=== PATIENT | male | born 1950 | race Caucasian/White ===

== ENCOUNTER 2018-02-24 08:32 | Inpatient (IN) | payer MEDICARE ==
[2018-02-24] MEDS ORDERED: DEXAMETHASONE SOD PHOSPHATE 10 MG/ML 1 ML VIAL IV STA (09:03)
[2018-02-24] MEDS ORDERED: IPRATROPIUM-ALBUTEROL 3 ML NEB INHALATION STA (09:03)
[2018-02-24] MEDS ORDERED: SODIUM CHLORIDE 0.9% 500 ML IV ONE (09:12)
--- NOTE | 2018-02-24 09:12 | ED ---
General Adult HPI - General Chief complaint: Chest Pain Stated complaint: Chest Pain Time Seen by Provider: 02/24/18 08:40 Source: patient, RN notes reviewed, old records reviewed Mode of arrival: ambulatory Limitations: no limitations - History of Present Illness Initial comments: 67-year-old male presenting with left lateral chest pain. Patient's pain has been present for the past one week or greater. Pain is sharp in nature, worse with deep inspiration. He does state that this starts in his left flank area and travels up into his left chest. No central chest pain. Patient has some mild dyspnea associated with this. He has been coughing. No formal diagnosis of COPD however patient does report increased cough and sputum production. Over the past 24 hours patient has developed worsening pain and subjective fever and chills. Patient is also had some nausea and dry heaving, no significant vomiting. Patient also reports 2 episodes of diarrhea. No abdominal pain. - Related Data Allergies Allergy/AdvReac Type Severity Reaction Status Date / Time codeine Allergy Nausea & Verified 02/24/18 08:34 Vomiting Review of Systems ROS Statement: Those systems with pertinent positive or pertinent negative responses have been documented in the HPI. ROS Other: All systems not noted in ROS Statement are negative. Past Medical History Past Medical History: Myocardial Infarction ([place]) History of Any Multi-Drug Resistant Organisms: None Reported Past Surgical History: Hernia Repair, Orthopedic Surgery Past Psychological History: No Psychological Hx Reported Smoking Status: Current every day smoker Past Alcohol Use History: Occasional Past Drug Use History: None Reported General Exam Limitations: no limitations General appearance: alert, in no apparent distress Head exam: Present: atraumatic, normocephalic Eye exam: Present: normal appearance, PERRL ENT exam: Present: normal exam Neck exam: Present: normal inspection. Absent: tenderness, meningismus Respiratory exam: Present: wheezes, rhonchi, decreased breath sounds. Absent: respiratory distress Cardiovascular Exam: Present: regular rate, normal rhythm GI/Abdominal exam: Present: soft. Absent: distended, tenderness, guarding Extremities exam: Present: normal inspection, normal capillary refill. Absent: pedal edema, calf tenderness Neurological exam: Present: alert, oriented X3, CN II-XII intact. Absent: motor sensory deficit Psychiatric exam: Present: normal affect, normal mood Skin exam: Present: warm, dry, intact. Absent: cyanosis, diaphoretic Course Vital Signs 02/24/18 02/24/18 02/24/18 08:34 09:10 09:21 Temperature 98.0 F Pulse Rate 70 60 61 Respiratory 18 18 Rate Blood Pressure 197/100 196/91 O2 Sat by Pulse 97 98 Oximetry 02/24/18 02/24/18 09:32 10:00 Temperature Pulse Rate 62 65 Respiratory 18 Rate Blood Pressure 190/87 O2 Sat by Pulse 98 Oximetry EKG Findings - EKG Comments: EKG Findings:: EKG: Normal sinus rhythm, possible left atrial enlargement, left ventricular hypertrophy, rate of 62, NC interval 142, QRS duration 92, QTC 418, T waves are upright, there is no ST segment elevation. Medical Decision Making - Medical Decision Making 67-year-old male presenting with intermittent left lateral chest pain, pain is worse with deep inspiration, sharp in nature. He does report cough which is productive of sputum and subjective fever and chills. Chest x-ray is obtained, shows a left-sided pleural effusion with atelectasis first pneumonia. Given the patient's history there is concern for community acquired pneumonia with parapneumonic effusion. There is elevated white blood cell count 11.1 which is predominantly neutrophils. BNP and troponin are negative. EKG is nonischemic. Patient will be admitted for IV antibiotics and treatment of presumed COPD. Consult will be placed to pulmonology. Case discussed with Dr. Deleon who will accept admission. - Lab Data Result diagrams: 02/24/18 09:10 02/24/18 09:10 Lab Results 02/24/18 02/24/18 02/24/18 Range/Units 09:10 09:10 09:10 WBC 11.1 H (3.8-10.6) k/uL RBC 4.61 (4.30-5.90) m/uL Hgb 13.0 (13.0-17.5) gm/dL Hct 39.9 (39.0-53.0) % MCV 86.5 (80.0-100.0) fL MCH 28.2 (25.0-35.0) pg MCHC 32.6 (31.0-37.0) g/dL RDW 14.1 (11.5-15.5) % Plt Count 438 (150-450) k/uL Neutrophils % 84 % Lymphocytes % 7 % Monocytes % 6 % Eosinophils % 2 % Basophils % 0 % Neutrophils # 9.4 H (1.3-7.7) k/uL Lymphocytes # 0.8 L (1.0-4.8) k/uL Monocytes # 0.6 (0-1.0) k/uL Eosinophils # 0.2 (0-0.7) k/uL Basophils # 0.0 (0-0.2) k/uL PT (9.0-12.0) sec INR (<1.2) APTT (22.0-30.0) sec Sodium 133 L (137-145) mmol/L Potassium 4.4 (3.5-5.1) mmol/L Chloride 96 L (98-107) mmol/L Carbon Dioxide 29 (22-30) mmol/L Anion Gap 8 mmol/L BUN 13 (9-20) mg/dL Creatinine 0.60 L (0.66-1.25) mg/dL Est GFR (CKD-EPI)AfAm >90 (>60 ml/min/1.73 sqM) Est GFR (CKD-EPI)NonAf >90 (>60 ml/min/1.73 sqM) Glucose 116 H (74-99) mg/dL Plasma Lactic Acid Denzel (0.7-2.0) mmol/L Calcium 9.1 (8.4-10.2) mg/dL Magnesium 2.0 (1.6-2.3) mg/dL Total Bilirubin 0.7 (0.2-1.3) mg/dL AST 16 L (17-59) U/L ALT 26 (21-72) U/L Alkaline Phosphatase 75 (38-126) U/L Total Creatine Kinase 26 L (55-170) U/L CK-MB (CK-2) 0.7 (0.0-2.4) ng/mL CK-MB (CK-2) Rel Index 2.7 Troponin I <0.012 (0.000-0.034) ng/mL NT-Pro-B Natriuret Pep pg/mL Total Protein 6.5 (6.3-8.2) g/dL Albumin 3.7 (3.5-5.0) g/dL 02/24/18 02/24/18 02/24/18 Range/Units 09:10 09:10 09:10 WBC (3.8-10.6) k/uL RBC (4.30-5.90) m/uL Hgb (13.0-17.5) gm/dL Hct (39.0-53.0) % MCV (80.0-100.0) fL MCH (25.0-35.0) pg MCHC (31.0-37.0) g/dL RDW (11.5-15.5) % Plt Count (150-450) k/uL Neutrophils % % Lymphocytes % % Monocytes % % Eosinophils % % Basophils % % Neutrophils # (1.3-7.7) k/uL Lymphocytes # (1.0-4.8) k/uL Monocytes # (0-1.0) k/uL Eosinophils # (0-0.7) k/uL Basophils # (0-0.2) k/uL PT 9.8 (9.0-12.0) sec INR 1.0 (<1.2) APTT 24.9 (22.0-30.0) sec Sodium (137-145) mmol/L Potassium (3.5-5.1) mmol/L Chloride (98-107) mmol/L Carbon Dioxide (22-30) mmol/L Anion Gap mmol/L BUN (9-20) mg/dL Creatinine (0.66-1.25) mg/dL Est GFR (CKD-EPI)AfAm (>60 ml/min/1.73 sqM) Est GFR (CKD-EPI)NonAf (>60 ml/min/1.73 sqM) Glucose (74-99) mg/dL Plasma Lactic Acid Denzel 0.9 (0.7-2.0) mmol/L Calcium (8.4-10.2) mg/dL Magnesium (1.6-2.3) mg/dL Total Bilirubin (0.2-1.3) mg/dL AST (17-59) U/L ALT (21-72) U/L Alkaline Phosphatase (38-126) U/L Total Creatine Kinase (55-170) U/L CK-MB (CK-2) (0.0-2.4) ng/mL CK-MB (CK-2) Rel Index Troponin I (0.000-0.034) ng/mL NT-Pro-B Natriuret Pep 215 pg/mL Total Protein (6.3-8.2) g/dL Albumin (3.5-5.0) g/dL Disposition Clinical Impression: Community acquired pneumonia, COPD (chronic obstructive pulmonary disease), Pleural effusion Disposition: ADMITTED IP TO THIS HOSP Condition: Stable Is patient prescribed a controlled substance at d/c from ED?: No Referrals: None,Stated [Primary Care Provider] - 1-2 days Decision to Admit Reason: Admit from EC Decision Date: 02/24/18 Decision Time: 10:39
[2018-02-24 09:25] LABS: Basophils % (A) 0 %; Eosinophils # (A) 0.2 k/uL (0-0.7); Eosinophils % (A) 2 %; HCT 39.9 % (39.0-53.0); Lymphocytes # (A) 0.8 k/uL (1.0-4.8); Lymphocytes % (A) 7 %; MCH 28.2 pg (25.0-35.0); MCHC 32.6 g/dL (31.0-37.0); MCV 86.5 fL (80.0-100.0); Mean Platelet Volume 6.3; Monocytes # (A) 0.6 k/uL (0-1.0); Monocytes % (A) 6 %; Neutrophils # (A) 9.4 k/uL (1.3-7.7); Neutrophils % (A) 84 %; Platelet Count 438 k/uL (150-450); RBC 4.61 m/uL (4.30-5.90); RDW 14.1 % (11.5-15.5); WBC 11.1 k/uL (3.8-10.6)
[2018-02-24 09:34] LABS: ALT 26 U/L (21-72); AST 16 U/L (17-59); Albumin 3.7 g/dL (3.5-5.0); Alkaline Phosphatase 75 U/L (38-126); Anion Gap 8 mmol/L; Blood Urea Nitrogen 13 mg/dL (9-20); Calcium 9.1 mg/dL (8.4-10.2); Carbon Dioxide 29 mmol/L (22-30); Chloride 96 mmol/L (98-107); Glucose 116 mg/dL (74-99); Potassium 4.4 mmol/L (3.5-5.1); Sodium 133 mmol/L (137-145); Total Bilirubin 0.7 mg/dL (0.2-1.3); Total Protein 6.5 g/dL (6.3-8.2)
[2018-02-24 09:39] LABS: Partial Thromboplastin Time 24.9 sec (22.0-30.0); Prothrombin Time 9.8 sec (9.0-12.0)
[2018-02-24 10:03] LABS: Creatine Kinase 26 U/L (55-170)
[2018-02-24 10:16] LABS: Creatine Kinase MB 0.7 ng/mL (0.0-2.4); Troponin I <0.012 ng/mL (0.000-0.034)
--- NOTE | 2018-02-24 10:24 | XR ---
EXAMINATION TYPE: XR chest 2V DATE OF EXAM: 02/24/2018 HISTORY: Chest Pain. REFERENCE: Previous study dated 12/02/2009. FINDINGS: There has developed a left-sided pleural effusion with associated atelectatic change. The r ight lung is clear. The heart is not enlarged. There is underlying COPD. IMPRESSION: 1. DEVELOPING LEFT-SIDED PLEURAL EFFUSION WITH ASSOCIATED AIRSPACE DISEASE. 2. UNDERLYING COPD.
[2018-02-24] MEDS ORDERED: AZITHROMYCIN 500 MG in DEXTROSE 5% IN WATER 250 ML IVPB STA ×2 (10:30)
[2018-02-24] MEDS ORDERED: cefTRIAXone IN SWFI 1,000 MG/10 ML SYRINGE IVP STA (10:31)
[2018-02-24] MEDS ORDERED: IPRATROPIUM-ALBUTEROL 3 ML NEB INHALATION PRN (10:33)
[2018-02-24] MEDS ORDERED: ONDANSETRON 4 MG/2 ML VIAL IVP PRN (11:08)
[2018-02-24 12:07] LABS: Glucose,Whole Blood 159 mg/dL (75-99)
--- NOTE | 2018-02-24 12:08 | P.HPIM ---
History of Present Illness H&P Date: 02/24/18 Chief Complaint: Shortness of breath, pleuritic chest pain The patient is a 67-year-old male with no significant past medical history who presents to the ER via private vehicle with chief complaint of progressive worsening shortness of breath the last week or so with associated clear productive cough for the last 3 weeks, the patient reports his shortness of breath is worsened by exertion. He also reports pleuritic left flank chest pain that is worsened by cough and takes his breath away, he reported taking his 's medication nitroglycerin earlier today that seemed to resolve his pain. The patient reports subjective fevers chills this morning. He denies any lower extremity swelling palpitations syncope or presyncope. The patient does have a significant 40 year pack history. He denies any weight loss, generalized weakness or fatigue. In the ER the patient had a conference and workup chest x-ray was suggestive of a left pleural effusion with airspace disease, patient Had a mild leukocytosis of 11.1. Hyponatremia 133, negative initial set of troponins. He was started on systemic steroids IV antibiotics breathing treatments and recommended for admission Review of Systems All other 12 point review of systems negative except for HPI Past Medical History Past Medical History: Myocardial Infarction ([place]) Additional Past Medical History / Comment(s): heart attach in 2009 Last Myocardial Infarction Date:: 2009 History of Any Multi-Drug Resistant Organisms: None Reported Past Surgical History: Hernia Repair, Orthopedic Surgery Additional Past Surgical History / Comment(s): broken wrist with a plate placed with screws Past Anesthesia/Blood Transfusion Reactions: No Reported Reaction Past Psychological History: No Psychological Hx Reported Smoking Status: Current every day smoker Past Alcohol Use History: Occasional Past Drug Use History: None Reported - Past Family History Father Additional Family Medical History / Comment(s): cancer Medications and Allergies Home Medications Medication Instructions Recorded Confirmed Type Acetaminophen Tab [Tylenol Tab] 1,000 mg PO Q6HR PRN 02/24/18 02/24/18 History Acetaminophen/Diphenhydramine 2 tab PO HS 02/24/18 02/24/18 History [Tylenol PM 500-25mg] Allergies Allergy/AdvReac Type Severity Reaction Status Date / Time codeine Allergy Nausea & Verified 02/24/18 12:20 Vomiting Physical Exam Vitals: Vital Signs Temp Pulse Resp BP Pulse Ox 02/24/18 10:55 98.0 F 71 20 183/91 99 02/24/18 10:00 65 18 190/87 98 02/24/18 09:32 62 02/24/18 09:21 61 02/24/18 09:10 60 18 196/91 98 02/24/18 08:34 98.0 F 70 18 197/100 97 Intake and Output 02/23/18 02/24/18 02/24/18 22:59 06:59 14:59 Other: Weight 61.235 kg Constitutional: No acute distress, conversant, pleasant Eyes: Anicteric sclerae, moist conjunctiva, no lid-lag, PERRLA ENMT: NC/AT,Oropharynx clear, no erythema, exudates Neck:Supple, FROM, no masses, or JVD, No carotid bruits; No thyromegaly Lungs: Very diminished breath sounds in the left lung field good air movement in the right lung field Clear to percussion, Normal respiratory effort, no accessory muscle use Cardiovascular: Heart regular in rate and rhythm, No murmurs, gallops, or rubs no peripheral edema Abdominal: Soft Nontender, nom distended, no guarding, no rebound or rigidity, Normoactive bowel sounds No hepatomegaly, No splenomegaly, No palpable mass No abdominal wall hernia noted Skin: Normal temperature, tone, texture, turgor, No induration No subcutaneous nodules, No rash, lesions, No ulcers Extremities:No digital cyanosis No clubbing, Pedal pulses intact and symmetrical Radial pulses intact and symmetrical Normal gait and station, No calf tenderness Psychiatric: Alert and oriented to person, place and time, Appropriate affect Intact judgement Neuro: Muscles Strength 5/5 in all 4 extremities, Sensation to light touch grossly present throughout, Cranial nerves II-XII grossly intact. No focal sensory deficits Results CBC & Chem 7: 02/24/18 09:10 02/24/18 09:10 Labs: Abnormal Lab Results - Last 24 Hours (Table) 02/24/18 02/24/18 02/24/18 Range/Units 09:10 09:10 09:10 WBC 11.1 H (3.8-10.6) k/uL Neutrophils # 9.4 H (1.3-7.7) k/uL Lymphocytes # 0.8 L (1.0-4.8) k/uL Sodium 133 L (137-145) mmol/L Chloride 96 L (98-107) mmol/L Creatinine 0.60 L (0.66-1.25) mg/dL Glucose 116 H (74-99) mg/dL AST 16 L (17-59) U/L Total Creatine Kinase 26 L (55-170) U/L Thrombosis Risk Factor Assmnt - Choose All That Apply Any of the Below Risk Factors Present?: No Assessment and Plan (1) COPD exacerbation Current Visit: Yes Status: Acute Code(s): J44.1 - CHRONIC OBSTRUCTIVE PULMONARY DISEASE W (ACUTE) EXACERBATION SNOMED Code(s): 069258781 (2) Accelerated hypertension Current Visit: Yes Status: Acute Code(s): I10 - ESSENTIAL (PRIMARY) HYPERTENSION SNOMED Code(s): 76720683 (3) Community acquired pneumonia Current Visit: Yes Status: Acute Code(s): J18.9 - PNEUMONIA, UNSPECIFIED ORGANISM SNOMED Code(s): 019812927 (4) Pleural effusion Current Visit: Yes Status: Acute Code(s): J90 - PLEURAL EFFUSION, NOT ELSEWHERE CLASSIFIED SNOMED Code(s): 37486742 (5) Hyponatremia Current Visit: Yes Status: Acute Code(s): E87.1 - HYPO-OSMOLALITY AND HYPONATREMIA SNOMED Code(s): 27167409 (6) Leukocytosis Current Visit: Yes Status: Acute Code(s): D72.829 - ELEVATED WHITE BLOOD CELL COUNT, UNSPECIFIED SNOMED Code(s): 773439672 Plan: The patient is admitted anticipated greater than 2 midnight stay with atypical chest pain, likely COPD exacerbation triggered by left-sided community-acquired pneumonia with possible parapneumonic effusion. Patient has no previous history of COPD but does have significant risk factors with his long history of smoking, he is continued on systemic steroids, empiric IV antibiotics Rocephin and azithromycin, scheduled and when necessary breathing treatments and started on inhaled formoterol. Chest ultrasound is been ordered to evaluate the extent of the effusion, on exam the patient is extremely diminished on the left [place] symptoms of moderate to large left-sided pleural effusion. Pulmonology is been consulted for further recommendations. Patient does have atypical chest discomfort which is possibly related to the pneumonia and pleural effusion, however patient has an elevated blood pressure history of smoking with coronary risk factors, we'll need to rule out ACS we'll trend his subsequent troponins, start him on aspirin, order echocardiogram and consult cardiology. The patient is started on SCDs and Lovenox for DVT prophylaxis and Protonix for GI prophylaxis. We'll continue to follow his clinical course
[2018-02-24] MEDS: IPRATROPIUM-ALBUTEROL 3 ML NEB INHALATION SCH ×3 (12:09→20:22)
[2018-02-24] MEDS ORDERED: hydrALAZINE HCL 25 MG TAB PO PRN (12:10)
[2018-02-24] MEDS ORDERED: ASPIRIN 325 MG TAB PO SCH (12:15)
[2018-02-24] MEDS: methylPREDNISolone SOD SUCCI 125 MG/2 ML VIAL IV SCH ×3 (12:53→23:43)
--- NOTE | 2018-02-24 13:14 | US ---
EXAMINATION TYPE: US chest DATE OF EXAM: 02/24/2018 COMPARISON: NONE CLINICAL HISTORY: Left sided pleural effusion. SOB, x-ray this am showed PL EFF EXAM MEASUREMENTS: Left Pleural Effusion fluid pocket: 6.0cm cm Left skin to fluid thickness: 2.3 cm Left side marked for possible thoracentesis outside the dept. Pulmonologists are able to review the images in the patient?s EMR. IMPRESSIONS: LEFT-SIDED PLEURAL EFFUSION.
[2018-02-24 14:25] LABS: Cholesterol 163 mg/dL (<200); HDL Cholesterol 63 mg/dL (40-60); LDL Cholesterol,Calculated 92 mg/dL (0-99); Triglycerides 42 mg/dL (<150)
[2018-02-24] MEDS: LISINOPRIL 5 MG TAB PO SCH ×2 (14:39→22:30)
[2018-02-24] MEDS: HYDROCHLOROTHIAZIDE 25 MG TAB PO SCH (14:39)
[2018-02-24 17:16] LABS: Glucose,Whole Blood 165 mg/dL (75-99)
[2018-02-24] MEDS: INSULIN ASPART 100 UNIT/ML 1 ML 10 ML VIAL SQ SCH ×2 (17:30→22:39)
[2018-02-24 18:13] LABS: Appearance,Urine Clear (Clear); Bilirubin,Urine Negative (Negative); Blood,Urine Negative (Negative); Color,Urine Yellow; Glucose,Urine (UA) 4+ (Negative); Ketones,Urine Negative (Negative); Leukocyte Esterase,Urine Negative (Negative); Mucus,Urine Rare /hpf; Nitrite,Urine Negative (Negative); PH, Urine 6.5 (5.0-8.0); Protein,Urine 1+ (Negative); RBC,Urine 1 /hpf (0-5); Specific Gravity,Urine 1.015 (1.001-1.035); WBC,Urine 1 /hpf (0-5)
[2018-02-24] MEDS: ACETAMINOPHEN TAB 325 MG TAB PO PRN ×2 (18:23→23:40)
[2018-02-24] MEDS: traMADol 50 MG TAB PO PRN (19:13)
--- NOTE | 2018-02-24 19:48 | CONS ---
CONSULTATION Mr. Daley is a 67-year-old male who does not follow with a physician on a regular basis. Has a history of chronic tobacco use and possible hypertension in the past, who presented with symptoms of left-sided chest discomfort going on for the last 2 weeks, worse with deep breathing and some time with activity associated with dyspnea and cough. He had no fever. He denies any clear PND or orthopnea. He has no peripheral edema. He has known history of coronary artery disease. According to him has underwent cardiac catheterization about 7 years ago at [facility] and at that time there was a suggestion that he may need intervention, but he declined. He has not seen a distribution lineman recently. He has no history of malignant arrhythmia. No dizziness nor syncope. He is taking no medication at home. His coronary risk factors are remarkable for the history of chronic tobacco use, about a pack a day. In addition to that he was told that he has hypertension. His lipid profile is not available. REVIEW OF SYSTEMS: Respiratory system: He has dyspnea on exertion and a cough. GI system: No recent GI bleeding. No peptic ulcer disease. system: No dysuria or hematuria. Nervous system: No stroke or seizure. SOCIAL HISTORY: He smokes a pack a day. He drinks caffeine and occasional alcohol. PHYSICAL EXAMINATION: Is a 67-year-old male, alert, oriented, in no apparent distress. Blood pressure 183/91 with a heart rate in the 70s. HEAD: Normocephalic. Eyes sclerae anicteric. Neck good upstroke. No bruit. Lungs with decreased air exchange bilaterally with a few rhonchi and decreased breath sounds in the left base. HEART: Regular rhythm S1, S2. No S3 with a holosystolic murmur in the apex. No diastolic murmur. ABDOMEN: Soft, nontender. Positive bowel sounds. No megaly. EXTREMITIES: No edema. LAB DATA: Lab data revealed troponin less than 0.012. BUN and creatinine 13 and 0.6. Potassium 4.4[place] [address], white blood cell of 11.1. EKG revealed a sinus mechanism, normal axis, intervals with evidence suggestive of left ventricular hypertrophy. Chest x-ray shows a left sided pleural effusion. IMPRESSION: 1. Chest discomfort, left-sided appears to be related to the pleural effusion and possible underlying pneumonia. The possibility off malignancy cannot be totally excluded. 2. History of coronary artery disease. 3. History of hypertension, not treated. 4. Chronic tobacco use. RECOMMENDATION: From the cardiac standpoint, I will obtain echocardiogram with Doppler. I will add an HALINA inhibitor and hydrochlorothiazide to his regimen. We will try to obtain the prior workup that was done in [place]. Patient may need some workup regarding the fusion, probably a CT scan to rule out any other pathology. Thank you for this consult. We will follow with you. MMODL / IJN: [id number] /
[2018-02-24] MEDS: FORMOTEROL FUMARATE 20 MCG/2 ML NEBU INHALATION SCH (20:22)
[2018-02-24 21:08] LABS: Glucose,Whole Blood 192 mg/dL (75-99)
[2018-02-25] MEDS: traMADol 50 MG TAB PO PRN ×2 (06:01→16:34)
[2018-02-25] MEDS: methylPREDNISolone SOD SUCCI 125 MG/2 ML VIAL IV SCH ×3 (06:24→17:48)
[2018-02-25] MEDS: IPRATROPIUM-ALBUTEROL 3 ML NEB INHALATION SCH ×4 (07:17→19:12)
[2018-02-25] MEDS: FORMOTEROL FUMARATE 20 MCG/2 ML NEBU INHALATION SCH ×2 (07:17→19:12)
[2018-02-25 07:18] LABS: Glucose,Whole Blood 167 mg/dL (75-99)
[2018-02-25] MEDS: LISINOPRIL 5 MG TAB PO SCH ×2 (07:44→22:08)
[2018-02-25] MEDS: INSULIN ASPART 100 UNIT/ML 1 ML 10 ML VIAL SQ SCH ×4 (07:44→22:10)
[2018-02-25] MEDS: PANTOPRAZOLE 40 MG TABLET PO SCH (07:44)
[2018-02-25] MEDS: cefTRIAXone IN SWFI 1,000 MG/10 ML SYRINGE IVP SCH (07:44)
[2018-02-25] MEDS: HYDROCHLOROTHIAZIDE 25 MG TAB PO SCH (07:45)
[2018-02-25] MEDS: ASPIRIN 81 MG PO SCH (07:45)
[2018-02-25] MEDS: ENOXAPARIN 40 MG/0.4 ML SYRINGE SQ SCH (07:45)
[2018-02-25 08:50] LABS: Basophils % (A) 0 %; Eosinophils % (A) 0 %; HCT 38.9 % (39.0-53.0); HGB 12.5 gm/dL (13.0-17.5); Lymphocytes # (A) 0.6 k/uL (1.0-4.8); Lymphocytes % (A) 3 %; MCH 28.5 pg (25.0-35.0); MCV 88.8 fL (80.0-100.0); Mean Platelet Volume 6.4; Monocytes # (A) 0.4 k/uL (0-1.0); Monocytes % (A) 2 %; Neutrophils # (A) 21.4 k/uL (1.3-7.7); Neutrophils % (A) 95 %; Platelet Count 432 k/uL (150-450); RBC 4.38 m/uL (4.30-5.90); RDW 14.3 % (11.5-15.5); WBC 22.5 k/uL (3.8-10.6)
[2018-02-25] MEDS ORDERED: AZITHROMYCIN 500 MG in DEXTROSE 5% IN WATER 250 ML IVPB SCH ×2 (09:00)
[2018-02-25 09:07] LABS: Anion Gap 11 mmol/L; Blood Urea Nitrogen 14 mg/dL (9-20); Calcium 9.2 mg/dL (8.4-10.2); Carbon Dioxide 23 mmol/L (22-30); Chloride 96 mmol/L (98-107); Cholesterol 145 mg/dL (<200); Glucose 273 mg/dL (74-99); HDL Cholesterol 64 mg/dL (40-60); LDL Cholesterol,Calculated 75 mg/dL (0-99); Potassium 4.8 mmol/L (3.5-5.1); Sodium 130 mmol/L (137-145); Triglycerides 32 mg/dL (<150)
--- NOTE | 2018-02-25 10:31 | ECHOF ---
Referral Reason:cp MEASUREMENTS -------- HEIGHT: 172.7 cm WEIGHT: 56.7 kg BP: 173/82 RVIDd: 3.0 cm (< 3.3) IVSd: 1.2 cm (0.6 - 1.1) LVIDd: 4.1 cm (3.9 - 5.3) LVPWd: 1.1 cm (0.6 - 1.1) IVSs: 1.6 cm LVIDs: 2.8 cm LVPWs: 1.7 cm LA Diam: 3.6 cm (2.7 - 3.8) LAESV Index (A-L): 36.06 ml/m Ao Diam: 2.6 cm (2.0 - 3.7) AV Cusp: 1.6 cm (1.5 - 2.6) LA Diam: 4.0 cm (2.7 - 3.8) MV EXCURSION: 21.171 mm (> 18.000) MV EF SLOPE: 74 mm/s (70 - 150) EPSS: 0.1 cm MV E Paul: 0.70 m/s MV DecT: 286 ms MV A Paul: 1.33 m/s MV E/A Ratio: 0.53 RAP: 5.00 mmHg RVSP: 30.24 mmHg FINDINGS -------- Sinus rhythm. This was a technically good study. LV size, wall thickness and systolic function are normal, with an EF greater than 55%. The left christy tricular size is normal. The right ventricle is normal in size. The left atrial size is normal. LA is moderately dilated 34-39 ml/m2 The right atrial size is normal. There is mild aortic valve sclerosis. There is no evidence of aortic regurgitation. Mild mitral annular calcification present. [id number] mitral regurgitation is present. Mild tricuspid regurgitation present. There is no evidence of pulmonary hypertension. The right v entricular systolic pressure, as measured by Doppler, is 30.24mmHg. There is no pulmonic regurgitation present. The aortic root size is normal. There is no pericardial effusion. CONCLUSIONS -------- 1. LV size, wall thickness and systolic function are normal, with an EF greater than 55%. 2. The left ventricular size is normal. 3. The right ventricle is normal in size. 4. The left atrial size is normal. 5. LA is moderately dilated 34-39 ml/m2 6. The right atrial size is normal. 7. There is mild aortic valve sclerosis. 8. Mild mitral annular calcification present. 9. [id number]-[id number] mitral regurgitation is present. 10. Mild tricuspid regurgitation present. 11. There is no evidence of pulmonary hypertension. 12. The right ventricular systolic pressure, as measured by Doppler, is 30.24mmHg. 13. There is no pulmonic regurgitation present. 14. The aortic root size is normal. 15. There is no pericardial effusion. FIREWALL ADMINISTRATOR: Laurel Harris RDCS
[2018-02-25] MEDS ORDERED: RX INFO: IV CONTRAST WAS GIVEN 1 EACH MISC MISCELLANE PRN (11:15)
--- NOTE | 2018-02-25 12:38 | P.PN ---
Subjective Mr. Daley is seen and examined resting comfortably in bed. He is currently admitted to the hospital and being treated for an acute exacerbation of COPD with pneumonia and accelerated hypertension. We have been asked to see him in consultation yesterday for symptoms of pleuritic chest discomfort. Echocardiogram was obtained and reveals preserved left ventricular systolic function with ejection fraction greater than 55%, moderately dilated left atrium , mild to moderate mitral regurgitation, mild tricuspid regurgitation and no evidence of pulmonary hypertension. Lisinopril 5 mg twice a day and hydrochlorothiazide 25 mg were added to his regimen yesterday. Blood pressure 149/66 heart rate 63 afebrile maintaining oxygen saturation on room air. He continues to complain of pleuritic chest pain. He states it is worse when he takes a deep breath or coughs. Laboratory data reviewed, WBC 22.5, hemoglobin 12.5, platelets 432, sodium 1:30, potassium 4.8, creatinine 0.58, cardiac enzymes negative 3, LDL 75 and HDL 64. Objective - Vital Signs Vital signs: Vital Signs Temp 99.2 F 02/25/18 06:28 Pulse 76 02/25/18 11:41 Resp 18 02/25/18 06:28 BP 149/66 02/25/18 10:22 Pulse Ox 92 L 02/25/18 07:18 Intake & Output 02/24/18 02/25/18 02/25/18 18:59 06:59 18:59 Weight 61.235 kg Other: Voiding Method Toilet Toilet # Voids 1 1 - Exam GENERAL: Well-appearing, well-nourished and in no acute distress. NECK: Supple without JVD or thyromegaly. LUNGS: Breath sounds clear to auscultation bilaterally. Respiration equal and unlabored. No wheezes, rales or rhonchi. Diminished bilaterally. HEART: Regular rate and rhythm with systolic ejection murmur at the base, no rubs or gallops. S1 and S2 heard. EXTREMITIES: Normal range of motion, no edema. No clubbing or cyanosis. Peripheral pulses intact. - Labs CBC & Chem 7: 02/25/18 08:15 02/25/18 08:15 Labs: Abnormal Lab Results - Last 24 Hours (Table) 02/24/18 02/24/18 02/24/18 Range/Units 09:10 17:12 20:42 WBC (3.8-10.6) k/uL Hgb (13.0-17.5) gm/dL Hct (39.0-53.0) % Neutrophils # (1.3-7.7) k/uL Lymphocytes # (1.0-4.8) k/uL Sodium (137-145) mmol/L Chloride (98-107) mmol/L Creatinine (0.66-1.25) mg/dL Glucose (74-99) mg/dL POC Glucose (mg/dL) 165 H 192 H (75-99) mg/dL HDL Cholesterol 63 H (40-60) mg/dL Urine Protein (Negative) Urine Glucose (UA) (Negative) Urine Mucus (None) /hpf 02/24/18 02/25/18 02/25/18 Range/Units Unknown 07:13 08:15 WBC 22.5 H (3.8-10.6) k/uL Hgb 12.5 L (13.0-17.5) gm/dL Hct 38.9 L (39.0-53.0) % Neutrophils # 21.4 H (1.3-7.7) k/uL Lymphocytes # 0.6 L (1.0-4.8) k/uL Sodium (137-145) mmol/L Chloride (98-107) mmol/L Creatinine (0.66-1.25) mg/dL Glucose (74-99) mg/dL POC Glucose (mg/dL) 167 H (75-99) mg/dL HDL Cholesterol (40-60) mg/dL Urine Protein 1+ H (Negative) Urine Glucose (UA) 4+ H (Negative) Urine Mucus Rare H (None) /hpf 02/25/18 Range/Units 08:15 WBC (3.8-10.6) k/uL Hgb (13.0-17.5) gm/dL Hct (39.0-53.0) % Neutrophils # (1.3-7.7) k/uL Lymphocytes # (1.0-4.8) k/uL Sodium 130 L (137-145) mmol/L Chloride 96 L (98-107) mmol/L Creatinine 0.58 L (0.66-1.25) mg/dL Glucose 273 H (74-99) mg/dL POC Glucose (mg/dL) (75-99) mg/dL HDL Cholesterol 64 H (40-60) mg/dL Urine Protein (Negative) Urine Glucose (UA) (Negative) Urine Mucus (None) /hpf Microbiology - Last 24 Hours (Table) 02/24/18 09:10 Blood Culture - Preliminary Blood No Growth after 24 hours Assessment and Plan Assessment: ASSESSMENT Pleuritic chest pain. An acute coronary event has been ruled out. Hypertension Chronic nicotine dependence COPD, acute exacerbation Pneumonia with left-sided pleural effusion Leukocytosis Febrile illness PLAN Continue with lisinopril 5 mg BID and hydrochlorothiazide as was previously ordered. An acute coronary event has been ruled out. Ongoing medical management of COPD and pneumonia. We will continue to follow as needed, please feel free to call with questions or concerns. The above impression and plan of care have been discussed and directed by the signing physician. Anni Morgan, nurse practitioner, acting as scribe for signing physician.
[2018-02-25] MEDS: HYDROmorphone 1 MG/ML 1 ML SYRINGE IVP PRN ×3 (13:11→22:09)
[2018-02-25 13:17] LABS: Glucose,Whole Blood 136 mg/dL (75-99)
--- NOTE | 2018-02-25 13:33 | CT ---
EXAMINATION TYPE: CT chest w con DATE OF EXAM: 02/25/2018 COMPARISON: 12/02/2009 HISTORY: Left sided chest pain CT DLP: 354 mGycm. Automated Exposure Control for Dose Reduction was Utilized. TECHNIQUE: CT scan of the thorax is performed following with IV Contrast, patient injected with 100 mL of Isovue 300. FINDINGS: LUNGS: There is mild background centrilobular emphysema. Scattered left upper lobe groundglass opacit ies are marked on the images with mild varicose left upper lobe bronchiectasis also noted. Intrafissu ral fluid is seen on the left with a moderate left pleural effusion and associated left sided multifo johanna compressive atelectasis. A right lower lobe posterior bleb is noted with lung markings within the splenic. Paracentral emphyse matous changes are seen medially and posteriorly within the right lower lobe. Right-sided subsegmenta l atelectasis is noted with no focal consolidation. MEDIASTINUM: There are no greater than 1 cm hilar or mediastinal lymph nodes. Ascending thoracic aort a is within normal limits of size measuring 3.4 cm No pericardial effusion is seen. No central pulm onary embolism is identified. OTHER: There is partial visualization of main pancreatic ductal dilatation. There is also prominence of the left adrenal gland. Moderate multilevel degenerative changes of the spine are present. IMPRESSION: 1. Moderate left pleural effusion and multifocal left-sided segmental and subsegmental atelectasis, l ikely compressive atelectasis. 2. Multifocal left upper lobe groundglass opacities suspicious for pneumonia although inflammatory et iology is also possible. Given the groundglass density short-term follow-up is recommended to ensure resolution as neoplasm such as bronchoalveolar carcinoma is also possible. 3. Main pancreatic ductal dilatation. Further evaluation with MRCP with and without contrast is recom mended.
--- NOTE | 2018-02-25 16:30 | P.CNPUL ---
History of Present Illness Consult date: 02/25/18 Reason for consult: dyspnea, COPD, pneumonia History of present illness: 67-year-old male patient presented to the hospital because of worsening shortness of breath and acute left-sided pleuritic chest pain. The patient's symptoms of been going on for less than a week. He was having some worsening shortness of breath and was unable to fully expand his lungs because of his increased pain. He is known to have COPD. Prior to his hospital admission he developed some worsening pain and he was feeling feverish and was having chills. No altered mentation. He did have 2 episodes of diarrhea. White cell count today is 22.5. Chest x-ray showing possibly development of a left-sided pleural effusion, I discussed this further investigated. Normal renal function. Currently the patient is on Rocephin and Zithromax. The patient on IV Solu-Medrol. The patient is receiving tramadol for pain control. Pain scale is about 5 out of 10. Review of Systems Constitutional: Reports chills, Reports fatigue, Reports fever Eyes: denies blurred vision, denies bulging eye, denies decreased vision Ears: deny: decreased hearing, ear discharge, earache, tinnitus Ears, nose, mouth and throat: Denies headache, Denies sore throat Cardiovascular: Reports chest pain, Reports decreased exercise tolerance, Reports dyspnea on exertion Respiratory: Reports dyspnea Gastrointestinal: Reports as per HPI, Reports diarrhea Genitourinary: Reports as per HPI Musculoskeletal: Denies myalgias Musculoskeletal: absent: ankle pain, ankle stiffness, ankle swelling Integumentary: Denies pruritus, Denies rash Neurological: Denies numbness, Denies weakness Psychiatric: Reports as per HPI Endocrine: Denies fatigue, Denies weight change Hematologic/Lymphatic: Reports as per HPI Allergic/Immunologic: Reports as per HPI Past Medical History Past Medical History: Coronary Artery Disease (CAD), COPD, Hypertension, Myocardial Infarction (MD) Additional Past Medical History / Comment(s): Aj myocardial infarction in 2009, hypertension, COPD Last Myocardial Infarction Date:: 2009 History of Any Multi-Drug Resistant Organisms: None Reported Past Surgical History: Hernia Repair, Orthopedic Surgery Additional Past Surgical History / Comment(s): broken wrist with a plate placed with screws Past Anesthesia/Blood Transfusion Reactions: No Reported Reaction Past Psychological History: No Psychological Hx Reported Smoking Status: Current every day smoker Past Alcohol Use History: Occasional Past Drug Use History: None Reported - Past Family History Father Additional Family Medical History / Comment(s): cancer Medications and Allergies Home Medications Medication Instructions Recorded Confirmed Type Acetaminophen Tab [Tylenol Tab] 1,000 mg PO Q6HR PRN 02/24/18 02/24/18 History Acetaminophen/Diphenhydramine 2 tab PO HS 02/24/18 02/24/18 History [Tylenol PM 500-25mg] Allergies Allergy/AdvReac Type Severity Reaction Status Date / Time codeine Allergy Nausea & Verified 02/24/18 12:20 Vomiting Physical Exam Vitals: Vital Signs Temp Pulse Pulse Resp BP Pulse Ox 02/25/18 15:55 68 16 02/25/18 15:43 66 14 93 L 02/25/18 15:00 98.1 F 66 16 138/71 92 L 02/25/18 11:41 76 02/25/18 11:27 72 02/25/18 10:22 63 149/66 02/25/18 07:40 76 02/25/18 07:26 76 02/25/18 07:25 76 02/25/18 07:18 76 92 L 02/25/18 06:28 99.2 F 79 18 173/83 92 L 02/24/18 23:00 100.5 F H 93 19 180/69 92 L 02/24/18 20:38 62 02/24/18 20:29 62 02/24/18 20:22 62 Intake and Output 02/25/18 02/25/18 02/25/18 06:59 14:59 22:59 Other: Voiding Method Toilet # Voids 1 1 Gen. appearance, comfortable a mild degree of distress mainly when he takes a deep breath due to pleurisy. Head exam was generally normal. There was no scleral icterus or corneal arcus. Mucous membranes were moist. Neck was supple and without jugular venous distension, thyromegaly, or carotid bruits. Carotids were easily palpable bilaterally. There was no adenopathy. Lungs sounds are diminished specially in the left lung base along with some dullness to percussion Cardiac exam revealed the PMI to be normally situated and sized. The rhythm was regular and no extrasystoles were noted during several minutes of auscultation. The first and second heart sounds were normal and physiologic splitting of the second heart sound was noted. There were no murmurs, rubs, clicks, or gallops. Abdominal exam revealed normal bowel sounds. The abdomen was soft, non-tender, and without masses, organomegaly, or appreciable enlargement of the abdominal aorta. Examination of the extremities revealed easily palpable radial, femoral and pedal pulses. There was no cyanosis, clubbing or edema. Examination of the skin revealed no evidence of significant rashes, suspicious appearing nevi or other concerning lesions. Results - Laboratory Findings CBC and BMP: 02/25/18 08:15 02/25/18 08:15 PT/INR, D-dimer PT 9.8 sec (9.0-12.0) 02/24/18 09:10 INR 1.0 (<1.2) 02/24/18 09:10 Abnormal lab findings: Abnormal Labs 02/24/18 02/24/18 02/24/18 09:10 09:10 09:10 WBC 11.1 H Hgb Hct Neutrophils # 9.4 H Lymphocytes # 0.8 L Sodium 133 L Chloride 96 L Creatinine 0.60 L Glucose 116 H POC Glucose (mg/dL) AST 16 L Total Creatine Kinase 26 L HDL Cholesterol Urine Protein Urine Glucose (UA) Urine Mucus 02/24/18 02/24/18 02/24/18 09:10 12:05 17:12 WBC Hgb Hct Neutrophils # Lymphocytes # Sodium Chloride Creatinine Glucose POC Glucose (mg/dL) 159 H 165 H AST Total Creatine Kinase HDL Cholesterol 63 H Urine Protein Urine Glucose (UA) Urine Mucus 02/24/18 02/24/18 02/25/18 20:42 Unknown 07:13 WBC Hgb Hct Neutrophils # Lymphocytes # Sodium Chloride Creatinine Glucose POC Glucose (mg/dL) 192 H 167 H AST Total Creatine Kinase HDL Cholesterol Urine Protein 1+ H Urine Glucose (UA) 4+ H Urine Mucus Rare H 02/25/18 02/25/18 02/25/18 08:15 08:15 12:41 WBC 22.5 H Hgb 12.5 L Hct 38.9 L Neutrophils # 21.4 H Lymphocytes # 0.6 L Sodium 130 L Chloride 96 L Creatinine 0.58 L Glucose 273 H POC Glucose (mg/dL) 136 H AST Total Creatine Kinase HDL Cholesterol 64 H Urine Protein Urine Glucose (UA) Urine Mucus - Diagnostic Findings Chest x-ray: image reviewed Assessment and Plan Plan: Assessment 1 left lower lobe pneumonia with suspected parapneumonic effusion must suspect bacterial pneumonia 2 acute pleuritic chest pain secondary to above 3 acute hypoxic respiratory failure 4 acute COPD exacerbation secondary to above 5 hyponatremia, likely secondary to pneumonia 6 hypertension 7 leukocytosis secondary to above 8 smoker Plan Monitor the white count. Monitor fever pattern. Monitor hemodynamics. Continue Rocephin and Zithromax. Obtain sputum Gram stain and culture. Obtain Legionella urine antigen. Blood culture. CAT scan of the chest. Consider a thoracentesis of the left lung and there is sizable effusion on the CAT scan of the chest.
[2018-02-25 17:11] LABS: Glucose,Whole Blood 184 mg/dL (75-99)
--- NOTE | 2018-02-25 18:38 | P.PN ---
Subjective Progress Note Date: 02/25/18 Patient was seen and examined. No acute events overnight. Patient continues to complain of cough of white/clear sputum. States it happened 3 weeks ago, getting better. He endorses chest pain only with coughing. States he has cardiac cath 6-7 years ago that showed 60% occlusion of an artery, no intervention done. He denies fever, chest pain, palpitations, changes in urination or bowel habits. Objective - Vital Signs Vital signs: Vital Signs Temp 98.1 F 02/25/18 15:00 Pulse 68 02/25/18 15:55 Resp 16 02/25/18 15:55 BP 138/71 02/25/18 15:00 Pulse Ox 93 L 02/25/18 15:43 Intake & Output 02/24/18 02/25/18 02/25/18 18:59 06:59 18:59 Weight 61.235 kg Other: Voiding Method Toilet Toilet # Voids 1 1 1 - Constitutional General appearance: Present: no acute distress, thin - EENT Eyes: Present: EOMI, PERRLA, normal appearance ENT: Present: hearing grossly normal - Neck Neck: Present: normal ROM. Absent: lymphadenopathy - Respiratory Respiratory: bilateral: diminished - Cardiovascular Rhythm: regular Heart sounds: normal: S1, S2 Abnormal Heart Sounds: Absent: systolic murmur, diastolic murmur, rub, click - Gastrointestinal General gastrointestinal: Present: soft. Absent: tenderness - Integumentary Integumentary: Absent: cyanotic - Psychiatric Psychiatric: Present: A&O x's 3, appropriate affect, intact judgment & insight - Labs CBC & Chem 7: 02/25/18 08:15 02/25/18 08:15 Labs: Abnormal Lab Results - Last 24 Hours (Table) 02/24/18 02/25/18 02/25/18 Range/Units 20:42 07:13 08:15 WBC 22.5 H (3.8-10.6) k/uL Hgb 12.5 L (13.0-17.5) gm/dL Hct 38.9 L (39.0-53.0) % Neutrophils # 21.4 H (1.3-7.7) k/uL Lymphocytes # 0.6 L (1.0-4.8) k/uL Sodium (137-145) mmol/L Chloride (98-107) mmol/L Creatinine (0.66-1.25) mg/dL Glucose (74-99) mg/dL POC Glucose (mg/dL) 192 H 167 H (75-99) mg/dL HDL Cholesterol (40-60) mg/dL 02/25/18 02/25/18 02/25/18 Range/Units 08:15 12:41 16:59 WBC (3.8-10.6) k/uL Hgb (13.0-17.5) gm/dL Hct (39.0-53.0) % Neutrophils # (1.3-7.7) k/uL Lymphocytes # (1.0-4.8) k/uL Sodium 130 L (137-145) mmol/L Chloride 96 L (98-107) mmol/L Creatinine 0.58 L (0.66-1.25) mg/dL Glucose 273 H (74-99) mg/dL POC Glucose (mg/dL) 136 H 184 H (75-99) mg/dL HDL Cholesterol 64 H (40-60) mg/dL Microbiology - Last 24 Hours (Table) 02/24/18 09:10 Blood Culture - Preliminary Blood No Growth after 24 hours Assessment and Plan (1) COPD exacerbation Narrative/Plan: * SOB likely 2/2 to COPD given long history of smoking. * CXR shows L sided pleural effusion and underlying COPD. CT chest shows L pleural effusion, atelectasis, L upper groundglass opacity suspicious for PNA. * Pulm recs appreciated - Continue Abx. Obtain gram stain and sputum Cx. Legionella UAg, BCx, consider thoracocentesis. * Plan: Continue DuoNeb Q4H scheduled, Formoterol INH BID, Solumedrol 60 mg IV Q6H. Continue Ceftriaxone and Azithromycin IV for coverage of CAP. FU Sputum Cx , Legionella UAg, BCx. FU Pulm. Current Visit: Yes Status: Acute Code(s): J44.1 - CHRONIC OBSTRUCTIVE PULMONARY DISEASE W (ACUTE) EXACERBATION SNOMED Code(s): 910302930 (2) Accelerated hypertension Narrative/Plan: * BP 138/71. Continue HCTZ 25mg PO daily, Lisinopril 5 mg PO BID. Continue ASA for ASCVD risk. Monitor vitals, titrate medication as necessary. Current Visit: Yes Status: Acute Code(s): I10 - ESSENTIAL (PRIMARY) HYPERTENSION SNOMED Code(s): 14176232 (3) Chest pain Narrative/Plan: * Pleuritic in nature, unlikely to be ACS but given long history of smoking and h/o cardiac workup will need to r/o ACS * Trops < 0.01 x 3, EKG shows NSR with LA enlargement and LVH. * Echocardiogram shows EF of 55% with normal LV size. * Plan: Patient started on ASA 81 mg PO daily. Will need to obtain records from [place] regarding previous cardiac workup. FU Cardiology regarding any further workup. Current Visit: Yes Status: Acute Code(s): R07.9 - CHEST PAIN, UNSPECIFIED SNOMED Code(s): 94048125 Plan: DM: ISS. POC glucose QID. Hypoglycemic precautions. DVT/GI Prophylaxis: Lovenox 40 SUBCUT daily, Protonix 40 PO daily.
[2018-02-25 20:49] LABS: Glucose,Whole Blood 208 mg/dL (75-99)
[2018-02-26] MEDS: methylPREDNISolone SOD SUCCI 125 MG/2 ML VIAL IV SCH ×4 (00:19→17:48)
[2018-02-26] MEDS: FORMOTEROL FUMARATE 20 MCG/2 ML NEBU INHALATION SCH ×2 (07:18→19:12)
[2018-02-26] MEDS: IPRATROPIUM-ALBUTEROL 3 ML NEB INHALATION SCH ×4 (07:18→19:12)
[2018-02-26 07:32] LABS: Glucose,Whole Blood 147 mg/dL (75-99)
[2018-02-26] MEDS: HYDROmorphone 1 MG/ML 1 ML SYRINGE IVP PRN ×2 (07:58→22:34)
[2018-02-26] MEDS: AZITHROMYCIN 500 MG TAB PO SCH (08:01)
[2018-02-26] MEDS: PANTOPRAZOLE 40 MG TABLET PO SCH (08:01)
[2018-02-26] MEDS: HYDROCHLOROTHIAZIDE 25 MG TAB PO SCH (08:02)
[2018-02-26] MEDS: LISINOPRIL 5 MG TAB PO SCH ×2 (08:02→22:29)
[2018-02-26] MEDS: cefTRIAXone IN SWFI 1,000 MG/10 ML SYRINGE IVP SCH (08:15)
[2018-02-26] MEDS: INSULIN ASPART 100 UNIT/ML 1 ML 10 ML VIAL SQ SCH ×4 (08:16→22:34)
[2018-02-26 09:00] LABS: HCT 35.3 % (39.0-53.0); HGB 11.7 gm/dL (13.0-17.5); MCH 29.1 pg (25.0-35.0); MCHC 33.1 g/dL (31.0-37.0); MCV 88.1 fL (80.0-100.0); Mean Platelet Volume 6.3; Platelet Count 415 k/uL (150-450); RBC 4.01 m/uL (4.30-5.90); RDW 14.3 % (11.5-15.5)
[2018-02-26] MEDS: ENOXAPARIN 40 MG/0.4 ML SYRINGE SQ SCH (09:06)
[2018-02-26] MEDS: ASPIRIN 81 MG PO SCH (09:06)
[2018-02-26 09:13] LABS: WBC 31.9 k/uL (3.8-10.6)
--- NOTE | 2018-02-26 09:14 | P.PN ---
Subjective Progress Note Date: 02/26/18 On today's evaluation of 02/26/2018, I'm seeing this patient for a follow-up. His pleurisy on the left side of the chest is improved. He has a congested cough. Unable to bring up much sputum. Antibiotic coverage remains unchanged. He is afebrile for now. CAT scan of the chest was completed and the patient was found to have a moderate-sized left-sided pleural effusion along with compressive atelectasis of the left lung base. Based on this, I performed a bedside thoracentesis on this patient a total of 600 mL of very turbid dark yellowish fluid was aspirated without any complications. The patient did experience some coughing at that of the procedure. Awaiting a postprocedure chest x-ray. The fluid will be sent for analysis. Objective - Vital Signs Vital signs: Vital Signs Temp 98.6 F 02/26/18 06:18 Pulse 76 02/26/18 07:35 Resp 18 02/26/18 06:18 BP 166/82 02/26/18 06:18 Pulse Ox 92 L 02/26/18 06:18 Intake & Output 02/25/18 02/26/18 02/26/18 18:59 06:59 18:59 Output Total 600 Balance -600 Output: Urine 600 Other: # Voids 1 1 - Exam Current appearance, comfortable likely distress. Head exam was generally normal. There was no scleral icterus or corneal arcus. Mucous membranes were moist. Neck was supple and without jugular venous distension, thyromegaly, or carotid bruits. Carotids were easily palpable bilaterally. There was no adenopathy. Lungs sounds are diminished in the left lung base along with some dullness to percussion. Cardiac exam revealed the PMI to be normally situated and sized. The rhythm was regular and no extrasystoles were noted during several minutes of auscultation. The first and second heart sounds were normal and physiologic splitting of the second heart sound was noted. There were no murmurs, rubs, clicks, or gallops. Abdominal exam revealed normal bowel sounds. The abdomen was soft, non-tender, and without masses, organomegaly, or appreciable enlargement of the abdominal aorta. Examination of the extremities revealed easily palpable radial, femoral and pedal pulses. There was no cyanosis, clubbing or edema. Examination of the skin revealed no evidence of significant rashes, suspicious appearing nevi or other concerning lesions. Neurologic the patient is awake and alert and there is no focal neurological deficit. - Labs CBC & Chem 7: 02/25/18 08:15 02/25/18 08:15 Labs: Abnormal Lab Results - Last 24 Hours (Table) 02/25/18 02/25/18 02/25/18 Range/Units 12:41 16:59 20:47 POC Glucose (mg/dL) 136 H 184 H 208 H (75-99) mg/dL 02/26/18 Range/Units 07:25 POC Glucose (mg/dL) 147 H (75-99) mg/dL Microbiology - Last 24 Hours (Table) 02/24/18 09:10 Blood Culture - Preliminary Blood No Growth after 24 hours Assessment and Plan Plan: Assessment 1 left lower lobe pneumonia with suspected parapneumonic effusion must suspect bacterial pneumonia and the patient had a parapneumonic effusion and a total of 600 mL of turbid dark yellowish pleural fluid was aspirated from the left lung. The patient remains on accommodation of Rocephin and Zithromax. 2 acute pleuritic chest pain secondary to above 3 acute hypoxic respiratory failure 4 acute COPD exacerbation secondary to above 5 hyponatremia, likely secondary to pneumonia 6 hypertension 7 leukocytosis secondary to above 8 smoker Plan Sent the pleural fluid for analysis. Continue same antibiotic coverage. Postprocedure chest x-ray. Incentive spirometer. Pain control with Dilaudid. We'll continue to follow. Repeat chest x-ray in a.m.
[2018-02-26] MEDS: traMADol 50 MG TAB PO PRN ×2 (09:19→17:47)
[2018-02-26 09:22] LABS: Anion Gap 9 mmol/L; Blood Urea Nitrogen 19 mg/dL (9-20); Calcium 9.2 mg/dL (8.4-10.2); Carbon Dioxide 25 mmol/L (22-30); Chloride 95 mmol/L (98-107); Glucose 173 mg/dL (74-99); Potassium 4.9 mmol/L (3.5-5.1); Sodium 129 mmol/L (137-145)
--- NOTE | 2018-02-26 09:30 | XR ---
EXAMINATION TYPE: XR chest 1V DATE OF EXAM: 02/26/2018 COMPARISON: 02/24/2018 HISTORY: Pain TECHNIQUE: Single frontal view of the chest is obtained. FINDINGS: Cardiomegaly with left-sided consolidation pleural effusion. No overt confluent density in the left upper lobe also noted. Subsegmental consolidation at the right lung base. Atherosclerotic change aorta. No pneumothorax. IMPRESSION: 1. Bilateral areas of consolidation and pleural effusion with a confluent density also noted in the l eft upper lobe. Correlate for pneumonia.
--- NOTE | 2018-02-26 10:02 | PCN ---
PROCEDURE NOTE PREOPERATIVE DIAGNOSIS: Parapneumonic left-sided pleural effusion. POSTOPERATIVE DIAGNOSIS: Parapneumonic left-sided pleural effusion. Indication Pleural effusion. A time-out was completed verifying correct patient, procedure, site, positioning , and implant (s) or special equipment if applicable. Ultrasound guidance was used and appropriate fluid pocket was identified and marked. Patient was positioned, prepped and draped in usual sterile fashion. Lidocaine was used to anesthetize the area. A Thoracentesis catheter was introduced into the pleural space and fluid was removed. Blood loss was none. A chest x-ray was ordered to evaluate for pneumothorax. Total Fluid Removed 600 mL Color of Fluid Turbid, dark yellowish. Fluid was sent for appropriate laboratory tests. Patient tolerated the procedure well and there were no complications. Total of 600 mL of turbid, dark yellowish pleural fluid was aspirated without complication. Chest x-ray is to follow. Pleural fluid was sent for analysis. This was done with ultrasound markings. MMODL / IJN: [id number] /
[2018-02-26 10:33] LABS: LDH 292 U/L (313-618); Total Protein 5.4 g/dL (6.3-8.2)
[2018-02-26 11:27] VITALS: BMI 20.5
--- NOTE | 2018-02-26 11:55 | P.PN ---
Subjective Progress Note Date: 02/26/18 Principal diagnosis: COPD exacerbation Patient was seen and examined. No acute events overnight. Patient reports no improvement in breathing from yesterday. Only has left sided chest pain with coughing or deep inspiration. Tolerating diet. Objective - Vital Signs Vital signs: Vital Signs Temp 98.6 F 02/26/18 06:18 Pulse 76 02/26/18 07:35 Resp 16 02/26/18 10:40 BP 166/82 02/26/18 06:18 Pulse Ox 95 02/26/18 10:40 Intake & Output 02/25/18 02/26/18 02/26/18 18:59 06:59 18:59 Output Total 600 Balance -600 Output: Urine 600 Other: # Voids 1 1 - Exam Constitutional: Patient is in no acute distress. HEENT: NC/AT. EOMI Neck: Normal ROM of the neck. No cervical LAD. Resp: Decreased breath sounds bilaterally. No wheezing or crackles. CVS: Normal S1 S2. RRR. No murmurs, rubs or gallops. GI: Soft, non-tender to palpation, no masses palpable. : Deferred. MSK: No vertebral tenderness. No LE edema. Neuro: AO x 3 - Labs CBC & Chem 7: 02/26/18 08:42 02/26/18 08:42 Labs: Abnormal Lab Results - Last 24 Hours (Table) 02/25/18 02/25/18 02/25/18 Range/Units 12:41 16:59 20:47 WBC (3.8-10.6) k/uL RBC (4.30-5.90) m/uL Hgb (13.0-17.5) gm/dL Hct (39.0-53.0) % Sodium (137-145) mmol/L Chloride (98-107) mmol/L Creatinine (0.66-1.25) mg/dL Glucose (74-99) mg/dL POC Glucose (mg/dL) 136 H 184 H 208 H (75-99) mg/dL Lactate Dehydrogenase (313-618) U/L Total Protein (6.3-8.2) g/dL 02/26/18 02/26/18 02/26/18 Range/Units 07:25 08:42 08:42 WBC 31.9 H* (3.8-10.6) k/uL RBC 4.01 L (4.30-5.90) m/uL Hgb 11.7 L (13.0-17.5) gm/dL Hct 35.3 L (39.0-53.0) % Sodium 129 L (137-145) mmol/L Chloride 95 L (98-107) mmol/L Creatinine 0.53 L (0.66-1.25) mg/dL Glucose 173 H (74-99) mg/dL POC Glucose (mg/dL) 147 H (75-99) mg/dL Lactate Dehydrogenase 292 L (313-618) U/L Total Protein 5.4 L (6.3-8.2) g/dL Microbiology - Last 24 Hours (Table) 02/24/18 09:10 Blood Culture - Preliminary Blood No Growth after 24 hours Assessment and Plan Assessment: Assessment 67 year old M with no PMH but long standing smoking history, presents to the ED for cough, SOB and chest pain. He is found to have a pneumonia with L pleural effusion on CXR. Admitted for treatment of PNA and to r/o ACS. Plan 1. SOB - Multifactorial: PNA, pleural effusion, probable COPD/emphysema, atelectasis - BNP 215 less likely to be cardiac in nature 2. Pneumonia with parapneumonic effusion - s/p thoracentesis 02/26 - Chest CT 02/25 shows moderate L pleural effusion and multifocal left upper lobe ground glass density. - CXR 02/26 shows bilateral consolidation and pleural effusion with a density in the L upper lobe. - Pain control: Post tap. Dilaudid 0.5 mg IV Q4 PRN, Tramadol 50 mg PO QID PRN, Tylenol 650 mg PO Q6 PRN. - Continue Ceftriaxone 1g IV daily (day 2) and Azithromycin 500 mg IV daily ( day 1). - Incentive spirometry. O2 per NC to maintain O2 sat > 92%. - Plan: FU Pulmonology. FU Legionella UAg, Sputum Cx. FU tap results. 3. COPD exacerbation: Long smoking history. Continue Solu-Medrol 60 mg IV Q6, Formoterol 20mcg INH BID, DuoNeb Q4 scheduled/PRN. Will need PFT outpatient. 4. Pleurisy: Pleuritic in nature, unlikely to be ACS but given long history of smoking and h/o cardiac workup will need to r/o ACS. Trops < 0.01 x 3, EKG shows NSR with LA enlargement and LVH. Echocardiogram shows EF of 55% with normal LV size. Continue ASA 81 mg PO daily. Cardiology onboard, ACS ruled out. 5. Hypertension: BP 166/82. Continue Lisinopril 5 mg PO BID, HCTZ 25 mg PO daily. ASA 81 mg PO daily for ASCVD risk held for tap. Monitor vitals, adjust medications as necessary. 6. Hyperglycemia: POC glucose 173. Temporary due to use of IV steroids. ISS. Hypoglycemic protocol. 7. Leukocytosis: WBC 31.9 with left shift. Likely due to IV steroid use. Tmax 100.5F 02/24, UA negative, BCx 48H prelim negative. No clinical signs of infection. Will continue to monitor. 8. Hyponatremia: Na 129. Patient asymptomatic. Dehydration vs. SIADH from lung etiology. FU SOsm, UOsm, Maria Dolores 9. Anemia: Hg 11.7 Hct 35.3 MCV 88.1, Hg 13 on admission. Patient received 500 cc bolus during admission. Will continue to monitor. FU Iron studies, CBC in the AM 10. DVT/GI Prophylaxis: Protonix 40 mg PO daily. Lovenox 40 mg SUBCUT daily held for tap. Zofran 4 mg IV Q6 PRN for N/V. (1) COPD exacerbation Current Visit: Yes Status: Acute Code(s): J44.1 - CHRONIC OBSTRUCTIVE PULMONARY DISEASE W (ACUTE) EXACERBATION SNOMED Code(s): 592172966 (2) Accelerated hypertension Current Visit: Yes Status: Acute Code(s): I10 - ESSENTIAL (PRIMARY) HYPERTENSION SNOMED Code(s): 49151611 (3) Chest pain Current Visit: Yes Status: Acute Code(s): R07.9 - CHEST PAIN, UNSPECIFIED SNOMED Code(s): 81134070
[2018-02-26 12:32] LABS: Glucose,Whole Blood 138 mg/dL (75-99)
[2018-02-26 14:07] LABS: Appearance,BF Cloudy; Nucleated Cells, Body Fluid 25000 /uL; RBC, Body Fluid 5100 /uL
[2018-02-26 14:08] LABS: Mononuclear WBC,Body Fluid 7 %; Polynuclear WBC,Body Fluid 93 %; Total Cells Counted,Body Fluid 100
[2018-02-26 17:00] LABS: Glucose,Whole Blood 207 mg/dL (75-99)
[2018-02-26 19:09] LABS: Total Protein, Body Fluid 3900 mg/dL
[2018-02-26 20:42] LABS: Glucose,Whole Blood 158 mg/dL (75-99)
[2018-02-27] MEDS: methylPREDNISolone SOD SUCCI 40 MG/ML 1 ML VIAL IV SCH ×2 (00:06→08:12)
[2018-02-27] MEDS: IPRATROPIUM-ALBUTEROL 3 ML NEB INHALATION SCH ×4 (07:12→19:02)
[2018-02-27] MEDS: FORMOTEROL FUMARATE 20 MCG/2 ML NEBU INHALATION SCH ×2 (07:12→19:02)
[2018-02-27 07:35] LABS: Glucose,Whole Blood 147 mg/dL (75-99)
[2018-02-27] MEDS: ENOXAPARIN 40 MG/0.4 ML SYRINGE SQ SCH (08:11)
[2018-02-27] MEDS: cefTRIAXone IN SWFI 1,000 MG/10 ML SYRINGE IVP SCH (08:11)
[2018-02-27] MEDS: LISINOPRIL 5 MG TAB PO SCH ×2 (08:11→21:48)
[2018-02-27] MEDS: ASPIRIN 81 MG PO SCH (08:12)
[2018-02-27] MEDS: AZITHROMYCIN 500 MG TAB PO SCH (08:12)
[2018-02-27] MEDS: PANTOPRAZOLE 40 MG TABLET PO SCH (08:12)
[2018-02-27] MEDS: INSULIN ASPART 100 UNIT/ML 1 ML 10 ML VIAL SQ SCH ×4 (08:12→21:48)
--- NOTE | 2018-02-27 10:28 | CDI ---
Documentation Clarification Form Date: 02/27/18 CDS: Ct Harris RN Admit Date: 02/24/18 Patient Name: Shaheed Daley ATTENTION: The Clinical Documentation Specialists (CDI) and [facility] Coding Staff appreciate your assistance in clarifying documentation. Please respond to the clarification below the line at the bottom and electronically sign. The CDI & [facility] Coding staff will review the response and follow-up if needed. Please note: Queries are made part of the Legal Health Record. If you have any questions, please contact the author of this message via ITS. Dr. Ryne Becerra, Can you please render your opinion on the following documentation: Presented with atypical chest pain, COPD exacerbation Patient diagnosed with Pneumonia and pleurisy on left side History/Risk Factors: [place], smoker, COPD, CAD, HTN Clinical Indicators: Vitals on admission:T 98.0, P 70, R 18, 197/100, 97% RA, T on 02/24 was 97.4 then reached 100.5 WBC on admission 11.1, 02/26 31.9 Lactic acid: 0.9 Blood cultures: no growth after 48 hours Pleural fluid had moderate polymorphonuclear leukocytes, no organisms Treatment: Antibiotics: Azithromycin IVPB once then PO, Rocephin IVPB, IV Bolus: x1L In your professional opinion, please clarify if these findings signify one of the following conditions, whether the condition is POA, and cause, if known: Sepsis ruled in Sepsis ruled out Severe Sepsis Septic Shock Other, please specify Unable to determine Please continue to document in your progress notes, under the line below and/or in the discharge summary in order to capture severity of illness and risk of mortality. Include clinical findings that support your diagnosis. I would say patient did not qualify for the diagnosis of sepsis. MTDD
--- NOTE | 2018-02-27 10:46 | P.PN ---
Subjective Progress Note Date: 02/27/18 Principal diagnosis: Pneumonia causing COPD exacerbation Patient was seen and examined. No acute events overnight. SOB improved per patient after procedure. Chest pain resolved. Complains of mild pain a the site of throacentesis yesterday. BM today. No other complaints. Objective - Vital Signs Vital signs: Vital Signs Temp 97.8 F 02/27/18 06:20 Pulse 69 02/27/18 07:25 Resp 17 02/27/18 06:20 BP 151/78 02/27/18 06:20 Pulse Ox 92 L 02/27/18 06:20 Intake & Output 02/26/18 02/27/18 02/27/18 18:59 06:59 18:59 Output Total 800 Balance -800 Weight 61.235 kg Output: Urine 800 Other: Voiding Method Toilet # Voids 1 - Exam General: non toxic, no distress, thin Derm: warm, dry Head: atraumatic, normocephalic, symmetric Eyes: EOMI, no lid lag, anicteric sclera Mouth: no lip lesion, mucus membranes moist Cardiovascular: S1S2 reg, no murmur, positive posterior tibial pulse bilateral, Lungs: Decreased breath sounds bilaterally, no rhonchi, no rales , no accessory muscle use Abdominal: soft, nontender to palpation, no guarding, no appreciable organomegaly Ext: no gross muscle atrophy, no edema, no contractures Neuro: CN II-XI grossly intact, no focal neuro deficits Psych: Alert, oriented, appropriate affect - Labs CBC & Chem 7: 02/26/18 08:42 02/26/18 08:42 Labs: Abnormal Lab Results - Last 24 Hours (Table) 02/26/18 02/26/18 02/26/18 Range/Units 08:42 12:22 16:52 POC Glucose (mg/dL) 138 H 207 H (75-99) mg/dL Lactate Dehydrogenase 292 L (313-618) U/L Total Protein 5.4 L (6.3-8.2) g/dL 02/26/18 02/27/18 Range/Units 20:40 07:26 POC Glucose (mg/dL) 158 H 147 H (75-99) mg/dL Lactate Dehydrogenase (313-618) U/L Total Protein (6.3-8.2) g/dL Microbiology - Last 24 Hours (Table) 02/26/18 09:10 Gram Stain - Preliminary Pleural Fluid Body Fluid Culture - Preliminary 02/24/18 09:10 Blood Culture - Preliminary Blood No Growth after 48 hours Assessment and Plan Assessment: Assessment 67 year old M with no PMH but long standing smoking history, presents to the ED for cough, SOB and chest pain. He is found to have a pneumonia with L pleural effusion on CXR. Admitted for treatment of PNA and to r/o ACS. Plan SOB - Multifactorial: Likely 2/2 bacterial PNA causing parapneumonic effusion causing COPD exacerbation - BNP 215 less likely to be cardiac in nature Pneumonia with parapneumonic effusion - s/p thoracentesis 02/26 - Analysis of fluid appears to be exudative. Gram stain negative for organisms. Culture 24H preliminary negative. - Chest CT 02/25 shows moderate L pleural effusion and multifocal left upper lobe ground glass density. - CXR 02/26 shows bilateral consolidation and pleural effusion with a density in the L upper lobe. - Pain control: Post tap. Dilaudid 0.5 mg IV Q4 PRN, Tramadol 50 mg PO QID PRN, Tylenol 650 mg PO Q6 PRN. - Continue Ceftriaxone 1g IV daily (day 2) and Azithromycin 500 mg IV daily ( day 1). - Incentive spirometry. O2 per NC to maintain O2 sat > 92%. - Plan: FU Pulmonology. FU Legionella UAg. FU tap results COPD exacerbation: Long smoking history. Solu-Medrol 60 mg IV cut down from Q6 to Q8 due to hyperglycemia, Formoterol 20mcg INH BID, DuoNeb Q4 scheduled/PRN. Will need PFT outpatient Hyponatremia: Na 129. Patient asymptomatic. Dehydration vs. SIADH from lung etiology vs. steroid induced. FU SOsm, UOsm, Maria Dolores Leukocytosis: WBC 31.9 with left shift. Likely due to IV steroid use. Tmax 100.5F 02/24, UA negative, BCx 48H prelim negative. No clinical signs of infection. Will continue to monitor. Anemia: Hg 11.7 Hct 35.3 MCV 88.1, Hg 13 on admission. Patient received 500 cc bolus during admission. Will continue to monitor. FU Iron studies, CBC in the AM Pleurisy: Pleuritic in nature, unlikely to be ACS but given long history of smoking and h/o cardiac workup will need to r/o ACS. Trops < 0.01 x 3, EKG shows NSR with LA enlargement and LVH. Echocardiogram shows EF of 55% with normal LV size. Continue ASA 81 mg PO daily. Cardiology onboard, ACS ruled out. Hypertension: BP 151/78. Continue Lisinopril 5 mg PO BID, HCTZ 25 mg PO daily. Resume ASA 81 mg PO daily for ASCVD risk. Monitor vitals, adjust medications as necessary. Hyperglycemia: POC glucose 147. Temporary due to use of IV steroids. ISS. Hypoglycemic protocol. DVT/GI Prophylaxis: Protonix 40 mg PO daily. Resume Lovenox 40 mg SUBCUT daily. Zofran 4 mg IV Q6 PRN for N/V. (1) COPD exacerbation Current Visit: Yes Status: Acute Code(s): J44.1 - CHRONIC OBSTRUCTIVE PULMONARY DISEASE W (ACUTE) EXACERBATION SNOMED Code(s): 920678246 (2) Accelerated hypertension Current Visit: Yes Status: Acute Code(s): I10 - ESSENTIAL (PRIMARY) HYPERTENSION SNOMED Code(s): 19574283 (3) Chest pain Current Visit: Yes Status: Acute Code(s): R07.9 - CHEST PAIN, UNSPECIFIED SNOMED Code(s): 47803180
--- NOTE | 2018-02-27 12:19 | XR ---
EXAMINATION TYPE: XR chest 2V DATE OF EXAM: 02/26/2018 COMPARISON: 02/27/2018 TECHNIQUE: PA and lateral views submitted. HISTORY: Cough possible pneumonia FINDINGS: Cardiomegaly with left-sided consolidation pleural effusion. No overt confluent density in the left u pper lobe also noted. Subsegmental consolidation at the right lung base. Atherosclerotic change aorta . No pneumothorax. IMPRESSION: 1. Bilateral consolidation and pleural effusion greater on the left is stable.
[2018-02-27 12:29] LABS: Glucose,Whole Blood 178 mg/dL (75-99)
--- NOTE | 2018-02-27 13:16 | P.PN ---
Subjective Progress Note Date: 02/27/18 Principal diagnosis: Left lower lobe pneumonia with parapneumonic moderate size left pleural effusion status post thoracentesis Patient is seen again today 02/27/2018 in follow-up on the regular medical floor. He remains awake and alert in no acute distress. He is breathing easier today as compared to yesterday. Left sided discomfort improving. Continue good O2 saturations in the 90s on room air. He's been afebrile. He is status post 600 ML's of dark turbulent straw-colored fluid removed by Dr. Nazario via thoracentesis yesterday. LDH 1813, protein 3.9. He remains on ceftriaxone and azithromycin. Chest x-ray reveals improvement. Objective - Vital Signs Vital signs: Vital Signs Temp 97.8 F 02/27/18 06:20 Pulse 72 02/27/18 11:25 Resp 17 02/27/18 06:20 BP 151/78 02/27/18 06:20 Pulse Ox 92 L 02/27/18 06:20 Intake & Output 02/26/18 02/27/18 02/27/18 18:59 06:59 18:59 Output Total 800 Balance -800 Weight 61.235 kg Output: Urine 800 Other: Voiding Method Toilet # Voids 1 - Exam Current appearance, comfortable in no acute distress. Head exam was generally normal. There was no scleral icterus or corneal arcus. Mucous membranes were moist. Neck was supple and without jugular venous distension, thyromegaly, or carotid bruits. Carotids were easily palpable bilaterally. There was no adenopathy. Lungs sounds are diminished in the left lung base along with some dullness to percussion. Cardiac exam revealed the PMI to be normally situated and sized. The rhythm was regular and no extrasystoles were noted during several minutes of auscultation. The first and second heart sounds were normal and physiologic splitting of the second heart sound was noted. There were no murmurs, rubs, clicks, or gallops. Abdominal exam revealed normal bowel sounds. The abdomen was soft, non-tender, and without masses, organomegaly, or appreciable enlargement of the abdominal aorta. Examination of the extremities revealed easily palpable radial, femoral and pedal pulses. There was no cyanosis, clubbing or edema. Examination of the skin revealed no evidence of significant rashes, suspicious appearing nevi or other concerning lesions. Neurologic the patient is awake and alert and there is no focal neurological deficit. - Labs CBC & Chem 7: 02/26/18 08:42 02/26/18 08:42 Labs: Abnormal Lab Results - Last 24 Hours (Table) 02/26/18 02/26/18 02/27/18 Range/Units 16:52 20:40 07:26 POC Glucose (mg/dL) 207 H 158 H 147 H (75-99) mg/dL Osmolality (280-301) mosm/kg 02/27/18 02/27/18 Range/Units 08:45 12:26 POC Glucose (mg/dL) 178 H (75-99) mg/dL Osmolality 279 L (280-301) mosm/kg Microbiology - Last 24 Hours (Table) 02/24/18 09:10 Blood Culture - Preliminary Blood No Growth after 72 hours 02/26/18 09:10 Gram Stain - Preliminary Pleural Fluid Body Fluid Culture - Preliminary Assessment and Plan Assessment: Assessment 1 left lower lobe pneumonia with suspected parapneumonic effusion must suspect bacterial pneumonia and the patient had a parapneumonic effusion and a total of 600 mL of turbid dark yellowish pleural fluid was aspirated from the left lung. The patient remains on accommodation of Rocephin and Zithromax. 2 acute pleuritic chest pain secondary to above 3 acute hypoxic respiratory failure 4 acute COPD exacerbation secondary to above 5 hyponatremia, likely secondary to pneumonia 6 hypertension 7 leukocytosis secondary to above 8 smoker Plan: The patient was seen and evaluated by Dr. Nazario. Follow-up chest x-ray reviewed. The patient has improved both clinically and radiographically. We' ll continue his current treatment plan. Repeat chest x-ray in the a.m. Possible discharge in the a.m. We'll continue to follow. I, the cosigning physician, performed a history & physical examination of the patient. Lungs sounds with crackles in posterior bases more so on the left. Diminished. Maintaining good O2 saturations in the 90s on room air. I discussed the assessment and plan of care with my nurse practitioner, Mikaela Blackwell. I attest to the above note as dictated by her.
[2018-02-27 13:46] LABS: HCT 36.9 % (39.0-53.0); HGB 11.7 gm/dL (13.0-17.5); MCH 27.9 pg (25.0-35.0); MCHC 31.7 g/dL (31.0-37.0); Mean Platelet Volume 7.6; Platelet Count 482 k/uL (150-450); RDW 14.3 % (11.5-15.5)
[2018-02-27 13:54] LABS: Anion Gap 9 mmol/L; Blood Urea Nitrogen 21 mg/dL (9-20); Calcium 9.1 mg/dL (8.4-10.2); Carbon Dioxide 28 mmol/L (22-30); Chloride 93 mmol/L (98-107); Glucose 204 mg/dL (74-99); Potassium 4.3 mmol/L (3.5-5.1); Sodium 130 mmol/L (137-145)
[2018-02-27 13:59] LABS: WBC 28.2 k/uL (3.8-10.6)
[2018-02-27 16:05] LABS: Iron Saturation 25.89 (15.00-50.00)
[2018-02-27 17:00] LABS: Glucose,Whole Blood 128 mg/dL (75-99)
[2018-02-27] MEDS ORDERED: MELATONIN 3 MG TABLET PO SCH (21:45)
[2018-02-27 21:50] LABS: Glucose,Whole Blood 166 mg/dL (75-99)
[2018-02-28 01:15] VITALS: RESP 20
[2018-02-28 07:00] LABS: Glucose,Whole Blood 87 mg/dL (75-99)
[2018-02-28] MEDS: FORMOTEROL FUMARATE 20 MCG/2 ML NEBU INHALATION SCH (07:05)
[2018-02-28] MEDS: IPRATROPIUM-ALBUTEROL 3 ML NEB INHALATION SCH ×2 (07:05→11:09)
[2018-02-28] MEDS: INSULIN ASPART 100 UNIT/ML 1 ML 10 ML VIAL SQ SCH ×2 (07:17→11:50)
[2018-02-28] MEDS: cefTRIAXone IN SWFI 1,000 MG/10 ML SYRINGE IVP SCH (07:29)
[2018-02-28] MEDS: PANTOPRAZOLE 40 MG TABLET PO SCH (07:29)
[2018-02-28] MEDS: LISINOPRIL 5 MG TAB PO SCH (07:29)
[2018-02-28] MEDS: ASPIRIN 81 MG PO SCH (07:29)
[2018-02-28] MEDS: ENOXAPARIN 40 MG/0.4 ML SYRINGE SQ SCH (07:29)
[2018-02-28] MEDS: AZITHROMYCIN 500 MG TAB PO SCH (07:29)
[2018-02-28 07:41] VITALS: BP 181/87; TEMP 98.8
[2018-02-28 08:18] LABS: Anion Gap 3 mmol/L; Blood Urea Nitrogen 19 mg/dL (9-20); Calcium 8.5 mg/dL (8.4-10.2); Carbon Dioxide 35 mmol/L (22-30); Chloride 96 mmol/L (98-107); Glucose 78 mg/dL (74-99); Potassium 4.2 mmol/L (3.5-5.1); Sodium 134 mmol/L (137-145)
[2018-02-28 08:34] LABS: Basophils % (A) 0 %; Eosinophils # (A) 0.1 k/uL (0-0.7); Eosinophils % (A) 1 %; HCT 37.2 % (39.0-53.0); HGB 12.4 gm/dL (13.0-17.5); Lymphocytes # (A) 1.8 k/uL (1.0-4.8); Lymphocytes % (A) 11 %; MCHC 33.2 g/dL (31.0-37.0); MCV 87.6 fL (80.0-100.0); Mean Platelet Volume 6.9; Monocytes # (A) 1.1 k/uL (0-1.0); Monocytes % (A) 7 %; Neutrophils % (A) 81 %; Platelet Count 458 k/uL (150-450); RBC 4.25 m/uL (4.30-5.90); RDW 14.2 % (11.5-15.5); WBC 16.2 k/uL (3.8-10.6)
[2018-02-28] MEDS ORDERED: predniSONE 20 MG TAB PO SCH (09:00)
--- NOTE | 2018-02-28 09:20 | XR ---
EXAMINATION TYPE: XR chest 2V DATE OF EXAM: 02/28/2018 COMPARISON: 02/27/2018 TECHNIQUE: PA and lateral views submitted. HISTORY: Shortness of breath FINDINGS: There is a stable appearing left-sided pleural effusion and consolidation. Tiny right effusion and co nsolidation noted and there is patchy infiltrate in the right upper lobe. Biapical pleural thickening. Heart size stable. Atherosclerotic change aorta. IMPRESSION: 1. Bilateral infiltrate and pleural effusion stable.
--- NOTE | 2018-02-28 10:03 | CDI ---
Last Revision, June 2017 Documentation Clarification Form Date: February 28, 2018 From: Kate Portillo Admit Date: 02/24/2018 10:35:00 AM Patient Name: Shaheed Daley Visit Number: [id number] ATTENTION: The Clinical Documentation Specialists (CDI) and [facility] Coding Staff appreciate your assistance in clarifying documentation. Please respond to the clarification below the line at the bottom and electronically sign. The CDI & [facility] Coding staff will review the response and follow-up if needed. Please note: Queries are made part of the Legal Health Record. If you have any questions, please contact the author of this message via ITS. Dr. Alexa Nazario, Acute hypoxic respiratory failure is found documented in your Progress Notes from 02/25 to 02/27 and I am unable to find clinical support in the documentation. Please document confirmation of the diagnosis of Acute hypoxic respiratory failure in your progress notes along with its associated clinical indicators ( i.e., signs, symptoms, findings, treatments, monitoring). If this condition was ruled out or documented in error, please indicate that in your progress notes or on the query. Thank you. Patient history/risk factors: Pneumonia, Pleural effusion, COPD exacerbation Clinical Indicators: Vital Signs: on admission RR 18, O2 sats 97% room air RR never higher than 20, O2 sat did drop to 92% on room air on 02/24 with RR 18 and 19 Other indicators: breathing described as normal and unlabored, ED noted there to be no respiratory distress, H&P notes no use of accessory muscles Treatment: IV Rocephin, PO Zithromax, updrafts Oxygen: noted occasionally to be on 2L nasal cannula, mostly been on room air Please continue to document in your progress notes and discharge summary in order to capture severity of illness and risk of mortality. Include clinical findings that support your diagnosis. Left lower lobe pneumonia, left lower lobe pleural effusion and acute hypoxic respiratory failure. It is documented or around the chart that the patient's oxygen saturation is been low and he mentioned that the patient's pulse ox was 92% and this is obviously a acute hypoxemic event. IGNACIO
[2018-02-28 11:19] VITALS: PULSE 69
--- NOTE | 2018-02-28 11:32 | P.PN ---
Subjective Progress Note Date: 02/28/18 Principal diagnosis: Pneumonia with pleural effusion. Patient was seen and examined. No acute events overnight. Saturating 90-91% on RA. States breathing has improved. Advised of the possible need for home O2 pending 6 min walk test. Patient adamant about not wanting oxygen, even temporarily when going home. Objective - Vital Signs Vital signs: Vital Signs Temp 98.8 F 02/28/18 06:25 Pulse 72 02/28/18 07:16 Resp 20 02/28/18 06:25 BP 181/87 02/28/18 06:25 Pulse Ox 90 L 02/28/18 06:25 Intake & Output 02/27/18 02/28/18 02/28/18 18:59 06:59 18:59 Intake Total 200 Balance 200 Intake: Oral 200 Other: Voiding Method Toilet # Voids 3 1 - Exam General: non toxic, no distress, thin Derm: warm, dry Head: atraumatic, normocephalic, symmetric Eyes: EOMI, no lid lag, anicteric sclera Mouth: no lip lesion, mucus membranes moist Cardiovascular: S1S2 reg, no murmur, positive posterior tibial pulse bilateral, Lungs: Decreased breath sounds bilaterally, no rhonchi, no rales , no accessory muscle use Abdominal: soft, nontender to palpation, no guarding, no appreciable organomegaly Ext: no gross muscle atrophy, no edema, no contractures Neuro: CN II-XI grossly intact, no focal neuro deficits Psych: Alert, oriented, appropriate affect - Labs CBC & Chem 7: 02/28/18 07:23 02/28/18 07:23 Labs: Abnormal Lab Results - Last 24 Hours (Table) 02/27/18 02/27/18 02/27/18 Range/Units 08:45 08:45 08:45 WBC 28.2 H* (3.8-10.6) k/uL RBC 4.20 L (4.30-5.90) m/uL Hgb 11.7 L (13.0-17.5) gm/dL Hct 36.9 L (39.0-53.0) % Plt Count 482 H (150-450) k/uL Neutrophils # (1.3-7.7) k/uL Monocytes # (0-1.0) k/uL Sodium (137-145) mmol/L Chloride (98-107) mmol/L Carbon Dioxide (22-30) mmol/L BUN (9-20) mg/dL Creatinine (0.66-1.25) mg/dL Glucose (74-99) mg/dL POC Glucose (mg/dL) (75-99) mg/dL Osmolality 279 L (280-301) mosm/kg Iron 58 L (65-175) ug/dL TIBC 224 L (228-460) ug/dL Ferritin 447.2 H (22.0-322.0) ng/mL 02/27/18 02/27/18 02/27/18 Range/Units 08:45 12:26 16:58 WBC (3.8-10.6) k/uL RBC (4.30-5.90) m/uL Hgb (13.0-17.5) gm/dL Hct (39.0-53.0) % Plt Count (150-450) k/uL Neutrophils # (1.3-7.7) k/uL Monocytes # (0-1.0) k/uL Sodium 130 L (137-145) mmol/L Chloride 93 L (98-107) mmol/L Carbon Dioxide (22-30) mmol/L BUN 21 H (9-20) mg/dL Creatinine 0.65 L (0.66-1.25) mg/dL Glucose 204 H (74-99) mg/dL POC Glucose (mg/dL) 178 H 128 H (75-99) mg/dL Osmolality (280-301) mosm/kg Iron (65-175) ug/dL TIBC (228-460) ug/dL Ferritin (22.0-322.0) ng/mL 02/27/18 02/28/18 02/28/18 Range/Units 21:32 07:23 07:23 WBC 16.2 H (3.8-10.6) k/uL RBC 4.25 L (4.30-5.90) m/uL Hgb 12.4 L (13.0-17.5) gm/dL Hct 37.2 L (39.0-53.0) % Plt Count 458 H (150-450) k/uL Neutrophils # 13.0 H (1.3-7.7) k/uL Monocytes # 1.1 H (0-1.0) k/uL Sodium 134 L (137-145) mmol/L Chloride 96 L (98-107) mmol/L Carbon Dioxide 35 H (22-30) mmol/L BUN (9-20) mg/dL Creatinine 0.63 L (0.66-1.25) mg/dL Glucose (74-99) mg/dL POC Glucose (mg/dL) 166 H (75-99) mg/dL Osmolality (280-301) mosm/kg Iron (65-175) ug/dL TIBC (228-460) ug/dL Ferritin (22.0-322.0) ng/mL Microbiology - Last 24 Hours (Table) 02/26/18 09:10 Gram Stain - Preliminary Pleural Fluid Body Fluid Culture - Preliminary 02/24/18 09:10 Blood Culture - Preliminary Blood No Growth after 72 hours Assessment and Plan Assessment: Assessment 67 year old M with no PMH but long standing smoking history, presents to the ED for cough, SOB and chest pain. He is found to have a pneumonia with L pleural effusion on CXR. Admitted for treatment of PNA and to r/o ACS. Plan SOB - Multifactorial: Likely 2/2 bacterial PNA causing parapneumonic effusion causing COPD exacerbation - BNP 215 less likely to be cardiac in nature Pneumonia with parapneumonic effusion - s/p thoracentesis 02/26 - Analysis of fluid appears to be exudative. Gram stain negative for organisms. Culture 48H preliminary negative. - BCx prelim 72H negative. Legionella UAg negative. - Chest CT 02/25 shows moderate L pleural effusion and multifocal left upper lobe ground glass density. - CXR (02/26) shows bilateral consolidation and pleural effusion with a density in the L upper lobe. - CXR (02/28) shows bilateral infiltrate and pleural effusion stable. - Pain control: Post tap. Dilaudid 0.5 mg IV Q4 PRN, Tramadol 50 mg PO QID PRN, Tylenol 650 mg PO Q6 PRN. - Continue Ceftriaxone 1g IV daily (day 4) and Azithromycin 500 mg IV daily ( day 3). - Incentive spirometry. O2 per NC to maintain O2 sat > 92%. FU Pulmonology. FU final tap results. FU 6 min walk test. COPD exacerbation: Long smoking history. IV Solumedrol DC'd and patient started on Prednisone 20 mg PO daily. Continue Formoterol 20mcg INH BID, DuoNeb Q4 scheduled/PRN. Will need PFT outpatient Hyponatremic: Na 129 to 134, improving. Patient asymptomatic. ULytes and OSm pointing towards SIADH but patient's Na is improving since discontinuing HCTZ. Will continue to monitor. Hypochloremic metabolic alkalosis: Cl 96 and HCO3 of 35. Likely due to HCTZ use. Will hold HCTZ and continue to monitor. Leukocytosis: WBC 31.9 to 16.2, improving. Likely due to IV steroid use but anticipate WBC to drop since decreasing steroid dose. Tmax 100.5F 02/24, UA negative, BCx 48H prelim negative. No clinical signs of infection. Will continue to monitor. Anemia: Hg 12.4 Hct 37.2 MCV 87.6. Iron studies consistent with AOCD (elevated Ferritin, low Fe/TIBC). Will continue to monitor. Pleurisy: Pleuritic in nature, unlikely to be ACS but given long history of smoking and h/o cardiac workup will need to r/o ACS. Trops < 0.01 x 3, EKG shows NSR with LA enlargement and LVH. Echocardiogram shows EF of 55% with normal LV size. Continue ASA 81 mg PO daily. Cardiology onboard, ACS ruled out. Hypertension: BP 181/86. Continue Lisinopril 5 mg PO BID, HCTZ 25 mg PO daily. Resume ASA 81 mg PO daily for ASCVD risk. Monitor vitals, adjust medications as necessary. Hyperglycemia: POC glucose 78. Temporary due to use of IV steroids. ISS. Hypoglycemic protocol. DVT/GI Prophylaxis: Protonix 40 mg PO daily. Lovenox 40 mg SUBCUT daily. Zofran 4 mg IV Q6 PRN for N/V. (1) COPD exacerbation Current Visit: Yes Status: Acute Code(s): J44.1 - CHRONIC OBSTRUCTIVE PULMONARY DISEASE W (ACUTE) EXACERBATION SNOMED Code(s): 877275868 (2) Accelerated hypertension Current Visit: Yes Status: Acute Code(s): I10 - ESSENTIAL (PRIMARY) HYPERTENSION SNOMED Code(s): 37173739 (3) Chest pain Current Visit: Yes Status: Acute Code(s): R07.9 - CHEST PAIN, UNSPECIFIED SNOMED Code(s): 97380276
[2018-02-28 11:55] LABS: Glucose,Whole Blood 106 mg/dL (75-99)
--- NOTE | 2018-02-28 12:17 | P.PN ---
Subjective Progress Note Date: 02/28/18 On today's evaluation of a 02/28/2018, the patient is looking well. He is improved. He is not having any significant shortness of breath. Repeat chest x -ray was done and showed marked improvement in the size of the left-sided pleural effusion with some minimal residual effusion and left lung base. Current pulse ox is 93% on room air. No significant pleurisy. The fluid cultures of been negative. The patient was covered with broad-spectrum antibiotics with a combination of Rocephin and Zithromax. His white cell count is improving and is currently down to 16.2. The rest of the blood work and electrodes are all within normal limits. Blood culture been negative. He is using incentive spirometer. He is pulling approximately 1500 on his incentive spirometer. Objective - Vital Signs Vital signs: Vital Signs Temp 98.8 F 02/28/18 06:25 Pulse 69 02/28/18 11:18 Resp 20 02/28/18 06:25 BP 181/87 02/28/18 06:25 Pulse Ox 91 L 02/28/18 11:57 Intake & Output 02/27/18 02/28/18 02/28/18 18:59 06:59 18:59 Intake Total 200 Balance 200 Intake: Oral 200 Other: Voiding Method Toilet # Voids 3 1 - Exam Current appearance, comfortable likely distress. Head exam was generally normal. There was no scleral icterus or corneal arcus. Mucous membranes were moist. Neck was supple and without jugular venous distension, thyromegaly, or carotid bruits. Carotids were easily palpable bilaterally. There was no adenopathy. Lungs sounds are diminished in the left lung base along with some dullness to percussion. Cardiac exam revealed the PMI to be normally situated and sized. The rhythm was regular and no extrasystoles were noted during several minutes of auscultation. The first and second heart sounds were normal and physiologic splitting of the second heart sound was noted. There were no murmurs, rubs, clicks, or gallops. Abdominal exam revealed normal bowel sounds. The abdomen was soft, non-tender, and without masses, organomegaly, or appreciable enlargement of the abdominal aorta. Examination of the extremities revealed easily palpable radial, femoral and pedal pulses. There was no cyanosis, clubbing or edema. Examination of the skin revealed no evidence of significant rashes, suspicious appearing nevi or other concerning lesions. Neurologic the patient is awake and alert and there is no focal neurological deficit. - Labs CBC & Chem 7: 02/28/18 07:23 02/28/18 07:23 Labs: Abnormal Lab Results - Last 24 Hours (Table) 02/27/18 02/27/18 02/27/18 Range/Units 08:45 08:45 08:45 WBC 28.2 H* (3.8-10.6) k/uL RBC 4.20 L (4.30-5.90) m/uL Hgb 11.7 L (13.0-17.5) gm/dL Hct 36.9 L (39.0-53.0) % Plt Count 482 H (150-450) k/uL Neutrophils # (1.3-7.7) k/uL Monocytes # (0-1.0) k/uL Sodium (137-145) mmol/L Chloride (98-107) mmol/L Carbon Dioxide (22-30) mmol/L BUN (9-20) mg/dL Creatinine (0.66-1.25) mg/dL Glucose (74-99) mg/dL POC Glucose (mg/dL) (75-99) mg/dL Osmolality 279 L (280-301) mosm/kg Iron 58 L (65-175) ug/dL TIBC 224 L (228-460) ug/dL Ferritin 447.2 H (22.0-322.0) ng/mL 02/27/18 02/27/18 02/27/18 Range/Units 08:45 12:26 16:58 WBC (3.8-10.6) k/uL RBC (4.30-5.90) m/uL Hgb (13.0-17.5) gm/dL Hct (39.0-53.0) % Plt Count (150-450) k/uL Neutrophils # (1.3-7.7) k/uL Monocytes # (0-1.0) k/uL Sodium 130 L (137-145) mmol/L Chloride 93 L (98-107) mmol/L Carbon Dioxide (22-30) mmol/L BUN 21 H (9-20) mg/dL Creatinine 0.65 L (0.66-1.25) mg/dL Glucose 204 H (74-99) mg/dL POC Glucose (mg/dL) 178 H 128 H (75-99) mg/dL Osmolality (280-301) mosm/kg Iron (65-175) ug/dL TIBC (228-460) ug/dL Ferritin (22.0-322.0) ng/mL 02/27/18 02/28/18 02/28/18 Range/Units 21:32 07:23 07:23 WBC 16.2 H (3.8-10.6) k/uL RBC 4.25 L (4.30-5.90) m/uL Hgb 12.4 L (13.0-17.5) gm/dL Hct 37.2 L (39.0-53.0) % Plt Count 458 H (150-450) k/uL Neutrophils # 13.0 H (1.3-7.7) k/uL Monocytes # 1.1 H (0-1.0) k/uL Sodium 134 L (137-145) mmol/L Chloride 96 L (98-107) mmol/L Carbon Dioxide 35 H (22-30) mmol/L BUN (9-20) mg/dL Creatinine 0.63 L (0.66-1.25) mg/dL Glucose (74-99) mg/dL POC Glucose (mg/dL) 166 H (75-99) mg/dL Osmolality (280-301) mosm/kg Iron (65-175) ug/dL TIBC (228-460) ug/dL Ferritin (22.0-322.0) ng/mL 02/28/18 Range/Units 11:37 WBC (3.8-10.6) k/uL RBC (4.30-5.90) m/uL Hgb (13.0-17.5) gm/dL Hct (39.0-53.0) % Plt Count (150-450) k/uL Neutrophils # (1.3-7.7) k/uL Monocytes # (0-1.0) k/uL Sodium (137-145) mmol/L Chloride (98-107) mmol/L Carbon Dioxide (22-30) mmol/L BUN (9-20) mg/dL Creatinine (0.66-1.25) mg/dL Glucose (74-99) mg/dL POC Glucose (mg/dL) 106 H (75-99) mg/dL Osmolality (280-301) mosm/kg Iron (65-175) ug/dL TIBC (228-460) ug/dL Ferritin (22.0-322.0) ng/mL Microbiology - Last 24 Hours (Table) 02/24/18 09:10 Blood Culture - Preliminary Blood No Growth after 96 hours 02/26/18 09:10 Gram Stain - Preliminary Pleural Fluid Body Fluid Culture - Preliminary Assessment and Plan Plan: Assessment 1 left lower lobe pneumonia with suspected parapneumonic effusion must suspect bacterial pneumonia and the patient had a parapneumonic effusion and a total of 600 mL of turbid dark yellowish pleural fluid was aspirated from the left lung. The pleural fluid cultures are negative thus far. Clinically the patient improved. White cell count is improving. He is on examination Rocephin and Zithromax. Oxidation is stable with a pulse ox of 92% on room air. 2 acute pleuritic chest pain secondary to above 3 acute hypoxic respiratory failure 4 acute COPD exacerbation secondary to above, improved 5 hyponatremia, likely secondary to pneumonia 6 hypertension 7 leukocytosis secondary to above, improving 8 smoker Plan The patient can be discharged home on Levaquin 750 mg for an additional 7 days. Continue using incentive spirometer. Smoking cessation counseling was done. Awaiting pleural fluid cytology. Awaiting final pleural fluid cultures. Repeat chest x-ray from today was noted and there is no significant reacclimation left-sided pleural effusion. Outpatient follow-up chest x-ray in a week's time to assess progression of his pneumonia and parapneumonic effusion. Clear for discharge from the pulmonary standpoint.
--- NOTE | 2018-02-28 18:04 | P.DS ---
Providers Date of admission: 02/24/18 10:35 Expected date of discharge: 02/28/18 Attending physician: Olivier Deleon MD Consults: 02/24/18 10:33 Consult Physician Routine Consulting Provider: Pelon Del Rosario Consult Reason/Comments: Community Acquired pneumonia, COPD, concern for parapneumonic effusion Do you want consulting provider notified?: Yes 02/24/18 12:11 Consult Physician Routine Consulting Provider: Ernesto Goodwin Consult Reason/Comments: atypical chest pain Do you want consulting provider notified?: Yes Primary care physician: Stated None - Discharge Diagnosis(es) (1) COPD exacerbation Status: Acute (2) Accelerated hypertension Status: Acute (3) PNA (pneumonia) Status: Acute (4) Pleurisy Status: Acute (5) Metabolic alkalosis Status: Acute (6) Hyponatremia Status: Acute (7) Pleural effusion Status: Acute Hospital Course: Patient is a 67-year-old male with no past medical history who initially presented to the ED with a chief complaint of shortness of breath. Patient states that his breathing has worsened over the past week, worsened with exertion. Patient also reported cough, productive of white sputum. Patient also reported L sided chest pain, aggravated with cough and deep inspiration. Patient endorsed a 40 pack year history. He denies fever, chills, nausea, vomiting, palpitations, dizziness, changes in urination or bowel habits. In the ED he was found to have a left sided pleural effusion of chest XRay. Patient also had a mild leukocytosis of 11.1 and a sodium of 133. His Troponin was negative. He was given IV steroids in the ED and was admitted for further workup and management. His shortness of breath was thought to be multifactorial, likely secondary to bacterial pneumonia causing parapnemonic effusion causing COPD exacerbation. Pulmonology was consutled and thoracocentesis was performed on 02/26 and showed an exudate with negative Gram stain and negative preliminary cultures. Blood cultures are preliminarily negative at 72 hours. Legionella urine antigen was negative. Chest CT showed moderate left pleural effusion with multifocal left upper lobe groundglass density. Chest x-ray on February 28 showed bilateral infiltrate with stable pleural effusion. Patient was initially started on IV ceftriaxone and azithromycin and discharged on Levofloxacin PO for 7 days. For his COPD, patient was discharged on Symbicort, DuoNeb, Albuterol and Prednisone. Patient was noted to be hyponatremic during his hospitalization. His sodium initially was 129, which improved to 134 on discharge. Patient was asymptomatic through his hospitalization. Urine electrolytes and urine osmolality was done and HCTZ was held. Patient was noted to have leukocytosis of 31.9 which improved to 16.2 at the time of discharge. This was thought to be likely secondary to steroid use. Patient did have one incidence of fever at 100.5 on February 24. Blood cultures are preliminarily negative at 48 hours and urinalysis was negative for nitrite or leukocyte esterase. Patient was found to be anemic during his hospitalization. His hemoglobin was 12.4 and hematocrit of 37.2 with an MCV of 87.6 at the time of discharge. Iron studies was consistent with anemia of chronic disease. Patient was initially admitted for chest pain, thought to be Pleurisy but needed to rule out acute coronary syndrome. Troponins were negative 3, EKG showed normal sinus rhythm with a left atrial enlargement and LVH. Echocardiogram showed ejection fraction 55% with normal LV function. Patient was started on aspirin 81 mg daily and cleared by Cardiology for discharge. Patient was advised to obtain a chest x-ray in 1 week to check for resolution of his pneumonia and pleural effusion. Patient was advised to obtain a pulmonary function test through his primary care provider. Patient was advised to obtain a BMP and CBC within 1 week to check for resolution of his leukocytosis, anemia, hyponatremia, hypochloremia, and metabolic alkalosis. (Scripts were provided to the patient) This complex discharge took greater than 30 minutes. General: non toxic, no distress, thin Derm: warm, dry Head: atraumatic, normocephalic, symmetric Eyes: EOMI, no lid lag, anicteric sclera Mouth: no lip lesion, mucus membranes moist Cardiovascular: S1S2 reg, no murmur, positive posterior tibial pulse bilateral, Lungs: Decreased breath sounds bilaterally, no rhonchi, no rales , no accessory muscle use Abdominal: soft, nontender to palpation, no guarding, no appreciable organomegaly Ext: no gross muscle atrophy, no edema, no contractures Neuro: CN II-XI grossly intact, no focal neuro deficits Psych: Alert, oriented, appropriate affect Pertinent Studies: Multiple CXRs Chest CT Procedures: Thoracentesis Patient Condition at Discharge: Stable Plan - Discharge Summary Discharge Rx Participant: Yes New Discharge Prescriptions: New Albuterol Inhaler [Ventolin Hfa Inhaler] 1 - 2 puff INHALATION Q6HR PRN #1 inhaler PRN Reason: Shortness of breath Aspirin 81 mg PO DAILY #30 chew Fluticasone/Salmeterol [Fluticasone-Salmeterol 232-14] 2 puff INHALATION BID #1 device Ipratropium-Albuterol Nebulize [Duoneb 0.5 mg-3 mg/3 ml Soln] 3 ml INHALATION RT-Q4H PRN #30 ampul.neb PRN Reason: Shortness Of Breath Or Wheezing Levofloxacin [Levaquin] 750 mg PO DAILY 7 Days #7 tab Lisinopril [Zestril] 5 mg PO DAILY #30 tab predniSONE 40 mg PO DAILY #3 tab Discontinued Acetaminophen/Diphenhydramine [Tylenol PM 500-25mg] 2 tab PO HS Acetaminophen Tab [Tylenol Tab] 1,000 mg PO Q6HR PRN PRN Reason: Pain Discharge Medication List Albuterol Inhaler [Ventolin Hfa Inhaler] 1 - 2 puff INHALATION Q6HR PRN #1 inhaler 02/28/18 [Rx] Aspirin 81 mg PO DAILY #30 chew 02/28/18 [Rx] Fluticasone/Salmeterol [Fluticasone-Salmeterol 232-14] 2 puff INHALATION BID #1 device 02/28/18 [Rx] Ipratropium-Albuterol Nebulize [Duoneb 0.5 mg-3 mg/3 ml Soln] 3 ml INHALATION RT -Q4H PRN #30 ampul.neb 02/28/18 [Rx] Levofloxacin [Levaquin] 750 mg PO DAILY 7 Days #7 tab 02/28/18 [Rx] Lisinopril [Zestril] 5 mg PO DAILY #30 tab 02/28/18 [Rx] predniSONE 40 mg PO DAILY #3 tab 02/28/18 [Rx] Follow up Appointment(s)/Referral(s): Demarco Pinzon MD [STAFF PHYSICIAN] - 03/05/18 1:45 pm (With KRISTOPHER King) Alexa Nazario MD [STAFF PHYSICIAN] - 03/15/18 9:00 am Ambulatory/Diagnostic Orders: XR chest 2V [RAD.AMB] Time Frame: 1 Week, Location: None Selected Patient Instructions/Handouts: Pleural Effusion (DC), Pneumonia (DC) Activity/Diet/Wound Care/Special Instructions: Diet: HEART healthy Please obtain a Chest XR in 1 week to check for resolution of your pneumonia and pleural effusion. Please obtain a Pulmonary Function Test through your primary care provider. Please obtain a BMP in 1 week to check for the resolution of your hyponatremic hypochloremic metabolic alkalosis. Please obtain a CBC in 1 week to check for the resolution of your leukocytosis and anemia. Activity as tolerated. Discharge Disposition: HOME SELF-CARE Pending Studies Pending Results: Patient needs CXR in 1 week Patient needs CBC and BMP in 1 week.
--- NOTE | 2018-03-01 12:52 | CDI ---
Last Revision, June 2017 Documentation Clarification Form Date: 03/01/2018 11:36:25 AM From: Gabrielle Black Phone: Admit Date: 02/24/2018 10:35:00 AM Patient Name: Shaheed Daley Visit Number: [id number] Discharge Date: ATTENTION: The Clinical Documentation Specialists (CDI) and [facility] Coding Staff appreciate your assistance in clarifying documentation. Please respond to the clarification below the line at the bottom and electronically sign. The CDI & [facility] Coding staff will review the response and follow-up if needed. Please note: Queries are made part of the Legal Health Record. If you have any questions, please contact the author of this message via ITS. Ryne Dugan MD The final diagnosis of the pathology report states: Abundant acute inflammatory cells consistent with empyema. Documentation states: possible bacterial pneumonia, AECOPD In your professional opinion, do you agree with the pathology report specifying left pleural effusion as empyema? Yes No Other (please specify) Unable to determine Please continue to document in your progress notes and discharge summary in order to capture severity of illness and risk of mortality. Include clinical findings that support your diagnosis. Yes, L pleural effusion would be specified as empyema. MTDD
== END 2018-02-28 15:12 | disposition home or self-care (01) | DRG 177 ==
LOC: EC 08:32 → 4MS4W 10:35
PROVIDERS: ADMIT Family Medicine; ATTEND Family Medicine
PROC: 0W9B3ZX Drainage of Left Pleural Cavity, Percutaneous Approach, Diagnostic (ICD-10-PCS; principal; 2018-02-26)
DX: J86.9 Pyothorax without fistula (principal); J15.9 Unspecified bacterial pneumonia; J96.01 Acute respiratory failure with hypoxia; E87.1 Hypo-osmolality and hyponatremia; E87.3 Alkalosis; J91.8 Pleural effusion in other conditions classified elsewhere; J44.0 Chronic obstructive pulmonary disease with (acute) lower respiratory infection; J44.1 Chronic obstructive pulmonary disease with (acute) exacerbation; J98.11 Atelectasis; E87.8 Other disorders of electrolyte and fluid balance, not elsewhere classified; I08.1 Rheumatic disorders of both mitral and tricuspid valves; D63.8 Anemia in other chronic diseases classified elsewhere; I10 Essential (primary) hypertension; I25.10 Atherosclerotic heart disease of native coronary artery without angina pectoris; I25.2 Old myocardial infarction; D72.829 Elevated white blood cell count, unspecified; R73.9 Hyperglycemia, unspecified; T38.0X5A Adverse effect of glucocorticoids and synthetic analogues, initial encounter; F17.210 Nicotine dependence, cigarettes, uncomplicated; Z71.6 Tobacco abuse counseling; Z79.899 Other long term (current) drug therapy; Z88.5 Allergy status to narcotic agent; Z80.9 Family history of malignant neoplasm, unspecified
CPT/HCPCS: 36415; 71045; 71046; 71260; 76604; 80048; 80053; 80061; 81001; 82550; 82553; 82728; 82945; 83540; 83550; 83605; 83615; 83735; 83880; 83930; 83935; 84155; 84157; 84300; 84484; 85025; 85027; 85610; 85730; 87040; 87070; 87205; 87449; 88108; 88305; 89050; 93005; 93306; 94640; 94760; 96374; 96375; 99285

== ENCOUNTER → 2018-03-07 | Outpatient (CLI) | payer MEDICARE ==
[2018-03-07 10:55] LABS: HCT 38.8 % (39.0-53.0); HGB 12.2 gm/dL (13.0-17.5); MCH 27.6 pg (25.0-35.0); MCHC 31.5 g/dL (31.0-37.0); MCV 87.7 fL (80.0-100.0); Mean Platelet Volume 6.5; Platelet Count 601 k/uL (150-450); RBC 4.43 m/uL (4.30-5.90); RDW 14.2 % (11.5-15.5); WBC 16.9 k/uL (3.8-10.6)
[2018-03-07 10:57] LABS: Anion Gap 8 mmol/L; Blood Urea Nitrogen 14 mg/dL (9-20); Calcium 9.1 mg/dL (8.4-10.2); Carbon Dioxide 26 mmol/L (22-30); Chloride 99 mmol/L (98-107); Glucose 83 mg/dL (74-99); Potassium 4.3 mmol/L (3.5-5.1); Sodium 133 mmol/L (137-145)
[2018-03-07 11:27] LABS: PSA Annual Screen 0.52 ng/mL (0.00-4.00)
--- NOTE | 2018-03-07 12:09 | XR ---
EXAMINATION TYPE: XR chest 2V DATE OF EXAM: 03/07/2018 COMPARISON: Prior chest 02/28/2018 HISTORY: Pneumonia TECHNIQUE: Frontal and lateral views of the chest are obtained. FINDINGS: Patient is rotated. Increased attenuation along the left lateral hemithorax is thought to be increased somewhat in the interval. No evident pneumothorax. Cardiomediastinal silhouette, pulmona ry vascularity and alirio are stable. Some improvement in the increased density in the right upper lobe . IMPRESSION: Findings are compatible with pneumonia with parapneumonic effusion. Improved aeration ri ght upper lobe. Follow-up is recommended.
== END | disposition home or self-care (01) ==
LOC: LABWHC1 09:38
PROVIDERS: ATTEND Family Medicine
DX: J18.9 Pneumonia, unspecified organism (principal); E87.1 Hypo-osmolality and hyponatremia; E87.3 Alkalosis; E87.8 Other disorders of electrolyte and fluid balance, not elsewhere classified
CPT/HCPCS: 80048; 85027; 71046; 36415; G0103

== ENCOUNTER → 2018-03-14 | Outpatient (CLI) | payer MEDICARE ==
--- NOTE | 2018-03-14 09:37 | XR ---
EXAMINATION TYPE: XR chest 2V DATE OF EXAM: 03/14/2018 COMPARISON: 03/07/2018 TECHNIQUE: PA and lateral views submitted. HISTORY: Pneumonia FINDINGS: Left-sided consolidation and pleural effusion noted. Right lung clear. Atherosclerotic change aorta. Hyperinflation suggests COPD. Hypertrophic change of the spine. No overt failure. IMPRESSION: 1. Left lower lobe infiltrate and small effusion. 2. Correlate for COPD
[2018-03-14 10:20] LABS: Basophils % (A) 0 %; Eosinophils # (A) 0.2 k/uL (0-0.7); Eosinophils % (A) 3 %; HCT 37.7 % (39.0-53.0); HGB 11.9 gm/dL (13.0-17.5); Lymphocytes # (A) 1.1 k/uL (1.0-4.8); Lymphocytes % (A) 14 %; MCH 27.7 pg (25.0-35.0); MCHC 31.6 g/dL (31.0-37.0); MCV 87.5 fL (80.0-100.0); Mean Platelet Volume 6.1; Monocytes # (A) 0.5 k/uL (0-1.0); Monocytes % (A) 6 %; Neutrophils # (A) 5.9 k/uL (1.3-7.7); Neutrophils % (A) 75 %; Platelet Count 542 k/uL (150-450); RBC 4.31 m/uL (4.30-5.90); RDW 13.9 % (11.5-15.5); WBC 7.8 k/uL (3.8-10.6)
[2018-03-14 10:38] LABS: Anion Gap 10 mmol/L; Blood Urea Nitrogen 14 mg/dL (9-20); Calcium 8.9 mg/dL (8.4-10.2); Carbon Dioxide 27 mmol/L (22-30); Chloride 97 mmol/L (98-107); Creatine Kinase <20 U/L (55-170); Glucose 79 mg/dL (74-99); Potassium 4.3 mmol/L (3.5-5.1); Sodium 134 mmol/L (137-145)
== END | disposition home or self-care (01) ==
LOC: RADXRMAIN 09:19
PROVIDERS: ATTEND Nurse Practitioner Adult Health
DX: J90 Pleural effusion, not elsewhere classified (principal); R91.8 Other nonspecific abnormal finding of lung field
CPT/HCPCS: 36415; 71046; 80048; 82550; 85025

== ENCOUNTER → 2019-08-08 | Outpatient (CLI) | payer MEDICARE ==
--- NOTE | 2019-08-08 14:25 | US ---
EXAMINATION TYPE: US carotid duplex BILAT DATE OF EXAM: 08/08/2019 COMPARISON: 2009 CLINICAL HISTORY: R51 HEADACHE. Pt states headaches EXAM MEASUREMENTS: RIGHT: Peak Systolic Velocity (PSV) cm/sec ----- Right CCA: 96.3 ----- Right ICA: 91.9 ----- Right ECA: 108.2 ICA/CCA ratio: 1.0 RIGHT: End Diastole cm/sec ----- Right CCA: 21.5 ----- Right ICA: 30.3 ----- Right ECA: 7.2 LEFT: Peak Systolic Velocity (PSV) cm/sec ----- Left CCA: 96.3 ----- Left ICA: 84.2 ----- Left ECA: 94.1 ICA/CCA ratio: 0.9 LEFT: End Diastole cm/sec ----- Left CCA: 21.5 ----- Left ICA: 29.2 ----- Left ECA: 8.4 VERTEBRALS (direction of flow): Right Vertebral: Antegrade Left Vertebral: Antegrade Rhythm: Normal Gordon scale images demonstrate mild to moderate eccentric hyperechoic plaque in the right carotid bulb without significant plaque left carotid bulb. Velocity measurements and ratios remain within normal limits bilaterally. IMPRESSION: Overall stable findings, no hemodynamically significant stenosis in either internal mcintyre tid artery. Criteria for Assigning % of Stenosis / Diameter reduction (Estimation based on the indirect measurements of the internal carotid artery velocities (ICA PSV). 1. Normal (no stenosis)=ICA PSV < 125 cm/s: ratio < 2.0: ICA EDV<40 cm/s. 2. Less than 50% stenosis=ICA PSV < 125 cm/s: ratio < 2.0: ICA EDV<40 cm/s. 3. 50 to 69% stenosis=ICA PSV of 125 to 230 cm/s: ration 2.0 ? 4.0: ICA EDV 40-100 cm/s. 4. Greater than 70% stenosis to near occlusion= ICA PSV > 230 cm/s: ratio > 4.0: ICA EDV > 100 cm/s. 5. Near occlusion= ICA PSV velocities may be low or undetectable: variable ratio and ICA EDV. 6. Total occlusion=unable to detect flow.
[2019-08-08 15:28] LABS: African American GFR (CKD) >90 (>60 ml/min/1.73 sqM); Anion Gap 10 mmol/L; Blood Urea Nitrogen 14 mg/dL (9-20); Calcium 9.8 mg/dL (8.4-10.2); Carbon Dioxide 28 mmol/L (22-30); Chloride 91 mmol/L (98-107); Cholesterol 223 mg/dL (<200); Glucose 85 mg/dL (74-99); HDL Cholesterol 76 mg/dL (40-60); LDL Cholesterol,Calculated 132 mg/dL (0-99); Non-African American GFR(CKD) >90 (>60 ml/min/1.73 sqM); Potassium 4.8 mmol/L (3.5-5.1); Sodium 129 mmol/L (137-145); Triglycerides 77 mg/dL (<150)
[2019-08-08 15:36] LABS: Basophils # (A) 0.3 k/uL (0-0.2); Basophils % (A) 4 %; Eosinophils # (A) 0.1 k/uL (0-0.7); Eosinophils % (A) 2 %; HCT 40.8 % (39.0-53.0); HGB 13.7 gm/dL (13.0-17.5); Lymphocytes # (A) 1.5 k/uL (1.0-4.8); Lymphocytes % (A) 20 %; MCH 29.3 pg (25.0-35.0); MCHC 33.5 g/dL (31.0-37.0); MCV 87.4 fL (80.0-100.0); Mean Platelet Volume 7.2; Monocytes # (A) 0.6 k/uL (0-1.0); Monocytes % (A) 8 %; Neutrophils # (A) 4.9 k/uL (1.3-7.7); Neutrophils % (A) 66 %; Platelet Count 469 k/uL (150-450); RBC 4.67 m/uL (4.30-5.90); RDW 13.2 % (11.5-15.5); WBC 7.4 k/uL (3.8-10.6)
--- NOTE | 2019-08-08 16:20 | CT ---
EXAMINATION TYPE: CT brain wo/w con DATE OF EXAM: 08/08/2019 COMPARISON: None INDICATION: Frequent headaches. DLP: 2342 mGycm, Automated exposure control for dose reduction was used. CONTRAST: None CT of the brain is performed utilizing 3 mm thick sections through the posterior fossa and 3 mm thick sections through the remaining calvarium. Study is performed within 24 hours of arrival to the hosp [facility]. No abnormal hyperdensity is present to suggest an acute intracranial hemorrhage. No mass lesion is evident. No acute infarcts are evident. Ventricles and sulci are appropriate for the patient age. Paranasal sinuses and mastoid air cells within the [id number] are clear. No suspicious enhancement is evident. IMPRESSIONS: 1. Normal pre and postcontrast CT Brain
== END | disposition home or self-care (01) ==
LOC: RADUSWWP 13:35
PROVIDERS: ATTEND Internal Medicine
DX: R51 Headache (principal); I10 Essential (primary) hypertension; Z12.5 Encounter for screening for malignant neoplasm of prostate
CPT/HCPCS: 80061; 80048; 82607; 85025; 82306; 93880; 70470; 36415; G0103; Q9967

== ENCOUNTER 2021-02-19 15:27 | Emergency (ER) | payer MEDICARE ==
[2021-02-19 15:31] VITALS: BP 145/76; PULSE 77; RESP 16; TEMP 98.1
[2021-02-19] MEDS ORDERED: HYDROcodone/APAP 5-325MG 1 EACH TAB PO STA (15:40)
--- NOTE | 2021-02-19 15:46 | ED ---
Upper Extremity HPI - General Source: patient, RN notes reviewed, old records reviewed Mode of arrival: ambulatory Limitations: no limitations - History of Present Illness MD Complaint: Injury to:: right, wrist, hand -: days(s) (2) Other Injuries: none Handedness: right Place: outdoors Severity scale (1-10): 8 Improves With: cold therapy, immobilization Context: other Associated Symptoms: denies other symptoms Treatments Prior to Arrival: cold therapy, NSAIDS (Slammed in a car door) <Joao Sinclair - Last Filed: 02/19/21 16:36> <Mabel Hobbs - Last Filed: 02/19/21 23:17> - General Chief Complaint: Extremity Injury, Upper Stated Complaint: hand pain - History of Present Illness Initial Comments: 70-year-old white male, alert and oriented 4, presents to the emergency room with complaints of slamming his right hand in a car door on around 5 PM. Patient states that he has been using ice and resting it however the swelling continues and now difficult for him to use his right hand. Patient states he did take NSAIDs and use cold compresses which does help a little bit. He denies any other injuries. Tetanus shot is up-to-date. Patient is pack and a half day smoker. (Joao Sinclair) - Related Data Previous Rx's Medication Instructions Recorded Albuterol Inhaler (Mhu) [Ventolin 1 - 2 puff INHALATION Q6HR PRN #1 02/28/18 Hfa Inhaler (Mhu)] inhaler Aspirin 81 mg PO DAILY #30 chew 02/28/18 Fluticasone/Salmeterol 2 puff INHALATION BID #1 device 02/28/18 [Fluticasone-Salmeterol 232-14] Ipratropium-Albuterol Nebulize 3 ml INHALATION RT-Q4H PRN #30 02/28/18 [Duoneb 0.5 mg-3 mg/3 ml Soln] ampul.neb Levofloxacin [Levaquin] 750 mg PO DAILY 7 Days #7 tab 02/28/18 lisinopriL [Zestril] 5 mg PO DAILY #30 tab 02/28/18 predniSONE [Deltasone] 40 mg PO DAILY #3 tab 02/28/18 Cephalexin [Keflex] 500 mg PO Q6HR 7 Days #28 cap 02/19/21 Allergies Allergy/AdvReac Type Severity Reaction Status Date / Time codeine Allergy Nausea & Verified 02/19/21 15:30 Vomiting Review of Systems ROS Other: All systems not noted in ROS Statement are negative. <YahirJoao - Last Filed: 02/19/21 16:36> ROS Other: All systems not noted in ROS Statement are negative. <Mabel Hobbs - Last Filed: 02/19/21 23:17> ROS Statement: Those systems with pertinent positive or pertinent negative responses have been documented in the HPI. Past Medical History Past Medical History: Coronary Artery Disease (CAD), COPD, Hypertension, Myocardial Infarction ([place]) Additional Past Medical History / Comment(s): Aj myocardial infarction in 2009, hypertension, COPD Last Myocardial Infarction Date:: 2009 History of Any Multi-Drug Resistant Organisms: None Reported Past Surgical History: Hernia Repair, Orthopedic Surgery Additional Past Surgical History / Comment(s): broken wrist with a plate placed with screws Past Anesthesia/Blood Transfusion Reactions: No Reported Reaction Past Psychological History: No Psychological Hx Reported Smoking Status: Current every day smoker Past Alcohol Use History: Occasional Past Drug Use History: None Reported - Past Family History Father Additional Family Medical History / Comment(s): cancer <Joao Sinclair - Last Filed: 02/19/21 16:36> General Exam Limitations: no limitations General appearance: alert, in no apparent distress Head exam: Present: atraumatic, normocephalic, normal inspection Eye exam: Present: normal appearance, PERRL, EOMI. Absent: scleral icterus, conjunctival injection, periorbital swelling Pupils: Present: normal accommodation ENT exam: Present: normal exam, normal oropharynx, mucous membranes moist Neck exam: Present: normal inspection, full ROM. Absent: tenderness, meningismus, lymphadenopathy, thyromegaly Respiratory exam: Present: normal lung sounds bilaterally. Absent: respiratory distress, wheezes, rales, rhonchi, stridor, chest wall tenderness, accessory muscle use, decreased breath sounds, prolonged expiratory Cardiovascular Exam: Present: regular rate, normal rhythm, normal heart sounds. Absent: systolic murmur, diastolic murmur, rubs, gallop, clicks, JVD GI/Abdominal exam: Present: soft, normal bowel sounds. Absent: distended, tenderness, guarding, rebound, rigid Extremities exam: Present: full ROM, normal capillary refill. Absent: pedal edema, calf tenderness Right Shoulder Exam: Present: full ROM. Absent: tenderness Upper Arm exam: Present: full ROM. Absent: tenderness Elbow exam: Present: full ROM. Absent: tenderness Hand Wrist exam: Present: tenderness, swelling, abrasion (2 mm abrasion dorsal surface), erythema. Absent: laceration, ecchymosis, deformity, amputation, nail avulsion, subungual hematoma Neuro motor exam: Present: wrist extension intact, thumb opposition intact, thumb IP flexion intact, thumb adduction intact, fingers 2-5 abduction intact Neurosensory exam: Present: radial nerve intact, ulnar nerve intact, median nerve intact Vascular: Present: normal capillary refill, radial pulse. Absent: vascular compromise, Pallo Back exam: Present: normal inspection, full ROM. Absent: CVA tenderness (R), CVA tenderness (L), muscle spasm, paraspinal tenderness, vertebral tenderness Neurological exam: Present: alert, oriented X3, CN II-XII intact Psychiatric exam: Present: normal affect, normal mood Skin exam: Present: warm, dry, intact, normal color. Absent: rash <Joao Sinclair - Last Filed: 02/19/21 16:36> Course Vital Signs 02/19/21 15:28 Temperature 98.1 F Pulse Rate 77 Respiratory 16 Rate Blood Pressure 145/76 O2 Sat by Pulse 99 Oximetry Medical Decision Making <Joao Sinclair - Last Filed: 02/19/21 16:36> <Mabel Hobbs - Last Filed: 02/19/21 23:17> - Medical Decision Making Right hand and right wrist X-ray shows carpal bones intact with no acute fracture or dislocation. Due to the swelling and erythema patient will be placed on Keflex. His tetanus is up-to-date. He has full range of motion and good capillary refill. Radial pulses are present. Patient will be directed to continue his Naprosyn and follow-up with his primary care doctor in 1 week. Return to the emergency room with worsening symptoms, pain or fevers. Dr. Hobbs at bedside to evaluat patient is agreeable to this plan of care. (Joao Sinclair) I personally on evaluated the patient, I do agree there is possible cellulitis of the hand agree with oral antibiotics and close return parameters. (Mabel Hobbs) Disposition Is patient prescribed a controlled substance at d/c from ED?: No Time of Disposition: 16:23 <Joao Sinclair - Last Filed: 02/19/21 16:36> <Mabel Hobbs - Last Filed: 02/19/21 23:17> Clinical Impression: Cellulitis Disposition: HOME SELF-CARE Condition: Good Instructions (If sedation given, give patient instructions): Cellulitis (ED) Additional Instructions: Rest ice and elevate right hand, take antibiotics as prescribed. Return if worsening pain or fevers. Follow-up with your doctor in 1 week. Prescriptions: Cephalexin [Keflex] 500 mg PO Q6HR 7 Days #28 cap Referrals: Jac Sims MD [Primary Care Provider] - 1-2 days
--- NOTE | 2021-02-19 16:10 | XR ---
EXAMINATION TYPE: XR hand complete RT DATE OF EXAM: 02/19/2021 COMPARISON: NONE HISTORY: Pain TECHNIQUE: 3 views FINDINGS: There is soft tissue swelling on the dorsum of the hand. I see no fracture nor dislocation. Carpal bones appear intact. Metacarpals appear intact. There is some osteoarthritis in the DIP joint s of the index finger and middle finger. IMPRESSION: Soft tissue swelling. No fracture seen.
--- NOTE | 2021-02-19 16:14 | XR ---
EXAMINATION TYPE: XR wrist complete RT DATE OF EXAM: 02/19/2021 COMPARISON: NONE HISTORY: Pain. Trauma. TECHNIQUE: 3 views FINDINGS: Carpal bones appear intact. I see no fracture nor dislocation. Radiocarpal joint appears in tact. Scaphoid appears normal. IMPRESSION: Negative right wrist exam.
== END 2021-02-19 17:03 | disposition home or self-care (01) ==
LOC: EC 15:27
DX: S60.511A Abrasion of right hand, initial encounter (principal); L03.113 Cellulitis of right upper limb; F17.200 Nicotine dependence, unspecified, uncomplicated; I10 Essential (primary) hypertension; I25.10 Atherosclerotic heart disease of native coronary artery without angina pectoris; I25.2 Old myocardial infarction; J44.9 Chronic obstructive pulmonary disease, unspecified; Z88.5 Allergy status to narcotic agent; W23.0XXA Caught, crushed, jammed, or pinched between moving objects, initial encounter
CPT/HCPCS: 99283

== ENCOUNTER 2021-02-22 11:16 | Inpatient (IN) | payer MEDICARE ==
[2021-02-22 12:05] LABS: Basophils % (A) 0 %; Eosinophils # (A) 0.1 k/uL (0-0.7); Eosinophils % (A) 1 %; HCT 37.1 % (39.0-53.0); HGB 12.2 gm/dL (13.0-17.5); Lymphocytes # (A) 1.5 k/uL (1.0-4.8); Lymphocytes % (A) 14 %; MCH 29.3 pg (25.0-35.0); MCHC 32.9 g/dL (31.0-37.0); MCV 88.9 fL (80.0-100.0); Mean Platelet Volume 6.7; Monocytes # (A) 0.7 k/uL (0-1.0); Monocytes % (A) 7 %; Neutrophils % (A) 77 %; Platelet Count 495 k/uL (150-450); RBC 4.17 m/uL (4.30-5.90); RDW 13.6 % (11.5-15.5); WBC 10.4 k/uL (3.8-10.6)
[2021-02-22 12:35] LABS: African American GFR (CKD) >90 (>60 ml/min/1.73 sqM); Anion Gap 7 mmol/L; Blood Urea Nitrogen 17 mg/dL (9-20); Calcium 9.5 mg/dL (8.4-10.2); Carbon Dioxide 30 mmol/L (22-30); Chloride 95 mmol/L (98-107); Glucose 104 mg/dL (74-99); Non-African American GFR(CKD) >90 (>60 ml/min/1.73 sqM); Potassium 4.3 mmol/L (3.5-5.1); Sodium 132 mmol/L (137-145)
--- NOTE | 2021-02-22 12:37 | XR ---
EXAMINATION TYPE: XR hand complete RT DATE OF EXAM: 02/22/2021 COMPARISON: NONE HISTORY: Worsening swelling and cellulitis TECHNIQUE: Three views are submitted. FINDINGS: The osseous structures are intact. Arthropathy of the DIP joints of the second and third digits. Soft tissue edema noted. And there is no acute fracture or dislocation. IMPRESSION: 1. Diffuse soft tissue edema. 2. Distal arthropathy.
[2021-02-22] MEDS ORDERED: VANCOMYCIN IV PER PHARMACY 1 EACH MISC MISCELLANE PRN (12:51)
[2021-02-22] MEDS ORDERED: VANCOMYCIN 1,250 MG in SODIUM CHLORIDE 0.9% 250 ML IVPB STA (12:55)
[2021-02-22] MEDS ORDERED: NALOXONE 0.4 MG/ML 1 ML VIAL IV PRN ×2 (13:02→15:08)
--- NOTE | 2021-02-22 13:02 | ED ---
Extremity Problem HPI - General Chief complaint: Extremity Problem,Nontraumatic Stated complaint: revisit - rt hand swelling Time Seen by Provider: 02/22/21 11:31 Source: patient, RN notes reviewed Mode of arrival: ambulatory Limitations: no limitations - History of Present Illness Initial comments: Patient is a 70-year-old male that presents to emergency department complaining of right hand pain. He notes that he was seen on Sunday after shutting his hand in a car door. He did have 2 small abrasion/puncture wounds to the medial aspect of the dorsal hand and then to the lateral aspect of the middle finger MCP joint. He notes that he was given Keflex on discharge. Heis been taking that as prescribed and directed for the last 3 days with no improvement. He notes it is actually gotten worse. He notes it is more swollen. He notes that he has difficulty moving his right middle finger due to pain and swelling. Patient denied any other complaints or issues at this time. He denied any chest pain shortness breath headache nausea vomiting diarrhea constipation fever fatigue chills. - Related Data Previous Rx's Medication Instructions Recorded Albuterol Inhaler (Mhu) [Ventolin 1 - 2 puff INHALATION Q6HR PRN #1 02/28/18 Hfa Inhaler (Mhu)] inhaler Aspirin 81 mg PO DAILY #30 chew 02/28/18 Fluticasone/Salmeterol 2 puff INHALATION BID #1 device 02/28/18 [Fluticasone-Salmeterol 232-14] Ipratropium-Albuterol Nebulize 3 ml INHALATION RT-Q4H PRN #30 02/28/18 [Duoneb 0.5 mg-3 mg/3 ml Soln] ampul.neb Levofloxacin [Levaquin] 750 mg PO DAILY 7 Days #7 tab 02/28/18 lisinopriL [Zestril] 5 mg PO DAILY #30 tab 02/28/18 predniSONE [Deltasone] 40 mg PO DAILY #3 tab 02/28/18 Cephalexin [Keflex] 500 mg PO Q6HR 7 Days #28 cap 02/19/21 Allergies Allergy/AdvReac Type Severity Reaction Status Date / Time codeine Allergy Nausea & Verified 02/19/21 15:30 Vomiting Review of Systems ROS Statement: Those systems with pertinent positive or pertinent negative responses have been documented in the HPI. ROS Other: All systems not noted in ROS Statement are negative. Past Medical History Past Medical History: Coronary Artery Disease (CAD), COPD, Hypertension, Myocardial Infarction ([place]) Additional Past Medical History / Comment(s): Aj myocardial infarction in 2009, hypertension, COPD Last Myocardial Infarction Date:: 2009 History of Any Multi-Drug Resistant Organisms: None Reported Past Surgical History: Hernia Repair, Orthopedic Surgery Additional Past Surgical History / Comment(s): broken wrist with a plate placed with screws Past Anesthesia/Blood Transfusion Reactions: No Reported Reaction Past Psychological History: No Psychological Hx Reported Smoking Status: Current every day smoker Past Alcohol Use History: Occasional Past Drug Use History: None Reported - Past Family History Father Additional Family Medical History / Comment(s): cancer General Exam Limitations: no limitations Head exam: Present: atraumatic, normocephalic, normal inspection Eye exam: Present: normal appearance, PERRL, EOMI. Absent: scleral icterus, conjunctival injection, periorbital swelling ENT exam: Present: normal exam, mucous membranes moist Neck exam: Present: normal inspection Respiratory exam: Present: normal lung sounds bilaterally. Absent: respiratory distress, wheezes, rales, rhonchi, stridor Cardiovascular Exam: Present: regular rate, normal rhythm, normal heart sounds. Absent: systolic murmur, diastolic murmur, rubs, gallop, clicks Right Hand Wrist exam: Present: tenderness (Over the right MCP joint of the middle finger.), swelling (Diffuse across the hand.), abrasion, erythema. Absent: normal inspection, full ROM (Secondary to swelling and pain.), laceration, ecchymosis Neurological exam: Present: alert, oriented X3 Psychiatric exam: Present: normal affect, normal mood Skin exam: Present: warm, dry, intact, normal color. Absent: rash Course Vital Signs 02/22/21 11:25 Temperature 97.8 F Pulse Rate 69 Respiratory 19 Rate Blood Pressure 135/76 O2 Sat by Pulse 99 Oximetry Medical Decision Making - Medical Decision Making 70-year-old male complaining of worsening right hand pain, swelling, tenderness. Labs, repeat x-ray of the right hand ordered. X-ray shows no acute fractures dislocations, just diffuse soft tissue edema. Upon reevaluation with Dr. Ibrahim, decided the patient should be held for observation for potential infection with failure of outpatient antibiotics. Vancomycin ordered for empiric treatment of soft tissue skin infection. Dr. Sauceda was consulted and will accept the admit for observation. - Lab Data Result diagrams: 02/22/21 11:51 02/22/21 11:51 Lab Results 02/22/21 02/22/21 Range/Units 11:51 11:51 WBC 10.4 (3.8-10.6) k/uL RBC 4.17 L (4.30-5.90) m/uL Hgb 12.2 L (13.0-17.5) gm/dL Hct 37.1 L (39.0-53.0) % MCV 88.9 (80.0-100.0) fL MCH 29.3 (25.0-35.0) pg MCHC 32.9 (31.0-37.0) g/dL RDW 13.6 (11.5-15.5) % Plt Count 495 H (150-450) k/uL MPV 6.7 Neutrophils % 77 % Lymphocytes % 14 % Monocytes % 7 % Eosinophils % 1 % Basophils % 0 % Neutrophils # 8.0 H (1.3-7.7) k/uL Lymphocytes # 1.5 (1.0-4.8) k/uL Monocytes # 0.7 (0-1.0) k/uL Eosinophils # 0.1 (0-0.7) k/uL Basophils # 0.0 (0-0.2) k/uL Sodium 132 L (137-145) mmol/L Potassium 4.3 (3.5-5.1) mmol/L Chloride 95 L (98-107) mmol/L Carbon Dioxide 30 (22-30) mmol/L Anion Gap 7 mmol/L BUN 17 (9-20) mg/dL Creatinine 0.58 L (0.66-1.25) mg/dL Est GFR (CKD-EPI)AfAm >90 (>60 ml/min/1.73 sqM) Est GFR (CKD-EPI)NonAf >90 (>60 ml/min/1.73 sqM) Glucose 104 H (74-99) mg/dL Calcium 9.5 (8.4-10.2) mg/dL - Radiology Data Radiology results: report reviewed, image reviewed Right hand x-ray: Diffuse soft tissue edema. Distal arthropathy. Disposition Clinical Impression: Cellulitis of right hand Disposition: ADMITTED IP TO THIS HOSP Condition: Stable Is patient prescribed a controlled substance at d/c from ED?: No Referrals: Jac Sims MD [Primary Care Provider] - 1-2 days Time of Disposition: 13:01
[2021-02-22] MEDS: SODIUM CHLORIDE 0.9% 1,000 ML IV SCH (13:49)
[2021-02-22] MEDS ORDERED: NAPROXEN 250 MG TAB PO PRN (15:00)
[2021-02-22] MEDS ORDERED: methocarbamoL 500 MG TAB PO PRN (15:00)
[2021-02-22] MEDS ORDERED: MORPHINE SULFATE 4 MG/ML SYRINGE IV PRN (15:08)
[2021-02-22] MEDS ORDERED: HYDROcodone/APAP 5-325MG 1 EACH TAB PO PRN (15:08)
[2021-02-22] MEDS ORDERED: ONDANSETRON 4 MG/2 ML VIAL IVP PRN (15:08)
[2021-02-22] MEDS ORDERED: bisacodyL 5 MG TABLET.DR PO PRN (15:08)
--- NOTE | 2021-02-22 15:08 | P.HPIM ---
History of Present Illness H&P Date: 02/22/21 Chief Complaint: right hand erythema Patient is a 70-year-old male with a past medical history coronary artery disease and prior myocardial infarction, COPD, and hypertension who presented to the ER secondary to worsening of edema in his hand. He had presented to the ER initially on 02/19 after he slammed his hand in a car door. At that point in time x-rays were negative for any acute fracture. He was given a course of Keflex and discharged home. He presented today secondary to worsening pain and swelling in his hands. Extensive evaluation in the ER revealed vital signs were within normal limits, laboratory analysis was within normal limits. The ER physician was concern for possible developing cellulitis despite oral Keflex and requested patient to be observed overnight. Patient seen and examined at bedside. He reports that he has had increasing pain and redness in his right hand. He has been having difficulty moving it. He also reports difficulty with doing his ADLs as he is right-handed. He denies any fevers at home. He has been taking his Keflex. He has been using naproxen and Robaxin for pain. He states they were initially prescribed for back pain but this is based been using to help with his hand. Due to the edema increasing as well as the redness he re-presented to the ER. He reports that due to his back pain he is scheduled to have an MRI on . Pertinent positives and negatives as discussed in HPI, a complete review of sy stems was performed and all other systems are negative. General: non toxic, no distress, appears at stated age Derm: warm, dry Head: atraumatic, normocephalic, symmetric Eyes: EOMI, no lid lag, anicteric sclera, pupils equal round reactive to light ENT: Nose and ears atraumatic, no thrush, no pharyngeal erythema Neck: No thyromegaly, no cervical lymphadenopathy, trachea midline, supple Mouth: no lip lesion, mucus membranes moist Cardiovascular: S1S2 reg, no murmur, positive posterior tibial pulse bilateral, no edema, capillary refill less than 2 seconds Lungs: clear to ascultation bilateral, no ronchi, no rales, no wheeze, no accessory muscle use Abdominal: soft, nontender to palpation, no guarding, no appreciable organomegaly, normal bowel sounds Ext: Edema and redness in the right hand with significant swelling on the dorsal aspect and in digits 2 through 5 with decreased flexion and inability to form a fist, he is able to approximate each fingertip to his thumb. There is an area of fluctuance on top of the third digit MCP joint. No gross muscle atrophy, muscle strength muscle strength 5 out of 5 in all 4 extremities, no contractures Neuro: CN II-XI grossly intact, light touch intact all 4 extremities, finger to nose within normal limits, Psych: Alert, oriented, appropriate affect Right hand cellulitis, known injury with edema and decreased mobility -Vancomycin, Rocephin -Consult orthopedics -IV fluids -Pain control Hypertension, controlled -Resume home Norvasc, hydrochlorothiazide, and lisinopril -Follow blood pressures Tobacco abuse -Cessation -Nicotine replacement Chronic: Back pain Coronary artery disease The patient is placed in observation with an anticipated less than 2 midnight stay for evaluation of right hand cellulitis. Surrogate decision-maker: Significant other CODE STATUS: Full code DVT prophylaxis: early ambulation Discussed with: patient, ED provider Anticipated discharge date: in 1-[address]: home A total of 55 minutes was spent on the care of this complex patient more than 50% of the time was spent in counseling and care coordination. Past Medical History Past Medical History: Coronary Artery Disease (CAD), COPD, Hypertension, Myocardial Infarction ([place]) Additional Past Medical History / Comment(s): myocardial infarction in 2009, hypertension, COPD Last Myocardial Infarction Date:: 2009 History of Any Multi-Drug Resistant Organisms: None Reported Past Surgical History: Hernia Repair, Orthopedic Surgery Additional Past Surgical History / Comment(s): broken wrist with a plate placed with screws Past Anesthesia/Blood Transfusion Reactions: No Reported Reaction Past Psychological History: No Psychological Hx Reported Smoking Status: Current every day smoker Past Alcohol Use History: Occasional Past Drug Use History: None Reported - Past Family History Father Additional Family Medical History / Comment(s): cancer Medications and Allergies Home Medications Medication Instructions Recorded Confirmed Type Cephalexin [Keflex] 500 mg PO Q6HR 7 Days #28 cap 02/19/21 02/22/21 Rx Multivitamin [Multivitamins Adult 2 tab PO DAILY 02/22/21 02/22/21 History Gummies] Naproxen 500 mg PO BID PRN 02/22/21 02/22/21 History amLODIPine [Norvasc] 10 mg PO HS 02/22/21 02/22/21 History hydroCHLOROthiazide [Hydrodiuril] 25 mg PO DAILY 02/22/21 02/22/21 History lisinopriL 40 mg PO HS 02/22/21 02/22/21 History methocarbamoL [Robaxin] 500 mg PO TID PRN 02/22/21 02/22/21 History Allergies Allergy/AdvReac Type Severity Reaction Status Date / Time codeine AdvReac Nausea & Verified 02/22/21 13:15 Vomiting Physical Exam Osteopathic Statement: *. No significant issues noted on an osteopathic structural exam other than those noted in the History and Physical/Consult. Vitals: Vital Signs Temp Pulse Resp BP Pulse Ox 02/22/21 11:25 97.8 F 69 19 135/76 99 Intake and Output 02/22/21 02/22/21 02/22/21 06:59 14:59 22:59 Other: Weight 63.503 kg Results CBC & Chem 7: 02/22/21 11:51 02/22/21 11:51 Labs: Abnormal Lab Results - Last 24 Hours (Table) 02/22/21 02/22/21 Range/Units 11:51 11:51 RBC 4.17 L (4.30-5.90) m/uL Hgb 12.2 L (13.0-17.5) gm/dL Hct 37.1 L (39.0-53.0) % Plt Count 495 H (150-450) k/uL Neutrophils # 8.0 H (1.3-7.7) k/uL Sodium 132 L (137-145) mmol/L Chloride 95 L (98-107) mmol/L Creatinine 0.58 L (0.66-1.25) mg/dL Glucose 104 H (74-99) mg/dL
[2021-02-22] MEDS ORDERED: ACETAMINOPHEN TAB 325 MG TAB PO PRN (15:12)
[2021-02-22] MEDS: NICOTINE 14MG/24HR PATCH TRANSDERM SCH (16:01)
[2021-02-22] MEDS ORDERED: amLODIPine 10 MG TAB ONE (23:45)
[2021-02-22] MEDS ORDERED: lisinopriL 20 MG TAB ONE (23:45)
[2021-02-23] MEDS: amLODIPine 10 MG TAB PO SCH ×2 (08:39→20:45)
[2021-02-23] MEDS: SODIUM CHLORIDE 0.9% 1,000 ML IV SCH ×3 (08:39→20:47)
[2021-02-23] MEDS: VANCOMYCIN 1,250 MG in SODIUM CHLORIDE 0.9% 250 ML IVPB SCH ×2 (08:39→14:01)
[2021-02-23] MEDS: lisinopriL 20 MG TAB PO SCH ×2 (08:39→20:45)
[2021-02-23] MEDS: NICOTINE 14MG/24HR PATCH TRANSDERM SCH (08:56)
[2021-02-23] MEDS: hydroCHLOROthiazide 25 MG TAB PO SCH (08:56)
--- NOTE | 2021-02-23 09:28 | P.CNOR ---
History of Present Illness - [facility] Consult date: 02/23/21 Requesting physician: Celi Sauceda Consult reason: other (Right hand cellulitis) History of present illness: Patient presents to the hospital yesterday with right hand pain. Patient was seen in hospital this past 02/19/2021 for right hand pain after getting his right hand slammed in a car door right over his knuckles. Patient states he was sent home with Keflex and from there over the past couple days his right hand has gotten worse. Right hand has become more red and swollen and painful to move some of his digits. Patient points to his right middle finger as well as couple puncture wounds on the dorsal aspect of his hand Patient says he was told to come back in the hospital if his symptoms get worse. Patient says he has not had any fever, chills, nausea, vomiting. Patient denies any other previous orthopedic surgical history. Patient says his right hand bothers him because he is not able to use it. Patient denies chest pain, fever, nausea, vomiting, vision, saddle anesthesia, loss of pulse/bladder control. Past Medical History Past Medical History: Coronary Artery Disease (CAD), COPD, Hypertension, Myocardial Infarction ([place]) Additional Past Medical History / Comment(s): myocardial infarction in 2009, hypertension, COPD Last Myocardial Infarction Date:: 2009 History of Any Multi-Drug Resistant Organisms: None Reported Past Surgical History: Hernia Repair, Orthopedic Surgery Additional Past Surgical History / Comment(s): broken wrist with a plate placed with screws Past Anesthesia/Blood Transfusion Reactions: No Reported Reaction Past Psychological History: No Psychological Hx Reported Smoking Status: Current every day smoker Past Alcohol Use History: Occasional Past Drug Use History: None Reported - Past Family History Father Additional Family Medical History / Comment(s): cancer Medications and Allergies Home Medications Medication Instructions Recorded Confirmed Type Cephalexin [Keflex] 500 mg PO Q6HR 7 Days #28 cap 02/19/21 02/22/21 Rx Multivitamin [Multivitamins Adult 2 tab PO DAILY 02/22/21 02/22/21 History Gummies] Naproxen 500 mg PO BID PRN 02/22/21 02/22/21 History amLODIPine [Norvasc] 10 mg PO HS 02/22/21 02/22/21 History hydroCHLOROthiazide [Hydrodiuril] 25 mg PO DAILY 02/22/21 02/22/21 History lisinopriL 40 mg PO HS 02/22/21 02/22/21 History methocarbamoL [Robaxin] 500 mg PO TID PRN 02/22/21 02/22/21 History Allergies Allergy/AdvReac Type Severity Reaction Status Date / Time codeine AdvReac Nausea & Verified 02/22/21 13:15 Vomiting Physical Examination Right hand: Inspection: Diffuse erythema, swelling. Blistering of MCPJ of 3rd digit. 2 puncture wounds on the medial aspect dorsal side of the right hand. Palpation: Tenderness to palpation throughout the right hand especially on the third digit along MCPJ. Radial pulses intact, 2+ in right wrist ROM: Patient not able do flex or extend second third and fourth digits and right hand due to pain and swelling. Sensation - intact throughout Motor: Decreased package handler strength. Some mild weakness in flexion and extension of digits Results - Labs Labs: Abnormal Lab Results - Last 24 Hours (Table) 02/22/21 02/22/21 Range/Units 11:51 11:51 RBC 4.17 L (4.30-5.90) m/uL Hgb 12.2 L (13.0-17.5) gm/dL Hct 37.1 L (39.0-53.0) % Plt Count 495 H (150-450) k/uL Neutrophils # 8.0 H (1.3-7.7) k/uL Sodium 132 L (137-145) mmol/L Chloride 95 L (98-107) mmol/L Creatinine 0.58 L (0.66-1.25) mg/dL Glucose 104 H (74-99) mg/dL H & H 02/22/21 Range/Units 11:51 Hgb 12.2 L (13.0-17.5) gm/dL Hct 37.1 L (39.0-53.0) % Result Diagrams: 02/22/21 11:51 02/22/21 11:51 Assessment and Plan Assessment: 1. Right hand cellulitis Plan: 1. Right hand cellulitis - patient seen and examined this morning at bedside. At this time we recommend patient to continue IV antibiotics and we will follow closely. Potential irrigation and debridement of right hand may be needed later this week if symptoms worsen/continue. MRI hand may be ordered if surgery is needed. 2. Appreciate medical management - on Rocephin and Vanco 3. Pain management - stable at this time 4. GI ppx - dulcolax Time with Patient: Less than 30
[2021-02-23 10:44] LABS: HCT 32.9 % (39.6-50.0); HGB 10.6 g/dL (13.0-17.0); MCH 28.5 pg (27.0-32.0); MCHC 32.2 g/dL (32.0-37.0); MCV 88.4 fL (80.0-97.0); Mean Platelet Volume 9.2 fL (9.5-12.2); Platelet Count 427 X 10*3/uL (140-440); RBC 3.72 X 10*6/uL (4.40-5.60); RDW 13.5 % (11.5-14.5); WBC 9.93 X 10*3/uL (4.50-10.00)
[2021-02-23 11:58] LABS: African American GFR (CKD) 117.2 (60.0-200.0); Anion Gap 8.7 mmol/L (4.00-12.00); BUN/Creat Ratio 31.67 Ratio (12.00-20.00); Calcium 8.6 mg/dL (8.7-10.3); Carbon Dioxide 24.3 mmol/L (21.6-31.8); Non-African American GFR(CKD) 101.2 (60.0-200.0); Potassium 4.2 mmol/L (3.5-5.5)
--- NOTE | 2021-02-23 13:54 | P.PN ---
Subjective Progress Note Date: 02/23/21 Ongoing hand pain and swelling. Has numbness of 3rd digit. Pain with flexion of second and third digits. Objective - Vital Signs Vital signs: Vital Signs Temp 97.9 F 02/23/21 07:00 Pulse 74 02/23/21 08:00 Resp 16 02/23/21 08:00 BP 138/69 02/23/21 07:00 Pulse Ox 96 02/23/21 07:00 Intake & Output 02/22/21 02/23/21 02/23/21 18:59 06:59 18:59 Intake Total 880 Balance 880 Weight 63.503 kg Intake: Oral 880 Other: Voiding Method Toilet Toilet # Voids 2 - Exam Gen: awake, alert HEENT: normocephalic, atraumatic, good hearing acuity, moist mucous membranes Resp: good air exchange, breathing comfortably with no accessory muscle use CVS: good distal perfusion x 4, GI: soft, NTTP, ND : no SPT, no CVAT, becerra catheter not present MSK: no pitting edema, no clubbing, right hand swelling, predominantly dorsal, with erythema Neuro: non-focal, moving all extremities, numbness of 3rd digit Psych: cooperative, euthymic mood - Labs CBC & Chem 7: 02/23/21 05:24 02/23/21 05:24 Labs: Abnormal Lab Results - Last 24 Hours (Table) 02/23/21 02/23/21 Range/Units 05:24 05:24 RBC 3.72 L (4.40-5.60) X 10*6/uL Hgb 10.6 L (13.0-17.0) g/dL Hct 32.9 L (39.6-50.0) % MPV 9.2 L (9.5-12.2) fL BUN/Creatinine Ratio 31.67 H (12.00-20.00) Ratio Calcium 8.6 L (8.7-10.3) mg/dL Assessment and Plan Assessment: Right hand cellulitis, known injury with edema and decreased mobility -Vancomycin, Rocephin -Consult orthopedics, possible I&D later this week -IV fluids -Pain control Hypertension, controlled -Resume home Norvasc, hydrochlorothiazide, and lisinopril -Follow blood pressures Tobacco abuse -Cessation -Nicotine replacement Chronic: Back pain Coronary artery disease The patient is placed in observation with an anticipated less than 2 midnight stay for evaluation of right hand cellulitis. Surrogate decision-maker: Significant other CODE STATUS: Full code DVT prophylaxis: early ambulation Anticipated discharge date: in 1-[address]: home
[2021-02-23] MEDS: MELATONIN 3 MG TABLET PO PRN (20:44)
[2021-02-23] MEDS ORDERED: SODIUM CHLORIDE 0.9% 250 ML BAG ONE (23:59)
[2021-02-23] MEDS ORDERED: VANCOMYCIN 1,000 MG VIAL ONE (23:59)
[2021-02-23] MEDS ORDERED: SODIUM CHLORIDE 0.9% 1,000 ML BAG ONE (23:59)
[2021-02-24] MEDS: VANCOMYCIN 1,250 MG in SODIUM CHLORIDE 0.9% 250 ML IVPB SCH ×3 (01:58→23:02)
[2021-02-24] MEDS: SODIUM CHLORIDE 0.9% 1,000 ML IV SCH ×3 (02:00→20:18)
[2021-02-24 05:19] LABS: African American GFR (CKD) >90 (>60 ml/min/1.73 sqM); Non-African American GFR(CKD) >90 (>60 ml/min/1.73 sqM)
[2021-02-24] MEDS: hydroCHLOROthiazide 25 MG TAB PO SCH (07:50)
[2021-02-24] MEDS: NICOTINE 14MG/24HR PATCH TRANSDERM SCH (07:53)
--- NOTE | 2021-02-24 10:45 | P.PN ---
Progress Note - Text Progress Note Date: 02/24/21 Patient seen and examined this morning. His right hand seems to be getting worse and so we discussed with him surgical intervention at this time with likely abscess that is formed on the dorsal aspect of his right hand over the second metacarpal head. We discussed surgical intervention in the form of irrigation and debridement incisional drainage of this area and he agreed. He will be kept nothing by mouth and we will plan on going to the OR later today for this. Orthopedic Surgery Risk Review Shaheed Mccarty is a 70-year-old [id number] male presenting for evaluation of sudden onset right hand pain, inability to bear weight after having his right hand slammed in a car door. It was my pleasure to have seen and examined Shaheed. In our visit today we have had a chance to go over subjective complaints, physical examination findings and treatments including the natural course history without intervention and various interventional options. Is imaging demonstrates no fracture or dislocation but large soft tissue swelling over the dorsal aspect of the hand. On physical exam, Shaheed demonstrates pain with motion of right hand with large fluctuant mass on the dorsal aspect of the hand just over the MCP joint of the second or middle finger., which is NV intact at this time. I have explained to the patient that this fracture needs stabilization. Based on the patients imaging, physical exam, and the rapid progression and disabling nature of her symptoms, at this time I recommend surgery in the form or a: Incisional drainage with irrigation and debridement right hand I discussed the risk and benefits of this procedure at length with Shaheed. Questions were invited and answered, and the patient wishes to proceed as outlined below. Currently, I am recommendin. Right hand incisional drainage with irrigation debridement of abscess 2. Review of surgical risks and benefits as well as an educational packet on the proposed surgical procedure. Risks: All surgical procedures come with inherent risks, including those related to positioning, anesthesia, intraoperative findings, and postoperative complications. It is important to understand that surgery does not come with any guarantee of a successful outcome as complications and adverse events are always possible. The patient was given a handout discussing the surgical procedure and risks associated with the intervention, both of which were discussed with the patient. These risks include but are not limited to the following: - Experiencing same, different or even worse symptoms compared to before surgery. - Requiring further surgery or other forms of treatment presently or at some time in the future . - On an extreme but fortunately relatively rare basis severe complication such as blindness, stroke, heart attack, temporary and/or permanent nerve injury, paralysis, coma, or may occur, sometimes without known explanation. - Surgical complications may include but are not limited to risk of infection, fluid accumulation in the surgical dissection site, including a seroma or hematoma, that requires additional surgery, wound drainage, bleeding, new numbness or weakness, vision changes/loss, spinal fluid leakage, non-healing and/or infected incision, headaches, difficulty or inability to swallow, hoarseness, hemopneumothorax, pneumothorax, injury to nerves, spinal cord, blood vessels, lymphatics or other vital organs (i.e., bowel injury, injury to the great vessels); heterotopic bone formation; complications related to the hardware such as screws, rods, including misplaced hardware, device failure, hardware fracture/breakage, or hardware loosening; retained surgical instrumentations or devices and the need for further surgery. - Medical risks of the planned surgery include but are not limited to generalized Infections to the whole body or local areas outside of the surgical site (sepsis), heart attack, bleeding, anaphylaxis, meningitis, seizure, epilepsy, hearing loss, burn garduno, laceration of the head or other areas of the body, bruising, hypersensitivity of the skin, bladder over distension; allergic reaction; shoulder injury related to positioning; fat, blood and air clots to other areas of the body like heart, lungs, brain; failure of internal organs such as lungs, kidneys, liver and excessive bleeding. If blood transfusions are necessary, note that transfusions may cause intolerance reactions such as anaphylaxis or other complex reactions. Despite best efforts, the results of surgery might not heal in terms of bone, soft tissues such as skin, fascia, ligaments, and joints. [facility] is an educational center that serves as a training facility for physician assistants, nurses, orthopedic residents and fellows. Residents are physicians who are completing their surgical intensive training following medical school. They assist in the operating room with direct supervision of the attending surgeons. [place] are surgeons who have completed their training and eligible for board certification. They have opted for an elective year of more specialized training in their field. They assist in the operating room under the supervision of the attending surgeons. Physician assistants are medically trained surgical providers who function in the outpatient, inpatient, and operating room setting under the direct supervision of the attending surgeon. [facility] has multiple operating rooms with single and overlapping rooms running daily. They currently function under the required guidelines as produced by the [facility] Finance Committee with regards to the overlapping rooms and will continue to comply with changes to this policy as they occur. The requirements include and are complied with as follows: (1) the critical portions of the overlapping rooms will not occur at the same time, (2) the attending physician will be physically present during the critical portions of the procedure and immediately available during the entire case, and (3) a back-up attending is designated should the primary attending not be immediately available. The patient has had a chance to review all the listed information, has been given print outs detailing this information, and has had all his/her questions answered to their satisfaction. It was my pleasure to have seen and examined Shaheed Mccarty. In our visit today we have had a chance to go over my understanding of our patient's current condition, the natural course history without intervention and various interventional options. Questions were invited and answered, and the patient wishes to proceed as outlined above. I have seen and examined the patient for 25 minutes and we have spent more than 50% of the time in repeat and detailed counseling about the patient's condition, its natural course history with out and as much as can be predicted with surgery and re-review of various surgical treatment options. In conclusion, Shaheed Mccarty requested we proceed with the above suggested surgery and are willing to accept risks and limitations of the suggested surgery as nature of the disease process and our best attempts at treatment for the condition. Thank you again for allowing us to be part of your patient's care. Please don't hesitate to contact me if you have any further questions. Signed and authenticated by: Gómez Steward DO Haydeepadmini [facility] [address], [address] [address]
--- NOTE | 2021-02-24 11:31 | P.PN ---
Subjective Progress Note Date: 02/24/21 Pts hand swelling is worsening today and now involves the fourth digit of the right hand. Objective - Vital Signs Vital signs: Vital Signs Temp 98.3 F 02/24/21 07:00 Pulse 66 02/24/21 07:56 Resp 17 02/24/21 07:56 BP 137/70 02/24/21 07:00 Pulse Ox 97 02/24/21 07:00 Intake & Output 02/23/21 02/24/21 02/24/21 18:59 06:59 18:59 Intake Total 880 Balance 880 Intake: Oral 880 Other: Voiding Method Toilet Toilet Toilet # Voids 2 1 - Exam Gen: awake, alert HEENT: normocephalic, atraumatic, good hearing acuity, moist mucous membranes Resp: good air exchange, breathing comfortably with no accessory muscle use CVS: good distal perfusion x 4, GI: soft, NTTP, ND : no SPT, no CVAT, becerra catheter not present MSK: no pitting edema, no clubbing, right hand swelling, predominantly dorsal, with erythema Neuro: non-focal, moving all extremities, numbness of 3rd digit Psych: cooperative, euthymic mood - Labs CBC & Chem 7: 02/23/21 05:24 02/24/21 04:54 Labs: Abnormal Lab Results - Last 24 Hours (Table) 02/23/21 02/24/21 Range/Units 05:24 04:54 Creatinine 0.50 L (0.66-1.25) mg/dL BUN/Creatinine Ratio 31.67 H (12.00-20.00) Ratio Calcium 8.6 L (8.7-10.3) mg/dL Assessment and Plan Assessment: Right hand cellulitis, known injury with edema and decreased mobility -Vancomycin, Rocephin -Consult orthopedics, I&D scheduled 02/24 -IV fluids -Pain control Hypertension, controlled -Resume home Norvasc, hydrochlorothiazide, and lisinopril -Follow blood pressures Tobacco abuse -Cessation -Nicotine replacement Chronic: Back pain Coronary artery disease The patient is placed in observation with an anticipated less than 2 midnight stay for evaluation of right hand cellulitis. Surrogate decision-maker: Significant other CODE STATUS: Full code DVT prophylaxis: early ambulation Anticipated discharge date: in 1-[address]: home
--- NOTE | 2021-02-24 11:37 | P.PN ---
Subjective Progress Note Date: 02/24/21 Principal diagnosis: Right hand cellulitis Patient seen at [facility] this morning. Patient says his hand is in more pain today as he points to his right hand. He says he is not able to bend his fingers very well. Patient denies chest pain, fever, chills, changes in vision, numbnes s/tinlging, SOB. Objective - Vital Signs Vital signs: Vital Signs Temp 98.3 F 02/24/21 07:00 Pulse 66 02/24/21 07:56 Resp 17 02/24/21 07:56 BP 137/70 02/24/21 07:00 Pulse Ox 97 02/24/21 07:00 Intake & Output 02/23/21 02/24/21 02/24/21 18:59 06:59 18:59 Intake Total 880 Balance 880 Intake: Oral 880 Other: Voiding Method Toilet Toilet Toilet # Voids 2 1 - Exam Right hand: Inspection: Diffuse erythema, swelling. Blistering of MCPJ of 3rd digit. 2 puncture wounds on the medial aspect dorsal side of the right hand. Palpation: Tenderness to palpation throughout the right hand especially on the third digit along MCPJ. Radial pulses intact, 2+ in right wrist ROM: Patient not able do flex or extend second third and fourth digits and right hand due to pain and swelling. Sensation - intact throughout Motor: Decreased sheet metal foreman strength. Some mild weakness in flexion and extension of digits - Labs CBC & Chem 7: 02/23/21 05:24 02/24/21 04:54 Labs: Abnormal Lab Results - Last 24 Hours (Table) 02/23/21 02/23/21 02/24/21 Range/Units 05:24 05:24 04:54 RBC 3.72 L (4.40-5.60) X 10*6/uL Hgb 10.6 L (13.0-17.0) g/dL Hct 32.9 L (39.6-50.0) % MPV 9.2 L (9.5-12.2) fL Creatinine 0.50 L (0.66-1.25) mg/dL BUN/Creatinine Ratio 31.67 H (12.00-20.00) Ratio Calcium 8.6 L (8.7-10.3) mg/dL Assessment and Plan Assessment: 1. Right hand cellulitis Plan: 1. Right hand cellulitis - patient seen and examined this morning at bedside. Patients symptoms have not alleviated at this time for patient. Hand is still erythematous/edematous. At this time we recommend irrigiation and debridement of right hand. Patient has consented to surgery. Plan for surgery this afternoon, 02/24/2021. Remain NPO 2. Appreciate medical management - on Rocephin and Vanco 3. Pain management - stable at this time 4. GI ppx - dulcolax Time with Patient: Less than 30
[2021-02-24] MEDS ORDERED: VANCOMYCIN TROUGH DUE 1 EACH MISC MISCELLANE ONE (13:00)
[2021-02-24] MEDS ORDERED: PROPOFOL 10 MG/ML 20 ML VIAL IV ONE (14:35)
[2021-02-24] MEDS ORDERED: fentaNYL (PF) 50 MCG/ML 2 ML AMP ONE (14:35)
[2021-02-24] MEDS ORDERED: ePHEDrine SULFATE/0.9% NACL/PF 50 MG/5 ML SYRINGE IV ONE (14:35)
[2021-02-24] MEDS ORDERED: LIDOCAINE 1% INJ 10MG/ML (20 ML MDV) ONE (14:35)
[2021-02-24] MEDS ORDERED: HYDROmorphone (PF) 1 MG/ML ONE (14:35)
[2021-02-24] MEDS ORDERED: MIDAZOLAM 2 MG/2 ML VIAL ONE (14:35)
[2021-02-24] MEDS ORDERED: KETAMINE 10 MG/ML 20 ML VIAL ONE (14:35)
[2021-02-24] MEDS ORDERED: LACTATED RINGERS 1,000 ML IV ONE (14:45)
[2021-02-24] MEDS ORDERED: ONDANSETRON 4 MG/2 ML VIAL IVP ONE (14:45)
[2021-02-24] MEDS ORDERED: DEXAMETHASONE SOD PHOSPHATE 4 MG/ML 1 ML VIAL IVP ONE (14:46)
[2021-02-24] MEDS ORDERED: ceFAZolin 3,000 MG in SODIUM CHLORIDE 0.9% IRRIGATIO 3,000 ML IRRIGATION ONE ×3 (16:01→16:39)
[2021-02-24] MEDS ORDERED: HYDROcodone/APAP 5-325MG 1 EACH TAB PO PRN (17:28)
[2021-02-24] MEDS: HYDROmorphone 0.5 MG/0.5 ML SYRINGE IVP ONE ×2 (17:38→17:44)
[2021-02-24] MEDS: lisinopriL 20 MG TAB PO SCH (20:17)
[2021-02-24] MEDS: amLODIPine 10 MG TAB PO SCH (20:18)
[2021-02-24] MEDS: MELATONIN 3 MG TABLET PO PRN (20:20)
[2021-02-25] MEDS: SODIUM CHLORIDE 0.9% 1,000 ML IV SCH ×2 (02:26→10:26)
[2021-02-25 04:53] LABS: HCT 27.3 % (39.0-53.0); MCH 29.1 pg (25.0-35.0); MCHC 32.3 g/dL (31.0-37.0); MCV 90.1 fL (80.0-100.0); Mean Platelet Volume 7.7; Platelet Count 385 k/uL (150-450); RBC 3.03 m/uL (4.30-5.90); RDW 13.9 % (11.5-15.5); WBC 8.7 k/uL (3.8-10.6)
[2021-02-25 05:08] LABS: HGB 8.8 gm/dL (13.0-17.5)
[2021-02-25 05:30] LABS: African American GFR (CKD) >90 (>60 ml/min/1.73 sqM); Non-African American GFR(CKD) >90 (>60 ml/min/1.73 sqM)
[2021-02-25 05:40] LABS: Crenated RBC Present; Lymphocytes # (M) 1.31 k/uL (1.0-4.8); Monocytes # (M) 0.78 k/uL (0-1.0); Neutrophils # (M) 6.61 k/uL (1.3-7.7); Neutrophils % (M) 76 %; Nucleated Red Blood Cells 0 /100 WBC (0-0); Total Cells Counted 100; Toxic Vacuolation Present
--- NOTE | 2021-02-25 07:16 | P.CONS ---
History of Present Illness - Reason for Consult Consult date: 02/24/21 Right hand abscess Requesting physician: Tam Mortensen - Chief Complaint Right hand pain and swelling x few days - History of Present Illness Patient is a 70-year-old male presenting to the ER 2 days ago for evaluation of the right hand pain the patient has slammed his right hand in the car door on Sunday there is about 4 days before presentation to the hospital patient did have two small abrasion puncture wounds on the dorsum of his hand patient apparently was evaluated in the ER and has been sent home on oral Keflex patient been taking the Keflex for about 3 days however the patient did not have any improvement patient did have worsening swelling on the dorsal aspect of his right hand is also complaining of pain to the dorsum of the right hand which is throbbing intensity is about 7-8 out of 10 and no radiation and the patient is having difficulty moving his right middle finger with the symptom the patient presented to [facility] ER on arrival to the ER patient was afebrile and no fever has been recorded last 2 days patient did have a normal white count kidney function was normal blood culture not obtained patient was started on v ancomycin and Rocephin patient did have x-rays of the hand show soft tissue swelling edema infectious disease was consulted today for further management of antibiotic therapy patient has been evaluated by orthopedics and plan is for drainage of this abscess this afternoon. Review of Systems Positive point has been mentioned in the HPI rest of the systems are negative Past Medical History Past Medical History: Coronary Artery Disease (CAD), COPD, Hypertension, Myocardial Infarction ([place]) Additional Past Medical History / Comment(s): myocardial infarction in 2009, hypertension, COPD Last Myocardial Infarction Date:: 2009 History of Any Multi-Drug Resistant Organisms: None Reported Past Surgical History: Hernia Repair, Orthopedic Surgery Additional Past Surgical History / Comment(s): broken wrist with a plate placed with screws Past Anesthesia/Blood Transfusion Reactions: No Reported Reaction Past Psychological History: No Psychological Hx Reported Smoking Status: Current every day smoker Past Alcohol Use History: Occasional Past Drug Use History: None Reported - Past Family History Father Additional Family Medical History / Comment(s): cancer Medications and Allergies Home Medications Medication Instructions Recorded Confirmed Type Cephalexin [Keflex] 500 mg PO Q6HR 7 Days #28 cap 02/19/21 02/22/21 Rx Multivitamin [Multivitamins Adult 2 tab PO DAILY 02/22/21 02/22/21 History Gummies] Naproxen 500 mg PO BID PRN 02/22/21 02/22/21 History amLODIPine [Norvasc] 10 mg PO HS 02/22/21 02/22/21 History hydroCHLOROthiazide [Hydrodiuril] 25 mg PO DAILY 02/22/21 02/22/21 History lisinopriL 40 mg PO HS 02/22/21 02/22/21 History methocarbamoL [Robaxin] 500 mg PO TID PRN 02/22/21 02/22/21 History Allergies Allergy/AdvReac Type Severity Reaction Status Date / Time codeine AdvReac Nausea & Verified 02/22/21 13:15 Vomiting Physical Exam Vitals: Vital Signs Temp Pulse Pulse Resp BP Pulse Ox 02/24/21 07:56 66 17 02/24/21 07:00 98.3 F 63 16 137/70 97 02/24/21 01:25 98.1 F 66 17 132/70 96 02/23/21 20:00 72 17 02/23/21 19:54 98.3 F 72 17 138/73 96 02/23/21 14:50 98.1 F 68 16 130/66 96 02/23/21 14:00 74 16 Intake and Output 02/23/21 02/24/21 02/24/21 22:59 06:59 14:59 Other: Voiding Method Toilet Toilet # Voids 1 1 GENERAL DESCRIPTION: An alert male up in the room, no distress. No tachypnea or accessory muscle of respiration use. HEENT: Shows Pallor , no scleral icterus. Oral mucous membrane is dry. No pharyngeal erythema or thrush NECK: Trachea central, no thyromegaly. LUNGS: Unlabored breathing. Clear to auscultation anteriorly. No wheeze or crackle. HEART: S1, S2, regular rate and rhythm. No loud murmur ABDOMEN: Soft, no tenderness , guarding or rigidity, no organomegaly EXTREMITIES: Right hand dorsum did have swelling redness and is tender to touch SKIN: No rash, no masses palpable. NEUROLOGICAL: The patient is awake, alert, oriented x3, mood and affect normal. Results CBC & Chem 7: 02/24/21 21:08 02/25/21 04:56 Labs: Abnormal Lab Results - Last 24 Hours (Table) 02/24/21 Range/Units 04:54 Creatinine 0.50 L (0.66-1.25) mg/dL Assessment and Plan Assessment: patient with right hand dorsum abscess and cellulitis started with a trauma they seem to have failed outpatient oral Keflex therapy. Concern for possible community associated MRSA and development of underlying abscess, drainage of which will help healing of this infection (1) Cellulitis of right hand Current Visit: Yes Status: Acute Code(s): L03.113 - CELLULITIS OF RIGHT UPPER LIMB SNOMED Code(s): 34384574 Plan: 1-vancomycin pharmacy to dose her with a target trough of 15 while watching her kidney function and Vanco trough closely. 2-wait for surgical drainage and deep cultures 3-discharge antibiotic on the basis of culture report and clinical response We will follow on clinical condition and cultures to further adjust medication if needed Thank you for this consultation we will follow the patient along with you Time with Patient: Greater than 30
[2021-02-25] MEDS: VANCOMYCIN 1,250 MG in SODIUM CHLORIDE 0.9% 250 ML IVPB SCH ×3 (07:22→23:20)
[2021-02-25] MEDS: NICOTINE 14MG/24HR PATCH TRANSDERM SCH (07:22)
[2021-02-25] MEDS: hydroCHLOROthiazide 25 MG TAB PO SCH (07:22)
--- NOTE | 2021-02-25 11:16 | P.PN ---
Subjective Progress Note Date: 02/25/21 Principal diagnosis: Status post I&D right hand, extensor tendon repair right hand Patient was evaluated at bedside, Dr. Wood was available to examine the patient. He states that the hand is feeling relatively well at this time. He is denying any acute fever or chills or changes in his pain. He is utilizing the splint at this time. Denies any headaches, lightheadedness, chest pain or shortness of breath. Objective - Vital Signs Vital signs: Vital Signs Temp 98.5 F 02/25/21 07:59 Pulse 67 02/25/21 08:00 Resp 18 02/25/21 08:00 BP 130/65 02/25/21 07:59 Pulse Ox 94 L 02/25/21 07:59 Intake & Output 02/24/21 02/25/21 02/25/21 18:59 06:59 18:59 Intake Total 803 300 300 Output Total 110 Balance 693 300 300 Intake: IV 803 Oral 300 300 Output: Urine 100 Estimated Blood Loss 10 Other: Voiding Method Toilet Urinal Toilet Urinal # Voids 7 1 # Bowel Movements 1 - Exam Right upper extremity: Postop splint is in good position and condition. Patient is able wiggle the fingers and no difficulty. Sensory exam to light touch both proximal and distal to the splinter intact. Cap refill is less than 2 seconds. - Labs CBC & Chem 7: 02/24/21 21:08 02/25/21 04:56 Labs: Abnormal Lab Results - Last 24 Hours (Table) 02/24/21 02/24/21 02/24/21 Range/Units 12:58 12:58 21:08 RBC 3.03 L (4.30-5.90) m/uL Hgb 8.8 L D (13.0-17.5) gm/dL Hct 27.3 L (39.0-53.0) % ESR 55 H (0-15) mm/hr Creatinine (0.66-1.25) mg/dL C-Reactive Protein 3.4 H (0.0-0.8) mg/dL 02/25/21 Range/Units 04:56 RBC (4.30-5.90) m/uL Hgb (13.0-17.5) gm/dL Hct (39.0-53.0) % ESR (0-15) mm/hr Creatinine 0.42 L (0.66-1.25) mg/dL C-Reactive Protein (0.0-0.8) mg/dL Microbiology - Last 24 Hours (Table) 02/24/21 16:49 Gram Stain - Preliminary Hand - Right Tissue Culture - Preliminary 02/24/21 16:49 Gram Stain - Preliminary Hand - Right Wound Culture - Preliminary 02/24/21 16:49 Gram Stain - Preliminary Hand - Right Wound Culture - Preliminary 02/24/21 16:49 Anaerobic Culture - Preliminary Hand - Right 02/24/21 16:49 Anaerobic Culture - Preliminary Hand - Right 02/24/21 16:49 Anaerobic Culture - Preliminary Hand - Right Assessment and Plan Assessment: Postoperative day #1 status post I&D right hand, extensor tendon repair right hand Plan: Pain control, low-dose oral medication as needed Continue IV antibiotics Await culture and sensitivity results, and infectious disease recommendations appreciated Will change dressing either later today or tomorrow, we'll likely remove drains at that time Discussed the patient at length today the need for continuation of the splint and having to keep the fingers fully extended with no flexion to allow healing of the extensor tendon GI and DVT prophylaxis per primary medical service Further recommendations Time with Patient: Less than 30
--- NOTE | 2021-02-25 17:41 | P.PN ---
Subjective Progress Note Date: 02/25/21 No new complaints. Pt doing well s/p washout. Pending micro. Objective - Vital Signs Vital signs: Vital Signs Temp 99.1 F 02/25/21 15:10 Pulse 66 02/25/21 15:10 Resp 16 02/25/21 15:10 BP 148/74 02/25/21 15:10 Pulse Ox 93 L 02/25/21 15:10 Intake & Output 02/24/21 02/25/21 02/25/21 18:59 06:59 18:59 Intake Total 803 300 530 Output Total 110 Balance 693 300 530 Intake: IV 803 Oral 300 530 Output: Urine 100 Estimated Blood Loss 10 Other: Voiding Method Toilet Urinal Toilet Urinal # Voids 7 1 4 # Bowel Movements 1 - Exam Gen: awake, alert HEENT: normocephalic, atraumatic, good hearing acuity, moist mucous membranes Resp: good air exchange, breathing comfortably with no accessory muscle use CVS: good distal perfusion x 4, GI: soft, NTTP, ND : no SPT, no CVAT, becerra catheter not present MSK: no pitting edema, no clubbing, right hand swelling, predominantly dorsal, with erythema Neuro: non-focal, moving all extremities, numbness of 3rd digit Psych: cooperative, euthymic mood - Labs CBC & Chem 7: 02/24/21 21:08 02/25/21 04:56 Labs: Abnormal Lab Results - Last 24 Hours (Table) 02/24/21 02/24/21 02/25/21 Range/Units 12:58 21:08 04:56 RBC 3.03 L (4.30-5.90) m/uL Hgb 8.8 L D (13.0-17.5) gm/dL Hct 27.3 L (39.0-53.0) % Creatinine 0.42 L (0.66-1.25) mg/dL C-Reactive Protein 3.4 H (0.0-0.8) mg/dL Microbiology - Last 24 Hours (Table) 02/24/21 16:49 Gram Stain - Preliminary Hand - Right Tissue Culture - Preliminary 02/24/21 16:49 Gram Stain - Preliminary Hand - Right Wound Culture - Preliminary 02/24/21 16:49 Gram Stain - Preliminary Hand - Right Wound Culture - Preliminary 02/24/21 16:49 Anaerobic Culture - Preliminary Hand - Right 02/24/21 16:49 Anaerobic Culture - Preliminary Hand - Right 02/24/21 16:49 Anaerobic Culture - Preliminary Hand - Right Assessment and Plan Assessment: Right hand cellulitis, known injury with edema and decreased mobility -Vancomycin, Rocephin -Consult orthopedics, I&D completed 02/24 -ID consult -pending OR wound cx -IV fluids -Pain control Hypertension, controlled -Resume home Norvasc, hydrochlorothiazide, and lisinopril -Follow blood pressures Tobacco abuse -Cessation -Nicotine replacement Chronic: Back pain Coronary artery disease The patient is placed in observation with an anticipated less than 2 midnight stay for evaluation of right hand cellulitis. Surrogate decision-maker: Significant other CODE STATUS: Full code DVT prophylaxis: early ambulation Anticipated discharge date: in 1-[address]: home
[2021-02-25] MEDS: amLODIPine 10 MG TAB PO SCH (19:42)
[2021-02-25] MEDS: lisinopriL 20 MG TAB PO SCH (19:42)
--- NOTE | 2021-02-25 21:24 | PN ---
PROGRESS NOTE DATE OF SERVICE: 02/25/2021 REASON FOR FOLLOWUP: Right hand abscess and cellulitis. INTERVAL HISTORY: Patient is afebrile. The patient is status post surgical intervention of the right hand dorsum abscess yesterday. Patient tolerated the procedure. Pain is currently controlled. No chest pain, shortness of breath or cough. No abdominal pain or diarrhea. PHYSICAL EXAMINATION: Blood pressure 148/74, pulse of 66, temperature 99.1. He is 93% on room air. General description is an elderly male lying in bed in no distress. Respiratory system: Unlabored breathing. Clear to auscultation anteriorly. Heart S1, S2. Regular rate and rhythm. Abdomen soft, no tenderness. The right hand is currently dressed. No drainage on the dressing. LABS: Hemoglobin 8.1, white count 8.7, creatinine 0.42. Cultures currently pending. DIAGNOSTIC IMPRESSION AND PLAN: Patient with right hand dorsum abscess and cellulitis failing conservative treatment, status post drainage of the abscess. Cultures are pending. Patient to continue with vancomycin and cefepime while waiting for the culture to finalize adjusting antibiotic further based on culture report. Continue supportive care. MMODL / IJN: [id number] /
[2021-02-26] MEDS ORDERED: VANCOMYCIN TROUGH DUE 1 EACH MISC MISCELLANE ONE (06:00)
[2021-02-26] MEDS: hydroCHLOROthiazide 25 MG TAB PO SCH (08:06)
[2021-02-26] MEDS: NICOTINE 14MG/24HR PATCH TRANSDERM SCH (08:06)
[2021-02-26] MEDS: VANCOMYCIN 1,250 MG in SODIUM CHLORIDE 0.9% 250 ML IVPB SCH ×2 (09:08→14:19)
[2021-02-26] MEDS: SODIUM CHLORIDE 0.9% 1,000 ML IV SCH (09:10)
--- NOTE | 2021-02-26 10:11 | P.PN ---
Subjective Progress Note Date: 02/26/21 Principal diagnosis: R hand dorsal abscess R hand contusion Pt s/e this AM. He is doing OK. Some pain in hand. Dressing CDI. Denies any issues overnight. on ABX. Denies any f/c/sob/cp at this time. Objective - Vital Signs Vital signs: Vital Signs Temp 97.9 F 02/26/21 07:38 Pulse 63 02/26/21 07:38 Resp 17 02/26/21 07:38 BP 150/76 02/26/21 07:38 Pulse Ox 96 02/26/21 07:38 Intake & Output 02/25/21 02/26/21 02/26/21 18:59 06:59 18:59 Intake Total 530 Balance 530 Intake: Oral 530 Other: Voiding Method Toilet Toilet Urinal Urinal # Voids 4 3 - Exam Dressing c/d/i +motor M/R/U nerves SILT M/R/U nerves COmpartments soft compressive cap refill brisk < 2 sec - Labs CBC & Chem 7: 02/24/21 21:08 02/25/21 04:56 Labs: Microbiology - Last 24 Hours (Table) 02/24/21 16:49 Gram Stain - Preliminary Hand - Right Tissue Culture - Preliminary 02/24/21 16:49 Gram Stain - Preliminary Hand - Right Wound Culture - Preliminary 02/24/21 16:49 Gram Stain - Preliminary Hand - Right Wound Culture - Preliminary Assessment and Plan Assessment: 70 yo male POD2 incision and drainage dorsal hand abscess with RMF extensor tendon repair Plan: Cont with abx Dressing change today pain control PRN Mech DVT ppx ID recs Medical management
--- NOTE | 2021-02-26 12:40 | P.PN ---
Subjective Progress Note Date: 02/26/21 No new complaints. Pt doing well s/p washout. Pending micro. Objective - Vital Signs Vital signs: Vital Signs Temp 97.9 F 02/26/21 07:38 Pulse 63 02/26/21 07:38 Resp 17 02/26/21 07:38 BP 150/76 02/26/21 07:38 Pulse Ox 96 02/26/21 07:38 Intake & Output 02/25/21 02/26/21 02/26/21 18:59 06:59 18:59 Intake Total 530 Balance 530 Intake: Oral 530 Other: Voiding Method Toilet Toilet Urinal Urinal # Voids 4 3 - Exam Gen: awake, alert HEENT: normocephalic, atraumatic, good hearing acuity, moist mucous membranes Resp: good air exchange, breathing comfortably with no accessory muscle use CVS: good distal perfusion x 4, GI: soft, NTTP, ND : no SPT, no CVAT, becerra catheter not present MSK: no pitting edema, no clubbing, right hand swelling, predominantly dorsal, with erythema Neuro: non-focal, moving all extremities, numbness of 3rd digit Psych: cooperative, euthymic mood - Labs CBC & Chem 7: 02/24/21 21:08 02/25/21 04:56 Labs: Microbiology - Last 24 Hours (Table) 02/24/21 16:49 Gram Stain - Preliminary Hand - Right Tissue Culture - Preliminary 02/24/21 16:49 Gram Stain - Preliminary Hand - Right Wound Culture - Preliminary Assessment and Plan Assessment: Right hand cellulitis, known injury with edema and decreased mobility -Vancomycin, Rocephin -Consult orthopedics, I&D completed 02/24 -ID consult -pending OR wound cx -IV fluids -Pain control Hypertension, controlled -Resume home Norvasc, hydrochlorothiazide, and lisinopril -Follow blood pressures Tobacco abuse -Cessation -Nicotine replacement Chronic: Back pain Coronary artery disease The patient is placed in observation with an anticipated less than 2 midnight stay for evaluation of right hand cellulitis. Surrogate decision-maker: Significant other CODE STATUS: Full code DVT prophylaxis: early ambulation Anticipated discharge date: in 1-[address]: home
--- NOTE | 2021-02-26 14:39 | P.PN ---
Progress Note - Text Progress Note Date: 02/26/21 Patient was admitted bedside this afternoon sitting upwith feet off edge of bed while dressing was changed. Av wrap was removed as well as cast padding. Splint was removed for a moment, Fluffs, 4 x 4's and Adaptic was removed from incision. There was some dry straw-colored fluid on the fluffs. Incision looked clean, dry, intact. Sutures were in good place. Drains were present and not actively draining anything. Negative for any ulcers, purulence. Surrounding skin around the incision had some mild erythema. Mild swelling very much less now than before surgery. Drains removed. New Adaptic and fluffs were placed over the incision. Splint was placed back on patient. Kerlix was wrapped over the splint and Av bandage over that. AV bandage secured with clear tape.
--- NOTE | 2021-02-26 19:31 | PN ---
PROGRESS NOTE DATE OF SERVICE: 02/26/2021 REASON FOR FOLLOWUP: Right hand abscess. INTERVAL HISTORY: The patient is afebrile. Pain to the right hand is currently controlled. Denies having any chest pain, shortness of breath or cough. No abdominal pain or diarrhea. PHYSICAL EXAMINATION: Blood pressure 125/67, pulse of 78, temperature 98.6. He is 97% on room air. General description is an elderly male up in the room in no distress. Respiratory system: Unlabored breathing. Clear to auscultation anteriorly. Heart S1, S2. Regular rate and rhythm. Abdomen soft, no tenderness. The right knee is currently dressed up. No obvious drainage on the dressing. LABS: Cultures currently pending. DIAGNOSTIC IMPRESSION AND PLAN: Patient with right hand abscess cellulitis status post drainage. Cultures are pending. Patient to continue with cefepime and vancomycin and adjust antibiotic further based on culture report. Continue supportive care. MMODL / IJN: [id number] /
[2021-02-26] MEDS: lisinopriL 20 MG TAB PO SCH (20:47)
[2021-02-26] MEDS: amLODIPine 10 MG TAB PO SCH (20:47)
[2021-02-26] MEDS: MELATONIN 3 MG TABLET PO PRN (20:47)
[2021-02-27] MEDS: VANCOMYCIN 1,250 MG in SODIUM CHLORIDE 0.9% 250 ML IVPB SCH ×4 (00:25→23:25)
[2021-02-27 06:45] LABS: African American GFR (CKD) >90 (>60 ml/min/1.73 sqM); Non-African American GFR(CKD) >90 (>60 ml/min/1.73 sqM)
[2021-02-27] MEDS: hydroCHLOROthiazide 25 MG TAB PO SCH (09:21)
[2021-02-27] MEDS: NICOTINE 14MG/24HR PATCH TRANSDERM SCH ×2 (09:22→09:25)
--- NOTE | 2021-02-27 10:07 | P.PN ---
Subjective Progress Note Date: 02/27/21 Principal diagnosis: Right hand cellulitis Patient seen at [facility] this morning. Patient says he is feeling a lot better today. He says he is able to extend his middle finger easier than prior to surgery. He says he is not in that much pain today. Splint and Av wrap are in place on right hand/arm and in good position. Patient denies chest pain, fever, chills, changes in vision, numbness/tinlging, SOB. Objective - Vital Signs Vital signs: Vital Signs Temp 97.4 F L 02/27/21 07:55 Pulse 69 02/27/21 07:55 Resp 16 02/27/21 07:55 BP 155/78 02/27/21 07:55 Pulse Ox 97 02/27/21 07:55 Intake & Output 02/26/21 02/27/21 02/27/21 18:59 06:59 18:59 Intake Total 522 628 Balance 522 628 Intake: Oral 522 628 Other: Voiding Method Toilet Urinal # Voids 1 1 - Exam Right hand: Inspection: incision is CDI. sutures are in good place. Negative for any purulence, negative for wound dehiscence. swelling in hand is decreasing. Palpation: Mild TTP over incision. Radial pulses intact, 2+ in right wrist. Cap refill <3 sec, brisk ROM: Patient able to extend and flex third digit better today, less painful Sensation - intact throughout Motor: Decreased teacher associate strength. Some mild weakness in flexion and extension of digits - Labs CBC & Chem 7: 02/24/21 21:08 02/27/21 06:10 Labs: Abnormal Lab Results - Last 24 Hours (Table) 02/27/21 Range/Units 06:10 Creatinine 0.51 L (0.66-1.25) mg/dL Microbiology - Last 24 Hours (Table) 02/24/21 16:49 Anaerobic Culture - Preliminary Hand - Right 02/24/21 16:49 Anaerobic Culture - Preliminary Hand - Right 02/24/21 16:49 Gram Stain - Preliminary Hand - Right Wound Culture - Preliminary Presumptive MRSA 02/24/21 16:49 Gram Stain - Preliminary Hand - Right Tissue Culture - Preliminary 02/24/21 16:49 Gram Stain - Final Hand - Right Wound Culture - Final Assessment and Plan Assessment: 1. Right hand cellulitis Plan: 1. Right hand cellulitis - incisional drainage and irrigation and debridement of right hand performed Sunday02/24/2021, and patient currently in splint and av wrap. Patient seen and examined this morning at bedside. Patient is orthopedically stable for discharge to go home. We will discuss plan with medicine and infectious disease about going home with IV vs oral Antibiotics 2. Appreciate medical management and ID management- on Rocephin and Vanco 3. Pain management - stable at this time 4. GI ppx - dulcolax Time with Patient: Less than 30
--- NOTE | 2021-02-27 14:13 | P.PN ---
Subjective Progress Note Date: 02/27/21 Overall improvd. Micro growing presumed MRSA. On Vancomycin. D/c'd ceftriaxone. Objective - Vital Signs Vital signs: Vital Signs Temp 97.4 F L 02/27/21 07:55 Pulse 69 02/27/21 07:55 Resp 16 02/27/21 07:55 BP 155/78 02/27/21 07:55 Pulse Ox 97 02/27/21 07:55 Intake & Output 02/26/21 02/27/21 02/27/21 18:59 06:59 18:59 Intake Total 522 808 Balance 522 808 Intake: Oral 522 808 Other: Voiding Method Toilet Urinal # Voids 1 1 - Exam Gen: awake, alert HEENT: normocephalic, atraumatic, good hearing acuity, moist mucous membranes Resp: good air exchange, breathing comfortably with no accessory muscle use CVS: good distal perfusion x 4, GI: soft, NTTP, ND : no SPT, no CVAT, becerra catheter not present MSK: no pitting edema, no clubbing, right hand swelling, predominantly dorsal, with erythema Neuro: non-focal, moving all extremities, numbness of 3rd digit Psych: cooperative, euthymic mood - Labs CBC & Chem 7: 02/24/21 21:08 02/27/21 06:10 Labs: Abnormal Lab Results - Last 24 Hours (Table) 02/27/21 Range/Units 06:10 Creatinine 0.51 L (0.66-1.25) mg/dL Microbiology - Last 24 Hours (Table) 02/24/21 16:49 Anaerobic Culture - Preliminary Hand - Right 02/24/21 16:49 Anaerobic Culture - Preliminary Hand - Right 02/24/21 16:49 Gram Stain - Preliminary Hand - Right Wound Culture - Preliminary Presumptive MRSA 02/24/21 16:49 Gram Stain - Preliminary Hand - Right Tissue Culture - Preliminary 02/24/21 16:49 Gram Stain - Final Hand - Right Wound Culture - Final Assessment and Plan Assessment: Right hand cellulitis, known injury with edema and decreased mobility -Vancomycin continued -Ceftriaxone d/'c'd 02/27 -Consult orthopedics, I&D completed 02/24 -ID consult -pending OR wound cx -Presumptive MRSA, speciation confirmation and sensitivities pending -IV fluids -Pain control Hypertension, controlled -Resume home Norvasc, hydrochlorothiazide, and lisinopril -Follow blood pressures Tobacco abuse -Cessation -Nicotine replacement Chronic: Back pain Coronary artery disease The patient is placed in observation with an anticipated less than 2 midnight stay for evaluation of right hand cellulitis. Surrogate decision-maker: Significant other CODE STATUS: Full code DVT prophylaxis: early ambulation Anticipated discharge date: in 1-[address]: home
[2021-02-27] MEDS: SODIUM CHLORIDE 0.9% 1,000 ML IV SCH ×2 (14:46→23:28)
--- NOTE | 2021-02-27 19:52 | PN ---
PROGRESS NOTE DATE OF SERVICE: 02/27/2021 REASON FOR FOLLOWUP: Right hand abscess cellulitis MRSA. The patient is afebrile. The patient is breathing comfortably. Overall pain and discomfort to the right hand has decreased. No chest pain, shortness of breath, cough. No abdominal pain or diarrhea. PHYSICAL EXAMINATION: Blood pressure 141/79, pulse of 90, temperature 98.1. He is 95% on room air. General description is an elderly male lying in bed in no distress. Respiratory system: Unlabored breathing. Clear to auscultation anteriorly. Heart S1, S2. Regular rate and rhythm. Abdomen soft, no tenderness. Right hand is currently dressed. No obvious drainage on the dressing. LABS: Creatinine 0.51. Local culture with presumptive MRSA. DIAGNOSTIC IMPRESSION AND PLAN: This patient with right hand abscess status post drainage. Culture with presumptive MRSA. We will wait for the sensitivity to finalize. Re-evaluate the hand tomorrow after the dressing is changed to determine his discharge antibiotics. Continue vancomycin. Questions and concerns were answered. MMODL / IJN: [id number] /
[2021-02-27] MEDS: lisinopriL 20 MG TAB PO SCH (21:36)
[2021-02-27] MEDS: amLODIPine 10 MG TAB PO SCH (21:36)
[2021-02-27] MEDS: MELATONIN 3 MG TABLET PO PRN (21:48)
[2021-02-28 07:32] VITALS: BP 147/73; PULSE 61; RESP 16; TEMP 97.9
[2021-02-28] MEDS: VANCOMYCIN 1,250 MG in SODIUM CHLORIDE 0.9% 250 ML IVPB SCH (08:06)
[2021-02-28] MEDS: NICOTINE 14MG/24HR PATCH TRANSDERM SCH (08:06)
[2021-02-28] MEDS: hydroCHLOROthiazide 25 MG TAB PO SCH (08:07)
--- NOTE | 2021-02-28 09:25 | P.OP ---
Date of Procedure: 02/24/21 Preoperative Diagnosis: 1. Right hand dorsal abscess 2. Status post car door injury 3. Possible extensor tendon injury Postoperative Diagnosis: 1. Right hand dorsal abscess 2. Status post car door injury 3. right middle finger extensor tendon laceration Procedure(s) Performed: 1. Incision and drainage dorsal hand abscess on the right 2. Irrigation debridement right hand dorsal abscess using the following: - Skin knife used for skin incision as well as skin debridement - curettes and rongeurs used for soft tissue and tendinous debridement as well as muscular debridement 3. Right middle finger extensor tendon repair, direct repair Anesthesia: MAC Surgeon: Gómez Steward [employer]: Asaf Cortez ( was present for the entire case and necessary due to the complexity of the case) Estimated Blood Loss (ml): 10 IV fluids (ml): 1,000 Urine output (ml): 0 Pathology: other (2 cultures 2 soft tissue) Condition: stable Disposition: PACU Indications for Procedure: 70-year-old [id number] male presented with complaints of right hand swelling redness pain and difficulty with movement. Patient was seen by his primary care doctor started antibiotic antibiotics over a week ago. He states that he slammed his hand in a car door and that he has had significant pain since then however the redness swelling and some of the drainage has not started until recently. He was found to likely of abscess he was admitted to the hospital for antibiotic administration as well as evaluation. On evaluation the patient has a large dorsal hand abscess over the MCP joint of the right middle finger and index finger and finger. Over the middle finger is the worst of this and is likely due to the trauma that he sustained in this area. Discussed risks and benefits of surgery versus conservative treatment we attempted conservative measures and first antibiotics however it got worse so we elected for surgical debridement. Operative Findings: Large abscess with phlegmon right dorsal hand. Right middle finger extensor tendon injury. Right middle finger junction a ten-day injury along with sagittal band injury. Large contusive avoid an injury and void right dorsal hand Description of Procedure: The patient was seen and examined in the preoperative area. All preoperative protocols were followed. Informed consent was obtained risks and benefits of the procedure were discussed at length. Risks including bleeding infection damage to the surrounding tissue and risk of reoperation were discussed with the patient. Risk of anesthesia up to and including was a discussed with the patient. These are outlined in the risk reviewed. They were willing to accept these risks and all of the risks of surgery. The patient was given a weight- based dose of antibiotics in the form of vancomycin weight-based dose. The patient was seen and evaluated by the anesthesia team who deemed them fit for surgery. The site was marked, the patient was willing to proceed with the procedure. The patient was transferred to the operative suite by the Department of anesthesia. There were then drifted off to sleep by the department of anesthesia and LMA anesthesia was used. Once adequate anesthesia had been obtained the patient was carefully transferred to the operative bed. All bony prominences were padded accordingly. SCDs were placed on the nonoperative lower extremities. Arms were well padded. Right upper extremity was exposed and placed on an arm board and well-padded. Tourniquet was placed around the patient's right upper arm. 10:15 misplaced or numbness. Preoperative briefing was done with the operative team and everyone was ready for the procedure to start. The patients right arm was then prepped and draped in the normal sterile fashion. Timeout was then performed and all parties in agreement with the procedure to be performed. We then identified the area of abscess was over the dorsal aspect of the right hand over the MCP joint. Longitudinal incision was made over this area and blunt dissection taken down to a large pocket of phlegmon was encountered. We then used skin knife as well as curet and rongeur to debride this area of necrotic tissue. The patient's junction tenderness had been disrupted as well as sagittal band. The extensor tendon of the middle finger had been injured in this area and almost a stretch type injury and it was very redundant due to this. We elected for fixation of this as the patient was also complaining that he cannot move his middle finger and extension secondary to pain as well as inability to initiate motion. After debridement we irrigated with 6 L of antibiotic irrigation. This is followed by 3 L of normal sterile saline. We then performed a repair of the extensor tendon of the right middle finger using 4-0 Prolene stitch a core suture was placed in a modified Rosario approach 2 of these were performed to allow for good tensioning of the middle finger. Once this was performed the finger was taken through a range of motion and it had a good cascade as well as tension on it. We then oversewed this area with 6-0 Prolene in a running fashion. The tendon was again taken through a range of motion and was stable. We then fixed the junctioni Tendoni with 4-0 Vicryl and the sagittal band with the same. The wound was then copiously irrigated once again and the skin closed with 3-0 Vicryl followed by 2-0 nylon. Was then dressed sterilely with sterile Adaptic 4 x 4's and Kerlix. Fluffs were placed between the fingers of the patient he was placed in a volar splint with the fingers in extension. The patient was then transferred back to their hospital bed. There were awakened by department of anesthesia having tolerated the procedure very well with no complications. The patient was then transported to the postoperative care unit in stable condition.
--- NOTE | 2021-02-28 09:47 | P.PN ---
Subjective Progress Note Date: 02/28/21 Principal diagnosis: R hand dorsal abscess R hand contusion Patient seen and examined doing well complains of no pain to move all fingers denies any other issues overnight denies fevers chills shortness of breath or chest pain. Objective - Vital Signs Vital signs: Vital Signs Temp 97.9 F 02/28/21 07:31 Pulse 61 02/28/21 07:31 Resp 16 02/28/21 07:31 BP 147/73 02/28/21 07:31 Pulse Ox 97 02/28/21 07:31 Intake & Output 02/27/21 02/28/21 02/28/21 18:59 06:59 18:59 Intake Total 1698 236 Balance 1698 236 Intake: Intake, IV Titration 490 Amount Sodium Chloride 0.9% 1, 240 000 ml @ 20 mls/hr IV . Q24H TOMY Rx#:[id number] Vancomycin 1,250 mg In 250 Sodium Chloride 0.9% 250 ml @ 125 mls/hr IVPB Q8H TOMY Rx#:[id number] Oral 1208 236 Other: # Voids 3 - Exam Higinio stable at this time. Dressing is clean and dry. Dressing c/d/i +motor M/R/U nerves SILT M/R/U nerves COmpartments soft compressive cap refill brisk < 2 sec - Labs CBC & Chem 7: 02/24/21 21:08 02/27/21 06:10 Labs: Microbiology - Last 24 Hours (Table) 02/24/21 16:49 Gram Stain - Final Hand - Right Wound Culture - Final Methicillin resist S. aureus 02/24/21 16:49 Gram Stain - Preliminary Hand - Right Tissue Culture - Preliminary Assessment and Plan Assessment: 70 yo male POD3 incision and drainage dorsal hand abscess with RMF extensor tendon repair Plan: Cont with abx Dressing change yesterday maintain until seen in office in 1 week pain control PRN Mech DVT ppx ID recs Medical management Orthopedically stable for discharge today pending ID wrecks for antibiotics Follow-up in one week
--- NOTE | 2021-02-28 14:55 | P.DS ---
Providers Date of admission: 02/24/21 14:11 Expected date of discharge: 02/28/21 Attending physician: Celi Sauceda DO Consults: 02/22/21 15:09 Consult Physician Routine Consulting Provider: Gómez Steward Consult Reason/Comments: right hand cellulitis Do you want consulting provider notified?: Yes 02/24/21 10:46 Consult Physician Routine Consulting Provider: Marco Saunders Consult Reason/Comments: R hand abscess Do you want consulting provider notified?: Yes Primary care physician: Jac Sims MD Hospital Course: Right hand cellulitis, known injury with edema and decreased mobility Patient admitted for right hand cellulitis, and was started on vancomycin and ceftriaxone. Orthopedics was consulted and took patient for I&D on 02/24. Cultures grew MRSA. ID consulted to manage antibiotics. Recommended an additional 10 days of bactrim and ID f/u. Pt will also f/u with ortho. Hypertension, controlled -Resumed home Norvasc, hydrochlorothiazide, and lisinopril Tobacco abuse -Cessation counseling Chronic: Back pain Coronary artery disease Assessment: Gen: awake, alert HEENT: normocephalic, atraumatic, good hearing acuity, moist mucous membranes Resp: good air exchange, breathing comfortably with no accessory muscle use CVS: good distal perfusion x 4, GI: soft, NTTP, ND : no SPT, no CVAT, becerra catheter not present MSK: no pitting edema, no clubbing, right hand swelling, predominantly dorsal, with erythema Neuro: non-focal, moving all extremities, numbness of 3rd digit Psych: cooperative, euthymic mood Patient Condition at Discharge: Good Plan - Discharge Summary Discharge Rx Participant: No New Discharge Prescriptions: New Sulfamethox-Tmp 800-160Mg [Bactrim DS 800-160 mg] 1 tab PO Q12HR #20 tab Continue lisinopriL 40 mg PO HS Naproxen 500 mg PO BID PRN PRN Reason: Pain methocarbamoL [Robaxin] 500 mg PO TID PRN PRN Reason: Muscle Spasm hydroCHLOROthiazide [Hydrodiuril] 25 mg PO DAILY amLODIPine [Norvasc] 10 mg PO HS Multivitamin [Multivitamins Adult Gummies] 2 tab PO DAILY Discontinued Cephalexin [Keflex] 500 mg PO Q6HR 7 Days #28 cap Discharge Medication List Multivitamin [Multivitamins Adult Gummies] 2 tab PO DAILY 02/22/21 [History] Naproxen 500 mg PO BID PRN 02/22/21 [History] amLODIPine [Norvasc] 10 mg PO HS 02/22/21 [History] hydroCHLOROthiazide [Hydrodiuril] 25 mg PO DAILY 02/22/21 [History] lisinopriL 40 mg PO HS 02/22/21 [History] methocarbamoL [Robaxin] 500 mg PO TID PRN 02/22/21 [History] Sulfamethox-Tmp 800-160Mg [Bactrim DS 800-160 mg] 1 tab PO Q12HR #20 tab 02/28/21 [Rx] Follow up Appointment(s)/Referral(s): Jac Sims MD [Primary Care Provider] - 1-2 days Gómez Steward DO [Doctor of Osteopathic Medicine] - 03/07/21 10:20 am (make appointment for sunday next week. Please arrive 15mins.early for paperwork.) Patient Instructions/Handouts: Cellulitis (DC) Activity/Diet/Wound Care/Special Instructions: keep right arm splint intact until follow up appointment activity as tolerated regular diet Discharge Disposition: HOME SELF-CARE
[2021-03-01] MEDS ORDERED: VANCOMYCIN TROUGH DUE 1 EACH MISC MISCELLANE ONE (06:00)
--- NOTE | 2021-03-01 12:01 | CDI ---
Documentation Clarification Form Date: 03/01/21 From: Gabrielle Black Admit Date: 02/24/2021 02:11:00 PM Patient Name: Shaheed Daley Visit Number: [id number] Discharge Date: 02/28/2021 01:59:00 PM ATTENTION: The Clinical Documentation Specialists (CDI) and [facility] Coding Staff appreciate your assistance in clarifying documentation. Please respond to the clarification below the line at the bottom and electronically sign. The CDI & [facility] Coding staff will review the response and follow-up if needed. Please note: Queries are made part of the Legal Health Record. If you have any questions, please contact the author of this message via ITS. Dr. Gómez Steward, A debridement is documented in the operative report. Additional clarification regarding the procedure is requested. History/Risk Factors: Clinical Indicators: Cellulitis/abscess of rght hand with right middle finger extensor tendon laceration. Treatment: Incision and drainage dorsal hand abscess on the right. Irrigation debridement right hand dorsal abscess using the following: - Skin knife used for skin incision as well as skin debridement - curettes and rongeurs used for soft tissue and tendinous debridement as well as muscular debridement. Right middle finger extensor tendon repair, direct repair. Please clarify the type of procedure performed: [ ] Excisional debridement (the removal of necrotic, devitalized tissue or slough by means of cutting away of tissue) [ ] Non-excisional debridement (the removal of necrotic, devitalized tissue or slough by means of flushing, brushing, or washing. (Irrigation) [ ] Other; please specify [ ] Unable to determine Five elements required for accurate and compliant documentation of a debridement: Technique used (e.g., excisional, excised, cutting, brushing, jet lavage etc.) Instrument(s) used (e.g., scalpel, curette, etc.) Nature of the tissue removed (e.g., necrotic, devitalized tissues, non-viable tissue, etc.) Appearance and size of the wound (e.g., down to fresh bleeding tissue, 7cm x 10cm, etc.) Depth of the debridement* (e.g., skin, subcutaneous tissue, fascia, muscle, bone, etc.) Excisional debridement with removal of devitalized soft tissue fat and tendon MTDD
== END 2021-02-28 13:59 | disposition home or self-care (01) | DRG 580 ==
LOC: EC 11:16 → 1SOBS 12:50 → 6NMEDSUR 15:13 → OBSVTOIN 02-24 14:11
PROVIDERS: ADMIT Internal Medicine; ATTEND Internal Medicine
PROC: 0LB70ZZ Excision of Right Hand Tendon, Open Approach (ICD-10-PCS; principal; 2021-02-24 13:15)
PROC: 0LQ70ZZ Repair Right Hand Tendon, Open Approach (ICD-10-PCS; principal; 2021-02-24 13:15)
DX: L03.113 Cellulitis of right upper limb (principal); L02.511 Cutaneous abscess of right hand; S66.322A Laceration of extensor muscle, fascia and tendon of right middle finger at wrist and hand level, initial encounter; F17.200 Nicotine dependence, unspecified, uncomplicated; J44.9 Chronic obstructive pulmonary disease, unspecified; S60.221A Contusion of right hand, initial encounter; B95.62 Methicillin resistant Staphylococcus aureus infection as the cause of diseases classified elsewhere; I10 Essential (primary) hypertension; I25.10 Atherosclerotic heart disease of native coronary artery without angina pectoris; I25.2 Old myocardial infarction; M54.9 Dorsalgia, unspecified; Z71.6 Tobacco abuse counseling; Z79.82 Long term (current) use of aspirin; Z79.899 Other long term (current) drug therapy; Z87.19 Personal history of other diseases of the digestive system; Z87.81 Personal history of (healed) traumatic fracture; Z98.890 Other specified postprocedural states; W23.0XXA Caught, crushed, jammed, or pinched between moving objects, initial encounter; Z88.5 Allergy status to narcotic agent; Z80.9 Family history of malignant neoplasm, unspecified
CPT/HCPCS: 36415; 80048; 80202; 82565; 85025; 85027; 85652; 86140; 87070; 87075; 87077; 87186; 87205; 96361; 96365; 96366; 99284

== ENCOUNTER 2021-03-01 16:34 | Inpatient (IN) | payer MEDICARE ==
[2021-03-01] MEDS ORDERED: SODIUM CHLORIDE 0.9% 1,800 ML IV STA (17:24)
[2021-03-01] MEDS ORDERED: cefTRIAXone IN SWFI 1,000 MG/10 ML SYRINGE IVP STA (17:24)
[2021-03-01] MEDS ORDERED: ACETAMINOPHEN TAB 325 MG TAB PO STA (17:25)
[2021-03-01 18:12] LABS: Basophils % (A) 0 %; Eosinophils # (A) 0.1 k/uL (0-0.7); Eosinophils % (A) 1 %; HCT 35.9 % (39.0-53.0); Lymphocytes # (A) 0.4 k/uL (1.0-4.8); Lymphocytes % (A) 3 %; MCHC 34.1 g/dL (31.0-37.0); Mean Platelet Volume 6.9; Monocytes # (A) 0.3 k/uL (0-1.0); Monocytes % (A) 3 %; Neutrophils # (A) 9.8 k/uL (1.3-7.7); Neutrophils % (A) 92 %; Platelet Count 476 k/uL (150-450); RBC 4.08 m/uL (4.30-5.90); RDW 13.7 % (11.5-15.5); WBC 10.7 k/uL (3.8-10.6)
[2021-03-01 18:22] LABS: Albumin 3.9 g/dL (3.5-5.0); Calcium 9.1 mg/dL (8.4-10.2); Potassium 4.6 mmol/L (3.5-5.1); Total Bilirubin 0.3 mg/dL (0.2-1.3); Total Protein 6.6 g/dL (6.3-8.2)
[2021-03-01 18:26] LABS: HGB 12.2 gm/dL (13.0-17.5)
[2021-03-01 18:32] LABS: Appearance,Urine Clear (Clear); Bilirubin,Urine Negative (Negative); Blood,Urine Negative (Negative); Color,Urine Yellow; Glucose,Urine (UA) Negative (Negative); Ketones,Urine Negative (Negative); Leukocyte Esterase,Urine Negative (Negative); Nitrite,Urine Negative (Negative); PH, Urine 5.5 (5.0-8.0); Protein,Urine Negative (Negative); Specific Gravity,Urine 1.018 (1.001-1.035); Urobilinogen,Urine <2.0 mg/dL (<2.0)
--- NOTE | 2021-03-01 18:39 | XR ---
EXAMINATION TYPE: XR hand complete RT DATE OF EXAM: 03/01/2021 COMPARISON: NONE HISTORY: Surgery. Swelling. TECHNIQUE: 3 views FINDINGS: Images were obtained through the cast. Detail is limited. I see no fracture nor dislocation . Joint spaces are fairly normal. I see no focal bone destruction. IMPRESSION: Limited exam shows no acute bony abnormality.
--- NOTE | 2021-03-01 19:16 | ED ---
Fever HPI - General Chief Complaint: Fever Stated Complaint: Post surg/fever Time Seen by Provider: 03/01/21 17:14 Source: patient Mode of arrival: wheelchair Limitations: no limitations - History of Present Illness Initial Comments: 70-year-old male presents emergency Department with a chief complaint of fever. Patient reports he was discharged from hospital yesterday after having an infection of his right hand. Patient reports he also underwent surgery 5 days ago while he was at the hospital. States he was discharged with Bactrim has been taking a medication accordingly. States yesterday he noticed having chills and obtain a temperature that was suggestive of fever. Patient reports she also felt weaker with decreased appetite but denies any nausea vomiting or diarrhea. States he also noticed increased exertional dyspnea even though he is a smoker. States this is very atypical for him. However, he denies any associated chest pain. Denies urinary symptoms. Denies pain from the hand. - Related Data Home Medications Medication Instructions Recorded Confirmed Multivitamin [Multivitamins Adult 2 tab PO DAILY 02/22/21 03/01/21 Gummies] Naproxen 500 mg PO BID PRN 02/22/21 03/01/21 amLODIPine [Norvasc] 10 mg PO HS 02/22/21 03/01/21 hydroCHLOROthiazide [Hydrodiuril] 25 mg PO DAILY 02/22/21 03/01/21 lisinopriL 40 mg PO HS 02/22/21 03/01/21 methocarbamoL [Robaxin] 500 mg PO TID PRN 02/22/21 03/01/21 Previous Rx's Medication Instructions Recorded Sulfamethox-Tmp 800-160Mg [Bactrim 1 tab PO Q12HR #20 tab 02/28/21 DS 800-160 mg] Allergies Allergy/AdvReac Type Severity Reaction Status Date / Time codeine AdvReac Nausea & Verified 03/01/21 18:11 Vomiting Review of Systems ROS Statement: Those systems with pertinent positive or pertinent negative responses have been documented in the HPI. ROS Other: All systems not noted in ROS Statement are negative. Past Medical History Past Medical History: Coronary Artery Disease (CAD), COPD, Hypertension, Myocardial Infarction ([place]) Additional Past Medical History / Comment(s): myocardial infarction in 2009, hypertension, COPD Last Myocardial Infarction Date:: 2009 History of Any Multi-Drug Resistant Organisms: None Reported Past Surgical History: Hernia Repair, Orthopedic Surgery Additional Past Surgical History / Comment(s): broken wrist with a plate placed with screws Past Anesthesia/Blood Transfusion Reactions: No Reported Reaction Past Psychological History: No Psychological Hx Reported Smoking Status: Current every day smoker Past Alcohol Use History: Occasional Past Drug Use History: None Reported - Past Family History Father Additional Family Medical History / Comment(s): cancer General Exam Limitations: no limitations General appearance: alert, in no apparent distress Head exam: Present: atraumatic, normocephalic, normal inspection Eye exam: Present: normal appearance, PERRL, EOMI Pupils: Present: normal accommodation ENT exam: Present: normal exam, normal oropharynx, mucous membranes moist, TM's normal bilaterally Neck exam: Present: normal inspection, full ROM. Absent: tenderness Respiratory exam: Present: normal lung sounds bilaterally. Absent: respiratory distress Cardiovascular Exam: Present: regular rate, normal rhythm, normal heart sounds GI/Abdominal exam: Present: soft. Absent: distended, tenderness, guarding Extremities exam: Present: full ROM, normal capillary refill. Absent: normal inspection (No signs of cellulitis. Incision site appears to be healing well with small amount of clear discharge. Does not appear to be significantly warm or tender rest of the arm.) Back exam: Present: normal inspection, full ROM Neurological exam: Present: alert, oriented X3 Psychiatric exam: Present: normal affect, normal mood Skin exam: Present: warm, dry, intact, normal color Course Vital Signs 03/01/21 03/01/21 03/01/21 16:56 17:58 18:00 Temperature 101 F H Pulse Rate 78 Respiratory 18 18 18 Rate Blood Pressure 147/73 O2 Sat by Pulse 96 Oximetry 03/01/21 03/01/21 19:12 21:00 Temperature 101.1 F H 98.9 F Pulse Rate 64 Respiratory 18 Rate Blood Pressure 119/65 O2 Sat by Pulse 95 Oximetry Procedures - [place] Protocol (Time Out) Nurse: Kendra Richard Medical Decision Making - Medical Decision Making 70-year-old male presents emergency Department with a chief complaint of fever. On physical examination, the surgical site does not appear to be affected. There is some clear discharge but otherwise no surrounding erythema or any pustular discharge. It does not feel significantly warm to touch. Patient was also complaining of increased exertional dyspnea but no chest pain. This was his other primary concern. CBC showed leukocytosis of 12.5 K. Elevated d-dimer. CT chest angiogram shows no acute or PE. UA unremarkable. CMP is also unremarkable. Patient was initially started on procainamide of IV fluids based on the BMI and Rocephin. I remove the splint to evaluate the patient then I applied the splint back again to the right hand. Patient was started on vancomycin. Dr. Woodson spoke with Dr. Nix who recommended admission and further medical management. Patient will be admitted to medicine with consult infectious disease and orthopedics. - Lab Data Result diagrams: 03/01/21 18:09 03/01/21 18:09 Lab Results 03/01/21 03/01/21 03/01/21 Range/Units 18:09 18:09 18:09 WBC 10.7 H (3.8-10.6) k/uL RBC 4.08 L (4.30-5.90) m/uL Hgb 12.2 L D (13.0-17.5) gm/dL Hct 35.9 L (39.0-53.0) % MCV 88.0 (80.0-100.0) fL MCH 30.0 (25.0-35.0) pg MCHC 34.1 (31.0-37.0) g/dL RDW 13.7 (11.5-15.5) % Plt Count 476 H (150-450) k/uL MPV 6.9 Neutrophils % 92 % Lymphocytes % 3 % Monocytes % 3 % Eosinophils % 1 % Basophils % 0 % Neutrophils # 9.8 H (1.3-7.7) k/uL Lymphocytes # 0.4 L (1.0-4.8) k/uL Monocytes # 0.3 (0-1.0) k/uL Eosinophils # 0.1 (0-0.7) k/uL Basophils # 0.0 (0-0.2) k/uL D-Dimer (<0.60) mg/L FEU Sodium 130 L (137-145) mmol/L Potassium 4.6 (3.5-5.1) mmol/L Chloride 95 L (98-107) mmol/L Carbon Dioxide 25 (22-30) mmol/L Anion Gap 10 mmol/L BUN 26 H (9-20) mg/dL Creatinine 1.21 (0.66-1.25) mg/dL Est GFR (CKD-EPI)AfAm 69 (>60 ml/min/1.73 sqM) Est GFR (CKD-EPI)NonAf 60 (>60 ml/min/1.73 sqM) Glucose 110 H (74-99) mg/dL Plasma Lactic Acid Denzel 1.6 (0.7-2.0) mmol/L Calcium 9.1 (8.4-10.2) mg/dL Total Bilirubin 0.3 (0.2-1.3) mg/dL AST 32 (17-59) U/L ALT 34 (4-49) U/L Alkaline Phosphatase 107 (38-126) U/L Troponin I (0.000-0.034) ng/mL Total Protein 6.6 (6.3-8.2) g/dL Albumin 3.9 (3.5-5.0) g/dL Urine Color Urine Appearance (Clear) Urine pH (5.0-8.0) Ur Specific [place] (1.001-1.035) Urine Protein (Negative) Urine Glucose (UA) (Negative) Urine Ketones (Negative) Urine Blood (Negative) Urine Nitrite (Negative) Urine Bilirubin (Negative) Urine Urobilinogen (<2.0) mg/dL Ur Leukocyte Esterase (Negative) Coronavirus (PCR) (Not Detectd) 03/01/21 03/01/21 03/01/21 Range/Units 18:09 18:09 18:09 WBC (3.8-10.6) k/uL RBC (4.30-5.90) m/uL Hgb (13.0-17.5) gm/dL Hct (39.0-53.0) % MCV (80.0-100.0) fL MCH (25.0-35.0) pg MCHC (31.0-37.0) g/dL RDW (11.5-15.5) % Plt Count (150-450) k/uL MPV Neutrophils % % Lymphocytes % % Monocytes % % Eosinophils % % Basophils % % Neutrophils # (1.3-7.7) k/uL Lymphocytes # (1.0-4.8) k/uL Monocytes # (0-1.0) k/uL Eosinophils # (0-0.7) k/uL Basophils # (0-0.2) k/uL D-Dimer 1.68 H (<0.60) mg/L FEU Sodium (137-145) mmol/L Potassium (3.5-5.1) mmol/L Chloride (98-107) mmol/L Carbon Dioxide (22-30) mmol/L Anion Gap mmol/L BUN (9-20) mg/dL Creatinine (0.66-1.25) mg/dL Est GFR (CKD-EPI)AfAm (>60 ml/min/1.73 sqM) Est GFR (CKD-EPI)NonAf (>60 ml/min/1.73 sqM) Glucose (74-99) mg/dL Plasma Lactic Acid Denzel (0.7-2.0) mmol/L Calcium (8.4-10.2) mg/dL Total Bilirubin (0.2-1.3) mg/dL AST (17-59) U/L ALT (4-49) U/L Alkaline Phosphatase (38-126) U/L Troponin I <0.012 (0.000-0.034) ng/mL Total Protein (6.3-8.2) g/dL Albumin (3.5-5.0) g/dL Urine Color Yellow Urine Appearance Clear (Clear) Urine pH 5.5 (5.0-8.0) Ur Specific [place] 1.018 (1.001-1.035) Urine Protein Negative (Negative) Urine Glucose (UA) Negative (Negative) Urine Ketones Negative (Negative) Urine Blood Negative (Negative) Urine Nitrite Negative (Negative) Urine Bilirubin Negative (Negative) Urine Urobilinogen <2.0 (<2.0) mg/dL Ur Leukocyte Esterase Negative (Negative) Coronavirus (PCR) (Not Detectd) 03/01/21 Range/Units 21:18 WBC (3.8-10.6) k/uL RBC (4.30-5.90) m/uL Hgb (13.0-17.5) gm/dL Hct (39.0-53.0) % MCV (80.0-100.0) fL MCH (25.0-35.0) pg MCHC (31.0-37.0) g/dL RDW (11.5-15.5) % Plt Count (150-450) k/uL MPV Neutrophils % % Lymphocytes % % Monocytes % % Eosinophils % % Basophils % % Neutrophils # (1.3-7.7) k/uL Lymphocytes # (1.0-4.8) k/uL Monocytes # (0-1.0) k/uL Eosinophils # (0-0.7) k/uL Basophils # (0-0.2) k/uL D-Dimer (<0.60) mg/L FEU Sodium (137-145) mmol/L Potassium (3.5-5.1) mmol/L Chloride (98-107) mmol/L Carbon Dioxide (22-30) mmol/L Anion Gap mmol/L BUN (9-20) mg/dL Creatinine (0.66-1.25) mg/dL Est GFR (CKD-EPI)AfAm (>60 ml/min/1.73 sqM) Est GFR (CKD-EPI)NonAf (>60 ml/min/1.73 sqM) Glucose (74-99) mg/dL Plasma Lactic Acid Denzel (0.7-2.0) mmol/L Calcium (8.4-10.2) mg/dL Total Bilirubin (0.2-1.3) mg/dL AST (17-59) U/L ALT (4-49) U/L Alkaline Phosphatase (38-126) U/L Troponin I (0.000-0.034) ng/mL Total Protein (6.3-8.2) g/dL Albumin (3.5-5.0) g/dL Urine Color Urine Appearance (Clear) Urine pH (5.0-8.0) Ur Specific [place] (1.001-1.035) Urine Protein (Negative) Urine Glucose (UA) (Negative) Urine Ketones (Negative) Urine Blood (Negative) Urine Nitrite (Negative) Urine Bilirubin (Negative) Urine Urobilinogen (<2.0) mg/dL Ur Leukocyte Esterase (Negative) Coronavirus (PCR) Not Detected (Not Detectd) Disposition Clinical Impression: Postoperative fever Disposition: ADMITTED IP TO THIS [facility] Condition: Stable Is patient prescribed a controlled substance at d/c from ED?: No Referrals: Jac Sims MD [Primary Care Provider] - 1-2 days Time of Disposition: 21:48
--- NOTE | 2021-03-01 19:58 | CT ---
EXAMINATION TYPE: CT chest angio for PE DATE OF EXAM: 03/01/2021 COMPARISON: Chest CT scan 12/02/2009 and 02/25/2018. HISTORY: elevated d-dimer CT DLP: 277.8 mGycm Automated exposure control for dose reduction was used. CONTRAST: Performed with IV Contrast, patient injected with 65 mL of Isovue 370. There are 3-D post processed images. There is some patchy atelectasis at the lung bases. Heart size is normal. There is no pericardial eff usion. There are no hilar masses. There is no mediastinal adenopathy. There is normal contrast opacification of the pulmonary arteries. There are no filling defects. Thora cic aorta appears intact. The ascending aorta measures 3.3 cm. There is no aneurysm or dissection. Th ere is a mild thoracic kyphotic deformity. There is anterior spurring throughout the thoracic spine. There is some ankylotic changes. This could be ankylosing spondylitis. I see no focal bone destructio n. At T9-T10 there is unusual air in the disc space. This is a change compared to CT scan from 2018 a nd could relate to hyperextension injury. The sternum is intact. IMPRESSION: No evidence of pulmonary embolism. There is some patchy atelectasis at the lung bases. There is impro noah aeration of the lower lung la especially on the left side compared to old exam of 02/25/2018. There is clearing of the moderate left pleural effusion. Air in the lower thoracic disc space suggestive of hyperextension trauma of the thoracic spine. No fr acture line seen.
[2021-03-01] MEDS ORDERED: VANCOMYCIN IV PER PHARMACY 1 EACH MISC MISCELLANE PRN (21:14)
[2021-03-01] MEDS ORDERED: VANCOMYCIN 1,250 MG in SODIUM CHLORIDE 0.9% 250 ML IVPB STA (21:21)
[2021-03-01] MEDS ORDERED: NALOXONE 0.4 MG/ML 1 ML VIAL IV PRN (21:44)
[2021-03-01] MEDS: SODIUM CHLORIDE 0.9% 1,000 ML IV SCH (22:07)
[2021-03-02 10:15] LABS: HCT 29.7 % (39.6-50.0); HGB 9.9 g/dL (13.0-17.0); MCH 28.9 pg (27.0-32.0); MCHC 33.3 g/dL (32.0-37.0); MCV 86.8 fL (80.0-97.0); Mean Platelet Volume 9.2 fL (9.5-12.2); Platelet Count 376 X 10*3/uL (140-440); RBC 3.42 X 10*6/uL (4.40-5.60); RDW 13.6 % (11.5-14.5); WBC 8.22 X 10*3/uL (4.50-10.00)
--- NOTE | 2021-03-02 10:17 | P.CNOR ---
History of Present Illness - HPI Consult date: 03/02/21 Requesting physician: Sandeep Araujo Consult reason: other (post-op fever) History of present illness: Patient presented the emergency department yesterday complaining of fever. Patient was discharged home 03/01/2021 after having infection in right hand. Surgery was performed 02/24/2021 for incision and drainage and irrigation and debridement of right hand. Patient was sent home with Bactrim. Patient also states he has been feeling weaker over the past couple days with decreased appetite. Patient denies chest pain, headache, nausea, vomiting, change in vision. Past Medical History Past Medical History: Coronary Artery Disease (CAD), COPD, Hypertension, Myocardial Infarction ([place]) Additional Past Medical History / Comment(s): myocardial infarction in 2009, hypertension, COPD Last Myocardial Infarction Date:: 2009 History of Any Multi-Drug Resistant Organisms: None Reported Past Surgical History: Hernia Repair, Orthopedic Surgery Additional Past Surgical History / Comment(s): broken wrist with a plate placed with screws Past Anesthesia/Blood Transfusion Reactions: No Reported Reaction Past Psychological History: No Psychological Hx Reported Smoking Status: Current every day smoker Past Alcohol Use History: Occasional Past Drug Use History: None Reported - Past Family History Father Additional Family Medical History / Comment(s): cancer Medications and Allergies Home Medications Medication Instructions Recorded Confirmed Type Multivitamin [Multivitamins Adult 2 tab PO DAILY 02/22/21 03/01/21 History Gummies] Naproxen 500 mg PO BID PRN 02/22/21 03/01/21 History amLODIPine [Norvasc] 10 mg PO HS 02/22/21 03/01/21 History hydroCHLOROthiazide [Hydrodiuril] 25 mg PO DAILY 02/22/21 03/01/21 History lisinopriL 40 mg PO HS 02/22/21 03/01/21 History methocarbamoL [Robaxin] 500 mg PO TID PRN 02/22/21 03/01/21 History Sulfamethox-Tmp 800-160Mg [Bactrim 1 tab PO Q12HR #20 tab 02/28/21 03/01/21 Rx DS 800-160 mg] Allergies Allergy/AdvReac Type Severity Reaction Status Date / Time codeine AdvReac Nausea & Verified 03/01/21 18:11 Vomiting Physical Examination Right hand: Inspection: incision is Clean, intact. Minimal serosanguinous drainage. sutures are in good place. Negative for any purulence, negative for wound dehiscence. swelling in hand is decreasing. Palpation: Mild TTP over incision. Radial pulses intact, 2+ in right wrist. Cap refill <3 sec, brisk ROM: Patient able to extend and flex third digit better today, less painful Sensation - intact throughout Motor: Decreased publicity consultant strength. Some mild weakness in flexion and extension of digits Results - Labs Labs: Abnormal Lab Results - Last 24 Hours (Table) 03/01/21 03/01/21 03/01/21 Range/Units 18:09 18:09 18:09 WBC 10.7 H (3.8-10.6) k/uL RBC 4.08 L (4.30-5.90) m/uL Hgb 12.2 L D (13.0-17.5) gm/dL Hct 35.9 L (39.0-53.0) % Plt Count 476 H (150-450) k/uL Neutrophils # 9.8 H (1.3-7.7) k/uL Lymphocytes # 0.4 L (1.0-4.8) k/uL D-Dimer 1.68 H (<0.60) mg/L FEU Sodium 130 L (137-145) mmol/L Chloride 95 L (98-107) mmol/L BUN 26 H (9-20) mg/dL Glucose 110 H (74-99) mg/dL H & H 03/01/21 Range/Units 18:09 Hgb 12.2 L D (13.0-17.5) gm/dL Hct 35.9 L (39.0-53.0) % Result Diagrams: 03/01/21 18:09 03/01/21 18:09 Assessment and Plan Assessment: 1. Right hand dorsal abscess status post car door injury; right middle finger extensor tendon laceration 2. Post-op fever Plan: 1. Right hand dorsal abscess status post car door injury; right middle finger extensor tendon laceration - Surgery performed 02/24/2021 - Incision and drainage dorsal hand abscess on the right; Irrigation debridement right hand dorsal abscess; Right middle finger extensor tendon repair, direct repair - Incision clean, intact. Sutures in good place. Some minimal serosanguineous drainage from incision. Patient says hand feeling much better. Order for hibiclens soaks 3x per day 15 mins at a time. We will continue to follow patient while in hospital 2. Post-op fever - Medicine and ID following; patient on Vanco 3. Appreciate medical management 4. GI ppx/DVT ppx 5. Appreciate consult Time with Patient: Less than 30
[2021-03-02 10:51] LABS: African American GFR (CKD) 70.1 (60.0-200.0); Anion Gap 7.7 mmol/L (4.00-12.00); BUN/Creat Ratio 18.33 Ratio (12.00-20.00); Calcium 8.1 mg/dL (8.7-10.3); Carbon Dioxide 24.3 mmol/L (21.6-31.8); Non-African American GFR(CKD) 60.5 (60.0-200.0); Potassium 4.3 mmol/L (3.5-5.5)
[2021-03-02] MEDS: SODIUM CHLORIDE 0.9% 1,000 ML IV SCH (11:16)
[2021-03-02] MEDS: VANCOMYCIN 1,000 MG in SODIUM CHLORIDE 0.9% 250 ML IVPB SCH (12:16)
[2021-03-02] MEDS: ACETAMINOPHEN TAB 325 MG TAB PO PRN (14:23)
[2021-03-02] MEDS: IBUPROFEN 400 MG TAB PO PRN (16:25)
[2021-03-02] MEDS ORDERED: methocarbamoL 500 MG TAB PO PRN (18:16)
[2021-03-02] MEDS: lisinopriL 20 MG TAB PO SCH (20:47)
--- NOTE | 2021-03-02 21:39 | P.HPIM ---
History of Present Illness H&P Date: 03/02/21 Notified of the patient's admission at 6 PM on 03/19. The patient is 70-year-old male with a PMH of coronary artery disease, hypertension, and COPD who was admitted for sepsis secondary to right hand infection. The patient reports that he is feeling better ever since his admission into the hospital last night. He reports 2 out of 10 ongoing right hand pain with minimal drainage from the site. Of note, the patient was previously admitted to the hospital after trauma to the right hand and subs equent abscess with incision and drainage. He was discharged home on antibiotics which he reports compliance with. He denied any additional complaints. He denied chest discomfort, shortness of breath, fever, chills, cough. Also denied nausea, vomiting, abdominal pain, diarrhea. Orthopedic surgery was consulted with recommendations appreciated. Infectious disease recommendations are pending. The patient underwent an extensive evaluation in the emergency room with laboratory evaluation reviewed with chest CTA negative for PE and EKG showing normal sinus rhythm at [address]/T-wave changes noted as reviewed by me. Review of systems: Pertinent positives and negatives as discussed in HPI, a complete review of systems was performed and all other systems are negative. Physical examination: General: non toxic, no distress, appears at stated age, normal weight Derm: Right hand dorsum w/ sutured and minimal discharge, some surrounding erythema noted, no unusual ecchymoses, warm, dry Head: atraumatic, normocephalic, symmetric Eyes: EOMI, no lid lag, anicteric sclera, pupils equal round reactive to light ENT: Nose and ears atraumatic, no thrush, no pharyngeal erythema Neck: No thyromegaly, no cervical lymphadenopathy, trachea midline, supple Mouth: no lip lesion, mucus membranes moist Cardiovascular: S1S2 reg, no murmur, positive posterior tibial pulse bilateral, no edema, capillary refill less than 2 seconds Lungs: CTA bilateral, no rhonchi, no rales , no accessory muscle use Abdominal: soft, nontender to palpation, no guarding, no appreciable organomegaly, normal bowel sounds Ext: no gross muscle atrophy, muscle strength 5 out of 5 in all 4 extremities grossly, no contractures, Neuro: CN II-XI grossly intact, light touch intact all 4 extremities, finger to nose within normal limits, Psych: Alert, oriented, appropriate affect Assessment/plan Sepsis secondary to R hand dorsum abscess s/p incision and drainage -Wound culture growing MRSA -Continue with vancomycin -Orthopedic surgery recommendations appreciated -Infectious disease recommendations pending -Continue with IV fluids Chronic conditions: COPD, coronary artery disease, HTN -Continue home meds DVT prophylaxis -Heparin subq The patient is admitted with an anticipated greater than 2 midnight stay for evaluation of sepsis secondary to R hand infection. CODE STATUS:Full Code Discussed with: Patient Anticipated discharge date: 2-[address]: Home Past Medical History Past Medical History: Coronary Artery Disease (CAD), COPD, Hypertension, Myocardial Infarction ([place]) Additional Past Medical History / Comment(s): myocardial infarction in 2009, hypertension, COPD Last Myocardial Infarction Date:: 2009 History of Any Multi-Drug Resistant Organisms: None Reported Past Surgical History: Hernia Repair, Orthopedic Surgery Additional Past Surgical History / Comment(s): broken wrist with a plate placed with screws Past Anesthesia/Blood Transfusion Reactions: No Reported Reaction Past Psychological History: No Psychological Hx Reported Smoking Status: Current every day smoker Past Alcohol Use History: Occasional Past Drug Use History: None Reported - Past Family History Father Additional Family Medical History / Comment(s): cancer Medications and Allergies Home Medications Medication Instructions Recorded Confirmed Type Multivitamin [Multivitamins Adult 2 tab PO DAILY 02/22/21 03/01/21 History Gummies] Naproxen 500 mg PO BID PRN 02/22/21 03/01/21 History amLODIPine [Norvasc] 10 mg PO HS 02/22/21 03/01/21 History hydroCHLOROthiazide [Hydrodiuril] 25 mg PO DAILY 02/22/21 03/01/21 History lisinopriL 40 mg PO HS 02/22/21 03/01/21 History methocarbamoL [Robaxin] 500 mg PO TID PRN 02/22/21 03/01/21 History Sulfamethox-Tmp 800-160Mg [Bactrim 1 tab PO Q12HR #20 tab 02/28/21 03/01/21 Rx DS 800-160 mg] Allergies Allergy/AdvReac Type Severity Reaction Status Date / Time codeine AdvReac Nausea & Verified 03/01/21 18:11 Vomiting Physical Exam Vitals: Vital Signs Temp Pulse Pulse Resp BP BP Pulse Ox 03/02/21 20:45 98.6 F 98 130/58 03/02/21 19:06 98.7 F 68 14 127/56 95 03/02/21 15:48 101.9 F H 03/02/21 14:22 102.9 F H 70 18 137/64 93 L 03/02/21 14:00 70 18 03/02/21 08:00 69 18 03/02/21 07:00 98.5 F 69 18 137/57 92 L 03/02/21 02:26 100.8 F H 73 15 127/67 03/02/21 02:00 68 03/01/21 23:30 98.9 F 68 14 143/69 96 03/01/21 23:00 100.6 F H 65 18 131/66 96 Intake and Output 03/02/21 03/02/21 03/02/21 06:59 14:59 22:59 Intake Total 1150 480 350 Output Total 500 Balance 1150 -20 350 Intake: IV 1150 Sodium Chloride 0.9% 1, 900 000 ml @ 75 mls/hr IV . [id number] [facility] Rx#:[id number] Vancomycin 1,250 mg In 250 Sodium Chloride 0.9% 250 ml @ 125 mls/hr IVPB ONCE STA Rx#:[id number] Oral 480 350 Output: Urine 500 Other: Voiding Method Toilet Toilet Urinal Urinal # Voids 2 Weight 61 kg Results CBC & Chem 7: 03/02/21 04:55 03/02/21 04:55 Labs: Abnormal Lab Results - Last 24 Hours (Table) 03/02/21 03/02/21 03/02/21 Range/Units 04:55 04:55 15:53 RBC 3.42 L (4.40-5.60) X 10*6/uL Hgb 9.9 L (13.0-17.0) g/dL Hct 29.7 L (39.6-50.0) % MPV 9.2 L (9.5-12.2) fL ESR 43 H (0-15) mm/hr Sodium 132 L (135-145) mmol/L Glucose 141 H (70-110) mg/dL Calcium 8.1 L (8.7-10.3) mg/dL C-Reactive Protein (<1.0) mg/dL 03/02/21 Range/Units 15:53 RBC (4.40-5.60) X 10*6/uL Hgb (13.0-17.0) g/dL Hct (39.6-50.0) % MPV (9.5-12.2) fL ESR (0-15) mm/hr Sodium (135-145) mmol/L Glucose (70-110) mg/dL Calcium (8.7-10.3) mg/dL C-Reactive Protein 6.6 H (<1.0) mg/dL Microbiology - Last 24 Hours (Table) 03/01/21 18:00 Blood Culture - Preliminary Blood No Growth after 24 hours 03/01/21 18:15 Blood Culture - Preliminary Blood No Growth after 24 hours Thrombosis Risk Factor Assmnt - Choose All That Apply Any of the Below Risk Factors Present?: Yes Each Factor Represents 1 point: Abnormal pulmonary function (COPD) Other Risk Factors: Yes Each Risk Factor Represents 2 Points: Age 61-74 years Other congenital or acquired thrombophilia - If yes, enter type in comment: No Thrombosis Risk Factor Assessment Total Risk Factor Score: 3 Thrombosis Risk Factor Assessment Level: Moderate Risk
--- NOTE | 2021-03-02 23:23 | P.CONS ---
History of Present Illness - Reason for Consult Consult date: 03/02/21 postop fever Requesting physician: Sandeep Araujo - Chief Complaint weakness and dizzy x 1 day - History of Present Illness Patient is a 70-year male who was recently admitted to this facility patient did have right hand dorsum abscess and cellulitis in this patient status post surgical drainage culture positive for MRSA patient was stabilized and subsequent discharged home on oral Bactrim DS patient presenting back to the hospital within 24-hour with concern for fever dizziness and near syncopal episode patient said he was outside on the porch sitting any history of any head almost a near syncopal episode and felt very dizzy along with a fever and chills patient denies having any fall or hitting his head with the symptoms patient did present to the hospital on arrival to the ER but did have a fever and has been running a fever of 101-1 twenty-three for right on the last 3 to 4 hours patient did have mild hypoxemia but not requiring supplemental oxygen white count was ten point 7 repeat is 8.22 patient did have a normal kidney function urine was negative fisher PCR was negative blood cultures obtained which are currently pending patient did have x-rays of the hand no acute bony abnormality patient did have a CT angiogram of the chest no evidence of PE some patchy atelectasis at the lung bases there is improved aeration of the lower lungs. Patient was started on vancomycin has been admitted to hospital infectious disease was consulted for further management of antibiotic therapy Review of Systems Positive point has been mentioned in the HPI rest of the systems are negative Past Medical History Past Medical History: Coronary Artery Disease (CAD), COPD, Hypertension, Myocardial Infarction ([place]) Additional Past Medical History / Comment(s): myocardial infarction in 2009, hypertension, COPD Last Myocardial Infarction Date:: 2009 History of Any Multi-Drug Resistant Organisms: None Reported Past Surgical History: Hernia Repair, Orthopedic Surgery Additional Past Surgical History / Comment(s): broken wrist with a plate placed with screws Past Anesthesia/Blood Transfusion Reactions: No Reported Reaction Past Psychological History: No Psychological Hx Reported Smoking Status: Current every day smoker Past Alcohol Use History: Occasional Past Drug Use History: None Reported - Past Family History Father Additional Family Medical History / Comment(s): cancer Medications and Allergies Home Medications Medication Instructions Recorded Confirmed Type Multivitamin [Multivitamins Adult 2 tab PO DAILY 02/22/21 03/01/21 History Gummies] Naproxen 500 mg PO BID PRN 02/22/21 03/01/21 History amLODIPine [Norvasc] 10 mg PO HS 02/22/21 03/01/21 History hydroCHLOROthiazide [Hydrodiuril] 25 mg PO DAILY 02/22/21 03/01/21 History lisinopriL 40 mg PO HS 02/22/21 03/01/21 History methocarbamoL [Robaxin] 500 mg PO TID PRN 02/22/21 03/01/21 History Sulfamethox-Tmp 800-160Mg [Bactrim 1 tab PO Q12HR #20 tab 02/28/21 03/01/21 Rx DS 800-160 mg] Allergies Allergy/AdvReac Type Severity Reaction Status Date / Time codeine AdvReac Nausea & Verified 03/01/21 18:11 Vomiting Physical Exam Vitals: Vital Signs Temp Pulse Pulse Resp BP BP Pulse Ox 03/02/21 14:22 102.9 F H 70 18 137/64 93 L 03/02/21 14:00 70 18 03/02/21 08:00 69 18 03/02/21 07:00 98.5 F 69 18 137/57 92 L 03/02/21 02:26 100.8 F H 73 15 127/67 03/02/21 02:00 68 03/01/21 23:30 98.9 F 68 14 143/69 96 03/01/21 23:00 100.6 F H 65 18 131/66 96 03/01/21 21:00 98.9 F 64 18 119/65 95 03/01/21 19:12 101.1 F H 03/01/21 18:00 18 03/01/21 17:58 18 03/01/21 16:56 101 F H 78 18 147/73 96 Intake and Output 03/01/21 03/02/21 03/02/21 22:59 06:59 14:59 Intake Total 1150 480 Output Total 500 Balance 1150 -20 Intake: IV 1150 Sodium Chloride 0.9% 1, 900 000 ml @ 75 mls/hr IV . [id number] [facility] Rx#:[id number] Vancomycin 1,250 mg In 250 Sodium Chloride 0.9% 250 ml @ 125 mls/hr IVPB ONCE STA Rx#:[id number] Oral 480 Output: Urine 500 Other: Voiding Method Toilet Toilet Urinal Urinal # Voids 2 Weight 60.781 kg 61 kg GENERAL DESCRIPTION: An elderly male lying in bed, no distress. No tachypnea or accessory muscle of respiration use. HEENT: Shows Pallor , no scleral icterus. Oral mucous membrane is dry. No pharyngeal erythema or thrush NECK: Trachea central, no thyromegaly. LUNGS: Unlabored breathing. Clear to auscultation anteriorly. No wheeze or crackle. HEART: S1, S2, regular rate and rhythm. No loud murmur ABDOMEN: Soft, no tenderness , guarding or rigidity, no organomegaly EXTREMITIES: Right hand dorsum wound with minimal swelling redness no significant drainage SKIN: No rash, no masses palpable. NEUROLOGICAL: The patient is awake, alert, oriented x3, mood and affect normal. Results CBC & Chem 7: 03/02/21 04:55 03/02/21 04:55 Labs: Abnormal Lab Results - Last 24 Hours (Table) 03/01/21 03/01/21 03/01/21 Range/Units 18:09 18:09 18:09 WBC 10.7 H (3.8-10.6) k/uL RBC 4.08 L (4.30-5.90) m/uL Hgb 12.2 L D (13.0-17.5) gm/dL Hct 35.9 L (39.0-53.0) % Plt Count 476 H (150-450) k/uL MPV (9.5-12.2) fL Neutrophils # 9.8 H (1.3-7.7) k/uL Lymphocytes # 0.4 L (1.0-4.8) k/uL D-Dimer 1.68 H (<0.60) mg/L FEU Sodium 130 L (137-145) mmol/L Chloride 95 L (98-107) mmol/L BUN 26 H (9-20) mg/dL Glucose 110 H (74-99) mg/dL Calcium (8.7-10.3) mg/dL 03/02/21 03/02/21 Range/Units 04:55 04:55 WBC (3.8-10.6) k/uL RBC 3.42 L (4.30-5.90) m/uL Hgb 9.9 L (13.0-17.5) gm/dL Hct 29.7 L (39.0-53.0) % Plt Count (150-450) k/uL MPV 9.2 L (9.5-12.2) fL Neutrophils # (1.3-7.7) k/uL Lymphocytes # (1.0-4.8) k/uL D-Dimer (<0.60) mg/L FEU Sodium 132 L (137-145) mmol/L Chloride (98-107) mmol/L BUN (9-20) mg/dL Glucose 141 H (74-99) mg/dL Calcium 8.1 L (8.7-10.3) mg/dL Assessment and Plan Assessment: patient presented to hospital with dizziness and near syncopal episode in this patient with recent admission to hospital with right hand abscess status post drainage culture positive for MRSA, patient currently do not have any other obvious focus of infection he did have some atelectasis only x-ray but do not have significant respiratory symptoms urine was negative abdominal soft regular examination and no evidence of any cellulitis with a possible her right hand to the likely focus of this fever and failing outpatient oral Bactrim DS therapy Plan: 1-Marked the area of the redness 2-vancomycin pharmacy to dose her with a target trough of 15 while watching her kidney function and Vanco trough closely. We will follow on clinical condition and cultures to further adjust medication if needed Thank you for this consultation we will follow the patient along with you Time with Patient: Greater than 30
[2021-03-03] MEDS: SODIUM CHLORIDE 0.9% 1,000 ML IV SCH ×2 (00:20→23:04)
[2021-03-03] MEDS: HEPARIN SODIUM,PORCINE/PF 5,000 UNIT/0.5 ML SYRINGE SQ SCH ×4 (00:20→22:35)
[2021-03-03] MEDS: ACETAMINOPHEN TAB 325 MG TAB PO PRN (01:38)
[2021-03-03] MEDS: VANCOMYCIN 1,000 MG in SODIUM CHLORIDE 0.9% 250 ML IVPB SCH ×2 (04:14→22:34)
[2021-03-03 06:18] LABS: African American GFR (CKD) >90 (>60 ml/min/1.73 sqM); Non-African American GFR(CKD) 84 (>60 ml/min/1.73 sqM)
--- NOTE | 2021-03-03 07:31 | P.PN ---
Subjective Progress Note Date: 03/03/21 Principal diagnosis: Right hand dorsal abscess status post car door injury; right middle finger extensor tendon laceration Patient was seen at bedside this morning. Patient was lying semirecumbent bed awake ready to breakfast. Patient said he is agitated because he could not s leep last night because differemt doctors were coming in and out all night. He said this because he was spiking fevers off throughout the night. Patient thinks his hand is doing a lot better. He says he did do the Hibiclens soaks yesterday. Patient says he is able move his fingers more. Patient denies chest pain, shortness of breath, nausea, vomiting, change in vision, loss of bowel/bladder control. Objective - Vital Signs Vital signs: Vital Signs Temp 98.6 F 03/03/21 04:16 Pulse 69 03/03/21 01:32 Resp 16 03/03/21 02:00 BP 138/61 03/03/21 01:32 Pulse Ox 92 L 03/03/21 01:32 Intake & Output 03/02/21 03/03/21 03/03/21 18:59 06:59 18:59 Intake Total 830 600 Output Total 500 200 Balance 330 400 Intake: Oral 830 600 Output: Urine 500 200 Other: Voiding Method Toilet Urinal Urinal # Voids 1 - Exam Right hand: Inspection: incision is Clean, intact. Minimal serosanguinous drainage. sutures are in good place. Negative for any purulence, negative for wound dehiscence. swelling in hand is decreasing. Palpation: Mild TTP over incision. Radial pulses intact, 2+ in right wrist. Cap refill <3 sec, brisk ROM: Patient able to extend and flex third digit better today, less painful Sensation - intact throughout Motor: Decreased linux administrator strength. Some mild weakness in flexion and extension of digits - Labs CBC & Chem 7: 03/02/21 04:55 03/03/21 05:36 Labs: Abnormal Lab Results - Last 24 Hours (Table) 03/02/21 03/02/21 03/02/21 Range/Units 04:55 04:55 15:53 RBC 3.42 L (4.40-5.60) X 10*6/uL Hgb 9.9 L (13.0-17.0) g/dL Hct 29.7 L (39.6-50.0) % MPV 9.2 L (9.5-12.2) fL ESR 43 H (0-15) mm/hr Sodium 132 L (135-145) mmol/L Glucose 141 H (70-110) mg/dL Calcium 8.1 L (8.7-10.3) mg/dL C-Reactive Protein (<1.0) mg/dL Procalcitonin (0.02-0.09) ng/mL 03/02/21 03/02/21 Range/Units 15:53 15:53 RBC (4.40-5.60) X 10*6/uL Hgb (13.0-17.0) g/dL Hct (39.6-50.0) % MPV (9.5-12.2) fL ESR (0-15) mm/hr Sodium (135-145) mmol/L Glucose (70-110) mg/dL Calcium (8.7-10.3) mg/dL C-Reactive Protein 6.6 H (<1.0) mg/dL Procalcitonin 0.19 H (0.02-0.09) ng/mL Microbiology - Last 24 Hours (Table) 03/01/21 18:00 Blood Culture - Preliminary Blood No Growth after 24 hours 03/01/21 18:15 Blood Culture - Preliminary Blood No Growth after 24 hours Assessment and Plan Assessment: 1. Right hand dorsal abscess status post car door injury; right middle finger extensor tendon laceration 2. Post-op fever Plan: 1. Right hand dorsal abscess status post car door injury; right middle finger extensor tendon laceration - Surgery performed 02/24/2021 - Incision and drainage dorsal hand abscess on the right; Irrigation debridement right hand dorsal abscess; Right middle finger extensor tendon repair, direct repair - Incision clean, intact. Sutures in good place. Some minimal serosanguineous drainage from incision. Patient says hand feeling much better. Continue hibiclens soaks 3x per day 15 mins at a time. We will continue to follow patient while in hospital 2. Post-op fever - Medicine and ID following; patient on Vanco 3. Appreciate medical management 4. GI ppx/DVT ppx - Heparin 5. Appreciate consult Time with Patient: Less than 30
[2021-03-03] MEDS: MULTIVITAMINS, THERA 1 EACH TAB PO SCH (07:41)
--- NOTE | 2021-03-03 14:12 | P.PN ---
Subjective Progress Note Date: 03/03/21 Patient is doing fairly well today. No acute events overnight. Objective - Vital Signs Vital signs: Vital Signs Temp 100.4 F H 03/03/21 14:07 Pulse 85 03/03/21 14:07 Resp 16 03/03/21 14:07 BP 165/77 03/03/21 14:07 Pulse Ox 90 L 03/03/21 14:07 Intake & Output 03/02/21 03/03/21 03/03/21 18:59 06:59 18:59 Intake Total 830 600 340 Output Total 500 200 450 Balance 330 400 -110 Intake: Oral 830 600 340 Output: Urine 500 200 450 Other: Voiding Method Toilet Urinal Urinal # Voids 1 - Exam General: The patient is awake and alert, in no distress Eye: there is normal conjunctiva bilaterally. Neck: The neck is supple, there is no JVD. Cardiovascular: Normal S1-S2, no S3-S4, no murmurs. Respiratory: Lungs clear to auscultation bilaterally Gastrointestinal: Abdomen is soft, nontender Musculoskeletal: There is no pedal edema. Neurological:. Speech is normal. Skin: Skin is warm and dry - Labs CBC & Chem 7: 03/02/21 04:55 03/03/21 05:36 Labs: Abnormal Lab Results - Last 24 Hours (Table) 03/02/21 03/02/21 03/02/21 Range/Units 15:53 15:53 15:53 ESR 43 H (0-15) mm/hr C-Reactive Protein 6.6 H (<1.0) mg/dL Procalcitonin 0.19 H (0.02-0.09) ng/mL Microbiology - Last 24 Hours (Table) 03/01/21 18:00 Blood Culture - Preliminary Blood No Growth after 24 hours 03/01/21 18:15 Blood Culture - Preliminary Blood No Growth after 24 hours Assessment and Plan Assessment: This is a 70-year-old male with past medical history noted below who presented to the emergency room with worsening right hand swelling and pain. Patient was evaluated in the ER and admitted to the hospital for further management of his medical problems noted below. 1. Right hand dorsum abscess status post incision and drainage. Orthopedic following closely. Stitches removed today. Continue passive range of motion. 2. Sepsis without septic shock, managed with aggressive IV fluid hydration and antibiotic. Blood culture negative to date. 3. Chronic medical problems: Underlying COPD with no evidence of exacerbation, coronary artery disease, hypertension Today, I reviewed his medication list and lab work results. Patient was complaining of some shortness of breath and O2 sat was 90% on room air. Advised nursing staff to discontinue IV fluids. Obtain chest x-ray for further evaluation. CTA on presentation was negative for PE. Incentive spirometer at bedside. Repeat lab work in the morning. Anticipate discharge home tomorrow.
[2021-03-03] MEDS: IBUPROFEN 400 MG TAB PO PRN (15:05)
--- NOTE | 2021-03-03 17:00 | PN ---
PROGRESS NOTE DATE OF SERVICE: 03/03/2021 REASON FOR FOLLOWUP: 1. Right hand MRSA abscess and cellulitis. 2. Possible pneumonia. INTERVAL HISTORY: The patient is a running a low-grade fever of 100.4 degrees Fahrenheit. The patient is still complaining of some shortness of breath. He did have a cough, not bringing up any sputum. No nausea, no vomiting. No abdominal pain or any worsening pain to the right hand. PHYSICAL EXAMINATION: Blood pressure 135/77, pulse 85, temperature 100.4, he is 98% on room air. General description is an elderly male lying in bed in no distress. Respiratory system: Unlabored breathing, decreased intensity in breath sounds, with no wheeze. Heart S1, S2. Regular rate and rhythm. Abdomen soft, no tenderness. LABS: Creatinine 0.92. CRP 6.6, procalcitonin 0.19. DIAGNOSTIC IMPRESSION/PLAN: Patient admitted to the hospital with dizziness, weakness, fever in this patient who presented to the hospital with right hand abscess and MRSA with concern for some patchy infiltrates in the lung base. We will add Levaquin to cover for possible pneumonia and continue vancomycin for the right hand abscess and continue supportive care. MMODL / IJN: [id number] /
[2021-03-03] MEDS: LEVOFLOXACIN 750 MG TAB PO SCH (17:35)
[2021-03-03] MEDS: lisinopriL 20 MG TAB PO SCH (22:35)
--- NOTE | 2021-03-03 23:11 | XR ---
EXAMINATION TYPE: XR chest 2V DATE OF EXAM: 03/03/2021 COMPARISON: 05/17/2018 HISTORY: Short of breath TECHNIQUE: 2 views FINDINGS: There is some diffuse predominantly interstitial infiltrate in the mid and upper lung field s. There is also mild infiltrate left lung base. There is slight blunting of the costophrenic angles. Heart size is fairly normal. There are no hilar masses. There is some fluid in the major fissures. IMPRESSION: Bilateral pneumonia is new compared to old exam. There is underlying emphysema. Atypical congestive heart failure is not excluded.
[2021-03-04] MEDS: HEPARIN SODIUM,PORCINE/PF 5,000 UNIT/0.5 ML SYRINGE SQ SCH ×3 (07:43→22:44)
[2021-03-04] MEDS: MULTIVITAMINS, THERA 1 EACH TAB PO SCH (07:43)
[2021-03-04] MEDS ORDERED: IPRATROPIUM-ALBUTEROL 3 ML NEB INHALATION PRN (08:41)
[2021-03-04] MEDS: FUROSEMIDE 10 MG/ML 4 ML VIAL IV SCH (09:17)
[2021-03-04] MEDS: IPRATROPIUM-ALBUTEROL 3 ML NEB INHALATION SCH ×3 (10:51→19:56)
[2021-03-04] MEDS ORDERED: VANCOMYCIN TROUGH DUE 1 EACH MISC MISCELLANE ONE (11:00)
--- NOTE | 2021-03-04 11:17 | P.CNPUL ---
History of Present Illness Consult date: 03/04/21 Reason for consult: dyspnea, cough, chest pain, abnormal CXR/CT Chief complaint: Fever, cough, shortness of breath, chills History of present illness: This is a 70-year-old white male patient with past medical history of COPD and patient follows with Dr. Nazario in the pulmonary clinic, current smoker, not on home oxygen, previous history of myocardial infarction, hypertension, coronary artery disease, who came into the emergency department on 03/01/2021 with a chief complaint of fever, dizziness, chills, cough, increased shortness of breath, and production of greenish colored phlegm. Patient had surgery for h is right hand dorsal abscess after sustaining a car door injury the right middle finger extensor tendon laceration. Patient required incision and drainage of the dorsal hand abscess with irrigation and right middle finger extensor tendon repair. This was done by Dr. Steward and on 02/24/2021. Patient was discharged home on 10 day course of Bactrim DS 1 tab twice daily, for evidence of MRSA on the wound cultures. he was home for 24 hours, when he developed cough, shortness of breath, fever and came back for reevaluation. D-dimer was 1.68 and CTA chest was completed showing no evidence of pulmonary embolism, though some patchy atelectasis at the lung bases. Admission labs were reviewed showing white blood cell count of 10.7, hemoglobin of 12.2, sodium was 1:30, potassium is 4.6, chloride was 95, BUN was 26, creatinine is 1.21, plasma lactic acid is 1.6, troponin was less than 0.012, pro calcitonin level was 0.19, urinalysis was within normal limits, COVID-19 was negative. ID service was consulted, patient is currently on a combination of Levaquin and vancomycin. We were asked to see the patient in consultation for worsening shortness of breath, cough, and follow-up chest x-ray today showed diffuse predominantly interstitial infiltrates in the mid and upper lung la with underlying emphysema. Atypical CHF was not excluded. During her evaluation patient is awake and alert, he is complaining of cough, but appears to be no acute distress, he is on 2 L of oxygen pulse ox is 95%, his been afebrile, lung sounds reveal markedly diminished breath sounds with left base crackles. No lower extremity swelling, no calf tenderness. No JVD noted. His right hand middle digit still sore some swelling, and there is some small amount of purulent drainage seen. Review of Systems All systems: negative Constitutional: Reports fever, Denies chills Eyes: denies blurred vision, denies pain Ears, nose, mouth and throat: Denies headache, Denies sore throat Cardiovascular: Denies chest pain, Denies shortness of breath Respiratory: Reports cough, Reports cough with sputum, Reports dyspnea, Reports respiratory infections Gastrointestinal: Denies abdominal pain, Denies diarrhea, Denies nausea, Denies vomiting Musculoskeletal: Denies myalgias Musculoskeletal: right: hand pain Integumentary: Denies pruritus, Denies rash Neurological: Denies numbness, Denies weakness Psychiatric: Denies anxiety, Denies depression Endocrine: Denies fatigue, Denies weight change Past Medical History Past Medical History: Coronary Artery Disease (CAD), COPD, Hypertension, Myocardial Infarction ([place]) Additional Past Medical History / Comment(s): myocardial infarction in 2009, hypertension, COPD Last Myocardial Infarction Date:: 2009 History of Any Multi-Drug Resistant Organisms: None Reported Past Surgical History: Hernia Repair, Orthopedic Surgery Additional Past Surgical History / Comment(s): broken wrist with a plate placed with screws Past Anesthesia/Blood Transfusion Reactions: No Reported Reaction Past Psychological History: No Psychological Hx Reported Smoking Status: Current every day smoker Past Alcohol Use History: Occasional Past Drug Use History: None Reported - Past Family History Father Additional Family Medical History / Comment(s): cancer Medications and Allergies Home Medications Medication Instructions Recorded Confirmed Type Multivitamin [Multivitamins Adult 2 tab PO DAILY 02/22/21 03/01/21 History Gummies] Naproxen 500 mg PO BID PRN 02/22/21 03/01/21 History amLODIPine [Norvasc] 10 mg PO HS 02/22/21 03/01/21 History hydroCHLOROthiazide [Hydrodiuril] 25 mg PO DAILY 02/22/21 03/01/21 History lisinopriL 40 mg PO HS 02/22/21 03/01/21 History methocarbamoL [Robaxin] 500 mg PO TID PRN 02/22/21 03/01/21 History Sulfamethox-Tmp 800-160Mg [Bactrim 1 tab PO Q12HR #20 tab 02/28/21 03/01/21 Rx DS 800-160 mg] Allergies Allergy/AdvReac Type Severity Reaction Status Date / Time codeine AdvReac Nausea & Verified 03/01/21 18:11 Vomiting Physical Exam Vitals: Vital Signs Temp Pulse Pulse Resp BP Pulse Ox 03/04/21 07:00 98.5 F 70 16 162/76 95 03/04/21 02:24 98.0 F 71 16 154/77 94 L 03/03/21 20:00 99.2 F 66 18 129/63 94 L 03/03/21 14:07 100.4 F H 85 16 165/77 90 L Intake and Output 03/03/21 03/04/21 03/04/21 22:59 06:59 14:59 Intake Total 222 118 Balance 222 118 Intake: Oral 222 118 Other: Voiding Method Urinal Urinal # Voids 1 1 GENERAL EXAM: Alert, pleasant, 70-year-old white male, on 2 L of oxygen with pulse ox of 95%, sitting up in the bed comfortable in no apparent distress. HEAD: Normocephalic/atraumatic. EYES: Normal reaction of pupils, equal size. Conjunctiva pink, sclera white. NOSE: Clear with pink turbinates. THROAT: No erythema or exudates. NECK: No masses, no JVD, no thyroid enlargement, no adenopathy. CHEST: No chest wall deformity. Symmetrical expansion. LUNGS: Markedly diminished breath sounds bilaterally, with some limited crackles at the left base CVS: Regular rate and rhythm, normal S1 and S2, no gallops, no murmurs, no rubs ABDOMEN: Soft, nontender. No hepatosplenomegaly, normal bowel sounds, no guarding or rigidity. EXTREMITIES: No clubbing, no edema, no cyanosis, 2+ pulses and upper and lower extremities. MUSCULOSKELETAL: Muscle strength and tone normal. SPINE: No scoliosis or deformity SKIN: No rashes, patient has swelling and redness involving his right middle digit on the right hand, with some limited amount of purulent drainage CENTRAL NERVOUS SYSTEM: Alert and oriented -3. No focal deficits, tone is normal in all 4 extremities. PSYCHIATRIC: Alert and oriented -3. Appropriate affect. Intact judgment and insight. Results - Laboratory Findings CBC and BMP: 03/02/21 04:55 03/03/21 05:36 PT/INR, D-dimer D-Dimer 1.68 mg/L FEU (<0.60) H 03/01/21 18:09 Abnormal lab findings: Abnormal Labs 03/01/21 03/01/21 03/01/21 18:09 18:09 18:09 WBC 10.7 H RBC 4.08 L Hgb 12.2 L D Hct 35.9 L Plt Count 476 H MPV Neutrophils # 9.8 H Lymphocytes # 0.4 L ESR D-Dimer 1.68 H Sodium 130 L Chloride 95 L BUN 26 H Glucose 110 H Calcium C-Reactive Protein Procalcitonin 03/02/21 03/02/21 03/02/21 04:55 04:55 15:53 WBC RBC 3.42 L Hgb 9.9 L Hct 29.7 L Plt Count MPV 9.2 L Neutrophils # Lymphocytes # ESR 43 H D-Dimer Sodium 132 L Chloride BUN Glucose 141 H Calcium 8.1 L C-Reactive Protein Procalcitonin 03/02/21 03/02/21 15:53 15:53 WBC RBC Hgb Hct Plt Count MPV Neutrophils # Lymphocytes # ESR D-Dimer Sodium Chloride BUN Glucose Calcium C-Reactive Protein 6.6 H Procalcitonin 0.19 H - Diagnostic Findings Chest x-ray: report reviewed, image reviewed CT scan - chest: report reviewed, image reviewed Additional studies: EKG reviewed Assessment and Plan Plan: Assessment: #1. Acute hypoxic respiratory failure, consider possibility of pneumonia, possibly healthcare acquired, and fluid overload, CHF, unspecified. COVID-19 PCR was negative, today's chest x-ray shows diffuse interstitial infiltrates in the mid and upper lung la #2. Recent hospitalization for right hand abscess status post incision and drainage of the dorsal hand abscess irrigation and debridement and right middle finger extensor tendon repair on 02/24/2021 #3. Right dorsal hand abscess related to MRSA #4. History of coronary artery disease #5. Hypertension #6. History of COPD not on home oxygen #7. Chronic history of smoking #8. Previous history of myocardial infarction in 2009 Plan: Continue current antibiotics We'll add breathing treatments One-time dose of IV Lasix 40 mg Obtain echocardiogram Repeat chest x-ray tomorrow We'll continue to follow I performed a history & physical examination of the patient and discussed their management with my nurse practitioner, Brittney Rios. I reviewed the nurse practitioner's note and agree with the documented findings and plan of care. Lung sounds are positive for diminished breath sounds with left basal crackles throughout the lung la. The findings and the impression was discussed with the patient. I attest to the documentation by the nurse practitioner. Time with Patient: Greater than 30
[2021-03-04 12:10] LABS: African American GFR (CKD) >90 (>60 ml/min/1.73 sqM); Non-African American GFR(CKD) 89 (>60 ml/min/1.73 sqM)
--- NOTE | 2021-03-04 12:33 | ECHOF ---
Referral Reason:dyspnea MEASUREMENTS -------- HEIGHT: 162.6 cm WEIGHT: 60.8 kg BP: 162/76 RVIDd: 3.5 cm (< 3.3) IVSd: 1.0 cm (0.6 - 1.1) LVIDd: 4.4 cm (3.9 - 5.3) LVPWd: 1.2 cm (0.6 - 1.1) IVSs: 1.4 cm LVIDs: 2.4 cm LVPWs: 1.5 cm LAESV Index (A-L): 37.01 ml/m Ao Diam: 3.3 cm (2.0 - 3.7) AV Cusp: 1.4 cm (1.5 - 2.6) MV EXCURSION: 15.279 mm (> 18.000) MV EF SLOPE: 66 mm/s (70 - 150) EPSS: 0.2 cm MV E Paul: 0.98 m/s MV DecT: 220 ms MV A Paul: 1.12 m/s MV E/A Ratio: 0.87 RAP: 15.00 mmHg RVSP: 50.71 mmHg FINDINGS -------- Sinus rhythm. This was a technically adequate study. The left ventricular size is normal. There is mild concentric left ventricular hypertrophy. Overa ll left ventricular systolic function is normal with, an EF between 55 - 60 %. The right ventricle is mildly enlarged. LA is moderately dilated 34-39 ml/m2 The right atrium is mildly enlarged. Interatrial and interventricular septum intact. There is mild to moderate aortic valve sclerosis. There is no evidence of aortic regurgitation. T here is no evidence of aortic stenosis. Mild mitral annular calcification present. Mild mitral regurgitation is present. [id number] tricuspid regurgitation present. There is moderate pulmonary hypertension. The r ight ventricular systolic pressure, as measured by Doppler, is 50.71mmHg. There is no pulmonic regurgitation present. The aortic root size is normal. The inferior vena cava is mildly dilated. There is no pericardial effusion. CONCLUSIONS -------- 1. There is mild concentric left ventricular hypertrophy. 2. Overall left ventricular systolic function is normal with, an EF between 55 - 60 %. 3. 4. The right ventricle is mildly enlarged. 5. LA is moderately dilated 34-39 ml/m2 6. The right atrium is mildly enlarged. 7. There is mild to moderate aortic valve sclerosis. 8. Mild mitral regurgitation is present. 9. [id number] tricuspid regurgitation present. 10. There is moderate pulmonary hypertension. 11. The inferior vena cava is mildly dilated. 12. There is no pericardial effusion. ELECTROCARDIOGRAPH REPAIRER: Soila Franco RDCS
[2021-03-04] MEDS: VANCOMYCIN 1,250 MG in SODIUM CHLORIDE 0.9% 250 ML IVPB SCH (12:54)
--- NOTE | 2021-03-04 13:01 | P.PN ---
Subjective Progress Note Date: 03/04/21 Principal diagnosis: Right hand abscess Patient is examined today at bedside, Dr. Steward was available to examine patient also. The patient and he states is feeling quite well. The sutures were removed yesterday. Patient notes no worsening in pain at this time. He did notice some increase in drainage near the incision. He currently has no headaches, lightheadedness or chest pain. He currently denies any acute fevers, nausea vomiting. Objective - Vital Signs Vital signs: Vital Signs Temp 98.5 F 03/04/21 07:00 Pulse 70 03/04/21 07:00 Resp 16 03/04/21 07:00 BP 162/76 03/04/21 07:00 Pulse Ox 95 03/04/21 07:00 Intake & Output 03/03/21 03/04/21 03/04/21 18:59 06:59 18:59 Intake Total 562 118 Output Total 450 Balance 112 118 Intake: Oral 562 118 Output: Urine 450 Other: Voiding Method Urinal # Voids 1 - Exam Right hand: Incision is well healed throughout the dorsum of the hand, there is a small area near the midline of the incision where there was some purulent drainage noted through a skin opening. There is no significant erythema present. There is a small area of fluctuance present in that area. Patient is able to wiggle the fingers no difficulties, he is working on making a fist Sensation to light touch throughout the right upper extremity is intact, the radial and ulnar pulses are 2+ - Labs CBC & Chem 7: 03/02/21 04:55 03/04/21 11:13 Labs: Microbiology - Last 24 Hours (Table) 03/01/21 18:15 Blood Culture - Preliminary Blood No Growth after 48 hours 03/01/21 18:00 Blood Culture - Preliminary Blood No Growth after 48 hours 03/02/21 15:53 Blood Culture - Preliminary Blood No Growth after 24 hours Assessment and Plan Assessment: Right hand abscess, status post I&D Other medical comorbidities Plan: Dr. Steward was available today to discuss treatment options with the patient today at bedside. Due to the opening in the skin and also the purulent drainage, we are recommending a further irrigation and debridement procedure of the right hand. Risks and benefits of procedure were discussed with the patient. The patient has good understanding and would like to proceed. . Nothing by mouth after midnight Continue Hibiclens soaks Obtaine consent Other medical and scientific illustrator recommendations Further recommendations to follow Time with Patient: Less than 30
--- NOTE | 2021-03-04 14:06 | P.PN ---
Subjective Progress Note Date: 03/04/21 Patient is doing fairly well today. He denies any shortness of breath. There is some worsening of the swelling in the dorsal right hand at the third knuckle Objective - Vital Signs Vital signs: Vital Signs Temp 98.5 F 03/04/21 07:00 Pulse 70 03/04/21 07:00 Resp 16 03/04/21 07:00 BP 162/76 03/04/21 07:00 Pulse Ox 95 03/04/21 07:00 Intake & Output 03/03/21 03/04/21 03/04/21 18:59 06:59 18:59 Intake Total 562 298 Output Total 450 Balance 112 298 Intake: Oral 562 298 Output: Urine 450 Other: Voiding Method Urinal # Voids 1 - Exam General: The patient is awake and alert, in no distress Eye: there is normal conjunctiva bilaterally. Neck: The neck is supple, there is no JVD. Cardiovascular: Normal S1-S2, no S3-S4, no murmurs. Respiratory: Lungs clear to auscultation bilaterally Gastrointestinal: Abdomen is soft, nontender Musculoskeletal: There is no pedal edema. Neurological:. Speech is normal. Skin: Skin is warm and dry - Labs CBC & Chem 7: 03/02/21 04:55 03/04/21 11:13 Labs: Microbiology - Last 24 Hours (Table) 03/01/21 18:15 Blood Culture - Preliminary Blood No Growth after 48 hours 03/01/21 18:00 Blood Culture - Preliminary Blood No Growth after 48 hours 03/02/21 15:53 Blood Culture - Preliminary Blood No Growth after 24 hours Assessment and Plan Assessment: This is a 70-year-old male with past medical history noted below who presented to the emergency room with worsening right hand swelling and pain. Patient was evaluated in the ER and admitted to the hospital for further management of his medical problems noted below. 1. Right hand dorsum abscess status post incision and drainage. Orthopedic following closely. May require some washout tomorrow. Continue passive range of motion. Culture grew MRSA 2. Sepsis without septic shock, managed with aggressive IV fluid hydration and antibiotic. Blood culture negative to date. 3. Suspected pneumonia, Levaquin added to vancomycin per Infectious disease 4. Chronic medical problems: Underlying COPD with no evidence of exacerbation, coronary artery disease, hypertension Today, I reviewed his medication list and lab work results. CTA on presentation was negative for PE. Mild hypoxia yesterday improved with one-time dose of IV Lasix. Echocardiogram showed preserved ejection fraction. Patient was seen by pulmonary. Incentive spirometer at bedside. Repeat lab work in the morning. Anticipate discharge home tomorrow.
--- NOTE | 2021-03-04 16:42 | PN ---
PROGRESS NOTE DATE OF SERVICE: 03/04/2021 REASON FOR FOLLOWUP: 1. Right hand abscess cellulitis. 2. Pneumonia. INTERVAL HISTORY: Patient did spike a fever this morning of 100.3 Fahrenheit. The patient overall is feeling better. He is currently off the oxygen. Denies having any chest pain or shortness of breath. Did have a cough, not bringing up any sputum. No abdominal pain. No diarrhea. Overall right hand pain and swelling has decreased. PHYSICAL EXAMINATION: Blood pressure is 163/75, pulse is 96, temperature 100.8. He is 96% on room air. General description is an elderly male lying in bed in no distress. Respiratory system: Unlabored breathing. Clear to auscultation anteriorly. Heart: S1, S2. Regular rate and rhythm. Abdomen: Soft, no tenderness. LABS: Hemoglobin is 9.1, white count 8.22. DIAGNOSTIC IMPRESSION AND PLAN: 1. Patient with right hand abscess and cellulitis with MRSA, status post drainage. The patient is covered with vancomycin to continue. Transition to oral doxy on discharge. 2. Patient with pneumonia. Clinically responding to the Levaquin to continue and continue supportive care. MMODL / IJN: [id number] /
[2021-03-04] MEDS: LEVOFLOXACIN 750 MG TAB PO SCH (17:43)
[2021-03-04] MEDS: VANCOMYCIN 1,000 MG in SODIUM CHLORIDE 0.9% 250 ML IVPB SCH (18:53)
[2021-03-04] MEDS: lisinopriL 20 MG TAB PO SCH (19:43)
[2021-03-04] MEDS: ACETAMINOPHEN TAB 325 MG TAB PO PRN (19:44)
[2021-03-05] MEDS: VANCOMYCIN 1,250 MG in SODIUM CHLORIDE 0.9% 250 ML IVPB SCH ×2 (00:31→13:34)
[2021-03-05] MEDS ORDERED: diphenhydrAMINE 50 MG/ML 1 ML VIAL IVP ONE (01:47)
[2021-03-05 06:28] LABS: African American GFR (CKD) >90 (>60 ml/min/1.73 sqM)
[2021-03-05 06:29] LABS: Non-African American GFR(CKD) >90 (>60 ml/min/1.73 sqM)
[2021-03-05] MEDS ORDERED: PROPOFOL 10 MG/ML 20 ML VIAL IV ONE (07:36)
[2021-03-05] MEDS ORDERED: LIDOCAINE 1% INJ 10MG/ML (20 ML MDV) ONE (07:36)
[2021-03-05] MEDS ORDERED: GLYCOPYRROLATE 0.2 MG/ML 2 ML VIAL ONE (07:36)
[2021-03-05] MEDS ORDERED: fentaNYL (PF) 50 MCG/ML 2 ML AMP ONE (07:36)
[2021-03-05] MEDS ORDERED: MIDAZOLAM 2 MG/2 ML VIAL ONE (07:36)
[2021-03-05] MEDS ORDERED: SODIUM CHLORIDE 0.9% 1,000 ML IV ONE (07:36)
--- NOTE | 2021-03-05 07:42 | P.PN ---
Progress Note - Text Progress Note Date: 03/05/21 Pt s/e in the preoperative area. All pre op protocols followed. Anesthesia evaluated pt and deemed safe for surgery. Pt is on ABX from floor. Recent dose of Vancomycin. Consent confirmed and signed. Site marked. Pt willing to proceed with surgery. Orthopedic Surgery Risk Review Shaheed Daley is a 70 yo male presenting for evaluation of sudden onset Right hand pain and continued drainage, s/p I&D with dorsal hand abscess It was my pleasure to have seen and examined Shaheed Daley. In our visit today we have had a chance to go over subjective complaints, physical examination findings and treatments including the natural course history without intervention and various interventional options. On physical exam, Shaheed Daley demonstrates continued drainage and purulent discharge with erythema in the Rt dorsal hand. There is an area of the wound that seems to have re-abscessed He has some pain in his right hand, which is NV intact at this time. I have explained to the patient that this fracture needs stabilization. Based on the patients imaging, physical exam, and the rapid progression and disabling nature of her symptoms, at this time I recommend surgery in the form or a: Incision and drainage with irrigation and debridment of Right hand abscess. I discussed the risk and benefits of this procedure at length with Shaheed Daley. Questions were invited and answered, and the patient wishes to proceed as outlined below. Currently, I am recommendin. [Incision and drainage with irrigation and debridment of Right hand abscess 2. Review of surgical risks and benefits as well as an educational packet on the proposed surgical procedure. Risks: All surgical procedures come with inherent risks, including those related to positioning, anesthesia, intraoperative findings, and postoperative complications. It is important to understand that surgery does not come with any guarantee of a successful outcome as complications and adverse events are always possible. The patient was given a handout discussing the surgical procedure and risks associated with the intervention, both of which were discussed with the patient. These risks include but are not limited to the following: - Experiencing same, different or even worse symptoms compared to before surgery. - Requiring further surgery or other forms of treatment presently or at phuong e time in the future . - On an extreme but fortunately relatively rare basis severe complication such as blindness, stroke, heart attack, temporary and/or permanent nerve injury, paralysis, coma, or may occur, sometimes without known explanation. - Surgical complications may include but are not limited to risk of infection, fluid accumulation in the surgical dissection site, including a seroma or hematoma, that requires additional surgery, wound drainage, bleeding, new numbness or weakness, vision changes/loss, spinal fluid leakage, non-healing and/or infected incision, headaches, difficulty or inability to swallow, hoarseness, hemopneumothorax, pneumothorax, injury to nerves, spinal cord, blood vessels, lymphatics or other vital organs (i.e., bowel injury, injury to t he great vessels); heterotopic bone formation; complications related to the hardware such as screws, rods, including misplaced hardware, device failure, hardware fracture/breakage, or hardware loosening; retained surgical instrumentations or devices and the need for further surgery. - Medical risks of the planned surgery include but are not limited to generalized Infections to the whole body or local areas outside of the surgical site (sepsis), heart attack, bleeding, anaphylaxis, meningitis, seizure, epilepsy, hearing loss, burn garduno, laceration of the head or other areas of the body, bruising, hypersensitivity of the skin, bladder over distension; allergic reaction; shoulder injury related to positioning; fat, blood and air clots to other areas of the body like heart, lungs, brain; failure of internal organs such as lungs, kidneys, liver and excessive bleeding. If blood transfusions are necessary, note that transfusions may cause intolerance reactions such as anaphylaxis or other complex reactions. Despite best efforts, the results of surgery might not heal in terms of bone, soft tissues such as skin, fascia, ligaments, and joints. [facility] is an educational center that serves as a training facility for physician assistants, nurses, orthopedic residents and fellows. Residents are physicians who are completing their surgical intensive training following medical school. They assist in the operating room with direct supervision of the attending surgeons. [place] are surgeons who have completed their training and eligible for board certification. They have opted for an elective year of more specialized training in their field. They assist in the operating room under the supervision of the attending surgeons. Physician assistants are medically trained surgical providers who function in the outpatient, inpatient, and operating room setting under the direct supervision of the attending surgeon. [facility] has multiple operating rooms with single and overlapping rooms running daily. They currently function under the required guidelines as produced by the [facility] Finance Committee with regards to the overlapping rooms and will continue to comply with changes to this policy as they occur. The requirements include and are complied with as follows: (1) the critical portions of the overlapping rooms will not occur at the same time, (2) the attending physician will be physically present during the critical portions of the procedure and immediately available during the entire case, and (3) a back-up attending is designated should the primary attending not be immediately available. The patient has had a chance to review all the listed information, has been given print outs detailing this information, and has had all his/her questions answered to their satisfaction. It was my pleasure to have seen and examined Shaheed Daley. In our visit today we have had a chance to go over my understanding of our patient's current condition, the natural course history without intervention and various interventional options. Questions were invited and answered, and the patient wishes to proceed as outlined above. I have seen and examined the patient for 25 minutes and we have spent more than 50% of the time in repeat and detailed counseling about the patient's condition, its natural course history with out and as much as can be predicted with surgery and re-review of various surgical treatment options. In conclusion,Shaheed Daley requested we proceed with the above suggested surgery and are willing to accept risks and limitations of the suggested surgery as nature of the disease process and our best attempts at treatment for the condition. Thank you again for allowing us to be part of your patient's care. Please don't hesitate to contact me if you have any further questions. Signed and authenticated by: Gómez Hobbs [facility] [address]
--- NOTE | 2021-03-05 07:49 | XR ---
EXAMINATION TYPE: XR chest 1V portable DATE OF EXAM: 03/05/2021 COMPARISON: 03/03/2021 INDICATION: Shortness of breath TECHNIQUE: Single frontal view of the chest is obtained. FINDINGS: The heart size is normal. The pulmonary vasculature is prominent. Biapical infiltrates are present greater on the right. Findings are improved from comparison. Continu ed follow-up is recommended. IMPRESSION: 1. Improving bilateral upper lobe infiltrates, worse on the right
[2021-03-05] MEDS ORDERED: ceFAZolin 3,000 MG in SODIUM CHLORIDE 0.9% IRRIGATIO 3,000 ML IRRIGATION ONE (08:00)
[2021-03-05] MEDS: IPRATROPIUM-ALBUTEROL 3 ML NEB INHALATION SCH ×4 (08:17→20:43)
[2021-03-05] MEDS: HEPARIN SODIUM,PORCINE/PF 5,000 UNIT/0.5 ML SYRINGE SQ SCH ×2 (09:32→16:26)
[2021-03-05] MEDS: MULTIVITAMINS, THERA 1 EACH TAB PO SCH (09:32)
[2021-03-05] MEDS: FUROSEMIDE 10 MG/ML 4 ML VIAL IV SCH (09:33)
--- NOTE | 2021-03-05 12:47 | P.PN ---
Subjective Progress Note Date: 03/05/21 Principal diagnosis: Acute hypoxic respiratory failure This is a 70-year-old white male patient with past medical history of COPD and patient follows with Dr. Nazario in the pulmonary clinic, current smoker, not on home oxygen, previous history of myocardial infarction, hypertension, coronary artery disease, who came into the emergency department on 03/01/2021 with a chief complaint of fever, dizziness, chills, cough, increased shortness of breath, and production of greenish colored phlegm. Patient had surgery for his right hand dorsal abscess after sustaining a car door injury the right middle finger extensor tendon laceration. Patient required incision and drainag e of the dorsal hand abscess with irrigation and right middle finger extensor tendon repair. This was done by Dr. Steward and on 02/24/2021. Patient was discharged home on 10 day course of Bactrim DS 1 tab twice daily, for evidence of MRSA on the wound cultures. he was home for 24 hours, when he developed cough, shortness of breath, fever and came back for reevaluation. D-dimer was 1.68 and CTA chest was completed showing no evidence of pulmonary embolism, though some patchy atelectasis at the lung bases. Admission labs were reviewed showing white blood cell count of 10.7, hemoglobin of 12.2, sodium was 1:30, potassium is 4.6, chloride was 95, BUN was 26, creatinine is 1.21, plasma lactic acid is 1.6, troponin was less than 0.012, pro calcitonin level was 0.19, urinalysis was within normal limits, COVID-19 was negative. ID service was consulted, patient is currently on a combination of Levaquin and vancomycin. We were asked to see the patient in consultation for worsening shortness of breath, cough, and follow-up chest x-ray today showed diffuse predominantly interstitial infiltrates in the mid and upper lung la with underlying emphysema. Atypical CHF was not excluded. During her evaluation patient is awake and alert, he is complaining of cough, but appears to be no acute distress, he is on 2 L of oxygen pulse ox is 95%, his been afebrile, lung sounds reveal markedly diminished breath sounds with left base crackles. No lower extremity swelling, no calf tenderness. No JVD noted. His right hand middle digit still sore some swelling, and there is some small amount of purulent drainage seen. The patient is seen today 03/05/2021 in follow-up on the regular medical floor. He is currently resting quite comfortably in bed. Laying flat. No worsening shortness of breath, cough or congestion. He did receive IV diuretics and is diuresing well. His chest x-ray shows improvement. He did undergo incision and drainage with irrigation and debridement of the right hand abscess again this morning. Splint and dressing dry and intact. He remains on vancomycin and Levaquin. Remains on bronchodilators. Objective - Vital Signs Vital signs: Vital Signs Temp 100.4 F H 03/05/21 08:24 Pulse 80 03/05/21 11:40 Resp 16 03/05/21 08:49 BP 122/70 03/05/21 08:49 Pulse Ox 100 03/05/21 08:49 Intake & Output 03/04/21 03/05/21 03/05/21 18:59 06:59 18:59 Intake Total 298 101 Output Total 10 Balance 298 91 Intake: IV 101 Oral 298 Output: Estimated Blood Loss 10 Other: Voiding Method Urinal Urinal # Voids 3 1 - Exam GENERAL EXAM: Alert, pleasant, 70-year-old male patient, on room air with a pulse ox of 98%, sitting up in the bed comfortable in no apparent distress. HEAD: Normocephalic/atraumatic. EYES: Normal reaction of pupils, equal size. Conjunctiva pink, sclera white. NOSE: Clear with pink turbinates. THROAT: No erythema or exudates. NECK: No masses, no JVD, no thyroid enlargement, no adenopathy. CHEST: No chest wall deformity. Symmetrical expansion. LUNGS: Markedly diminished breath sounds bilaterally, with some scattered rhonchi CVS: Regular rate and rhythm, normal S1 and S2, no gallops, no murmurs, no rubs ABDOMEN: Soft, nontender. No hepatosplenomegaly, normal bowel sounds, no guarding or rigidity. EXTREMITIES: Right hand splint and dressing dry and intact. No clubbing, no edema, no cyanosis, 2+ pulses and upper and lower extremities. MUSCULOSKELETAL: Muscle strength and tone normal. SPINE: No scoliosis or deformity SKIN: No rashes, patient has swelling and redness involving his right middle digit on the right hand CENTRAL NERVOUS SYSTEM: No focal deficits, tone is normal in all 4 extremities. PSYCHIATRIC: Alert and oriented -3. Appropriate affect. Intact judgment and insight. - Labs CBC & Chem 7: 03/02/21 04:55 03/05/21 06:02 Labs: Microbiology - Last 24 Hours (Table) 03/04/21 08:56 Gram Stain - Preliminary Hand - Right Wound Culture - Preliminary 03/01/21 18:15 Blood Culture - Preliminary Blood No Growth after 72 hours 03/01/21 18:00 Blood Culture - Preliminary Blood No Growth after 72 hours 03/02/21 15:53 Blood Culture - Preliminary Blood No Growth after 48 hours Assessment and Plan Assessment: 1 Acute hypoxic respiratory failure, consider possibility of pneumonia, possibly healthcare acquired, and fluid overload, CHF, unspecified. COVID-19 PCR was negative, today's chest x-ray shows diffuse interstitial infiltrates in the mid and upper lung la 2 Recent hospitalization for right hand abscess status post incision and drainage of the dorsal hand abscess irrigation and debridement and right middle finger extensor tendon repair on 02/24/2021, he required a second incision and drainage performed today 03/05/2021. 3 Right dorsal hand abscess related to MRSA, remains on vancomycin and Levaquin 4 History of coronary artery disease 5 Hypertension 6 History of COPD not on home oxygen 7 Chronic history of smoking 8 Previous history of myocardial infarction in 2009 Plan: The patient was seen and evaluated by Dr. Franco Chest x-ray and labs reviewed Continue IV diuretics Continue antibiotics Continue bronchodilators Follow-up chest x-ray in a.m. We will continue to follow I, the cosigning physician, performed a history & physical examination of the patient. Lungs sounds with bilateral scattered rhonchi. Maintaining good O2 saturations in the 90s on room air. I discussed the assessment and plan of care with my nurse practitioner, Mikaela Blackwell. I attest to the above note as dictated by her.
--- NOTE | 2021-03-05 12:55 | P.PN ---
Subjective Progress Note Date: 03/05/21 Patient is doing well today. No acute events overnight. He underwent I&D of his right hand this morning by orthopedic surgery. He denies any shortness of breath. He is currently on 2 L of oxygen. Objective - Vital Signs Vital signs: Vital Signs Temp 100.4 F H 03/05/21 08:24 Pulse 80 03/05/21 11:40 Resp 16 03/05/21 08:49 BP 122/70 03/05/21 08:49 Pulse Ox 100 03/05/21 08:49 Intake & Output 03/04/21 03/05/21 03/05/21 18:59 06:59 18:59 Intake Total 298 101 Output Total 10 Balance 298 91 Intake: IV 101 Oral 298 Output: Estimated Blood Loss 10 Other: Voiding Method Urinal Urinal # Voids 3 1 - Exam General: The patient is awake and alert, in no distress Eye: there is normal conjunctiva bilaterally. Neck: The neck is supple, there is no JVD. Cardiovascular: Normal S1-S2, no S3-S4, no murmurs. Respiratory: Lungs clear to auscultation bilaterally Gastrointestinal: Abdomen is soft, nontender Musculoskeletal: There is no pedal edema. Neurological:. Speech is normal. Skin: Skin is warm and dry - Labs CBC & Chem 7: 03/02/21 04:55 03/05/21 06:02 Labs: Microbiology - Last 24 Hours (Table) 03/04/21 08:56 Gram Stain - Preliminary Hand - Right Wound Culture - Preliminary 03/01/21 18:15 Blood Culture - Preliminary Blood No Growth after 72 hours 03/01/21 18:00 Blood Culture - Preliminary Blood No Growth after 72 hours 03/02/21 15:53 Blood Culture - Preliminary Blood No Growth after 48 hours Assessment and Plan Assessment: This is a 70-year-old male with past medical history noted below who presented to the emergency room with worsening right hand swelling and pain. Patient was evaluated in the ER and admitted to the hospital for further management of his medical problems noted below. 1. Right hand dorsum abscess status post incision and drainage. Orthopedic following closely. Status post I&D again on 03/05. Previous Culture grew MRSA 2. Sepsis without septic shock, managed with aggressive IV fluid hydration and antibiotic. Blood culture negative to date. 3. Suspected pneumonia, Levaquin added to vancomycin per Infectious disease 4. Chronic medical problems: Underlying COPD with no evidence of exacerbation, coronary artery disease, hypertension Today, I reviewed his medication list and lab work results. CTA on presentation was negative for PE. Mild hypoxia yesterday improved with one-time dose of IV Lasix. Echocardiogram showed preserved ejection fraction. Patient was seen by pulmonary. Incentive spirometer at bedside. Repeat lab work in the morning. Wean off O2. Up and ambulate in the hallway. Anticipate discharge home tomorrow.
--- NOTE | 2021-03-05 14:45 | P.PN ---
Progress Note - Text Progress Note Date: 03/05/21 Pt s/e Post op. No issues. Irritated at splint. No pain. Moving all fingers appropriately. Denies any f/c/sob/cp at this time.
--- NOTE | 2021-03-05 15:45 | PN ---
PROGRESS NOTE DATE OF SERVICE: 03/05/2021 REASON FOR FOLLOWUP: 1. Right hand abscess. 2. Pneumonia. INTERVAL HISTORY: Patient did spike a low-grade fever of 100.4 this morning, is afebrile since then. The patient is breathing more comfortably. Denies having any chest pain. He did have a cough, not bringing up any sputum. No abdominal pain. No pain to the right arm or hand area. PHYSICAL EXAMINATION: Blood pressure 122/70 with a pulse of 72, temperature is 100.4. He is 100% on 6 L nasal cannula. General description is an elderly male lying in bed in no distress. Respiratory system: Unlabored breathing, clear to auscultation anteriorly. Heart S1, S2. Regular rate and rhythm. Abdomen soft, no tenderness. LABS: Creatinine 0.79. Cultures are so far negative. DIAGNOSTIC IMPRESSION AND PLAN: 1. Patient with right hand MRSA abscess and cellulitis status post drainage. The patient's hand is looking better although slightly concerning. Will continue to monitor closely. Continue the vancomycin. 2. Pneumonia, covered with Levaquin. Try to obtain a sputum and recheck inflammatory markers tomorrow. MMODL / IJN: [id number] /
[2021-03-05] MEDS: LEVOFLOXACIN 750 MG TAB PO SCH (16:26)
[2021-03-05] MEDS: lisinopriL 20 MG TAB PO SCH (19:55)
[2021-03-05] MEDS: ACETAMINOPHEN TAB 325 MG TAB PO PRN (21:55)
[2021-03-06] MEDS: VANCOMYCIN 1,250 MG in SODIUM CHLORIDE 0.9% 250 ML IVPB SCH ×2 (01:43→13:04)
[2021-03-06] MEDS: HEPARIN SODIUM,PORCINE/PF 5,000 UNIT/0.5 ML SYRINGE SQ SCH ×3 (01:43→16:09)
[2021-03-06] MEDS: MULTIVITAMINS, THERA 1 EACH TAB PO SCH (07:45)
[2021-03-06] MEDS: IPRATROPIUM-ALBUTEROL 3 ML NEB INHALATION SCH ×4 (08:35→20:20)
--- NOTE | 2021-03-06 09:19 | XR ---
EXAMINATION TYPE: XR chest 1V portable DATE OF EXAM: 03/06/2021 COMPARISON: 03/05/2021 INDICATION: CHF, pneumonia, fever TECHNIQUE: Single frontal view of the chest is obtained. FINDINGS: The heart size is normal. The pulmonary vasculature is normal. There is a right upper lobe consolidation. This may be worsening over the interval. Right lower lobe infiltrate is developing. Platelike atelectasis is developing left base. Mild left perihilar trachea remains present. Findings would be atypical for congestive heart failure which is less likely in the differential. IMPRESSION: 1. Scattered bilateral lung infiltrates greatest in the right upper lobe. Overall, findings are worse lalita. Findings can be compatible with pneumonia. Consider atypical pneumonia.
[2021-03-06] MEDS: FUROSEMIDE 10 MG/ML 4 ML VIAL IV SCH ×2 (09:28→19:56)
--- NOTE | 2021-03-06 11:54 | P.PN ---
Subjective Progress Note Date: 03/06/21 Patient seen and examined doing well no issues overnight still states he gets short of breath and dizzy when he stands up however his hand is feeling okay. He denies any numbness or tingling. No drainage from the area. Objective - Vital Signs Vital signs: Vital Signs Temp 98.3 F 03/06/21 07:00 Pulse 75 03/06/21 08:48 Resp 16 03/06/21 07:00 BP 163/75 03/06/21 07:00 Pulse Ox 96 03/06/21 08:35 Intake & Output 03/05/21 03/06/21 03/06/21 18:59 06:59 18:59 Intake Total 101 350 350 Output Total 10 Balance 91 350 350 Intake: IV 101 Oral 350 350 Output: Estimated Blood Loss 10 Other: Voiding Method Urinal Urinal Urinal # Voids 2 2 - Exam Patient is alert and oriented 3 appears well-nourished well-hydrated is in no acute distress. They do not appear septic. There is TTP over the dorsum of the hand that is minor Lower extremities with 5 out of 5 strength in all major muscle groups Upper extremities show 5/5 strength in all major muscle groups. He has good motion at all DIP joints. He is currently in a splint. There is FROM that is painless of the b/l UE and LE in all major joints. They are intact to light touch sensation in L2 to S1 nerve distribution. DTR 2/4 all upper and lower extremities Patient has palpable dorsalis pedis was posterior tibial pulses. Palpable Rad Ulnar pulses b/l Compartments are soft and compressible. Patient shows a negative Homans Cranial nerves II through XII are grossly intact. Special Testing: Dressing is clean and dry splint is intact - Labs CBC & Chem 7: 03/02/21 04:55 03/05/21 06:02 Labs: Microbiology - Last 24 Hours (Table) 03/01/21 18:15 Blood Culture - Preliminary Blood No Growth after 96 hours 03/01/21 18:00 Blood Culture - Preliminary Blood No Growth after 96 hours 03/02/21 15:53 Blood Culture - Preliminary Blood No Growth after 72 hours 03/04/21 08:56 Gram Stain - Preliminary Hand - Right Wound Culture - Preliminary Assessment and Plan Assessment: 70-year-old male complex medical history postoperative day 1 from irrigation and debridement right hand dorsal abscess with revision of extensor tendon repair Plan: Nonweightbearing right upper extremity Maintain splint clean and dry Ice rest and elevation for pain and swelling control Continue antibiotics per ID and primary care team Pain control as needed Orthopedic stable
[2021-03-06] MEDS ORDERED: VANCOMYCIN TROUGH DUE 1 EACH MISC MISCELLANE ONE (12:00)
[2021-03-06 12:31] LABS: African American GFR (CKD) >90 (>60 ml/min/1.73 sqM); Anion Gap 8 mmol/L; Blood Urea Nitrogen 16 mg/dL (9-20); Calcium 8.3 mg/dL (8.4-10.2); Carbon Dioxide 24 mmol/L (22-30); Chloride 97 mmol/L (98-107); Glucose 143 mg/dL (74-99); Magnesium 1.5 mg/dL (1.6-2.3); Non-African American GFR(CKD) 87 (>60 ml/min/1.73 sqM); Potassium 3.3 mmol/L (3.5-5.1); Sodium 129 mmol/L (137-145)
[2021-03-06 12:32] LABS: Basophils % (A) 0 %; Eosinophils % (A) 1 %; HGB 10.2 gm/dL (13.0-17.5); Lymphocytes # (A) 0.6 k/uL (1.0-4.8); Lymphocytes % (A) 8 %; MCH 29.5 pg (25.0-35.0); MCHC 34.1 g/dL (31.0-37.0); MCV 86.5 fL (80.0-100.0); Mean Platelet Volume 6.9; Monocytes # (A) 0.3 k/uL (0-1.0); Monocytes % (A) 4 %; Neutrophils # (A) 6.4 k/uL (1.3-7.7); Neutrophils % (A) 86 %; Platelet Count 208 k/uL (150-450); RBC 3.46 m/uL (4.30-5.90); WBC 7.5 k/uL (3.8-10.6)
--- NOTE | 2021-03-06 12:56 | OP ---
OPERATIVE REPORT DATE OF SERVICE: 03/05/2021. PREOPERATIVE DIAGNOSES: 1. Continued abscess, right dorsal hand. 2. Wound dehiscence, right dorsal hand. POSTOPERATIVE DIAGNOSES: 1. Continued abscess, right dorsal hand. 2. Wound dehiscence, right dorsal hand. 3. Middle finger extensor tendon injury PROCEDURES PERFORMED: 1. Incision and drainage with irrigation, debridement, right hand dorsal abscess using skin knife for skin incision removal as well as curettes for scraping of soft tissue and tendon. 2. Extensor tendon revision repair. 3. Application of short-arm splint. IMPLANTS: None. ANESTHESIA: General endotracheal. SURGEON: Gómez Steward D.O. ESTIMATED BLOOD LOSS: 10 mL. IV FLUIDS: 1000. URINE OUTPUT: 0. PATHOLOGY: 2 cultures sent. CONDITION: Stable. DISPOSITION: To PACU. INDICATIONS FOR PROCEDURE: This is a 70-year-old [id number] male who recently presented to the hospital over a week ago with a dorsal hand abscess after traumatic injury to his right hand. This was originally irrigated and debrided on 02/24/2021. The patient did well after surgery. However, when he was discharged home, post discharge day 2, he became very lightheaded and nearly passed out. He re-presented to the emergency department, was found to have a mild fever, shortness of breath, and some other medical issues. He was admitted to the hospital and he was evaluated by the primary care team as well as orthopedic team. He continued to have drainage from his hand, but we were working on his other medical comorbidities at the time and so we attempted to treat this conservatively. However, did not get better and he ended up having some dehiscence of the wound over the dorsal aspect of his right hand. It was elected that we would go in and we re-irrigate and debride this area as well as re-close this area. We discussed this with the patient at length including the risks and benefits of the procedure which were outlined. The risks review, risk of bleeding, infection, damage to surrounding tissue, risk of reoperation, risk of anesthesia up to and including . He is willing to assume these risks and all risks of surgery. The patient's operative site was marked preoperatively. All preop protocols followed. The patient was seen by Department of Anesthesia and deemed fit for surgery. He was given weight based dose of antibiotics from the floor. Consent was confirmed and signed. DESCRIPTION OF PROCEDURE: The patient was transferred to operative suite, by Department of Anesthesia, placed supine on operating table. Arm boards placed underneath the right arm. Tourniquet was placed around the patient's right upper arm and well padded. Briefing was performed. All parties in agreement to proceed. Once adequate anesthesia had been obtained, the patient's right arm was then prepped and draped in normal sterile fashion. Time-out was performed. All parties were in agreement with the procedure to be performed. We then made skin incision over the dorsal aspect of the patient's right hand over the incision that had been made previously over the MCP joint of the middle finger. This was where a small pinhole dehiscence had happened. Upon traveling down bluntly, we discovered that the patient had ruptured his previous extensor tendon repair and that the sutures were likely what was causing pressure underneath the skin causing it to dehisced. The sutures were removed. The tendon was then cleaned. The tendon was extremely frayed in this area and difficult to clean. However, we were able to do so. We then irrigated the wound out with 6 L of saline, 3 L with antibiotic irrigation followed by 3 L without. We then debrided the soft tissue using a rongeur as well as skin knife and forceps. The skin was debrided and cleaned with a skin knife. We then proceeded with extensor tendon repair. We placed a modified Rosario stitch core stitch into the tendon using 3-0 Vicryl this time. This approximated the tendon very well and allowed for good tensioning. We then over sewed this with a 3-0 Vicryl in a running fashion, keeping the suture knots clear of the dorsal aspect of the hand. These laid very flat and there was good tendon repair. Tendon was taken through range of motion. There was good stability here as well. We then irrigated again, followed by closure of the wound. The wound was then closed with 3-0 nylon in a simple fashion. Silastic drains were placed to allow for drainage in this area. We then sterilely dressed the hand with Adaptic, 4x4s, fluffs, and Kerlix. We then placed him in a volar extension splint, which was well-padded and well-molded. This was overwrapped with an Av wrap. The patient was then awakened by the Department of Anesthesia, having tolerated procedure very well. He was transferred back to his hospital bed into the postoperative care unit in stable condition. OMID / BETH: [id number] / [id number]
--- NOTE | 2021-03-06 13:41 | P.PN ---
Subjective Progress Note Date: 03/06/21 Principal diagnosis: Acute hypoxic respiratory failure This is a 70-year-old white male patient with past medical history of COPD and patient follows with Dr. Nazario in the pulmonary clinic, current smoker, not on home oxygen, previous history of myocardial infarction, hypertension, coronary artery disease, who came into the emergency department on 03/01/2021 with a chief complaint of fever, dizziness, chills, cough, increased shortness of breath, and production of greenish colored phlegm. Patient had surgery for his right hand dorsal abscess after sustaining a car door injury the right middle finger extensor tendon laceration. Patient required incision and drainag e of the dorsal hand abscess with irrigation and right middle finger extensor tendon repair. This was done by Dr. Steward and on 02/24/2021. Patient was discharged home on 10 day course of Bactrim DS 1 tab twice daily, for evidence of MRSA on the wound cultures. he was home for 24 hours, when he developed cough, shortness of breath, fever and came back for reevaluation. D-dimer was 1.68 and CTA chest was completed showing no evidence of pulmonary embolism, though some patchy atelectasis at the lung bases. Admission labs were reviewed showing white blood cell count of 10.7, hemoglobin of 12.2, sodium was 1:30, potassium is 4.6, chloride was 95, BUN was 26, creatinine is 1.21, plasma lactic acid is 1.6, troponin was less than 0.012, pro calcitonin level was 0.19, urinalysis was within normal limits, COVID-19 was negative. ID service was consulted, patient is currently on a combination of Levaquin and vancomycin. We were asked to see the patient in consultation for worsening shortness of breath, cough, and follow-up chest x-ray today showed diffuse predominantly interstitial infiltrates in the mid and upper lung la with underlying emphysema. Atypical CHF was not excluded. During her evaluation patient is awake and alert, he is complaining of cough, but appears to be no acute distress, he is on 2 L of oxygen pulse ox is 95%, his been afebrile, lung sounds reveal markedly diminished breath sounds with left base crackles. No lower extremity swelling, no calf tenderness. No JVD noted. His right hand middle digit still sore some swelling, and there is some small amount of purulent drainage seen. The patient is seen today 03/05/2021 in follow-up on the regular medical floor. He is currently resting quite comfortably in bed. Laying flat. No worsening shortness of breath, cough or congestion. He did receive IV diuretics and is diuresing well. His chest x-ray shows improvement. He did undergo incision and drainage with irrigation and debridement of the right hand abscess again this morning. Splint and dressing dry and intact. He remains on vancomycin and Levaquin. Remains on bronchodilators. On 03/06/2021 patient seen in follow-up on medical surgical floor. He states he is more short of breath today, today's chest x-ray shows scattered bilateral lung infiltrates, and the findings are worsening. Currently remains on nebulized bronchodilators, he is on Lasix 40 mg daily, he is on Levaquin and vancomycin. On sounds are diminished, with bibasilar crackles, no significant edema or JVD. He is on 2 L of oxygen his pulse ox is 96%, his had no fever or chills. No complaints of chest discomfort. His blood cultures have shown no growth, he has not been able to produce a sputum specimen for us, his right hand wound cultures showing few PMNs, no organisms. He did have a low-grade fever yesterday at 8:00, and that was his last episode of elevated temperature. Objective - Vital Signs Vital signs: Vital Signs Temp 98.3 F 03/06/21 07:00 Pulse 75 03/06/21 08:48 Resp 16 03/06/21 07:00 BP 163/75 03/06/21 07:00 Pulse Ox 96 03/06/21 08:35 Intake & Output 03/05/21 03/06/21 03/06/21 18:59 06:59 18:59 Intake Total 101 350 350 Output Total 10 Balance 91 350 350 Intake: IV 101 Oral 350 350 Output: Estimated Blood Loss 10 Other: Voiding Method Urinal Urinal Urinal # Voids 2 2 - Exam GENERAL EXAM: Alert, pleasant, 70-year-old white male, on 2 L of oxygen with pulse ox of 95%, sitting up in the bed comfortable in no apparent distress. HEAD: Normocephalic/atraumatic. EYES: Normal reaction of pupils, equal size. Conjunctiva pink, sclera white. NOSE: Clear with pink turbinates. THROAT: No erythema or exudates. NECK: No masses, no JVD, no thyroid enlargement, no adenopathy. CHEST: No chest wall deformity. Symmetrical expansion. LUNGS: Markedly diminished breath sounds bilaterally, with some limited crackles at the left base CVS: Regular rate and rhythm, normal S1 and S2, no gallops, no murmurs, no rubs ABDOMEN: Soft, nontender. No hepatosplenomegaly, normal bowel sounds, no guarding or rigidity. EXTREMITIES: No clubbing, no edema, no cyanosis, 2+ pulses and upper and lower extremities. MUSCULOSKELETAL: Muscle strength and tone normal. SPINE: No scoliosis or deformity SKIN: No rashes, patient has swelling and redness involving his right middle digit on the right hand, with some limited amount of purulent drainage CENTRAL NERVOUS SYSTEM: Alert and oriented -3. No focal deficits, tone is normal in all 4 extremities. PSYCHIATRIC: Alert and oriented -3. Appropriate affect. Intact judgment and insight. - Labs CBC & Chem 7: 03/06/21 11:54 03/06/21 11:52 Labs: Abnormal Lab Results - Last 24 Hours (Table) 03/06/21 03/06/21 Range/Units 11:52 11:54 RBC 3.46 L (4.30-5.90) m/uL Hgb 10.2 L (13.0-17.5) gm/dL Hct 30.0 L (39.0-53.0) % Lymphocytes # 0.6 L (1.0-4.8) k/uL Sodium 129 L (137-145) mmol/L Potassium 3.3 L (3.5-5.1) mmol/L Chloride 97 L (98-107) mmol/L Glucose 143 H (74-99) mg/dL Calcium 8.3 L (8.4-10.2) mg/dL Magnesium 1.5 L (1.6-2.3) mg/dL Microbiology - Last 24 Hours (Table) 03/01/21 18:15 Blood Culture - Preliminary Blood No Growth after 96 hours 03/01/21 18:00 Blood Culture - Preliminary Blood No Growth after 96 hours 03/02/21 15:53 Blood Culture - Preliminary Blood No Growth after 72 hours 03/04/21 08:56 Gram Stain - Preliminary Hand - Right Wound Culture - Preliminary Assessment and Plan Plan: Assessment: #1. Acute hypoxic respiratory failure, consider possibility of pneumonia, possibly healthcare acquired, and fluid overload, CHF, with diastolic dysfunction COVID-19 PCR was negative, today's chest x-ray shows diffuse interstitial infiltrates in the mid and upper lung la #2. Recent hospitalization for right hand abscess status post incision and drainage of the dorsal hand abscess irrigation and debridement and right middle finger extensor tendon repair on 02/24/2021. Patient required a second I&D today on 03/05/2021 #3. Right dorsal hand abscess related to MRSA, remains on vancomycin and Levaquin #4. History of coronary artery disease #5. Hypertension #6. History of COPD not on home oxygen #7. Chronic history of smoking #8. Previous history of myocardial infarction in 2009 Plan: Continue current antibiotics Increase Lasix to 40 mg every 12 hours Today's chest x-ray has been reviewed showing worsening bilateral pulmonary infiltrates Continue breathing treatments Echocardiogram has been noted follow up labs and chest x-ray in the morning I performed a history & physical examination of the patient and discussed their management with my nurse practitioner, Brittney Rios. I reviewed the nurse practitioner's note and agree with the documented findings and plan of care. Lung sounds are positive for diminished breath sounds with left basal crackles throughout the lung la. The findings and the impression was discussed with the patient. I attest to the documentation by the nurse practitioner. Time with Patient: Less than 30
--- NOTE | 2021-03-06 14:07 | P.PN ---
Subjective Progress Note Date: 03/06/21 Patient denies any shortness of breath this morning. He is wearing oxygen for comfort. He was not hypoxic and does not really require oxygen. Chest x-ray today showed worsening in his lung infiltrates. Objective - Vital Signs Vital signs: Vital Signs Temp 98.3 F 03/06/21 07:00 Pulse 75 03/06/21 08:48 Resp 16 03/06/21 07:00 BP 163/75 03/06/21 07:00 Pulse Ox 96 03/06/21 08:35 Intake & Output 03/05/21 03/06/21 03/06/21 18:59 06:59 18:59 Intake Total 101 350 650 Output Total 10 Balance 91 350 650 Intake: IV 101 Oral 350 650 Output: Estimated Blood Loss 10 Other: Voiding Method Urinal Urinal Urinal # Voids 2 2 - Exam General: The patient is awake and alert, in no distress Eye: there is normal conjunctiva bilaterally. Neck: The neck is supple, there is no JVD. Cardiovascular: Normal S1-S2, no S3-S4, no murmurs. Respiratory: Lungs clear to auscultation bilaterally Gastrointestinal: Abdomen is soft, nontender Musculoskeletal: There is no pedal edema. Neurological:. Speech is normal. Skin: Skin is warm and dry - Labs CBC & Chem 7: 03/06/21 11:54 03/06/21 11:52 Labs: Abnormal Lab Results - Last 24 Hours (Table) 03/06/21 03/06/21 Range/Units 11:52 11:54 RBC 3.46 L (4.30-5.90) m/uL Hgb 10.2 L (13.0-17.5) gm/dL Hct 30.0 L (39.0-53.0) % Lymphocytes # 0.6 L (1.0-4.8) k/uL Sodium 129 L (137-145) mmol/L Potassium 3.3 L (3.5-5.1) mmol/L Chloride 97 L (98-107) mmol/L Glucose 143 H (74-99) mg/dL Calcium 8.3 L (8.4-10.2) mg/dL Magnesium 1.5 L (1.6-2.3) mg/dL Microbiology - Last 24 Hours (Table) 03/01/21 18:15 Blood Culture - Preliminary Blood No Growth after 96 hours 03/01/21 18:00 Blood Culture - Preliminary Blood No Growth after 96 hours 03/02/21 15:53 Blood Culture - Preliminary Blood No Growth after 72 hours Assessment and Plan Assessment: This is a 70-year-old male with past medical history noted below who presented to the emergency room with worsening right hand swelling and pain. Patient was evaluated in the ER and admitted to the hospital for further management of his medical problems noted below. 1. Right hand dorsum abscess status post incision and drainage with revision of extensor tendon repair. Orthopedic following closely. Status post I&D again on 03/05. Previous Culture grew MRSA 2. Sepsis without septic shock, managed with aggressive IV fluid hydration and antibiotic. Blood culture negative to date. 3. Suspected pneumonia, Levaquin added to vancomycin per Infectious disease 4. Chronic medical problems: Underlying COPD with no evidence of exacerbation, coronary artery disease, hypertension Today, I reviewed his medication list and lab work results. CTA on presentation was negative for PE. Echocardiogram showed preserved ejection fraction. Patient was seen by pulmonary. Incentive spirometer at bedside. Repeat lab work in the morning. Anticipate discharge home tomorrow. May benefit from a nebulizer at home
[2021-03-06] MEDS: LEVOFLOXACIN 750 MG TAB PO SCH (16:10)
[2021-03-06] MEDS: lisinopriL 20 MG TAB PO SCH (19:56)
[2021-03-06] MEDS: MELATONIN 3 MG TABLET PO SCH (21:16)
[2021-03-07] MEDS: HEPARIN SODIUM,PORCINE/PF 5,000 UNIT/0.5 ML SYRINGE SQ SCH ×3 (01:12→16:35)
[2021-03-07] MEDS: VANCOMYCIN 1,250 MG in SODIUM CHLORIDE 0.9% 250 ML IVPB SCH ×2 (01:13→13:33)
--- NOTE | 2021-03-07 06:45 | PN ---
PROGRESS NOTE DATE OF SERVICE: 03/06/2021 REASON FOR FOLLOWUP: 1. Right hand abscess cellulitis. 2. Pneumonia. INTERVAL HISTORY: Patient is afebrile. Today the patient is still complaining of shortness of breath. He did have a cough, unable to bring up any sputum. No nausea, no vomiting. No abdominal pain. No worsening pain to the right hand. PHYSICAL EXAMINATION: Blood pressure 154/70 with a pulse of 78, temperature 99.4. He is 94% on 2 L nasal cannula. General description is an elderly male up in the bed in no distress. Respiratory system: Unlabored breathing, decreased intensity of breath sounds. No wheeze. Heart: S1, S2. Regular rate and rhythm. Abdomen: Soft, no tenderness. Right hand is currently dressed. No drainage on the dressing. LABS: Hemoglobin is 10.2, white count of 7.5, BUN of 16, creatinine 0.87. DIAGNOSTIC IMPRESSION AND PLAN: 1. Patient with right hand abscess cellulitis with MRSA on vancomycin. Transition to oral doxycycline for a week to 10 days on discharge. 2. Patient with pneumonia. Clinically responded to Levaquin, finish therapy with oral Levaquin. Discussed with the admitting physician. MMODL / IJN: [id number] /
[2021-03-07] MEDS: IPRATROPIUM-ALBUTEROL 3 ML NEB INHALATION SCH ×4 (07:46→18:57)
--- NOTE | 2021-03-07 09:13 | XR ---
EXAMINATION TYPE: XR chest 1V portable DATE OF EXAM: 03/07/2021 COMPARISON: NONE HISTORY: Cough TECHNIQUE: Single frontal view of the chest is obtained. FINDINGS: Diffuse interstitial infiltrates are seen with small bilateral effusions are pleural thick ening. Heart is prominent there is underlying COPD. No sizable pneumothorax. Mild diffuse osteopenia. IMPRESSION: 1. Diffuse bilateral interstitial infiltrates correlate for interstitial pneumonia. Otherwise, consid er CHF.
[2021-03-07] MEDS: MULTIVITAMINS, THERA 1 EACH TAB PO SCH (09:25)
[2021-03-07] MEDS: FUROSEMIDE 10 MG/ML 4 ML VIAL IV SCH (09:25)
[2021-03-07 10:25] LABS: Basophils # (A) 0.01 X 10*3/uL (0.00-0.10); Basophils % (A) 0.1 %; Eosinophils # (A) 0.12 X 10*3/uL (0.04-0.35); Eosinophils % (A) 1.5 %; HGB 9.3 g/dL (13.0-17.0); Lymphocytes # (A) 0.86 X 10*3/uL (0.90-5.00); Lymphocytes % (A) 10.9 %; MCH 29.3 pg (27.0-32.0); MCHC 34.4 g/dL (32.0-37.0); MCV 85.2 fL (80.0-97.0); Mean Platelet Volume 10.5 fL (9.5-12.2); Monocytes # (A) 0.61 X 10*3/uL (0.20-1.00); Monocytes % (A) 7.8 %; Neutrophils # (A) 6.22 X 10*3/uL (1.80-7.70); Neutrophils % (A) 79.1 %; Platelet Count 123 X 10*3/uL (140-440); RBC 3.17 X 10*6/uL (4.40-5.60); RDW 13.3 % (11.5-14.5); WBC 7.87 X 10*3/uL (4.50-10.00)
--- NOTE | 2021-03-07 12:01 | P.PN ---
Subjective Progress Note Date: 03/07/21 Principal diagnosis: Cellulitis. This is a 70-year-old white male patient with past medical history of COPD and patient follows with Dr. Nazario in the pulmonary clinic, current smoker, not on home oxygen, previous history of myocardial infarction, hypertension, coronary artery disease, who came into the emergency department on 03/01/2021 with a chief complaint of fever, dizziness, chills, cough, increased shortness of breath, and production of greenish colored phlegm. Patient had surgery for his right hand dorsal abscess after sustaining a car door injury the right mid dle finger extensor tendon laceration. Patient required incision and drainage of the dorsal hand abscess with irrigation and right middle finger extensor tendon repair. This was done by Dr. Steward and on 02/24/2021. Patient was discharged home on 10 day course of Bactrim DS 1 tab twice daily, for evidence of MRSA on the wound cultures. he was home for 24 hours, when he developed cough, shortness of breath, fever and came back for reevaluation. D-dimer was 1.68 and CTA chest was completed showing no evidence of pulmonary embolism, though some patchy atelectasis at the lung bases. Admission labs were reviewed showing white blood cell count of 10.7, hemoglobin of 12.2, sodium was 1:30, potassium is 4.6, chloride was 95, BUN was 26, creatinine is 1.21, plasma lactic acid is 1.6, troponin was less than 0.012, pro calcitonin level was 0.19, urinalysis was within normal limits, COVID-19 was negative. ID service was consulted, patient is currently on a combination of Levaquin and vancomycin. We were asked to see the patient in consultation for worsening shortness of breath, cough, and follow-up chest x-ray today showed diffuse predominantly interstitial infiltrates in the mid and upper lung la with underlying emphysema. Atypical CHF was not excluded. During her evaluation patient is awake and alert, he is complaining of cough, but appears to be no acute distress, he is on 2 L of oxygen pulse ox is 95%, his been afebrile, lung sounds reveal markedly diminished breath sounds with left base crackles. No lower extremity swelling, no calf tenderness. No JVD noted. His right hand middle digit still sore some swelling, and there is some small amount of purulent drainage seen. The patient is seen today 03/05/2021 in follow-up on the regular medical floor. He is currently resting quite comfortably in bed. Laying flat. No worsening shortness of breath, cough or congestion. He did receive IV diuretics and is diuresing well. His chest x-ray shows improvement. He did undergo incision and drainage with irrigation and debridement of the right hand abscess again this morning. Splint and dressing dry and intact. He remains on vancomycin and Levaquin. Remains on bronchodilators. On 03/06/2021 patient seen in follow-up on medical surgical floor. He states he is more short of breath today, today's chest x-ray shows scattered bilateral lung infiltrates, and the findings are worsening. Currently remains on nebulized bronchodilators, he is on Lasix 40 mg daily, he is on Levaquin and vancomycin. On sounds are diminished, with bibasilar crackles, no significant edema or JVD. He is on 2 L of oxygen his pulse ox is 96%, his had no fever or chills. No complaints of chest discomfort. His blood cultures have shown no growth, he has not been able to produce a sputum specimen for us, his right hand wound cultures showing few PMNs, no organisms. He did have a low-grade fever yesterday at 8:00, and that was his last episode of elevated temperature. Progress note dated 03/07/2021. The patient is again seen today in room 630. He is resting comfortably. He's on 2 L nasal cannula. He is receiving IV antibiotics. According to the infectious disease note, the patient will be discharged on doxycycline twice a day for 10 days. The patient has no major complaints today. He is currently receiving a small amount of IV fluids; nurse that she can stop the IV fluids. White count 7.87, hemoglobin 9.3, hematocrit 27, and platelet count 123,000. Microbiologic studies are negative. He currently remains on Levaquin and vancomycin. Chest x-ray shows an improving pattern of interstitial edema/CHF. Objective - Vital Signs Vital signs: Vital Signs Temp 98.2 F 03/07/21 07:00 Pulse 68 03/07/21 11:07 Resp 16 03/07/21 07:00 BP 165/86 03/07/21 07:00 Pulse Ox 94 L 03/07/21 07:00 Intake & Output 03/06/21 03/07/21 03/07/21 18:59 06:59 18:59 Intake Total 650 Balance 650 Intake: Oral 650 Other: Voiding Method Urinal Urinal # Voids 1 3 - Exam No acute distress, oriented 3. Currently on nasal O2 at 2 L. HEENT examination is grossly unremarkable. Neck supple. Full range of motion. No adenopathy thyromegaly or neck vein distention. Cardiovascular examination reveals regular rhythm rate. S1-S2 normal. No S3 or S4. No discernible murmur noted. Heart rate 68 bpm. Lungs reveal scattered bilateral crackles. No wheezes or rhonchi. Breath sounds equal bilaterally. 2 L saturation is 94%. Abdomen soft bowel sounds are heard. No masses or tenderness. Extremities are intact. No cyanosis clubbing or edema. Skin reveals a dressing over the right distal forearm, wrist, and right hand area.. Neurologic examination is brief but nonfocal. - Labs CBC & Chem 7: 03/07/21 06:42 03/06/21 11:52 Labs: Abnormal Lab Results - Last 24 Hours (Table) 03/06/21 03/06/21 03/07/21 Range/Units 11:52 11:54 06:42 RBC 3.46 L 3.17 L (4.30-5.90) m/uL Hgb 10.2 L 9.3 L (13.0-17.5) gm/dL Hct 30.0 L 27.0 L (39.0-53.0) % Plt Count 123 L (140-440) X 10*3/uL Plt Count Comment DECREASED A Immature Gran # 0.05 H (0.00-0.04) X 10*3/uL Lymphocytes # 0.6 L 0.86 L (1.0-4.8) k/uL Sodium 129 L (137-145) mmol/L Potassium 3.3 L (3.5-5.1) mmol/L Chloride 97 L (98-107) mmol/L Glucose 143 H (74-99) mg/dL Calcium 8.3 L (8.4-10.2) mg/dL Magnesium 1.5 L (1.6-2.3) mg/dL Microbiology - Last 24 Hours (Table) 03/04/21 08:56 Gram Stain - Final Hand - Right Wound Culture - Final 03/01/21 18:15 Blood Culture - Preliminary Blood No Growth after 120 hours 03/01/21 18:00 Blood Culture - Preliminary Blood No Growth after 120 hours 03/02/21 15:53 Blood Culture - Preliminary Blood No Growth after 96 hours Assessment and Plan Assessment: #1. Acute hypoxic respiratory failure, consider possibility of pneumonia, possibly healthcare acquired, and fluid overload, CHF, with diastolic dysfunct ion COVID-19 PCR was negative, today's chest x-ray shows diffuse interstitial infiltrates in the mid and upper lung la. #2. Recent hospitalization for right hand abscess status post incision and drainage of the dorsal hand abscess irrigation and debridement and right middle finger extensor tendon repair on 02/24/2021. Patient required a second I&D today on 03/05/2021. #3. Right dorsal hand abscess related to MRSA, remains on vancomycin and Levaquin. #4. History of coronary artery disease. #5. Hypertension. #6. History of COPD not on home oxygen. #7. Chronic history of smoking. #8. Previous history of myocardial infarction in 2009. Plan: Plan dated 03/07/2021. The patient will not need IV antibiotics post discharge. According to the note by the infectious disease doctor, the patient be discharged on doxycycline 100 mg twice a day for 10 days. Currently he is doing well. He is not manifesting any signs or symptoms of respiratory distress. The IV can be discontinued. The patient continues on vancomycin and Levaquin. Prognosis is guarded. Time with Patient: Less than 30
[2021-03-07 12:22] LABS: African American GFR (CKD) 104.2 (60.0-200.0); Anion Gap 9.3 mmol/L (4.00-12.00); Carbon Dioxide 26.7 mmol/L (21.6-31.8); Non-African American GFR(CKD) 89.9 (60.0-200.0); Potassium 3.1 mmol/L (3.5-5.5)
--- NOTE | 2021-03-07 12:48 | P.PN ---
Subjective Progress Note Date: 03/07/21 Principal diagnosis: Status post irrigation and debridement right hand dorsal abscess with revision of extensor tendon repair Patient is evaluated today at bedside, he is resting comfortably. He is having very minimal discomfort in the right hand. He states he is generally feeling a lot better. He denies any headaches or lightheadedness at this time. Denies any chest pain or shortness of breath currently. Objective - Vital Signs Vital signs: Vital Signs Temp 98.2 F 03/07/21 07:00 Pulse 68 03/07/21 11:07 Resp 16 03/07/21 12:15 BP 165/86 03/07/21 07:00 Pulse Ox 94 L 03/07/21 12:15 Intake & Output 03/06/21 03/07/21 03/07/21 18:59 06:59 18:59 Intake Total 650 Balance 650 Intake: Oral 650 Other: Voiding Method Urinal Urinal # Voids 1 3 - Exam Right hand: Splint is intact on the right hand/wrist region with good Av bandage fixation Patient is able to wiggle all the fingers no difficulty Sensation to light touch throughout the right upper extremity is intact, the radial and ulnar pulses are 2+ - Labs CBC & Chem 7: 03/07/21 06:42 03/07/21 06:42 Labs: Abnormal Lab Results - Last 24 Hours (Table) 03/07/21 03/07/21 Range/Units 06:42 06:42 RBC 3.17 L (4.40-5.60) X 10*6/uL Hgb 9.3 L (13.0-17.0) g/dL Hct 27.0 L (39.6-50.0) % Plt Count 123 L (140-440) X 10*3/uL Plt Count Comment DECREASED A Immature Gran # 0.05 H (0.00-0.04) X 10*3/uL Lymphocytes # 0.86 L (0.90-5.00) X 10*3/uL Sodium 133 L (135-145) mmol/L Potassium 3.1 L (3.5-5.5) mmol/L Calcium 8.0 L (8.7-10.3) mg/dL Microbiology - Last 24 Hours (Table) 03/04/21 08:56 Gram Stain - Final Hand - Right Wound Culture - Final 03/01/21 18:15 Blood Culture - Preliminary Blood No Growth after 120 hours 03/01/21 18:00 Blood Culture - Preliminary Blood No Growth after 120 hours 03/02/21 15:53 Blood Culture - Preliminary Blood No Growth after 96 hours Assessment and Plan Assessment: Postop day #2 status post irrigation and debridement right hand dorsal abscess with revision of extensor tendon repair Plan: Continue use of the splint on the right hand/wrist region Avoid excessive activity of the right upper extremity On an orthopedic standpoint the patient remained stable for discharge and follow-up in the outpatient setting Recommend follow-up with Dr. Steward in 10 days for recheck Time with Patient: Less than 30
--- NOTE | 2021-03-07 13:45 | PN ---
PROGRESS NOTE DATE OF SERVICE: 03/07/2021 REASON FOR FOLLOWUP: 1. Right hand abscess cellulitis. 2. Pneumonia. INTERVAL HISTORY: Patient is afebrile. The patient is currently breathing comfortably. Denies any chest pain. Did have a cough, not bringing up any sputum. No abdominal pain or any worsening pain in the right hand. PHYSICAL EXAMINATION: Blood pressure 135/86, pulse of 78, temperature 98.2. He is 94% on 2 L nasal cannula. General description is an elderly male lying in bed in no distress. Respiratory system: Unlabored breathing, decreased intensity of breath sounds. No wheeze. Heart: S1, S2. Regular rate and rhythm. Abdomen soft, no tenderness. LABS: Hemoglobin is 9.1, white count 7.7, BUN of 13 and creatinine 0.8. DIAGNOSTIC IMPRESSION AND PLAN: 1. Patient with right hand abscess cellulitis secondary to MRSA. Doing well on vancomycin. Finish therapy with oral doxycycline for about a week. 2. Pneumonia. Overall improvement on Levaquin. Continue a short course of Levaquin on discharge. MMODL / IJN: [id number] /
[2021-03-07] MEDS ORDERED: POTASSIUM CHLORIDE ER 20 MEQ TAB.ER PO STA (16:04)
--- NOTE | 2021-03-07 16:05 | P.PN ---
Subjective Progress Note Date: 03/07/21 Patient denies any shortness of breath this morning. He is wearing oxygen for comfort. He was not hypoxic and does not really require oxygen. Chest x-ray today showed worsening in his lung infiltrates. Objective - Vital Signs Vital signs: Vital Signs Temp 99.0 F 03/07/21 15:00 Pulse 71 03/07/21 15:27 Resp 16 03/07/21 15:00 BP 150/74 03/07/21 15:00 Pulse Ox 91 L 03/07/21 15:00 Intake & Output 03/06/21 03/07/21 03/07/21 18:59 06:59 18:59 Intake Total 650 Output Total 1450 Balance 650 -1450 Intake: Oral 650 Output: Urine 1450 Other: Voiding Method Urinal Urinal # Voids 1 3 1 # Bowel Movements 2 - Exam General: The patient is awake and alert, in no distress Eye: there is normal conjunctiva bilaterally. Neck: The neck is supple, there is no JVD. Cardiovascular: Normal S1-S2, no S3-S4, no murmurs. Respiratory: Lungs clear to auscultation bilaterally Gastrointestinal: Abdomen is soft, nontender Musculoskeletal: There is no pedal edema. Neurological:. Speech is normal. Skin: Skin is warm and dry - Labs CBC & Chem 7: 03/07/21 06:42 03/07/21 06:42 Labs: Abnormal Lab Results - Last 24 Hours (Table) 03/07/21 03/07/21 Range/Units 06:42 06:42 RBC 3.17 L (4.40-5.60) X 10*6/uL Hgb 9.3 L (13.0-17.0) g/dL Hct 27.0 L (39.6-50.0) % Plt Count 123 L (140-440) X 10*3/uL Plt Count Comment DECREASED A Immature Gran # 0.05 H (0.00-0.04) X 10*3/uL Lymphocytes # 0.86 L (0.90-5.00) X 10*3/uL Sodium 133 L (135-145) mmol/L Potassium 3.1 L (3.5-5.5) mmol/L Calcium 8.0 L (8.7-10.3) mg/dL Microbiology - Last 24 Hours (Table) 03/04/21 08:56 Gram Stain - Final Hand - Right Wound Culture - Final 03/01/21 18:15 Blood Culture - Preliminary Blood No Growth after 120 hours 03/01/21 18:00 Blood Culture - Preliminary Blood No Growth after 120 hours 03/02/21 15:53 Blood Culture - Preliminary Blood No Growth after 96 hours Assessment and Plan Assessment: This is a 70-year-old male with past medical history noted below who presented to the emergency room with worsening right hand swelling and pain. Patient was evaluated in the ER and admitted to the hospital for further management of his medical problems noted below. 1. Right hand dorsum abscess status post incision and drainage with revision of extensor tendon repair. Orthopedic following closely. Status post I&D again on 03/05. Previous Culture grew MRSA 2. Sepsis without septic shock, managed with aggressive IV fluid hydration and antibiotic. Blood culture negative to date. 3. Suspected pneumonia, Levaquin added to vancomycin per Infectious disease 4. Chronic medical problems: Underlying COPD with no evidence of exacerbation, coronary artery disease, hypertension Today, I reviewed his medication list and lab work results. CTA on presentation was negative for PE. Echocardiogram showed preserved ejection fraction. Patient was seen by pulmonary. Incentive spirometer at bedside. Repeat lab work in the morning. Anticipate discharge home tomorrow. May benefit from a nebulizer at home
[2021-03-07] MEDS: LEVOFLOXACIN 750 MG TAB PO SCH (16:35)
[2021-03-07] MEDS: lisinopriL 20 MG TAB PO SCH (20:44)
[2021-03-07] MEDS: ACETAMINOPHEN TAB 325 MG TAB PO PRN (20:45)
[2021-03-07] MEDS: MAGNESIUM OXIDE 400 MG TAB PO SCH (20:45)
[2021-03-07] MEDS: MELATONIN 3 MG TABLET PO SCH (20:45)
[2021-03-08] MEDS: HEPARIN SODIUM,PORCINE/PF 5,000 UNIT/0.5 ML SYRINGE SQ SCH ×2 (00:02→07:57)
[2021-03-08] MEDS: VANCOMYCIN 1,250 MG in SODIUM CHLORIDE 0.9% 250 ML IVPB SCH (01:20)
[2021-03-08] MEDS ORDERED: diphenhydrAMINE 50 MG/ML 1 ML VIAL IVP STA (01:27)
[2021-03-08] MEDS: IPRATROPIUM-ALBUTEROL 3 ML NEB INHALATION SCH (07:43)
[2021-03-08 07:48] VITALS: BP 172/82; RESP 16; TEMP 99.6
[2021-03-08 07:55] VITALS: PULSE 74
[2021-03-08] MEDS: MULTIVITAMINS, THERA 1 EACH TAB PO SCH (08:50)
[2021-03-08] MEDS: MAGNESIUM OXIDE 400 MG TAB PO SCH (08:50)
--- NOTE | 2021-03-08 09:27 | P.PN ---
Subjective Progress Note Date: 03/08/21 Principal diagnosis: Status post irrigation and debridement right hand dorsal abscess with revision of extensor tendon repair Patient is evaluated today at bedside, he is resting comfortably. He is having very minimal discomfort in the right hand. He states he is generally feeling a lot better. He denies any headaches or lightheadedness at this time. Denies any chest pain or shortness of breath currently. Objective - Vital Signs Vital signs: Vital Signs Temp 99.6 F 03/08/21 07:00 Pulse 74 03/08/21 07:55 Resp 16 03/08/21 07:00 BP 172/82 03/08/21 07:00 Pulse Ox 91 L 03/08/21 07:00 Intake & Output 03/07/21 03/08/21 03/08/21 18:59 06:59 18:59 Intake Total 222 340 Output Total 1600 Balance -1378 340 Intake: Oral 222 340 Output: Urine 1600 Other: Voiding Method Urinal # Voids 1 2 # Bowel Movements 2 - Exam Right hand: Postoperative splint was removed today, drains were removed. Stitches are all in good position and condition. No obvious purulent drainage present. There is no significant erythema. He is able to wiggle her fingers with minimal difficulty. Sensory exam to light touch is intact throughout the extremity. Radial and ulnar pulses are both 2+ - Labs CBC & Chem 7: 03/07/21 06:42 03/07/21 06:42 Labs: Abnormal Lab Results - Last 24 Hours (Table) 03/07/21 03/07/21 Range/Units 06:42 06:42 RBC 3.17 L (4.40-5.60) X 10*6/uL Hgb 9.3 L (13.0-17.0) g/dL Hct 27.0 L (39.6-50.0) % Plt Count 123 L (140-440) X 10*3/uL Plt Count Comment DECREASED A Immature Gran # 0.05 H (0.00-0.04) X 10*3/uL Lymphocytes # 0.86 L (0.90-5.00) X 10*3/uL Sodium 133 L (135-145) mmol/L Potassium 3.1 L (3.5-5.5) mmol/L Calcium 8.0 L (8.7-10.3) mg/dL Microbiology - Last 24 Hours (Table) 03/01/21 18:00 Blood Culture - Final Blood No Growth after 144 hours 03/01/21 18:15 Blood Culture - Final Blood No Growth after 144 hours 03/02/21 15:53 Blood Culture - Preliminary Blood No Growth after 120 hours 03/04/21 08:56 Gram Stain - Final Hand - Right Wound Culture - Final Assessment and Plan Assessment: Postop day #3 status post irrigation and debridement right hand dorsal abscess with revision of extensor tendon repair Plan: Dressing change was done today, splint was reapplied Wound care instructions were discussed the patient along with activity restrictions Patient is stable via the orthopedic standpoint for discharge, he can follow up with Dr. Steward intended Time with Patient: Less than 30
--- NOTE | 2021-03-08 10:04 | P.PN ---
Subjective Progress Note Date: 03/08/21 Principal diagnosis: Cellulitis. This is a 70-year-old white male patient with past medical history of COPD and patient follows with Dr. Nazario in the pulmonary clinic, current smoker, not on home oxygen, previous history of myocardial infarction, hypertension, coronary artery disease, who came into the emergency department on 03/01/2021 with a chief complaint of fever, dizziness, chills, cough, increased shortness of breath, and production of greenish colored phlegm. Patient had surgery for his right hand dorsal abscess after sustaining a car door injury the right mid dle finger extensor tendon laceration. Patient required incision and drainage of the dorsal hand abscess with irrigation and right middle finger extensor tendon repair. This was done by Dr. Steward and on 02/24/2021. Patient was discharged home on 10 day course of Bactrim DS 1 tab twice daily, for evidence of MRSA on the wound cultures. he was home for 24 hours, when he developed cough, shortness of breath, fever and came back for reevaluation. D-dimer was 1.68 and CTA chest was completed showing no evidence of pulmonary embolism, though some patchy atelectasis at the lung bases. Admission labs were reviewed showing white blood cell count of 10.7, hemoglobin of 12.2, sodium was 1:30, potassium is 4.6, chloride was 95, BUN was 26, creatinine is 1.21, plasma lactic acid is 1.6, troponin was less than 0.012, pro calcitonin level was 0.19, urinalysis was within normal limits, COVID-19 was negative. ID service was consulted, patient is currently on a combination of Levaquin and vancomycin. We were asked to see the patient in consultation for worsening shortness of breath, cough, and follow-up chest x-ray today showed diffuse predominantly interstitial infiltrates in the mid and upper lung la with underlying emphysema. Atypical CHF was not excluded. During her evaluation patient is awake and alert, he is complaining of cough, but appears to be no acute distress, he is on 2 L of oxygen pulse ox is 95%, his been afebrile, lung sounds reveal markedly diminished breath sounds with left base crackles. No lower extremity swelling, no calf tenderness. No JVD noted. His right hand middle digit still sore some swelling, and there is some small amount of purulent drainage seen. The patient is seen today 03/05/2021 in follow-up on the regular medical floor. He is currently resting quite comfortably in bed. Laying flat. No worsening shortness of breath, cough or congestion. He did receive IV diuretics and is diuresing well. His chest x-ray shows improvement. He did undergo incision and drainage with irrigation and debridement of the right hand abscess again this morning. Splint and dressing dry and intact. He remains on vancomycin and Levaquin. Remains on bronchodilators. On 03/06/2021 patient seen in follow-up on medical surgical floor. He states he is more short of breath today, today's chest x-ray shows scattered bilateral lung infiltrates, and the findings are worsening. Currently remains on nebulized bronchodilators, he is on Lasix 40 mg daily, he is on Levaquin and vancomycin. On sounds are diminished, with bibasilar crackles, no significant edema or JVD. He is on 2 L of oxygen his pulse ox is 96%, his had no fever or chills. No complaints of chest discomfort. His blood cultures have shown no growth, he has not been able to produce a sputum specimen for us, his right hand wound cultures showing few PMNs, no organisms. He did have a low-grade fever yesterday at 8:00, and that was his last episode of elevated temperature. Progress note dated 03/07/2021. The patient is again seen today in room 630. He is resting comfortably. He's on 2 L nasal cannula. He is receiving IV antibiotics. According to the infectious disease note, the patient will be discharged on doxycycline twice a day for 10 days. The patient has no major complaints today. He is currently receiving a small amount of IV fluids; nurse that she can stop the IV fluids. White count 7.87, hemoglobin 9.3, hematocrit 27, and platelet count 123,000. Microbiologic studies are negative. He currently remains on Levaquin and vancomycin. Chest x-ray shows an improving pattern of interstitial edema/CHF. Progress note dated 03/08/2021. The patient is again seen in his room, room 630. He is currently resting comfortably. Currently, he is not on any oxygen therapy. His been weaned off. He is receiving IV antibiotics although infectious disease doctors that the patient could be discharged home on doxycycline, 100 mg twice a day for 10 days. The patient's hoping to be discharged today. We told him it was up to the hospital service. Clinically he seemed be doing relatively well. He is currently on vancomycin and Levaquin. He is also getting breathing treatments which he does not need anymore. His clinical status is stable. His most recent chest x-ray shows an improving pattern of interstitial edema and fluid overload. Objective - Vital Signs Vital signs: Vital Signs Temp 99.6 F 03/08/21 07:00 Pulse 74 03/08/21 07:55 Resp 16 03/08/21 07:00 BP 172/82 03/08/21 07:00 Pulse Ox 91 L 03/08/21 07:00 Intake & Output 03/07/21 03/08/21 03/08/21 18:59 06:59 18:59 Intake Total 222 340 Output Total 1600 Balance -1378 340 Intake: Oral 222 340 Output: Urine 1600 Other: Voiding Method Urinal # Voids 1 2 # Bowel Movements 2 - Exam No acute distress, oriented 3. Currently on no supplemental oxygen.. HEENT examination is grossly unremarkable. Neck supple. Full range of motion. No adenopathy thyromegaly or neck vein distention. Cardiovascular examination reveals regular rhythm rate. S1-S2 normal. No S3 or S4. No discernible murmur noted. Heart rate 74 bpm. Lungs reveal scattered bilateral crackles. No wheezes or rhonchi. Breath sounds equal bilaterally. Room air saturation is 93%. Abdomen soft bowel sounds are heard. No masses or tenderness. Extremities are intact. No cyanosis clubbing or edema. Skin reveals a dressing over the right distal forearm, wrist, and right hand area. Neurologic examination is brief but nonfocal. - Labs CBC & Chem 7: 03/07/21 06:42 03/07/21 06:42 Labs: Abnormal Lab Results - Last 24 Hours (Table) 03/07/21 03/07/21 Range/Units 06:42 06:42 RBC 3.17 L (4.40-5.60) X 10*6/uL Hgb 9.3 L (13.0-17.0) g/dL Hct 27.0 L (39.6-50.0) % Plt Count 123 L (140-440) X 10*3/uL Plt Count Comment DECREASED A Immature Gran # 0.05 H (0.00-0.04) X 10*3/uL Lymphocytes # 0.86 L (0.90-5.00) X 10*3/uL Sodium 133 L (135-145) mmol/L Potassium 3.1 L (3.5-5.5) mmol/L Calcium 8.0 L (8.7-10.3) mg/dL Microbiology - Last 24 Hours (Table) 03/01/21 18:00 Blood Culture - Final Blood No Growth after 144 hours 03/01/21 18:15 Blood Culture - Final Blood No Growth after 144 hours 03/02/21 15:53 Blood Culture - Preliminary Blood No Growth after 120 hours 03/04/21 08:56 Gram Stain - Final Hand - Right Wound Culture - Final Assessment and Plan Assessment: #1. Acute hypoxic respiratory failure, consider possibility of pneumonia, possibly healthcare acquired, and fluid overload, CHF, with diastolic dysfunction COVID-19 PCR was negative, today's chest x-ray shows diffuse interstitial infiltrates in the mid and upper lung la. #2. Recent hospitalization for right hand abscess status post incision and drainage of the dorsal hand abscess irrigation and debridement and right middle finger extensor tendon repair on 02/24/2021. Patient required a second I&D today on 03/05/2021. #3. Right dorsal hand abscess related to MRSA, remains on vancomycin and Levaquin, to be discharged on oral doxycycline, 100 mg twice a day for 10 days. #4. History of coronary artery disease. #5. Hypertension. #6. History of COPD not on home oxygen. #7. Chronic history of smoking. #8. Previous history of myocardial infarction in 2009. Plan: Plan dated 03/07/2021. The patient will not need IV antibiotics post discharge. According to the note by the infectious disease doctor, the patient be discharged on doxycycline 100 mg twice a day for 10 days. Currently he is doing well. He is not manifesting any signs or symptoms of respiratory distress. The IV can be discontinued. The patient continues on vancomycin and Levaquin. Prognosis is guarded. Plan dated 03/08/2021. Currently, the patient's doing well. He remains on vancomycin and Levaquin IV. I believe the plan is to discharge the patient on doxycycline, 100 mg twice a day for 10 days. From the pulmonary standpoint, the patient's doing much better. The patient has been weaned off of oxygen therapy. Additional recommendations and suggestions are forthcoming. No need to see this patient post discharge in the office. Time with Patient: Less than 30
[2021-03-08 10:22] LABS: Basophils # (A) 0.01 X 10*3/uL (0.00-0.10); Basophils % (A) 0.1 %; Eosinophils # (A) 0.09 X 10*3/uL (0.04-0.35); Eosinophils % (A) 1.1 %; HCT 27.8 % (39.6-50.0); HGB 9.3 g/dL (13.0-17.0); Lymphocytes # (A) 0.89 X 10*3/uL (0.90-5.00); Lymphocytes % (A) 10.6 %; MCH 28.4 pg (27.0-32.0); MCHC 33.5 g/dL (32.0-37.0); Mean Platelet Volume 11.2 fL (9.5-12.2); Monocytes # (A) 0.65 X 10*3/uL (0.20-1.00); Monocytes % (A) 7.7 %; Neutrophils # (A) 6.71 X 10*3/uL (1.80-7.70); Neutrophils % (A) 79.9 %; Platelet Count 90 X 10*3/uL (140-440); RBC 3.27 X 10*6/uL (4.40-5.60); RDW 13.4 % (11.5-14.5)
[2021-03-08 10:23] LABS: Acanthocytes 2+
--- NOTE | 2021-03-08 11:21 | P.DS ---
Providers Date of admission: 03/03/21 13:16 Expected date of discharge: 03/08/21 Attending physician: Celi Sauceda DO Consults: 03/01/21 21:45 Consult Physician Routine Consulting Provider: Gómez Steward Consult Reason/Comments: Postop fever Do you want consulting provider notified?: Yes Consult Physician Routine Consulting Provider: Marco Saunders Consult Reason/Comments: Postop fever Do you want consulting provider notified?: Yes Primary care physician: Jac Sims MD Hospital Course: This is a 70-year-old male with past medical history noted below who presented to the emergency room with worsening right hand swelling and pain. Patient was evaluated in the ER and admitted to the hospital for further management of his medical problems noted below. 1. Right hand dorsum abscess status post incision and drainage with revision of extensor tendon repair. Orthopedic following closely. Status post I&D again on 03/05. Previous Culture grew MRSA. Patient has been maintained on IV vancomycin since admission 2. Sepsis without septic shock, managed with aggressive IV fluid hydration and antibiotic. Blood culture negative to date. 3. Suspected pneumonia, Levaquin added to vancomycin per Infectious disease 4. Chronic medical problems: Underlying COPD with no evidence of exacerbation, coronary artery disease, hypertension Today, I reviewed his medication list and lab work results. CTA on presentation was negative for PE. Echocardiogram showed preserved ejection fraction. Patient was seen by pulmonary. Patient was seen and evaluated on the of discharge. He is feeling fairly well and denies any shortness of breath. He is currently on room air. Lungs are clear to auscultation bilaterally. He would finish antibiotic course with doxy cycline and Levaquin as directed by infectious disease. Prescription sent to his pharmacy. He will be discharged home in a stable condition. Home health care was set up. Patient Condition at Discharge: Stable Plan - Discharge Summary Discharge Rx Participant: No New Discharge Prescriptions: New Potassium Chloride ER [K-Dur 10] 10 meq PO DAILY #30 tab Furosemide [Lasix] 40 mg PO DAILY #30 tablet Levofloxacin [Levaquin] 500 mg PO DAILY 3 Days #3 tab Magnesium Oxide [Mag-Ox] 400 mg PO DAILY #30 tab Doxycycline [Vibramycin] 100 mg PO BID 5 Days #10 capsule Ipratropium-Albuterol Nebulize [Duoneb 0.5 mg-3 mg/3 ml Soln] 3 ml INHALATION RT-QID PRN #30 ml PRN Reason: Shortness Of Breath Continue lisinopriL 40 mg PO HS methocarbamoL [Robaxin] 500 mg PO TID PRN PRN Reason: Muscle Spasm Multivitamin [Multivitamins Adult Gummies] 2 tab PO DAILY Discontinued Naproxen 500 mg PO BID PRN PRN Reason: Pain hydroCHLOROthiazide [Hydrodiuril] 25 mg PO DAILY amLODIPine [Norvasc] 10 mg PO HS Sulfamethox-Tmp 800-160Mg [Bactrim DS 800-160 mg] 1 tab PO Q12HR #20 tab Discharge Medication List Multivitamin [Multivitamins Adult Gummies] 2 tab PO DAILY 02/22/21 [History] lisinopriL 40 mg PO HS 02/22/21 [History] methocarbamoL [Robaxin] 500 mg PO TID PRN 02/22/21 [History] Doxycycline [Vibramycin] 100 mg PO BID 5 Days #10 capsule 03/08/21 [Rx] Furosemide [Lasix] 40 mg PO DAILY #30 tablet 03/08/21 [Rx] Ipratropium-Albuterol Nebulize [Duoneb 0.5 mg-3 mg/3 ml Soln] 3 ml INHALATION RT-QID PRN #30 ml 03/08/21 [Rx] Levofloxacin [Levaquin] 500 mg PO DAILY 3 Days #3 tab 03/08/21 [Rx] Magnesium Oxide [Mag-Ox] 400 mg PO DAILY #30 tab 03/08/21 [Rx] Potassium Chloride ER [K-Dur 10] 10 meq PO DAILY #30 tab 03/08/21 [Rx] Follow up Appointment(s)/Referral(s): Justin Franco MD [STAFF PHYSICIAN] - 03/15/21 1:00 pm Jac Sims MD [Primary Care Provider] - 03/10/21 11:00 am [facility], [NON-STAFF] - 1 Week Gómez Steward DO [Family Provider] - 03/18/21 10:50 am Patient Instructions/Handouts: How to Use a Nebulizer (DC), Abscess (GEN), Pneumonia (DC), Abscess Incision and Drainage (DC) Discharge Disposition: HOME WITH HOME HEALTH SERVICES
[2021-03-08 12:14] LABS: African American GFR (CKD) 99.2 (60.0-200.0); Anion Gap 7.9 mmol/L (4.00-12.00); Calcium 8.1 mg/dL (8.7-10.3); Carbon Dioxide 29.1 mmol/L (21.6-31.8); Magnesium 1.6 mg/dL (1.5-2.4); Non-African American GFR(CKD) 85.6 (60.0-200.0); Potassium 3.1 mmol/L (3.5-5.5)
--- NOTE | 2021-03-10 06:36 | CDI ---
Documentation Clarification Form Date: 03/10/21 From: Gabrielle Black Admit Date: 03/03/2021 01:16:00 PM Patient Name: Shaheed Daley Visit Number: [id number] Discharge Date: 03/08/2021 10:09:00 AM ATTENTION: The Clinical Documentation Specialists (CDI) and [facility] Coding Staff appreciate your assistance in clarifying documentation. Please respond to the clarification below the line at the bottom and electronically sign. The CDI & [facility] Coding staff will review the response and follow-up if needed. Please note: Queries are made part of the Legal Health Record. If you have any questions, please contact the author of this message via ITS. Dr. Pelon Del Rosario, CHF with diastolic dysfunction is documented in PNs 03/06-, but is not noted in subsequent documentation. Clarification is requested. History/Risk Factors: postop wound infection with disruption, sepsis, emphysema Clinical Indicators: Acute hypoxic respiratory failure, consider possibility of pneumonia possibly healthcare acquired, and fluid overload, CHF with diastolic dysfunction. [id number] Treatment: IV Lasix 40 mg daily -03/04, IV Lasix 40 mg [id number] Please clarify the acuity of diastolic CHF: [ ] Acute Diastolic Heart Failure (preserved EF) [ ] Chronic Diastolic Heart Failure (preserved EF) [ ] Acute on Chronic Diastolic Heart Failure (preserved EF) [ ] Other condition, please specify [ ] Unable to determine Suspected Diastolic heart failure. MTDD
--- NOTE | 2021-03-10 06:52 | CDI ---
Documentation Clarification Form Date: 03/10/2021 06:38:00 AM From: Gabrielle Black Admit Date: 03/03/2021 01:16:00 PM Patient Name: Shaheed Daley Visit Number: [id number] Discharge Date: 03/08/2021 10:09:00 AM ATTENTION: The Clinical Documentation Specialists (CDI) and [facility] Coding Staff appreciate your assistance in clarifying documentation. Please respond to the clarification below the line at the bottom and electronically sign. The CDI & [facility] Coding staff will review the response and follow-up if needed. Please note: Queries are made part of the Legal Health Record. If you have any questions, please contact the author of this message via ITS. Dr. Gómez Steward, A debridement is documented per operative note on 03/05. Additional clarification regarding the procedure is requested. History/Risk Factors: HTN, emphysema, sepsis, postop wound infection with disruption Clinical Indicators: abscess right dorsal hand with wound dehiscence right dorsal hand, middle finger extensor tendon injury Treatment: 1. Incision and drainage with irrigation, debridement, right hand dorsal abscess using skin knife for skin incision removal as well as curettes for scraping of soft tissue and tendon. 2. Extensor tendon revision repair. Please clarify the type of procedure performed: [ ] Excisional debridement (the removal of necrotic, devitalized tissue or slough by means of cutting away of tissue) [ ] Non-excisional debridement (the removal of necrotic, devitalized tissue or slough by means of flushing, brushing, or washing. (Irrigation) [ ] Other; please specify [ ] Unable to determine Five elements required for accurate and compliant documentation of a debridement: Technique used (e.g., excisional, excised, cutting, brushing, jet lavage etc.) Instrument(s) used (e.g., scalpel, curette, etc.) Nature of the tissue removed (e.g., necrotic, devitalized tissues, non-viable tissue, etc.) Appearance and size of the wound (e.g., down to fresh bleeding tissue, 7cm x 10cm, etc.) Depth of the debridement* (e.g., skin, subcutaneous tissue, fascia, muscle, bone, etc.) excisional debridment with removal of devitalized tendon and soft tissues of the hand. [facility]
== END 2021-03-08 10:09 | disposition home health service (06) | DRG 856 ==
LOC: EC 16:34 → 6NMEDSUR 21:14 → OBSVTOIN 03-03 13:16
PROVIDERS: ADMIT Internal Medicine; ATTEND Internal Medicine
PROC: 0LQ70ZZ Repair Right Hand Tendon, Open Approach (ICD-10-PCS; principal; 2021-03-05 07:30)
PROC: 0LB70ZZ Excision of Right Hand Tendon, Open Approach (ICD-10-PCS; principal; 2021-03-05 07:30)
DX: T81.42XA Infection following a procedure, deep incisional surgical site, initial encounter (principal); J96.01 Acute respiratory failure with hypoxia; A41.9 Sepsis, unspecified organism; T81.32XA Disruption of internal operation (surgical) wound, not elsewhere classified, initial encounter; J18.9 Pneumonia, unspecified organism; I50.30 Unspecified diastolic (congestive) heart failure; L02.511 Cutaneous abscess of right hand; L03.113 Cellulitis of right upper limb; J98.11 Atelectasis; T81.44XA Sepsis following a procedure, initial encounter; I11.0 Hypertensive heart disease with heart failure; J43.9 Emphysema, unspecified; Z20.822 Contact with and (suspected) exposure to COVID-19; B95.62 Methicillin resistant Staphylococcus aureus infection as the cause of diseases classified elsewhere; I25.10 Atherosclerotic heart disease of native coronary artery without angina pectoris; I25.2 Old myocardial infarction; Z71.6 Tobacco abuse counseling; F17.200 Nicotine dependence, unspecified, uncomplicated; Z79.899 Other long term (current) drug therapy; Z86.14 Personal history of Methicillin resistant Staphylococcus aureus infection; Z87.19 Personal history of other diseases of the digestive system; Z87.81 Personal history of (healed) traumatic fracture; Z98.890 Other specified postprocedural states; Z88.5 Allergy status to narcotic agent; Z80.9 Family history of malignant neoplasm, unspecified
CPT/HCPCS: 36415; 71045; 71046; 71275; 80048; 80053; 80202; 81003; 82565; 83605; 83735; 83880; 84145; 84484; 85025; 85027; 85379; 85652; 86140; 87040; 87070; 87205; 87635; 93005; 93306; 94640; 94760; 96361; 96365; 96375; 99285

== ENCOUNTER 2021-11-19 09:09 | Emergency (ER) | payer MEDICARE ==
[2021-11-19 09:17] VITALS: TEMP 97.8
[2021-11-19] MEDS ORDERED: SODIUM CHLORIDE 0.9% 1,000 ML IV STA (09:36)
--- NOTE | 2021-11-19 10:12 | ED ---
General Adult HPI - General Chief complaint: Dizziness Stated complaint: SOB/Dizziness Time Seen by Provider: 11/19/21 09:19 Source: patient Mode of arrival: wheelchair Limitations: no limitations - History of Present Illness Initial comments: Patient is a 71-year-old male presenting with chief complaint of weakness. Patient states that around 4:00 this morning when he got out of bed to use the restroom his legs "felt like Jell-O". He ate a piece of candy in case his blood sugar was low and presented to the ER as soon as possible. Patient admits to history of COPD and is a current smoker. She takes medication for hypertension. He is not diabetic. Patient states that he was experiencing mild shortness of breath but it is consistent with his baseline symptoms of COPD. He denies any injury, recent fall, use of blood thinners, loss of consciousness, chest pain, palpitations, numbness, tingling, vision or hearing changes, fever, chills, cyn[place] sea, vomiting, abdominal pain, diarrhea, constipation, hematochezia, cough, URI like symptoms. - Related Data Home Medications Medication Instructions Recorded Confirmed lisinopriL 40 mg PO DAILY 02/22/21 11/19/21 amLODIPine [Norvasc] 10 mg PO DAILY 11/19/21 11/19/21 Allergies Allergy/AdvReac Type Severity Reaction Status Date / Time codeine AdvReac Nausea & Verified 11/19/21 11:49 Vomiting Review of Systems ROS Statement: Those systems with pertinent positive or pertinent negative responses have been documented in the HPI. ROS Other: All systems not noted in ROS Statement are negative. Past Medical History Past Medical History: Coronary Artery Disease (CAD), COPD, Hypertension, Myocardial Infarction ([place]) Additional Past Medical History / Comment(s): myocardial infarction in 2009, hypertension, COPD Last Myocardial Infarction Date:: 2009 History of Any Multi-Drug Resistant Organisms: MRSA Date of last positivie culture/infection: 02/24/21 MDRO Source:: Right Hand Past Surgical History: Hernia Repair, Orthopedic Surgery Additional Past Surgical History / Comment(s): broken wrist with a plate placed with screws Past Anesthesia/Blood Transfusion Reactions: No Reported Reaction Past Psychological History: No Psychological Hx Reported Smoking Status: Current every day smoker Past Alcohol Use History: Occasional Past Drug Use History: None Reported - Past Family History Father Additional Family Medical History / Comment(s): cancer General Exam Limitations: no limitations General appearance: alert, in no apparent distress Head exam: Present: atraumatic, normocephalic, normal inspection Eye exam: Present: normal appearance, EOMI. Absent: scleral icterus ENT exam: Present: normal exam, mucous membranes moist Neck exam: Present: normal inspection Respiratory exam: Present: normal lung sounds bilaterally. Absent: respiratory distress, wheezes, rales, rhonchi, stridor Cardiovascular Exam: Present: regular rate, normal rhythm, normal heart sounds. Absent: systolic murmur, diastolic murmur, rubs, gallop, clicks GI/Abdominal exam: Present: soft, normal bowel sounds. Absent: distended, tend erness, guarding, rebound, rigid Extremities exam: Present: normal inspection, full ROM Neurological exam: Present: alert, oriented X3, CN II-XII intact Psychiatric exam: Present: normal affect, normal mood Skin exam: Present: warm, dry, intact, normal color. Absent: rash Course Vital Signs 11/19/21 11/19/21 11/19/21 09:13 12:23 14:00 Temperature 97.8 F Pulse Rate 69 63 67 Respiratory 18 18 18 Rate Blood Pressure 172/85 163/87 146/87 O2 Sat by Pulse 99 99 99 Oximetry Medical Decision Making - Medical Decision Making Patient is a 71-year-old male presenting with chief complaint of weakness. Patient states that this morning when he tried to ambulate his legs "felt like Jell-O". He has a history of COPD and hypertension. On exam, lungs are clear to auscultation, normal heart sounds, no tenderness on palpation of abdomen. I observed him ambulate to the bathroom and he was steady on his feet. Lab work is remarkable for elevated BUN, likely due to dehydration. Acute abdominal x- rays chest x-ray shows no acute abnormalities evident. Patient received 1 liter IV fluid bolus. I educated the patient on the findings. Patient states that he does not live alone and is feeling better after hydration. He appears stable for discharge with outpatient follow-up at this time. Continue to stay well- hydrated. Report back to ER with any worsening symptoms. I educated him on return parameters and answered all questions. Follow-up with PCP in one to 2 days. Patient conveyed verbal understanding and agreed to the plan. I discussed this case with my attending Dr. Byrd. - Lab Data Result diagrams: 11/19/21 10:15 11/19/21 10:15 Lab Results 11/19/21 11/19/21 11/19/21 Range/Units 10:15 10:15 10:15 WBC 8.0 (3.8-10.6) k/uL RBC 4.93 (4.30-5.90) m/uL Hgb 13.8 (13.0-17.5) gm/dL Hct 43.3 (39.0-53.0) % MCV 87.9 (80.0-100.0) fL MCH 28.1 (25.0-35.0) pg MCHC 32.0 (31.0-37.0) g/dL RDW 14.5 (11.5-15.5) % Plt Count 345 (150-450) k/uL MPV 7.1 Neutrophils % 71 % Lymphocytes % 19 % Monocytes % 5 % Eosinophils % 2 % Basophils % 1 % Neutrophils # 5.7 (1.3-7.7) k/uL Lymphocytes # 1.6 (1.0-4.8) k/uL Monocytes # 0.4 (0-1.0) k/uL Eosinophils # 0.2 (0-0.7) k/uL Basophils # 0.1 (0-0.2) k/uL PT 10.4 (9.0-12.0) sec INR 1.0 (<1.2) Sodium (137-145) mmol/L Potassium (3.5-5.1) mmol/L Chloride (98-107) mmol/L Carbon Dioxide (22-30) mmol/L Anion Gap mmol/L BUN (9-20) mg/dL Creatinine (0.66-1.25) mg/dL Est GFR (CKD-EPI)AfAm (>60 ml/min/1.73 sqM) Est GFR (CKD-EPI)NonAf (>60 ml/min/1.73 sqM) Glucose (74-99) mg/dL POC Glucose (mg/dL) (75-99) mg/dL POC Glu Watch Leader ID Plasma Lactic Acid Denzel (0.7-2.0) mmol/L Calcium (8.4-10.2) mg/dL Total Bilirubin (0.2-1.3) mg/dL AST (17-59) U/L ALT (4-49) U/L Alkaline Phosphatase (38-126) U/L Troponin I (0.000-0.034) ng/mL Total Protein (6.3-8.2) g/dL Albumin (3.5-5.0) g/dL Urine Color Light Yellow Urine Appearance Clear (Clear) Urine pH 6.0 (5.0-8.0) Ur Specific [place] 1.006 (1.001-1.035) Urine Protein Negative (Negative) Urine Glucose (UA) Negative (Negative) Urine Ketones Negative (Negative) Urine Blood Negative (Negative) Urine Nitrite Negative (Negative) Urine Bilirubin Negative (Negative) Urine Urobilinogen <2.0 (<2.0) mg/dL Ur Leukocyte Esterase Negative (Negative) 11/19/21 11/19/21 11/19/21 Range/Units 10:15 10:15 10:15 WBC (3.8-10.6) k/uL RBC (4.30-5.90) m/uL Hgb (13.0-17.5) gm/dL Hct (39.0-53.0) % MCV (80.0-100.0) fL MCH (25.0-35.0) pg MCHC (31.0-37.0) g/dL RDW (11.5-15.5) % Plt Count (150-450) k/uL MPV Neutrophils % % Lymphocytes % % Monocytes % % Eosinophils % % Basophils % % Neutrophils # (1.3-7.7) k/uL Lymphocytes # (1.0-4.8) k/uL Monocytes # (0-1.0) k/uL Eosinophils # (0-0.7) k/uL Basophils # (0-0.2) k/uL PT (9.0-12.0) sec INR (<1.2) Sodium 138 (137-145) mmol/L Potassium 4.3 (3.5-5.1) mmol/L Chloride 105 (98-107) mmol/L Carbon Dioxide 26 (22-30) mmol/L Anion Gap 7 mmol/L BUN 23 H (9-20) mg/dL Creatinine 0.71 (0.66-1.25) mg/dL Est GFR (CKD-EPI)AfAm >90 (>60 ml/min/1.73 sqM) Est GFR (CKD-EPI)NonAf >90 (>60 ml/min/1.73 sqM) Glucose 91 (74-99) mg/dL POC Glucose (mg/dL) (75-99) mg/dL POC Glu Watch Leader ID Plasma Lactic Acid Denzel 1.3 (0.7-2.0) mmol/L Calcium 9.2 (8.4-10.2) mg/dL Total Bilirubin 0.7 (0.2-1.3) mg/dL AST 32 (17-59) U/L ALT 33 (4-49) U/L Alkaline Phosphatase 69 (38-126) U/L Troponin I <0.012 (0.000-0.034) ng/mL Total Protein 7.4 (6.3-8.2) g/dL Albumin 4.3 (3.5-5.0) g/dL Urine Color Urine Appearance (Clear) Urine pH (5.0-8.0) Ur Specific [place] (1.001-1.035) Urine Protein (Negative) Urine Glucose (UA) (Negative) Urine Ketones (Negative) Urine Blood (Negative) Urine Nitrite (Negative) Urine Bilirubin (Negative) Urine Urobilinogen (<2.0) mg/dL Ur Leukocyte Esterase (Negative) 11/19/21 Range/Units 11:20 WBC (3.8-10.6) k/uL RBC (4.30-5.90) m/uL Hgb (13.0-17.5) gm/dL Hct (39.0-53.0) % MCV (80.0-100.0) fL MCH (25.0-35.0) pg MCHC (31.0-37.0) g/dL RDW (11.5-15.5) % Plt Count (150-450) k/uL MPV Neutrophils % % Lymphocytes % % Monocytes % % Eosinophils % % Basophils % % Neutrophils # (1.3-7.7) k/uL Lymphocytes # (1.0-4.8) k/uL Monocytes # (0-1.0) k/uL Eosinophils # (0-0.7) k/uL Basophils # (0-0.2) k/uL PT (9.0-12.0) sec INR (<1.2) Sodium (137-145) mmol/L Potassium (3.5-5.1) mmol/L Chloride (98-107) mmol/L Carbon Dioxide (22-30) mmol/L Anion Gap mmol/L BUN (9-20) mg/dL Creatinine (0.66-1.25) mg/dL Est GFR (CKD-EPI)AfAm (>60 ml/min/1.73 sqM) Est GFR (CKD-EPI)NonAf (>60 ml/min/1.73 sqM) Glucose (74-99) mg/dL POC Glucose (mg/dL) 87 (75-99) mg/dL POC Glu Watch Leader ID Deborah Somers Plasma Lactic Acid Denzel (0.7-2.0) mmol/L Calcium (8.4-10.2) mg/dL Total Bilirubin (0.2-1.3) mg/dL AST (17-59) U/L ALT (4-49) U/L Alkaline Phosphatase (38-126) U/L Troponin I (0.000-0.034) ng/mL Total Protein (6.3-8.2) g/dL Albumin (3.5-5.0) g/dL Urine Color Urine Appearance (Clear) Urine pH (5.0-8.0) Ur Specific [place] (1.001-1.035) Urine Protein (Negative) Urine Glucose (UA) (Negative) Urine Ketones (Negative) Urine Blood (Negative) Urine Nitrite (Negative) Urine Bilirubin (Negative) Urine Urobilinogen (<2.0) mg/dL Ur Leukocyte Esterase (Negative) Disposition Clinical Impression: Dehydration Disposition: HOME SELF-CARE Condition: Good Instructions (If sedation given, give patient instructions): Dehydration (DC), Weakness (ED), Dizziness (ED) Additional Instructions: Follow-up with primary care in 1-2 days. Drink plenty of fluids. Report back to ER with any worsening symptoms, including but not limited to chest pain, shortness of breath, increased weakness, numbness or tingling. Is patient prescribed a controlled substance at d/c from ED?: No Referrals: Jac Sims MD [Primary Care Provider] - 1-2 days Time of Disposition: 13:48
[2021-11-19 10:32] LABS: Basophils # (A) 0.1 k/uL (0-0.2); Basophils % (A) 1 %; Eosinophils # (A) 0.2 k/uL (0-0.7); Eosinophils % (A) 2 %; HCT 43.3 % (39.0-53.0); HGB 13.8 gm/dL (13.0-17.5); Lymphocytes # (A) 1.6 k/uL (1.0-4.8); Lymphocytes % (A) 19 %; MCH 28.1 pg (25.0-35.0); MCV 87.9 fL (80.0-100.0); Mean Platelet Volume 7.1; Monocytes # (A) 0.4 k/uL (0-1.0); Monocytes % (A) 5 %; Neutrophils # (A) 5.7 k/uL (1.3-7.7); Neutrophils % (A) 71 %; Platelet Count 345 k/uL (150-450); RBC 4.93 m/uL (4.30-5.90); RDW 14.5 % (11.5-15.5)
[2021-11-19 10:33] LABS: Prothrombin Time 10.4 sec (9.0-12.0)
[2021-11-19 10:35] LABS: Appearance,Urine Clear (Clear); Bilirubin,Urine Negative (Negative); Blood,Urine Negative (Negative); Color,Urine Light Yellow; Glucose,Urine (UA) Negative (Negative); Ketones,Urine Negative (Negative); Leukocyte Esterase,Urine Negative (Negative); Nitrite,Urine Negative (Negative); Protein,Urine Negative (Negative); Specific Gravity,Urine 1.006 (1.001-1.035); Urobilinogen,Urine <2.0 mg/dL (<2.0)
[2021-11-19 10:36] LABS: ALT 33 U/L (4-49); AST 32 U/L (17-59); African American GFR (CKD) >90 (>60 ml/min/1.73 sqM); Albumin 4.3 g/dL (3.5-5.0); Alkaline Phosphatase 69 U/L (38-126); Anion Gap 7 mmol/L; Blood Urea Nitrogen 23 mg/dL (9-20); Calcium 9.2 mg/dL (8.4-10.2); Carbon Dioxide 26 mmol/L (22-30); Chloride 105 mmol/L (98-107); Glucose 91 mg/dL (74-99); Non-African American GFR(CKD) >90 (>60 ml/min/1.73 sqM); Potassium 4.3 mmol/L (3.5-5.1); Sodium 138 mmol/L (137-145); Total Bilirubin 0.7 mg/dL (0.2-1.3); Total Protein 7.4 g/dL (6.3-8.2)
--- NOTE | 2021-11-19 11:14 | XR ---
EXAMINATION TYPE: XR abdomen acute w cxr DATE OF EXAM: 11/19/2021 COMPARISON: 03/15/2021 chest x-ray, CT 03/01/2021 HISTORY: Weakness and dizziness TECHNIQUE: Supine, upright, and chest views of the abdomen and chest are obtained. FINDINGS: Chest x-ray stable, there is a spinal curvature, prominent lung volume suggesting underlyi ng COPD, patient with known emphysema There is no evidence for pneumoperitoneum. The bowel gas pattern is unremarkable as there is air throughout nondilated small and large bowel. No sizeable air fluid levels. No mass effects are seen. No unusual calcifications. Calcifications in the pelvis may be vascular or related to prostate. There are overlying leads. Spinal curvature is noted. Possible underlying ankylosing spondylitis. IMPRESSION: No acute abnormalities evident.
[2021-11-19 11:21] LABS: Glucose,Whole Blood 87 mg/dL (75-99)
[2021-11-19 12:25] VITALS: RESP 18
[2021-11-19 14:24] VITALS: BP 146/87; PULSE 67
== END 2021-11-19 14:00 | disposition home or self-care (01) ==
LOC: EC 09:09
DX: E86.0 Dehydration (principal); J44.9 Chronic obstructive pulmonary disease, unspecified; I10 Essential (primary) hypertension; I25.2 Old myocardial infarction; F17.200 Nicotine dependence, unspecified, uncomplicated; Z88.5 Allergy status to narcotic agent
CPT/HCPCS: 36415; 74022; 80053; 81003; 83605; 84484; 85025; 85610; 93005; 96360; 99285

== ENCOUNTER → 2022-06-30 | Outpatient (CLI) | payer MEDICARE ==
--- NOTE | 2022-06-30 12:22 | US ---
EXAMINATION TYPE: US duplex aorta DATE OF EXAM: 06/30/2022 COMPARISON: NONE CLINICAL HISTORY: Z13.6 SCREENING FOR CARDIOVASCULAR DISORDERS. screening TECHNIQUE: Multiple sonographic images of the abdominal aorta are obtained. FINDINGS: EXAM MEASUREMENTS: Abdominal Aorta: Proximal: 1.9 x 1.9cm Mid: 1.7 x 1.7cm Distal: 2.1 x 2.1cm Bifurcation: RT: 1.1 x 0.9cm LT: 1.1 x 1.1cm STORE GROUP MANAGER NOTES: Limitations due to overlying bowel content. no evidence of AAA as visualized. calc ifications noted IMPRESSION: 1. Minimal fusiform prominence distal abdominal aorta with the greatest AP dimension of 2.1 cm.
== END | disposition home or self-care (01) ==
LOC: RADUSWWP 07:28
PROVIDERS: ATTEND Internal Medicine
DX: Z13.6 Encounter for screening for cardiovascular disorders (principal)
CPT/HCPCS: 93979

== ENCOUNTER → 2022-07-05 | Outpatient (CLI) | payer MEDICARE ==
--- NOTE | 2022-07-05 08:23 | CTL ---
EXAMINATION TYPE: CT Low Dose Lung DATE OF EXAM ORDERED: 07/05/2022 HISTORY: Long-term tobacco use. Lung cancer screening CT DLP: 65.[address] CTDI: 1.70 mGy Automated exposure control for dose reduction was used. SCREENING VISIT: Baseline COMPARISON: Prior CTA chest March 01, 2021 TECHNIQUE: Low dose computed tomography scan was performed through the chest at 1 mm thick sections a nd reconstructed images in multiple planes at 1 mm and [address] DIAGNOSTIC QUALITY: Satisfactory FINDINGS: LUNG NODULES: None. LUNGS: COPD: Severity: Mild to moderate Fibrosis: Severity: Mild bibasilar Lymph nodes: None Other findings: None RIGHT PLEURAL SPACE: Effusion: None Calcification: None Thickening: None Pneumothorax: None LEFT PLEURAL SPACE: Effusion: None Calcification: None Thickening: None Pneumothorax: None HEART: Heart Size: Normal Coronary Calcification: None Pericardial Effusion: None Calcification at level of the mitral valve is noted. OTHER FINDINGS: Upper abdomen: None Bony thorax: Scoliotic curvature. Anterior and lateral bridging osteophytes raise concern for underly ing DISH. Exaggerated curvature or superior thoracic spine. Supraclavicular region: None Other: None IMPRESSION: [id number] emphysematous change without suspicious greater than [address] nodu le. CT LUNG RAD AND CT CHEST RECOMMENDATION: Lung-Rad 1 Negative: Continue annual screening with LDCT in 12 months. S Modifier (other clinically significant findings): None
== END | disposition home or self-care (01) ==
LOC: RADCTMAIN 07:41
PROVIDERS: ATTEND Internal Medicine
DX: Z12.2 Encounter for screening for malignant neoplasm of respiratory organs (principal); J43.9 Emphysema, unspecified; R91.1 Solitary pulmonary nodule; Z87.891 Personal history of nicotine dependence
CPT/HCPCS: 71271

== ENCOUNTER → 2023-07-25 | Outpatient (CLI) | payer MEDICARE ==
--- NOTE | 2023-07-25 07:46 | US ---
EXAMINATION TYPE: US duplex aorta DATE OF EXAM: 07/25/2023 COMPARISON: 06/30/2022 CLINICAL INDICATION: Male, 72 years old with history of I71.40 ABDOMINAL AORTIC ANEURYSM, WITHOUT RUP TURE,; heavy smoker, follow up on abnormal prior aorta scan TECHNIQUE: Multiple sonographic images of the abdominal aorta are obtained. FINDINGS: EXAM MEASUREMENTS: Abdominal Aorta: Proximal: 2.1 x 2.4cm Mid: 2.0 x1.7cm Distal: 2.4 x 2.7 Bifurcation: wnl SURGICAL AIDES TEACHER NOTES: calcified aorta with some distal dilatation; incidental note of left liver lobe ma ss, 3.1 1.8 x 2.8cm IMPRESSION: 1. Ectasia of the distal aorta measured 2.7 cm which is increased from prior. 2. Mass within the liver measuring up to 3.1 cm further evaluation with MRI liver mass protocol joshua mmended with IV contrast.
== END | disposition home or self-care (01) ==
LOC: RADUSWWP 06:58
PROVIDERS: ATTEND Internal Medicine
DX: I71.40 Abdominal aortic aneurysm, without rupture, unspecified (principal); R16.0 Hepatomegaly, not elsewhere classified
CPT/HCPCS: 93979

== ENCOUNTER → 2023-08-08 | Outpatient (CLI) | payer MEDICARE ==
--- NOTE | 2023-08-12 18:09 | MR ---
EXAMINATION TYPE: MR liver wo/w con DATE OF EXAM: 08/08/2023 3:22 PM CLINICAL INDICATION:Male, 72 years old with history of R16.0 LIVER MASS; , Liver mass, abnormal US. COMPARISON: Ultrasound 07/25/2023. CT chest dating back to 03/01/2021. TECHNIQUE: Multiplanar multi-sequence imaging was performed without contrast. Post contrast imaging was performed. Post IV contrast subtraction images were also submitted for review. IV Contrast: 7 cc Gadavist FINDINGS: LOWER CHEST: The heart is mildly enlarged for size. ABDOMEN Liver: There is a observation within the left hepatic lobe anteriorly near the falciform ligament ba suring 2.4 x 1.9 x 1.9 cm which is intermediate T2 low T1 signal. Series 701 image 39. This is centra l heterogenous enhancement most pronounced on delayed imaging. Smaller high T2 low T1 signal lesion in the left hepatic lobe measuring 11 mm. Series 701 image 37 an d 6 mm image 42, 3 mm image 49. These lesions demonstrate postcontrast enhancement. Gallbladder and Bile ducts: The common bile duct is dilated up to 10 mm. Common hepatic duct is also prominent measuring up to 8 mm. No evidence for choledocholithiasis or cholelithiasis. Pancreas: No m ild ductal dilation up to main duct is dilated up to 5 mm. No evidence for solid mass. Spleen: Normal for size. Adrenal glands: Unremarkable. Kidneys: No evidence for obstructive uropathy. Bilateral subcentimeter high T2 cyst renal cysts. Stomach and Bowel: No evidence for bowel wall thickening or evidence for obstruction.. Peritoneum: No evidence of pneumoperitoneum or free fluid. Vasculature: No aortic aneurysm. Musculoskeletal: The osseous structures appear intact. Lymph Nodes: No gross evidence for lymphadenopathy. Abdominal wall: Unremarkable. IMPRESSION: 1. Left hepatic lobe observation which is is not visualized on prior on contrast CT 07/05/2022. Has p ostcontrast enhancement on delayed imaging.There are additional other lesions demonstrating postcontr ast enhancement which persists on delayed imaging. The larger lesion visualized on prior ultrasound i s concerning for malignancy until proven otherwise. Smaller lesions without enhancement could represe nt flash filling hemangiomas versus metastatic foci. No lymphadenopathy visualized in the field-of-vi ew. 2. Dilation of the common bile duct and pancreatic duct. No obvious mass visualized. Underlying ampu llary lesion/stricture not excluded. Consider ERCP.
== END | disposition home or self-care (01) ==
LOC: RADMRIMAIN 14:09
PROVIDERS: ATTEND Internal Medicine
DX: R16.0 Hepatomegaly, not elsewhere classified (principal); K83.8 Other specified diseases of biliary tract
CPT/HCPCS: 74183; A9585

== ENCOUNTER 2023-08-31 07:54 | Day surgery (SDC) | payer MEDICARE ==
[2023-08-31] MEDS: ALPRAZolam 0.25 MG TAB PO PRN (08:54)
[2023-08-31 09:05] LABS: Platelet Count 343 k/uL (150-450)
[2023-08-31 09:13] VITALS: TEMP 97.8
[2023-08-31 09:14] LABS: Prothrombin Time 10.5 sec (10.0-12.5)
[2023-08-31 09:24] LABS: African American GFR (CKD) >90 (>60 ml/min/1.73 sqM); Blood Urea Nitrogen 22 mg/dL (9-20); Non-African American GFR(CKD) >90 (>60 ml/min/1.73 sqM)
[2023-08-31] MEDS: HYDROmorphone 0.5 MG/0.5 ML SYRINGE IVP PRN (09:57)
[2023-08-31 10:42] VITALS: RESP 16
--- NOTE | 2023-08-31 11:50 | CT ---
EXAMINATION TYPE: CT biopsy liver DATE OF EXAM: 08/31/2023 10:45 AM CLINICAL INDICATION:Male, 72 years old with history of R16.0 HEPATOMEGALY, NOT ELSEWHERE CLASSIFIED; COMPARISON: MRI liver 08/12/2023 CT DLP: 1142 mGycm, Automated exposure control for dose reduction was used. Contrast used: mL of , none Oral contrast used: none ATTENDING: Dr. Pelon Hawkins TECHNIQUE: CT guided percutaneous liver biopsy using coaxial method. Moderate conscious sedation was used. The p atient was monitored by a qualified trained nurse independent of the Radiologist during sedation. The Radiologist intra-service time with the patient under sedation was [address] or more [address] dose r eduction strategies were utilized during this examination. Total CT dose 1142 mGycm. FINDINGS: The procedure was explained to the patient including risks of bleeding, bruising, infection, damage t o nearby organs and need for additional therapy including potential surgery. All questions were answ ered and consent was obtained. The previous studies were reviewed. The patient was placed on the CT couch in the supine position. The overlying skin was marked and prepped using sterile method. Timeout was taken per protocol. Follo wing administration of conscious sedation and local anesthesia a 18 gauge coaxial needle was introd uced on the . The coaxial needle tip was directed into the mass with CT guidance. Multiple 19 gauge coaxial biopsies were then obtained. The biopsy samples were sent in appropriate containers for lab analysis. Following the procedure the needle was removed and sterile dressing was applied to the p ercutaneous site. Post biopsy imaging demonstrated no evidence of hemorrhage. Patient was taken for postprocedure observation in stable condition. IMPRESSIONS: Status post percutaneous liver biopsy mass biopsy as described above. Pathology results pending.
[2023-08-31] MEDS: HYDROcodone/APAP 5-325MG 1 EACH TAB PO PRN (14:02)
[2023-08-31 16:05] VITALS: BP 111/57; PULSE 86
== END 2023-08-31 14:28 | disposition home or self-care (01) ==
LOC: RADPROMAIN 07:54
PROVIDERS: ATTEND Internal Medicine
DX: C22.7 Other specified carcinomas of liver (principal)
CPT/HCPCS: 82565; 84520; 85049; 85610; 36415; 47000; 77012; J1170; 88307; 88341; 88342

== ENCOUNTER → 2023-09-13 | Outpatient (CLI) | payer MEDICARE ==
--- NOTE | 2023-09-16 14:14 | PE ---
EXAMINATION TYPE: PET CT fusion whole body DATE OF EXAM: 09/13/2023 CLINICAL INDICATION:Male, 72 years old with history of C22.0 liver ca; TECHNIQUE: Following the intravenous administration of 10.27 mCi of F-18 FDG, whole body images are performed from the skull base to the midthigh. Images are reviewed on the computer in the coronal, axial, and sagittal planes. Reconstructed rotating images are created on independent workstation and reviewed on the computer. A non-contrast CT is performed in conjunction with the PET scan. Glucose level 91 mg/dL CT DLP: 555 mGycm, Automated exposure control for dose reduction was used. COMPARISON: CT 08/31/2023, MRI 08/08/2023. PET/CT None, FINDINGS: Mediastinal SUV mean is 2.6. Hepatic parenchyma SUV mean is 3.5. SKULL BASE AND NECK: * Uptake within the epidermis posterior neck near midline max SUV 8.1 series 3 image 54. CHEST, MEDIASTINUM, AND HILAR REGION: * Mild uptake in the distal esophagus max SUV 7.2. * Low level uptake within the mediastinal lymph nodes including right pulmonary hilum max SUV 4.8, l eft pulmonary hilum max SUV 4.2, subcarinal max of C4.8 ABDOMEN AND PELVIS: Abnormal uptake in the area that was previously biopsied max SUV 9.3 is poorly de fined on noncontrast imaging. Measures at least 20 x 19 mm. MUSCULOSKELETAL STRUCTURES: * No suspicious radiotracer activity. * Abnormal uptake within the left second digit at the distal portion of the proximal phalanx. * Right hip uptake max SUV 6.4 likely secondary to bursitis and/or muscle strain. OTHER CT: Bilaterally aphakia. Multilevel degeneration changes of the spine. Atherosclerosis of the c arotid bifurcations. Mild paraseptal emphysema changes. Coronary artery atherosclerosis and aortic va lve leaflet calcifications. IMPRESSION: 1. Abnormal uptake within the liver in the area of previously biopsy. No evidence for lymphadenopath y or evidence for metastatic disease at this time. 2. Abnormal uptake near the left digit first digit metatarsophalangeal joint evaluation plain film m ay be of benefit. Findings on CT imaging suggests possible fracture and/or degeneration. 3. Linear distal esophageal FDG uptake correlate for esophagitis. 4. Focal uptake posterior neck near midline correlate with dermatologic evaluation.
== END | disposition home or self-care (01) ==
LOC: RADPETMAIN 06:24
PROVIDERS: ATTEND Internal Medicine
DX: C22.0 Liver cell carcinoma (principal); K20.90 Esophagitis, unspecified without bleeding
CPT/HCPCS: 78816; A9552

== ENCOUNTER → 2023-09-17 | Outpatient (CLI) | payer MEDICARE ==
--- NOTE | 2023-09-17 08:26 | MR ---
EXAMINATION TYPE: MR brain wo/w con DATE OF EXAM: 09/17/2023 7:51 AM CLINICAL INDICATION:Male, 72 years old with history of C78.7 liver ca; PHH, Liver cancer. COMPARISON: None TECHNIQUE: Multi planar, multi sequence imaging was performed through the brain including: T1, T2, In version recovery, susceptibility weighted imaging and gradient echo imaging and Diffusion weighted im aging. The patient was then given intravenous contrast and multi planar, T1 fat-saturation images wer e obtained. IV Contrast: 6 cc Gadavist FINDINGS: The yee-white junctions, ventricular system, basal cisterns appear unremarkable. Diffusion-weighted imaging shows no evidence of restricted diffusion to suggest acute/subacute infarct. Intracranial ar terial flow voids are maintained. Midline structures show no abnormality. Scattered foci of high T2 s ignal intensity are seen within the periventricular white matter. The susceptibility weighted images do not reveal any evidence for micro-hemorrhage. After administration of gadolinium, no abnormal enha ncement is seen. The bone marrow signal is within normal limits. Paranasal sinuses and mastoid air cells: No significant paranasal sinus disease. Visualized orbits: Bilateral aphakia IMPRESSION: 1. No evidence of intracranial mass, acute/subacute infarct, or abnormal enhancement. 2. Nonspecific white matter changes, likely related to small vessel ischemic disease.
== END | disposition home or self-care (01) ==
LOC: RADMRIMAIN 07:06
PROVIDERS: ATTEND Internal Medicine Hematology & Oncology
DX: G93.89 Other specified disorders of brain (principal); C78.7 Secondary malignant neoplasm of liver and intrahepatic bile duct; C80.1 Malignant (primary) neoplasm, unspecified
CPT/HCPCS: 70553; A9585

== ENCOUNTER → 2023-10-09 | Day surgery (SDC) | payer MEDICARE ==
[~2023-10-09] MED LIST: LIDOCAINE 1% INJ 10MG/ML (20 ML MDV) ONE; PROPOFOL 10 MG/ML 20 ML VIAL IV ONE
[2023-10-09] MEDS: LACTATED RINGERS 1,000 ML IV SCH (12:12)
[2023-10-09 12:22] VITALS: TEMP 98
--- NOTE | 2023-10-09 12:37 | P.GSHP ---
History of Present Illness H&P Date: 10/09/23 Chief Complaint: Esophagitis 73-year-old male recently diagnosed with malignancy in the liver. Recent PET scan showed possible esophagitis. Patient without complaints of GERD or pain. Past Medical History Past Medical History: Coronary Artery Disease (CAD), COPD, Hypertension, Myocardial Infarction ([place]) Additional Past Medical History / Comment(s): liver CA-dx Aug 2023, myocardial infarction in 2009, hypertension, COPD Last Myocardial Infarction Date:: 2009 History of Any Multi-Drug Resistant Organisms: MRSA Date of last positivie culture/infection: 02/24/21 MDRO Source:: Right Hand Past Surgical History: Hernia Repair, Orthopedic Surgery Additional Past Surgical History / Comment(s): liver bx Aug 2023,broken wrist with a plate placed with screws,rt hand 3rd finer tendon repair Past Anesthesia/Blood Transfusion Reactions: No Reported Reaction Smoking Status: Current every day smoker - Past Family History Father Additional Family Medical History / Comment(s): cancer Brother(s) Family Medical History: Cancer Additional Family Medical History / Comment(s): lung CA Medications and Allergies Home Medications Medication Instructions Recorded Confirmed Type lisinopriL 40 mg PO QAM 02/22/21 10/09/23 History amLODIPine [Norvasc] 10 mg PO QAM 11/19/21 10/09/23 History Albuterol Nebulized [Ventolin 2.5 mg INHALATION QAM 08/20/23 10/09/23 History Nebulized] Atorvastatin [Lipitor] 40 mg PO HS 08/20/23 10/09/23 History Acetaminophen/Diphenhydramine 2 tab PO HS 09/21/23 10/09/23 History [Tylenol PM 500-25mg] Multivitamins, Thera [Multivitamin 1 tab PO DAILY 09/21/23 10/09/23 History (formulary)] methocarbamoL 500 mg PO DAILY PRN 09/21/23 10/09/23 History Allergies Allergy/AdvReac Type Severity Reaction Status Date / Time codeine AdvReac Nausea & Verified 10/09/23 12:02 Vomiting,massive headache Surgical - Exam Vital Signs Temp Pulse Resp BP Pulse Ox 98 F 62 14 153/74 98 10/09/23 12:00 10/09/23 12:00 10/09/23 12:00 10/09/23 12:00 10/09/23 12:00 Physical exam: General: Well-developed, well-nourished HEENT: Normocephalic, sclerae nonicteric Abdomen: Nontender, nondistended Extremities: No edema Neuro: Alert and oriented Assessment and Plan (1) Esophagitis Narrative/Plan: Will proceed with upper endoscopy at this time Current Visit: Yes Status: Acute Code(s): K20.90 - ESOPHAGITIS, UNSPECIFIED WITHOUT BLEEDING SNOMED Code(s): 02666272
--- NOTE | 2023-10-09 12:46 | P.PCN ---
Date of Procedure: 10/09/23 Procedure(s) Performed: Preoperative Dx: Esophagitis Postoperative Dx: Mild gastritis, small hiatal hernia, mild esophagitis Procedure: EGD with Bx Anesthesia: Sedation Endoscopist: Dr. Aguilar Specimens: Antrum, distal esophagus Endoscopic Procedure: The patient was on the endoscopy table in the left decub itus position. The Olympus gastroscope was inserted into the oropharynx and passed under direct visualization to the region of the third portion of the duodenum. From that point the scope was slowly withdrawn inspecting all surfaces carefully. There were no neoplastic inflammatory or polypoid lesions throughout the duodenum. The pylorus was widely patent. The stomach was carefully inspected. There was mild gastritis. A biopsy of the antrum took place to rule out H. pylori. Retroflexion revealed a small sliding hiatal hernia. The GE junction was present 1 to 2 cm above the diaphragm. There were 2 linear inflammatory changes consistent with mild reflux esophagitis. Biopsies were taken. The remainder the esophagus appeared normal. The patient was then taken to the recovery room in stable condition per anesthesia guidelines. Recommendations: Await biopsy results. Continue workup of the patient's recently noted liver cancer.
[2023-10-09 13:33] VITALS: BP 151/88; PULSE 60; RESP 16
== END ==
LOC: ORWHC2ENDO 11:32
PROVIDERS: ATTEND Surgery
DX: K21.00 Gastro-esophageal reflux disease with esophagitis, without bleeding (principal); K44.9 Diaphragmatic hernia without obstruction or gangrene; K31.9 Disease of stomach and duodenum, unspecified; K29.70 Gastritis, unspecified, without bleeding; J44.9 Chronic obstructive pulmonary disease, unspecified; I25.2 Old myocardial infarction; I25.10 Atherosclerotic heart disease of native coronary artery without angina pectoris; I10 Essential (primary) hypertension; E78.5 Hyperlipidemia, unspecified; M19.90 Unspecified osteoarthritis, unspecified site; F17.200 Nicotine dependence, unspecified, uncomplicated; Z88.5 Allergy status to narcotic agent; Z79.51 Long term (current) use of inhaled steroids; Z79.899 Other long term (current) drug therapy
CPT/HCPCS: 88305; 43239; J2001; J2704

== ENCOUNTER → 2024-01-10 | Outpatient (CLI) | payer MEDICARE ==
[2024-01-10 15:06] LABS: African American GFR (CKD) >90 (>60 ml/min/1.73 sqM); Blood Urea Nitrogen 16 mg/dL (9-20); Non-African American GFR(CKD) >90 (>60 ml/min/1.73 sqM)
--- NOTE | 2024-01-14 18:30 | CT ---
EXAMINATION TYPE: CT ChestAbdPelvis w con CT DLP: 1082 mGycm, Automated exposure control for dose reduction was used. DATE OF EXAM: 01/10/2024 4:54 PM COMPARISON: PET/CT 09/13/2023, MR liver 08/08/2023, CT low-dose lung cancer screening 07/05/2022. CLINICAL INDICATION:Male, 73 years old with history of C34.81 LUNG CANCER; [facility], f/u liver ca with met s Technique: Multiple axial images of the chest, abdomen, and pelvis were obtained following the intrav enous administration of 100 mL Isovue-300. Oral contrast was administered. Two-dimensional coronal an d sagittal reconstructions were obtained. Findings: CHEST: LUNGS/ PLEURA: No pleural effusion, pneumothorax, focal consolidation. Linear scarring and/or atelect asis within the left lower lobe. Mild centrilobular emphysematous changes with upper lobe predominan ce. Few paraseptal emphysematous upper lobe predominant changes. Minimal anterior right upper lobe witt bpleural changes. No suspicious pulmonary nodule or mass. AIRWAY: Patent and unremarkable.. HEART: Mildly enlarged. No pericardial effusion. Mitral annulus calcifications. MEDIASTINUM: A pathologically enlarged lymph nodes greater than 1 cm short axis. VASCULATURE: No aortic aneurysm. Mild atherosclerotic calcification of the aorta and its branches. T here is questionable eccentric filling defect within the right lower lobe subsegmental pulmonary lam ry (series 3, image 41 through 45). No CT evidence for right heart strain. MUSCULOSKELETAL: No acute osseous abnormalities. No aggressive osseous lesion. SOFT TISSUES/LYMPH NODES: Minimal bilateral gynecomastia. LOWER NECK: No significant findings. ABDOMEN: ABDOMEN LIVER: Subtle hypodense lesion within the left hepatic lobe anteriorly measuring up to 1.2 cm corresp onding to previously biopsied mass (series 3, image 60). This lesion becomes less conspicuous on tyshawn yed imaging. Similar 6 mm focus within the right hepatic lobe (series 3, image 66) which was seen on prior MR. Additional enhancing similar lesion within the lateral left hepatic lobe measuring up to 1 cm corresponding to prior MR (series 3, image 62). These lesions blend in with the surrounding liver parenchyma on the delayed phase. May represent flash filling hemangiomas. These lesions demonstrate d ifferent enhancement characteristics to the previously biopsied lesion. No new definitive lesions valerie ntified. GALLBLADDER AND BILE DUCTS: Gallbladder appears within normal limits. Dilated common bile duct measur ing up to 10 mm at the pancreatic head. PANCREAS: Dilated main pancreatic duct measuring up to 6 mm at the head. No focal lesion identified. SPLEEN: Unremarkable. ADRENAL GLANDS: Unremarkable. KIDNEYS AND URETERS: No evidence of hydronephrosis or renal calculus. The kidneys enhance symmetrical ly. Subcentimeter hypodense focus within the inferior pole the left kidney which is too small to suman acterize but likely represents a cyst. Prominent bilateral extrarenal pelvises. PELVIS BLADDER: Moderately distended. REPRODUCTIVE: Unremarkable. ABDOMEN & PELVIS STOMACH AND BOWEL: Small hiatal hernia, duodenum is unremarkable. Enteric contrast reaches the mid sm all bowel. No focal wall thickening or surrounding inflammatory changes. The appendix is within elicia l limits. No evidence of bowel obstruction. PERITONEUM: No evidence of pneumoperitoneum or free fluid. VASCULATURE: Mild to moderate atherosclerotic calcifications are present throughout the abdominal aor ta and its branches. Ectasia of the infrarenal abdominal aorta measuring up to 2.7 cm. No abdominal a ortic aneurysm. MUSCULOSKELETAL: No acute osseous abnormalities. No aggressive osseous lesion. LYMPH NODES: No gross evidence for lymphadenopathy. SOFT TISSUE/ABDOMINAL WALL: Unremarkable IMPRESSION: 1. Relatively stable few liver lesions from prior MR. No new liver lesions definitively identified. 2. Pancreatic duct and common bile duct dilatation redemonstrated. Cannot exclude ampullary lesion/s tricture. Consider further evaluation with MRCP or ERCP. 3. Questionable pulmonary embolism within the right lower lobe subsegmental branches. Recommend furt her evaluation with CTA chest. No CT evidence for right heart strain. 4. No CT evidence for metastatic disease within the chest. 5. Mild COPD changes.
== END | disposition home or self-care (01) ==
LOC: RADCTMAIN 14:11
PROVIDERS: ATTEND Internal Medicine Hematology & Oncology
DX: J44.9 Chronic obstructive pulmonary disease, unspecified (principal); C78.7 Secondary malignant neoplasm of liver and intrahepatic bile duct; C34.81 Malignant neoplasm of overlapping sites of right bronchus and lung; K76.9 Liver disease, unspecified; K83.8 Other specified diseases of biliary tract; E78.5 Hyperlipidemia, unspecified; I10 Essential (primary) hypertension; K86.89 Other specified diseases of pancreas
CPT/HCPCS: 82565; 84520; 71260; 74177; 36415; Q9967

== ENCOUNTER → 2024-01-15 | Outpatient (CLI) | payer MEDICARE ==
--- NOTE | 2024-01-15 15:32 | US ---
EXAMINATION TYPE: US venous doppler duplex LE BI DATE OF EXAM: 01/15/2024 3:10 PM COMPARISON: NONE CLINICAL INDICATION: Male, 73 years old with history of I26.99 OTHER PULMONARY EMBOLISM; PE SIDE PERFORMED: Bilateral TECHNIQUE: The lower extremity deep venous system is examined utilizing real time linear array sonog domitila with graded compression, doppler sonography and color-flow sonography. VESSELS IMAGED: Common Femoral Vein Deep Femoral Vein Greater Saphenous Vein * Femoral Vein Popliteal Vein Small Saphenous Vein * Proximal Calf Veins (* superficial vessels) Right Leg: Negative for DVT Left Leg: Negative for DVT IMPRESSION: 1. Bilateral lower extremity ultrasound negative for deep venous thrombosis.
[2024-01-15 16:03] LABS: African American GFR (CKD) >90 (>60 ml/min/1.73 sqM); Blood Urea Nitrogen 11 mg/dL (9-20); Non-African American GFR(CKD) >90 (>60 ml/min/1.73 sqM)
--- NOTE | 2024-01-15 18:27 | CT ---
CTA CHEST EXAMINATION TYPE: CT angio chest DATE OF EXAM: 01/15/2024 INDICATION: PRITI CT DLP: 167.6 mGycm, Automated exposure control for dose reduction was used. CONTRAST: Patient injected with 100 ml mL of Isovue 370. COMPARISON: 01/10/2024 TECHNIQUE: CT of the chest is performed on a spiral scan at 2 mm thick sections. Study is performed with intravenous contrast timed for evaluation for pulmonary embolism. This will limit additional po rtions of the evaluation. 3-D MIP images reconstructed by the technologist are reviewed on the compu ter in the coronal and sagittal planes. FINDINGS: Tertiary branch right lower lobe pulmonary artery has a pulmonary embolism. This may be chronic as it appears to be incompletely obstructing. Additional pulmonary emboli are within the right middle lobe some incompletely obstructing pulmonary emboli mainly in the left lower lobe. Findings were present on the comparison study No mediastinal or hilar adenopathy enlarged by CT criteria is evident. The ascending aorta diameter at the level of the main pulmonary artery is 3.5 cm. The main pulmonary artery diameter at the bifurcation is 3.2a cm. Lung windows are clear. Some mild emphysematous changes are evident. Limited CT sections were through the upper abdomen. Upper abdomen appears unremarkable. IMPRESSION: 1. Chronic pulmonary emboli remain present from prior exam. New Pulmonary emboli not identified.
== END | disposition home or self-care (01) ==
LOC: RADUSWWP 14:44
PROVIDERS: ATTEND Internal Medicine Hematology & Oncology
DX: I26.99 Other pulmonary embolism without acute cor pulmonale (principal); I80.10 Phlebitis and thrombophlebitis of unspecified femoral vein
CPT/HCPCS: 82565; 84520; 93970; 71275; 36415; Q9967

== ENCOUNTER → 2024-04-10 | Outpatient (CLI) | payer MEDICARE ==
[2024-04-11 07:27] LABS: Cryptosporidium Antigen Negative (Negative)
== END | disposition home or self-care (01) ==
LOC: LABWHC1 09:36
PROVIDERS: ATTEND Internal Medicine Hematology & Oncology
DX: C34.81 Malignant neoplasm of overlapping sites of right bronchus and lung
CPT/HCPCS: 83630; 87045; 87046; 87324; 87328; 87329

== ENCOUNTER → 2024-04-17 | Outpatient (CLI) | payer MEDICARE ==
[2024-04-17 15:19] LABS: ALT 26 U/L (10-49); AST 24 U/L (14-35); Albumin 4.3 g/dL (3.8-4.9); Albumin/Globulin Ratio 1.72 Ratio (1.60-3.17); Alkaline Phosphatase 74 U/L (41-126); BUN/Creat Ratio 19.29 Ratio (12.00-20.00); Blood Urea Nitrogen 13.5 mg/dL (9.0-27.0); Carbon Dioxide 25.4 mmol/L (21.6-31.8); Chloride 100 mmol/L (96-109); Chol/HDL Ratio 2.86 Ratio; Globulin 2.5 g/dL (1.6-3.3); Glucose 86 mg/dL (70-110); LDL Cholesterol,Calculated 96.7 mg/dL (0.0-131.0); Magnesium 1.5 mg/dL (1.5-2.4); PSA Annual Screen 0.678 ng/mL (0.000-4.000); Potassium 4.8 mmol/L (3.5-5.5); Sodium 137 mmol/L (135-145); Total Bilirubin 0.3 mg/dL (0.3-1.2); Total Protein 6.8 g/dL (6.2-8.2); VLDL Calculation 11.88 mg/dL (5.00-40.00)
[2024-04-17 15:34] LABS: Basophils # (A) 0.02 X 10*3/uL (0.00-0.10); Basophils % (A) 0.2 %; Eosinophils # (A) 0.16 X 10*3/uL (0.04-0.35); HGB 13.8 g/dL (13.0-17.0); Lymphocytes # (A) 1.39 X 10*3/uL (0.90-5.00); Lymphocytes % (A) 17.1 %; MCH 28.8 pg (27.0-32.0); MCHC 32.9 g/dL (32.0-37.0); MCV 87.5 FL (80.0-97.0); Mean Platelet Volume 8.9 FL (9.5-12.2); Monocytes # (A) 0.63 X 10*3/uL (0.20-1.00); Monocytes % (A) 7.7 %; NRBC Per 100 WBC 0 X 10*3/uL (0.00-0.01); Neutrophils % (A) 72.6 %; Platelet Count 381 X 10*3/uL (140-440); RDW 14.6 % (11.5-14.5); WBC 8.13 X 10*3/uL (4.50-10.00)
== END | disposition home or self-care (01) ==
LOC: LABWHC1 09:00
PROVIDERS: ATTEND Internal Medicine
DX: Z00.00 Encounter for general adult medical examination without abnormal findings (principal); Z12.5 Encounter for screening for malignant neoplasm of prostate; I10 Essential (primary) hypertension; R73.9 Hyperglycemia, unspecified
CPT/HCPCS: 36415; 80053; 80061; 83036; 83735; 84443; 85025

== ENCOUNTER → 2024-05-08 | Outpatient (CLI) | payer MEDICARE ==
[2024-05-08 15:11] LABS: African American GFR (CKD) >90 (>60 ml/min/1.73 sqM); Blood Urea Nitrogen 7 mg/dL (9-20); Non-African American GFR(CKD) >90 (>60 ml/min/1.73 sqM)
--- NOTE | 2024-05-08 18:32 | CT ---
EXAMINATION TYPE: CT ChestAbdPelvis w con CT DLP: 491.7 mGycm, Automated exposure control for dose reduction was used. DATE OF EXAM: 05/08/2024 5:35 PM COMPARISON: CTA chest 01/15/2024, CT chest and pelvis 01/10/2024, PET/CT 09/13/2023, MR liver 08/08/2023 CLINICAL INDICATION:Male, 73 years old with history of C34.81 LUNG CANCER; PHH, Hx of Liver Ca. Chemo 12/20 Technique: Multiple axial images of the chest, abdomen, and pelvis were obtained following the intrav enous administration of 100 mL Isovue-300. Oral contrast was administered. Two-dimensional coronal an d sagittal reconstructions were obtained. Findings: CHEST: LUNGS/ PLEURA: Mild centrilobular and paraseptal emphysematous changes. No pleural effusion, pneumot horax, focal consolidation. Bilateral lower lobe linear scarring redemonstrated. No suspicious pulmon lyric nodule or mass. AIRWAY: Patent. Tracheal synechia. HEART: Size within normal limits. No pericardial effusion. Mitral annulus calcifications. MEDIASTINUM: No evidence of adenopathy. VASCULATURE: No aortic aneurysm. Mild atherosclerotic calcification of the aorta and its branches. P reviously seen right lower lobe subsegmental pulmonary artery filling defect is not well appreciated on today's exam. However exam is not angiographic phase. MUSCULOSKELETAL: No acute osseous abnormalities. No aggressive osseous lesion. DISH of the thoracic s pine. SOFT TISSUES/LYMPH NODES: Minimal bilateral gynecomastia. LOWER NECK: No significant findings. ABDOMEN: ABDOMEN LIVER: Very subtle hypodense lesion within the left hepatic lobe anteriorly measuring 1.2 cm is stabl e and corresponds to previously biopsied mass (series 4, image 64). This again becomes less conspicuo us on delayed imaging. Similar 6 mm hyperdense focus within the right hepatic lobe series 4, image 71 . Additional stable enhancing similar lesion within the lateral left hepatic lobe measuring 1.1 cm an d is consistent with a hemangioma is demonstrated in prior liver MRI. No new suspicious hepatic lesio ns. GALLBLADDER AND BILE DUCTS: Dilated common bile duct measuring 11 m of the pancreatic head, previousl y 10 mm. Gallbladder is within normal limits. PANCREAS: Dilated main pancreatic duct measuring up to 5 mm at the pancreatic head, previously 6 mm. No focal lesion identified. SPLEEN: Unremarkable. ADRENAL GLANDS: Unremarkable. KIDNEYS AND URETERS: No evidence of hydronephrosis or renal calculus. The kidneys enhance symmetrical ly. Stable subcentimeter hypodense focus in the inferior pole of the left kidney which is too small t o characterize but likely represents a cyst. Prominent bilateral extrarenal pelvises. PELVIS BLADDER: Moderately distended. REPRODUCTIVE: Unremarkable. ABDOMEN & PELVIS STOMACH AND BOWEL: Small hiatal hernia. Enteric contrast is reaches the mid to distal small bowel. Th e appendix is within normal limits. Circumferential long segment wall thickening of the descending co seble and rectum. Surrounding fat stranding not identified. Additional wall thickening within the hepat ic flexure. No evidence of bowel obstruction. PERITONEUM: No evidence of pneumoperitoneum or free fluid. VASCULATURE: No evidence of aortic aneurysm. Mild to moderate atherosclerotic calcification throughou t the abdominal aorta and its branches. Ectasia of the infrarenal abdominal aorta measuring up to 2.5 cm. MUSCULOSKELETAL: No acute osseous abnormalities. No aggressive osseous lesion. Fusion changes of the bilateral SI joints. [facility] of the upper lumbar spine. LYMPH NODES: No gross evidence for lymphadenopathy. SOFT TISSUE/ABDOMINAL WALL: Unremarkable IMPRESSION: 1. Stable few hepatic lesions from prior exams. No new hepatic lesions identified. 2. Long segment wall thickening of the descending colon, hepatic flexure, and rectum suggesting proc tocolitis from a likely inflammatory/infectious etiology. 3. Stable pancreatic duct and common bile duct dilatation. Again cannot exclude ampullary lesion/str icture. This can be further evaluated with MRCP/ERCP. 4. Previously seen right lower lobe subsegmental pulmonary emboli are not well-visualized on today's exam however this is not an angiographic phase. 5. No CT evidence for metastatic disease within the chest. 6. Mild COPD changes. [facility], , 05/08/2024 6:30 PM
== END | disposition home or self-care (01) ==
LOC: RADCTMAIN 14:14
PROVIDERS: ATTEND Internal Medicine Hematology & Oncology
DX: C34.81 Malignant neoplasm of overlapping sites of right bronchus and lung
CPT/HCPCS: 36415; 71260; 74177; 82565; 84520

== ENCOUNTER → 2024-11-26 | Outpatient (CLI) | payer MEDICARE ==
[2024-11-26 15:33] LABS: African American GFR (CKD) >90 (>60 ml/min/1.73 sqM); Blood Urea Nitrogen 27 mg/dL (9-20); Non-African American GFR(CKD) 85 (>60 ml/min/1.73 sqM)
--- NOTE | 2024-11-26 18:31 | CT ---
EXAMINATION TYPE: CT ChestAbdPelvis w con DATE OF EXAM: 11/26/2024 5:03 PM COMPARISON: 08/28/2024 , 05/08/2024 MRI 08/08/2023. CLINICAL INDICATION: Male, 74 years old with history of C34.81 LUNG NODULE; PHH, F/u for lung nodule. Hx of liver cancer. Technique: CT ChestAbdPelvis w con; Multiple axial images were obtained. Two-dimensional coronal and sagittal reconstructions were obtained. Contrast used:100ml mL of Isovue 300 with IV Contrast, (None if empty) Oral contrast used: with Oral Contrast CT DLP: 585 mGycm, Automated exposure control for dose reduction was used. Findings: CHEST: LUNGS/ PLEURA: Demonstration of mild centrilobular and paraseptal emphysematous changes. No pleural effusion, pneumothorax, focal consolidation. Bilateral lower lobe linear scarring redemonstrated. The re remains no new or enlarging pulmonary nodules. Suspicious pulmonary nodule or mass. AIRWAY: Patent. Tracheal synechia. HEART: Size within normal limits. No pericardial effusion. Mitral valve annular calcifications. MEDIASTINUM: No evidence of adenopathy. VASCULATURE: No aortic aneurysm. Mild atherosclerotic calcification of the aorta and its branches. MUSCULOSKELETAL: Mild disc degeneration changes are present throughout the thoracolumbar spine. No ag gressive osseous lesion. Diffuse idiopathic skeletal hyperostosis. SOFT TISSUES/LYMPH NODES: Minimal bilateral gynecomastia. LOWER NECK: No significant findings. ABDOMEN: ABDOMEN LIVER: Hypodense lesion left hepatic lobe is not definitively visualized on today's exam. Right hepat ic lobe 4 mm arterial phase enhancing lesion becomes isodense to the remainder of parenchyma on delay ed imaging. Left hepatic lobe lesion which is arterial enhancing also becomes isodense on delayed kareem ging measuring up to 11 mm. GALLBLADDER AND BILE DUCTS: Dilated common bile duct measuring 11 millimeters of the pancreatic head. Gallbladder is within normal limits. PANCREAS: Dilated main pancreatic duct measuring up to 7 mm at the pancreatic head. No focal lesion i dentified. SPLEEN: Unremarkable. ADRENAL GLANDS: Unremarkable. KIDNEYS AND URETERS: No evidence of hydronephrosis or renal calculus. The kidneys enhance symmetrical ly. Stable subcentimeter hypodense focus in the inferior pole of the left kidney which is too small t o characterize but likely represents a cyst. Prominent bilateral extrarenal pelvises. No follow-up re commended for probable subcentimeter cysts. PELVIS BLADDER: Moderately distended. REPRODUCTIVE: Unremarkable. ABDOMEN & PELVIS STOMACH AND BOWEL: Small hiatal hernia. The appendix is poorly visualized. No evidence for wall thick ening or obstruction. . PERITONEUM: No evidence of pneumoperitoneum or free fluid. VASCULATURE: No evidence of aortic aneurysm. Mild to moderate atherosclerotic calcification throughou t the abdominal aorta and its branches. Ectasia of the infrarenal abdominal aorta measuring up to 2.5 cm. MUSCULOSKELETAL: No acute osseous abnormalities. No aggressive osseous lesion. Osseous Fusion changes of the bilateral sacroiliac joints. Diffuse hepatic skeletal hyperostosis of the upper lumbar spine. LYMPH NODES: No gross evidence for lymphadenopathy. SOFT TISSUE/ABDOMINAL WALL: Unremarkable IMPRESSION: 1. Hepatic lesion near midline in the anterior left hepatic lobe is not appreciated. Other findings are stable and likely represent flash filling hemangiomas. Consider follow-up MRI to evaluate and com pared to 08/08/2023.. 2. Stable pancreatic duct and common bile duct dilatation. Again cannot exclude ampullary lesion/str icture. This can be further evaluated with MRCP/ERCP if not recently performed. 3. Previously seen right lower lobe subsegmental pulmonary emboli are not well-visualized on today's exam however this is not an angiographic phase. 4. No CT evidence for metastatic disease within the chest. 5. Mild COPD changes. [facility], , 11/26/2024 6:29 PM
== END | disposition home or self-care (01) ==
LOC: RADCTMAIN 14:46
PROVIDERS: ATTEND Internal Medicine Hematology & Oncology
DX: C34.81 Malignant neoplasm of overlapping sites of right bronchus and lung (principal); C78.7 Secondary malignant neoplasm of liver and intrahepatic bile duct; E78.5 Hyperlipidemia, unspecified; J44.9 Chronic obstructive pulmonary disease, unspecified; K83.8 Other specified diseases of biliary tract; I26.93 Single subsegmental thrombotic pulmonary embolism without acute cor pulmonale; K76.89 Other specified diseases of liver
CPT/HCPCS: 82565; 84520; 71260; 74177; 36415; Q9967

== ENCOUNTER → 2025-02-25 | Outpatient (CLI) | payer MEDICARE ==
[2025-02-25 13:37] LABS: African American GFR (CKD) >90 (>60 ml/min/1.73 sqM); Blood Urea Nitrogen 21 mg/dL (9-20); Non-African American GFR(CKD) 89 (>60 ml/min/1.73 sqM)
--- NOTE | 2025-02-25 15:46 | CT ---
EXAMINATION TYPE: CT ChestAbdPelvis w con DATE OF EXAM: 02/25/2025 COMPARISON: 11/26/2024 CLINICAL INDICATION: Male, 74 years old with history of C34.[address] DLP: 614.90 mGycm Automated exposure control for dose reduction was used. CONTRAST: CT scan of the chest, abdomen and pelvis is performed with Oral Contrast and with IV Contrast, patien t injected with 100ml mL of Isovue 300. FINDINGS: CT chest: There are mild emphysematous changes with upper lobe predominance. There is mild interstitial scarring/fibrosis in the left lower lobe. There is no suspicious lung mass or nodule. There is no airspace consolidation. There is no pleural effusion, pleural thickening or pneumothorax. The great vessels and chest are normal there is no mediastinal, hilar or axillary adenopathy. No focal osseous lesions are seen. CT abdomen and pelvis: Gallbladder is normal without distention, pericholecystic fluid, wall thickening or gallstone. There is no biliary ductal dilatation. There are stable small hemangiomas in the right and left lobe of the liver. There is no new liver les ion. There is no organomegaly or focal mass of the pancreas, spleen or right adrenal gland. There is a stable 2.7 cm left adrenal adenoma. There is no solid renal mass or hydronephrosis. There is no retroperitoneal adenopathy or hemorrhage in the caliber of the abdominal aorta is normal. The bowel loops are normal in caliber and there is no dilatation or obstruction. No inflammatory welsh ges identified in the bowel wall and mesentery. There is no free intracranial air or fluid. There is no pelvic mass or adenopathy. There is no free fluid within the pelvis. No focal osseous lesions are seen. Soft tissue the abdomen and pelvis are normal. IMPRESSION: No evidence of recurrent or metastatic disease within the chest, abdomen or pelvis. Incidental findin gs as described above. [facility], , 02/25/2025 3:43 PM
== END | disposition home or self-care (01) ==
LOC: RADCTMAIN 13:01
PROVIDERS: ATTEND Internal Medicine Hematology & Oncology
DX: C34.81 Malignant neoplasm of overlapping sites of right bronchus and lung (principal); C78.7 Secondary malignant neoplasm of liver and intrahepatic bile duct; I10 Essential (primary) hypertension; E78.5 Hyperlipidemia, unspecified
CPT/HCPCS: 82565; 84520; 71260; 74177; 36415; Q9967